=== PATIENT | female | born 2000 | race Caucasian/White ===

== ENCOUNTER 2023-10-27 14:08 | Outpatient (OUT) | payer OTHER, SELFPAY ==
--- NOTE | 2023-10-27 14:10 | US_ITS ---
The [address] [address] Patient Name: ZEV YAP MRN: [id number] date: 2000 Sex: F Assigned Patient Location: [facility] Current Patient Location: [facility] Accession/Order Number: [id number] Exam Date: 10/27/2023 14:11 Report Date: 10/27/2023 15:44 At the request of: JOE WOOD Procedure: US OB transvaginal EXAMINATION: US OB transvaginal HISTORY: MISSED MENSES COMPARISON: No relevant comparison available. FINDINGS: GESTATIONAL SAC: Present YOLK SAC: Present POLE: Present CARDIAC: Present UTERUS: Normal size and appearance. OVARIES: Right: Normal. Left: Normal. CERVIX: 4.4 cm in length and closed. CUL-DE-SAC: Normal. OTHER: None. AGE BY LMP: 8 weeks 2 days SUE BY LMP: 06/05/2024 AGE BY US CRL: 7 weeks 5 days SUE BY US CRL: 06/09/2024 US/US OB transvaginal IMPRESSION: 1. Single live intrauterine . 2. Limited evaluation on today's study due to patient body habitus and a retroflexed position of uterus. Electronically authenticated by: TEENA RASCON Date: 10/27/2023 15:44
== END 2023-10-27 14:09 | disposition home or self-care (01) ==
LOC: NOMS 14:09
PROVIDERS: Visit Provider Obstetrics & Gynecology
DX: Z34.91 Encounter for supervision of normal pregnancy, unspecified, first trimester (principal); Z3A.01 Less than 8 weeks gestation of pregnancy; N92.6 Irregular menstruation, unspecified
CPT/HCPCS: 76817

== ENCOUNTER 2023-11-11 10:37 | Outpatient (OUT) | payer OTHER, SELFPAY ==
--- NOTE | 2023-11-11 10:45 | US_ITS ---
[address] [address] Patient Name: ZEV YAP MRN: [id number] date: 2000 Sex: F Assigned Patient Location: [facility] Current Patient Location: [facility] Accession/Order Number: [id number] Exam Date: 11/11/2023 10:46 Report Date: 11/11/2023 11:37 At the request of: JOE WOOD Procedure: US OB transvaginal EXAMINATION: US OB transvaginal HISTORY: MISSED MENSES COMPARISON: Ultrasound OB transvaginal 10/27/2023 FINDINGS: GESTATIONAL SAC: Present and normal appearing. YOLK SAC: Present and normal appearing. POLE: Present and normal appearing. CARDIAC: Present. UTERUS: Normal size and appearance. OVARIES: Right: Normal. Left: Normal. CERVIX: 4.7 cm in length and closed. CUL-DE-SAC: Normal. OTHER: None. AGE BY LMP: 10 weeks 3 days SUE BY LMP: 06/05/2024 AGE BY US CRL: 10 weeks 1 day SUE BY US CRL: 06/07/2024 US/US OB transvaginal IMPRESSION: 1. Single live intrauterine . Electronically authenticated by: TEENA RASCON Date: 11/11/2023 11:37
--- OUTSIDE RECORDS SUMMARY | 2023-11-11 10:46 | XMS_ITS | CCD ---
Author Name Unknown Address [address] [facility] [address] [place] [address] Organization [facility] Care Team Providers Care Field Account Manager Name Role Phone Unavailable Primary Care Provider UnavailCHAPIN Porter Attending Unavailable Jossie Krueger Unavailable Viral Galindo MD Primary Care Provider [phone] Medications Current Medications Medication Drug Class(es) Dates Sig (Normalized) Sig (Original) amoxicillin 875 mg oral tablet (1 source) Penicillin-class Antibacterial Start: 06-23-2023 take 1 tablet by mouth every twelve hours Amoxicillin 875 MG 1 capsule Orally Twice a day for 7 days May, Active ofloxacin 3 mg/ml otic solution (1 source) Quinolone Antimicrobial Start: 06-23-2023 Ofloxacin 0.3 % 10 drops into affected ear Otic Once a day for 7 May, Active Completed/Discontinued Medications Medication Drug Class(es) Dates Sig (Normalized) Sig (Original) naproxen 375 mg oral tablet (2 sources) Nonsteroidal Anti-inflammatory Drug Start: 10-05-2022 End: 10-14-2022 take 1 tablet by mouth twice daily at mealtime naproxen (NAPROSYN) 375 MG tablet Take 1 tablet by mouth 2 times daily (with meals) 20 tablet 0 10/05/2022 10/14/2022 Discontinued (LIST CLEANUP) Problems Problem Classification Problem Date Documented Da te Episodic/Chronic Menstrual disorders (1 source) Missed period; Translations: [Irregular menstruation, unspecified] 10-26-2023 Chronic Other connective tissue disease (1 source) Plantar fasciitis; Translations: [Plantar fascial fibromatosis] Episodic Other connective tissue disease (1 source) Plantar fascial fibromatosis; Translations: [Plantar fascial fibromatosis] Onset: 10-06-2022 Episodic Other upper respiratory infections (1 source) Viral upper respiratory tract infection; Translations: [Acute upper respiratory infection, unspecified] Episodic Otitis media and related conditions (1 source) Otitis media, unspecified, right ear Episodic Results Test Name Value Interpretation Reference Range Kaylah itellen COVID-19, Rapidon 10-14-2022 SARS-CoV-2 (COVID-19) RNA AMANDO+probe Ql (Unsp spec) Not detected Not Detected [facility] Comment on above: Rapid NAAT: The specimen is NEGATIVE for SARS-CoV-2, the novel coronavirus associated with COVID-19. The ID NOW COVID-19 assay is designed to detect the virus that causes COVID-19 in patients with signs and symptoms of infection who are suspected of COVID-19. An individual without symptoms of COVID-19 and who is not shedding SARS-CoV-2 virus would expect to have a negative (not detected) result in this assay. Negative results should be treated as presumptive and, if inconsistent with clinical signs and symptoms or necessary for patient management, should be tested with an alternative molecular assay. Negative results do not preclude SARS-CoV-2 infection and should not be used as the sole basis for patient management decisions. Fact sheet for Healthcare Providers: https://www.fda.gov/media/855387/download Fact sheet for Patients: https://www.fda.gov/media/412228/download Methodology: Isothermal Nucleic Acid Amplification Specimen Description .[facility] Rapid influenza A/B antigens on 10-14-2022 Flu A Antigen Negative NEGATIVE [facility] Comment on above: for Influenza A Anti gen Flu B Antigen Negative NEGATIVE [facility] Comment on above: for Influenza B Anti gen. [facility] Outside Recordson 03-18-2022 Outside Records [id number] [id number] Summaryon 03-16-2022 Coding Summary HTMLBase 64 ZvzsluydSOc4sNt+PGhlY WQ+TB6LJOJxU33vvKZrlH 8ZP7bVYJ0LFHQTWIPUUK6 UER4hqMC8ZEfiA0JtjbBd LajssJLnIU30ZSo0MDA8i GdgZFhugV2kuBRjT5b4Lp WuPN61nN93VFukXYXiYaG 3LjZpbjsgbWFy Y6qvQgOqbRVjFmg+PHRhY mxlIHdpZHRoPScxMDAlJy XziAsbLO6kZp6aJGOjEVP vbGxhcHNlOiBj p0dyVYCuQMucWP0umVeqM 4BsjIZ2EUXqh1f8Nd62aX I+IZVeWVO7nMclKLqqo03 5ZiDmm5aaCTK0 yEMhNGrjYUJ2F90wo3K3N QZmAESzIUJ7wGM6iG6feA afdlchB1CjvKFeMqC5NRM 3pGWfxA3lmXxw hiespY3kMko+B93PIC9DR QLUVF9NFkd8W0OrWmjahR I+SD84RVCpAG28cGJbnPS da6toeTj1LkUj QKAiILW6wAdlRNcaq8MkG DSkE28euLFkt7F4BEFduJ orgOErKiWuiTR2lY4lXZv qtanwo0qlagdj Tiuuw1bmog32gS38D71tX OfwWFCrSRB0KKSbNXWrfP pcgr4dzW3aKe5+IRmbm3t dm1qrcLj9DiVl PPVkvrXsnKtzWRH3i0HjT m24U7GivHbmm1DaLlg9rr 79vBZry7N8eEK1BEjrGBP uwB2cHCehPcV8 SENsLrKszC41lGZbDNysS a0juDndyVhpKL4hEWRlxj ooDZXtxP5bDUEhkUJdhWu aDE5oAVJawroc b766DcUgNIT1UXRvhRTsF 7RclF3cJdXnSJDcGRNwL6 UqrUWzEUcjQ127TJzsLxW 0KEEnpkPnI5Ls HMNtnHykNhH7a1U5Fr7Xt 2KhufxfEYM1ZOdyJTM3Jr PvYpFhGmI0A0XxVeh4NJZ djYflZV3aO1Pz DNBzwpqfjdeeyBL8IALeZ EVycG82wKJnMNfnJx1cc1 Y4q451XCMeBPEpuZ27Jp8 udDogMTBwdCBU jP7uludmc3yrydkkQfSlH YYiYRo1EUk7BQZhlZoxUh YgTHL8UnZ3IFY5rBBzoC7 cuJrwjudsaV4k Oyc+M54jcC4uWSP8PGC1g xlbUIPrcaVhKP43OO84F2 RyPjwvdGFibGU+PGRpdiB nzJfjTR8qTrOc c2kby9KiPQpeJ4ZpRDIsS CruDpn7NWGnZWG6bXQ6cZ 5jNGYfQXzeo0A9wIX5T9Y tuqGmfe9sm3qo HNSbGIwzA54trDEpl3A7Q JGemKO3WYOuzBedPiEoxA 93Oyc+MAXgdLsyf8IkYha zm2mco6alrVq5 SqJrXAQgpvXioCzhFGM0e 2UsDj58W10fUGzaQAHvAB VsYJNbZOUawWkwso7zlX6 wIi8+PGNvbCB3 dII7nM5tVQLpFnK3VAquA 596XwZhcNEkHcyzx0bta9 ckhCw6XoJwWGRbjiNknZw tEOL5s9DfLt55 N03tRIuhBOQxWLNiOMGwP RSubIehzp8laT4sJg7+PC 5zf0nxaq45gL27yQQ+PHR tQBZ8pBqwQNzu PJBikZ5fGAbzZlJ3NNKkV hZzdD45cQQuUQujMc8tqL mgeYrdPK9uRGUtiflts06 6DzOir9ggOPQv qOFnIIoeLNN8B94pi8D9S ZDyNEDzZUC8eMK7dW0aoA lnbjogbGVmdDsgdmVydGl hICntWWnoD822 IHRvcDsnPlBhdGllbnQgT uJvKTa6M2XzWic2PDUrhB ksNZ0alNRzDMzjHz0quSp caPhtGN8tOXZp hwyxx493AgMfi7oeFLAyu CSxNVlnXOD3H76fh2D8OH KvUSIvWSR2vYD0zZ0yaEa nbjogbGVmdDsg wjWvlAhwYSvpKAwaN209I HRvcDsnPkJpcnRoIERhdG J3GN40OG68iSKbc8P7kIC 8A3HlXWOaxgrq bohyhZR9FUPlDCObrY98F r0jrWzcJh9rOKReJXF6VI YzbCVcS5KlhX4tQeUbPJC fSPYcR2NhbJOr VZzaE323AIeuBiB7BWPsz zCnS2KhNJWtiVquWhQ6l5 P2Sc2QQ0Q4SM54JL44cJY ke8D9eRN7I9Bg PKIuhtkojwxwsRU6QFJfB DXkbS49Em6mkFutLu4cCT GoGKF0OJBhlZYuD5SqsQ1 yOiAjMDAwMDAw V8NwdNXiHRrmN435CBgvJ tA4MEPirmBlE7ZmAWBjyL xsFvB5n4C7Te9LPZx0UF6 1PA18dYCug3G4 zVP2W9GwCWYieoqbkncqx TB3CRFfODDqvR26Yl5alZ srKg7jLAUqROO5EDOgbQY sR6NbkS4lCrDh UIZkJFCuB6TanACbPTonW 882SGqqFfC3VWSetxSgH7 EgQPMgrUjdIvI4y0F8Rj5 LEDRcZF24EZI6 uIB6BG65GH19I4QvCviht GFibGU+PHRhYmxlIHdpZH RoPScxMDAlJyBzdHlsZT0 cGv8tRTXvTBFr yDtgzBSwZhSrp4pqLMHqV MtvJX6lbSfuH1VcoJG9TJ Xal6n3Mc74Y97bT6DuuLS +PFHvaFV7mJS7 lQ7jDlVcQhO3GCmnF935B fTyfJQsRgect5klt2zwkM m2MeZ2MLJfhmPvuPvkBHX 2q5LjQg62F73c IHdpZHRoPSIxNSUiIHZhb Xmrbm8asD0iZq7+PGNvbC S7gIR5qH5lVbHsTyG0JRk qG567UxDviQJk Bngxs8vxq8aooMj0EmVcD NVwccCxjUtlANF0x8ZsRu 95Z9VexOjpl8RkMsp7gi8 2oRYpa9V2eLQ0 P5YbARKdgfkviDMxyNvvJ V1zFOVflxjuNLHwqI8tCX DyP6f2HnKuDzV4ITwrI1G jygA1PVUtjPUn SGkcDAO7L96nq7Y3OSHhD NLtBYF9nMS2qR5nmEzbsw ogbGVmdDsgdmVydGljYWw yKIafQ706DKMj yKfrJZCrsZ1vYSQqcFBvr EhpDQ7aVJQwbpbcXhEFIR xBUkQsIEFMRVhJUyBTSUV YAyI9T0PrCfx0 NRPiwKfnXU3lzGFlFYndO p7liBkycEoxDA3nAKZxfw jyDDYfqB7iPYAmiCSgeBa nSE2fYUNhceve x150UsNiJGT9JBVfkEFwO 4OpeQ6kGuGmVKSsXQQyS5 LstTCkGOtqD857BRobEtH 9GFGhdsZkA2Rl OMNtgXlyAlC7n3N9Kp0nB S3pFK2bANc3LE24NQ48hV Sjn0L3uBC5Q4GvGLZgcvj ugrmikII6XKZo IYOlmS39jFUgFGpmCi2ld 4E7k908CDGrBTCltK11Hr 2rxDlnSDBumCZUsZ9prjf hw5cnszyhGaDk ACAoZBv1RAa2QTFbhTdwU dQnSMC3WfD4XMV7yAUunR 0uyLqphwulvL8dFhp+MjI kKLWpcmI3B3Yn Onn1DDWmaHseJP9osDRvY OlhHv4niAznaJhdQG2cWG SdgimlGIOlhJ1cNEVyjSR edPuuVE9sGGKh speeg613BxMoPPD0DBGrp AWgY7GypS2iBpTsONGnQZ HeY8YceBXwZHxdZ720WCm wRhR4EOEqxuNb L3ZwQUTmlAjtNsA2o4J8S c4SBE6XUGI1S9WrNri6OL LitManIY0vkLVaZAqdXf2 qrRfliHylOD6d WXXnhinrJRQzkP2lTVUvj ZYstMlaYB8jSUFgfkehy6 77JnHvFCQ9UYZfhFJzS0Y nmT2jVtZpQDDq QWCrK2PbmCDdRHvnE642F BkkDeG6XBWyayLzS9FiWG KcyEhaGdT9m8W7Lp4GZGg vdGQ+OM55ri46 I1NwEpouOee1RAAjYRL3b ID7pE6kDNYdMHobp7I7bM C3A9FvyiWpek5hy5zrSLZ eGMhoO92fjXGd m1Y1RKYfvKZ8HMVrwGqpO lYfiF23Mes+PGNvbGdyb3 GySkbgu8res8vpjVg6HtX wJSIgdmFsaWdu NYD9q4VbWq77Y98lUKexE HRoPSIzMCUiIHZhbGlnbj 7igH5cQj7+GGCcxCP7nJK 2tL5vVeZmAuP2 ENnqS338RlKdnJEoYmbiq 8tcf5qwgGy0QkPzNFGzxa CyxDuxXUQ0y4HgJu20N6Y toPtfn4EdIxr5 rf22uSIxa8L3zZM1N7GnA VXkutzroQZvlQpnYO6dMI YsuzedQRMqkL3oUZLxT8w 4BaTmWzI0HYhw F6EolcR4IFFnfYFjKLCgz YJBlG0durmis5vdtzsfKw ZiISJhNPv7AKt7JSPciPv aSjDfZWA4DlT9 ERS1hSNoqK3seVdmpktgx G9wOyc+QHd9o0cbgBXmTK 9yvNN4UB93QP06jGXgp8P 5tSQ2N4UgIMNw ufgbhdyjvDE2BLJkRXJxp X14Pl9ztEctSb1mQPByOQ G2TPEafXEtK1DleA8hVhQ wRRGkAFXsP2Wb iBKfGThiS866ZLscGdF0M OEefvZvJ6QmDGLkiQnmEl V5o8F0Uh8QAJ63BF38HQ8 9vUXmh2C6aEH8 P5LdJRBldqkarrnhyCF5B TUvBNQycO56Nj3plGhnUy 3zHYXiBSP0WZCvkDNdU4O piG1xFwPzQTXi CPGsX8CxnADrXPshQ109H McjSqJ0NWKwilFhR1FcDW GnxCnoZlB6d8V9Oq7HQc4 2PP74AV39tJMi z2U0mAQ8A4LqUMCuvjhnq nbxbTT3SYErVPSxyM91Yg 9vfUnbDg4kDXWvUCQ1CNP fpPWsL7XcfW4b XvKvLDKnDOHdZ0AcuBLfO AsyY667NAceDkC4FJFxqp GhA8QpYEMqtXrvSpD5z8Q 3Is7SXOaofvj7 K6KmPagwtEI+YP72JCMzO X46pYAmzOJkt8hhrAy5Dl ScZLQsEUE4yQjnWOvti3U jPCVlX85iiSSb c2U (more content not included)... [facility] Coding Summary HTMLBase 64 GowjugilEFh4zOp+PGhlY WQ+MY0FOREnR05jlZEtdV 0WP4vGCD5TOCDGUJSNSM8 ZOU4qtYA7XErcZ0BbfpHs JwxzkEKcCH45MWk4NYB9v AjlPKwcfX8lsIZgV2v4Dr QeEI35wK80YPdxVTDcSeT 3LjZpbjsgbWFy B0iiKrGrhPUoKlx+PHRhY mxlIHdpZHRoPScxMDAlJy YndHynPJ0tNy7wILDmYYR vbGxhcHNlOiBj u2ggELQxUCbaKI8qrNalB 6YbmVM9RGUgj7y8Ia72aY I+IPTuDLW6mMihVTccw46 0FaRxo8rkACC7 sXJpYQftOZG3D28ws9A7I TMgMDJqWEQ2pFM8hG6uxR rjphgqA1DnqCPrUyN1FOL 3tGGqjF3zmGzo wgikrL9xWoq+E09GEY9NA UOKFP4KLtr7Y6VqBjzrzN I+EP95ILZwMJ80hCVbkTL gw2brwCs1TrHp SQUnDPD4hRuwKPfir7NeD LEqS04qjGSny9C9DVSggF cesYHfNmYblAY1kA4oHQh eevqty8bbdcbq Uytgk5kzwu21yU24Q05fT PwwHUZlBTL4AIVxDQEqaV luof0beT7aBi9+KWmxu2k dq0xxlXh0NoNu GUJxpzAgqDwcCIR5z6QyL g01D5IzzFuhx4PfOco9cd 92gFYaa3X0nFL1SXpaXWZ jxB4cPUkwWbZ9 FMZuNuGzyT87qDTbLDftB h6fdZiqaDvfUM6dUPKnlg byWIQnzD3cJQImlHJiqWb jMF6dEMAubyqv o661ZaHsKXQ7PWDvnOPvW 4AcwL6qIgVmYVEqYFScA9 HljMUjBWkjN152TClmWcM 9REBgokNxB8Eh EIBawTcsVlG1v0Y5Tc5Fx 9RsxyzvIQM9VPthYYJ2Lv ApZpOjRxH2B1TgGok1ITD eiWnrRX5pM0Ac LXVdjmbzvvwiePZ2RTCbR UUmhD19nGJzSOxsMf2oa9 G0v975QOUyOMLrdD69Qf7 udDogMTBwdCBU jJ7alwtox6gcbwgtSfZaS CHaBBz5UDx4QLYnaKfkXn CuHQH8MqI2HUL1nURlaN9 liBkugbglrH6q Oyc+S55efS9uBUB2SMO9t jvgYOIxcyZnQT61ZG15K4 RyPjwvdGFibGU+PGRpdiB jcZmrPX0mSuYa k1dxw4BhQWcyI4PbEQQsJ YbaTid7GWPjKWJ3fDM6iZ 1eBDYhJUdng6Y4tYX1V6B towJyfk4gk1ul DPBqNKpfV65ucTWvd2M2F JOldOU8BVPfqBujAmGtgN 93Oyc+RNCzySeeg5SdPid cj7was7dluVm9 VaBsVPYpqhRvsZgdTAF4p 9VtBo30C36qYGqwGXOhFH QsBDJaFKBylRubla6qqL9 wIi8+PGNvbCB3 jXZ2lW5aTTLaNeA7ODdwD 324JxAwtPBfQwbie7lwe2 mceEh1HpUtHQRsfjKrzKd kZOH9x6EmLm50 N42bBAigOOWoPFPdAVGfT YTtlXpeun1asP9vAl4+PC 8az8fwkt46sR98oTJ+PHR tVPO0oPazWCke VBLrnH4fTOidAxB0MRDsM yYliP08mOErDEiiLu5rlY giuOyiQI5tQWQrfraue32 0DrUox5nxOMSd mKLjEFidKXI5H25ym5H9B TIyJDXlQRZ2jYH1uC6whO lnbjogbGVmdDsgdmVydGl uVIbcTEkgX169 IHRvcDsnPlBhdGllbnQgT uEmMDp4G8ZpIxg6QNMpqK cdAB7nfXEmXQxgRv8kwBf dgGwtYR6yZQVx krkur564CjKvh7ijHNMqt BScXEobSUR3Z45im2L4JF GdSGRyHRN1wNE4aD0zzYx nbjogbGVmdDsg mtRakFceGCsiBKecB188N HRvcDsnPkJpcnRoIERhdG C7WT25IS17tOMih4V7wJG 4S7QtOICzezke mlpwfLZ8CFSmHIKyrA38S c3jrFehKp2gIDMtYLZ9ZP KcrJKsO3GitV4eWaImGEY cYKTsD0KkdXPk OVakC312ELdfNbG3DFKpr pHqC7CpQSMnnTogIdG6g9 X7Rh5EA1J1FP58GC62zBJ vk3G6jQB5N4Nh ZKUvooktsrywfWR2BPXuH LUgzB54Qp7uxRgcFp9wNW QuRXM2FIVjiZWcZ0VzhU3 yOiAjMDAwMDAw M9RfbPSrRFidV722HDquQ kF5EECpkyHfC9XtCKSicZ jfMnF5i1B8Fe1ROHv3CP2 4KP14hDDyp7K5 jEA0L9IoXEAecutdwtpvx JD3ZOChYAYgtD92Ia7joH anLq5tSAXgMDI8RWTkrHQ aQ9CeiJ2jPhUj XEYfKRBfM5QqjJVhEZzqW 938BQycUxH1ZWOaitCeQ0 YiGWWebQxwRfQ6w8Y0Di9 VUUQxNW52HLJ2 iZT7ES28ZF09D0NpMubty GFibGU+PHRhYmxlIHdpZH RoPScxMDAlJyBzdHlsZT0 vBn2eVHJuWHBb mEfyeQDqJeBjk9aeHERqG JwhBY8kuPdbX8KugOK3II Cny9o7Bc97K19kK8NsjKY +WQZmkFH7aVO9 uE4lJzNxHnS2UUgyN341G cLoxJIkFodia7zlz8mfzH p2OzE6YAXdjaOnmXuzXTQ 7p5VfLs58X16v IHdpZHRoPSIxNSUiIHZhb Ylulj9bkW4gAu6+PGNvbC R8gWZ7eQ3gJdTuQoA0GFd aW723XtFaoDQb Fgtyy7iju8uloCu6VqYsB RCmsjPcsInpCPF7w3FfYc 25J0PakWgql1LcDeu5sn8 7oRJel8H4wOK6 V3DdQGQffwcuwAQymByzO S2pBONjrtupROLszM3nPN FdB8x2DpKqMxE5QCqjI4Y bvtK5BUDpqPCy UJwnHFA6C55cu0B6QEJgW RBlABZ6jJI7aZ2jaNpnbd ogbGVmdDsgdmVydGljYWw zOCnpU415AVPo sZnvXMQhrI6uZKLuqUXci PbxAM3gCSLahcyeHtVCHG xBUkQsIEFMRVhJUyBTSUV NHrK1H2VuBzj2 GUBfxWnbED9xlKPuSOdcZ m5jsPvfaDokIP3eNTZcev txIGSrbU1uXFUtcDUgqCk jLY8kILWpxphs u796YbTpGQR0SRGfiSLcG 5JgwV8jHiYsIWMdIEHsB2 YbpJRtWJhlF753HJrgAxV 5CRDafeJaP1Rh YXRgmYaqAvJ1q7L2Sc7lJ Y8qGF9gMCt8II16ZZ28gH Xms0A9cGV1H8RdOTVosyz skonzvTK6CIGr AMSnfA24sKScPOmiTh8mv 8M4c001EFIsSRHieA27Up 3olHesLQAcbBSMtZ7hvmz ww8kawtjpIwOi ETPcAXu0CLv0IFBrvMdmY uRuFHV5EgI4XAA3fQGdjU 4rrGhijndxyF4aBqx+MjI gWTMoxyF5T6Wp Gri7MHIrkBqsEY4qbWSbR EdlFs2oqAeklTbyGN4nHQ JbymfpYOFelQ3gZOPdvCD eoAivLJ2mDBBs rwfxj836CuRmBFW1VSBcf UPzT4EseU5gNwYsIRTpBW LlO2TbxFQuABlnC657SSr rXaZ3TAJlibVq K7YsZRPmyGqdZjE5r4X2G t7QWS0HMCZ4C3VgSae4YD UbbGhkJI8beGVjEQbsSt7 ybVljrMkkBD9b QVNyvhotDXBpkH7uLFRwr QZpyUfsHQ3bEEWamuxrm2 96CiZbORA6PRQdyARsE5G xfD0yVjSpKZJr VYKcM2WupBJzDDltP795Q JbmVcP2IYLlrhUnU5PaCA RzzLkxSwQ7y5Z7Vp7PuHL nH3GhM8u8S0Xv PjwvdHI+SM21NPGkLD54p AMavRCfn5rgwPm5AhQdZS CnOQP3tVsqWWigq3KsOGE vD85yaHLuw4C3 TLSybRtwpPEgEfRrkGO5s F5cDByaifmhq0thozekBk aul0yyqh09mR48M50vCDa pZHRoPSIzMCUi WYRhgRuvdn8ybH8fYe2+P PYfoWV6oCO2tA9nUpCyVu K4OPxaJ164PfXacURdHln fk6dha7lypTl7 UxDaDISpckDwwRcoQMA8b 6UmHc39X88yDYmcXDZkCB MfGNYnCIIrsEhgrw8rzD1 wIi8+WX0xf8hq cb78gJ00oCP+UVXyVBG1t KqwUJmcDSKazK7jFAziLk H9GHMwMaCclK96qKCpHIb sIv0khOexuKbj XG3yGLQjhleew213ZnFhv 5ouNCBufJZdTOemRST6L4 6xa5R6DTNwOAUjMNO4pDU 9bM9jcDuzcdqc bGVmdDsgdmVydGljYWwtY AvsY907NUHteBmrQdMtvV FbD8tyyiOLHZ1xFjkdcSO +KEXbVQU7bVze PXrmPFIrgZ0eUDAlV5p2K uFvQyR4XAelU6SyioF1EZ ZmuWHeMSNccHYYpP2jkfj fp2qixdyhBdQf SYJoMTz8YCb1PAPhbDwyQ vCyNDJ4IwQ0ULF2dJAgkM 1ykVwalrfqcP8dFgs+Rkl OOjwvdGQ+PHRk DTK9rDlpPJynKQSkaC6zE MLjS5a9GoImWsX4QOycM5 VylfV5WLRxnGEtVLTecEW XnG6xafarf6js txekRnNfZIYsABs8CHo1D WHasCacTiLyVWA6OkB7VJ V5aEPaiM7gyBlotnixxE2 wOyc+TVJOOjwv dGQ+QPJmSMF1fXjbLRhiF KPykS5pNBYpG7n4AbEgNh P3FPonD7TywoK5ERLrbXX hLJKrzXRZoB4c zcofa9btkhukQhLtISOtW To1DVv9UEIsfOxwRjTrJD W9YiG2EYR9fPJvxG1zjRn coqwziR7uYsl+ KWE5NPV4OO63CH79J8PsA jwvdGFibGU+PHRhYmxlIH dpZHRoPScxMDAlJyBzdHl rIH1dDw8vETJp LWN (more content not included)... Normal [facility] ED Clinical Summaryon 2021 ED Clinical Summary [facility] - Emergency Department [address] [place] [address] [id number] ED Clinical Summary PERSON INFORMATION Name: DIETER ALVAREZ Age: 21 Years Sex: FEMALE : 2000 MRN: Acct#: Visit Reason: Hand pain-swelling; FALL- LEFT HAND PAIN Arrival: 03/08/2022 18:36:24 Discharge: 03/08/2022 19:37:00 LOS: 000 01:01 Check In: 03/08/2022 18:36:24 Checkout:03/08/2022 19:37:00 Address: [address] [place] [id number] PCP: Viral Galindo MD PROVIDER INFORMATION Provider Role Assigned Unassigned Sudhir Samayoa MD ED Provider 03/08/2022 18:38:47 Marry RN, Isabela Daily ED Nurse 03/08/2022 18:44:08 Cinda Mercado RN ED Nurse 03/08/2022 19:16:18 VITALS INFORMATION Vital Sign Triage Latest Temperature Tympanic Temperature Temporal Artery Pulse Rate 124 bpm 124 bpm O2 Sat 99 % 99 % Respiratory Rate 18 br/min 18 br/min Blood Pressure /95 mmHg /95 mmHg MEDICAL INFORMATION Medications Given: Allergy Information: No Known Medication Allergies PHYSICIAN DOCUMENTATION DISCHARGE INFORMATION: Discharge Disposition: Home Discharge Location: Home PATIENT EDUCATION INFORMATION Instructions: Metacarpal Fracture, [id number] Follow-Up: With: Address: When: LindsayTristian Alex DO [address] [place] [address] [id number] Within 3 to 5 days DIAGNOSIS: 1:Fracture of fourth metacarpal bone of left hand Patient Understands: Yes - Patient/family/caregi joseph verbalizes understanding of instructions given Comment: Normal [facility] ED Note-Nursingon 03-08-2022 ED Note-Nursing Patint arrives to [facility] ED via private vehicle. Ambulated with a steady gait to ED room 3. Alert and oriented X4. C/O left hand pain. Patient reports falling down steps 10 days ago. Patient reports pain is located left ring finger. Reports increased pain with movement and touching. [facility] ED Patient Summaryon 022 ED Patient Summary [facility] - Emergency Department [address] [place] [address] [id number] PATIENT DISCHARGE INSTRUCTIONS Patient Information Name: DIETER ALVAREZ Age: 21 Years Date of : 2000 Reason For Visit: Hand pain-swelling; FALL- LEFT HAND PAIN Arrival Time: 03/08/2022 18:36:24 Primary Care Physician: Viral Galindo MD Attending Physician: Sudhir Samayoa MD Comment: Visit Diagnosis: Diagnoses This Visit Fracture of fourth metacarpal bone of left hand (S62.305A) Hand pain-swelling ([id number]) Prescription Information: If you have been given a prescription for narcotics, seek immediate medical attention if you have any difficulty breathing or any sudden status changes such as confusion and sleepiness. If you or anyone you know is experiencing suicidal thoughts, mental health, alcohol and/or drug addiction problems; contact the [facility] 18/04 Crisis Hotline -Text 4HRUK db 297826. If you received any narcotics, sedation, or any other medication that causes drowsiness for the next 24 hours, unless otherwise directed: ? Do not drive a car. ? Do not operate machinery such as power tools, lawn mowers, drills, sewing machines, or stoves ? Avoid alcoholic beverages and drugs for allergies, nerves, or sleep ? Do not make important personal or business decisions or sign any legal documents With: Address: When: Tristian Montoya DO [address] [place], [place] [id number] Within 3 to 5 days Medication Information: The exam and treatment you received today in the [facility] Emergency Department were for an urgent problem and are not intended as complete care. It is important for you to follow up with a doctor, nurse practitioner, or physician?s trust administrative assistant for ongoing care. If your symptoms become worse or you do not improve as expected and you are unable to reach your usual health care provider, you should return to the Emergency Department, we are available 24 hours a day. For those patients who have received Radiology results, the interpretation of your X-ray as given to you by our Emergency Department physician is only a preliminary report. The Radiologist will review your films and if there is a change in the diagnosis you will be notified by phone. Please make sure you have provided a working phone number so we can reach you if necessary. In the event that you had a lab culture while you were a patient in the Emergency Department, you will be notified by phone if there is a need to change your antibiotic. Please make sure you have provided a working phone number so we can reach you if necessary. [facility] Emergency Department has provided you with a complete list of medications post discharge. Please inform your pen ruler operator/provider of your visit and for further instruction on these medications. Any specific questions regarding your chronic medications and dosages should be discussed with your primary care physician(s) and/or pharmacist. Medications to Continue That Have Not Changed Other Medications amitriptyline (amitriptyline 25 mg oral tablet) 1 tab(s) Oral once a day (at bedtime) for 30 Days. Refills: 6. Visit Information Allergies: Substance Reaction Symptoms Type Comments No Known Medication Allergies Drug Vital Signs: Vitals and Measurements this Visit (last charted value for your 03/08/2022 visit) Vital Signs This Visit Temperature Oral: 36.8 DegC Peripheral Pulse Rate: 124 bpm Respiratory Rate: 18 br/min Systolic Blood Pressure: 145 mmHg Diastolic Blood Pressure: 95 mmHg SpO2: 99 % Oxygen Therapy: Room air Measurements This Visit Height/Length Dosin.640 cm Height/Length Estimated: 167.640 cm Weight Dosin.080 kg Weight Estimated: 163.080 kg Problems List: Problem Onset Comments Depression Female pelvic pain None Smoker 28-MAR-2014 12:37:00<$> Added secondary to documentation in Social History. Patient Education Metacarpal Fracture Use Tylenol or ibuprofen as needed for the pain. Follow-up with orthopedics if symptoms persist. Return to the emergency department any worsening symptoms. A metacarpal fracture is a break (fracture) of a bone in the hand. Metacarpals are the bones that go from your knuckles to your wrist. You have five metacarpal bones in each hand. This fracture is usually caused by a fall or an injury that crushes the hand. This injury is diagnosed with medical history, a physical exam, or imaging tests, such as an X-ray. What are the signs or symptoms? Symptoms of this condition may include: ? Pain. ? Swelling. ? Stiffness. ? Bruising. ? Inability to move a finger. ? A finger that looks misshapen. ? An abnormal bend or bump in the hand or finger (deformity). How is this treated? Treatment depen (more content not included)... [facility] XR Hand Complete Lefton 02-24 XR Hand Complete Left EXAM: XR Hand Complete Left HISTORY: Fourth metacarpal pain after fall 10 days ago COMPARISON: None. TECHNIQUE: 3 views FINDINGS: Volar angulated fracture of the fourth metacarpal mid diaphysis. Associated soft tissue edema. The remainder of the osseous structures are unremarkable. Joint spaces are normal. No visualized effusion. IMPRESSION: Volar angulated fourth metacarpal fracture Final Dictated by: Viral Pearson DO Dictated DT/TM: 03/08/22 7:39 Signed (Electronic Signature): Viral Pearson DO 03/08/22 7:40 pm Technologist: TAMANNA Normal [facility] Office/Clinic Noteon 07-09- 021 Office/Clinic Note Patient: DIETER ALVAREZ Age: 20 years Sex: FEMALE : 2000 Associated Diagnoses: Migraine with visual aura Author: Viral Galindo MD A History of Present Illness 20-year-old female presents today with complaints of migraine headaches. She has them almost daily. Typically right-sided, pulsatile, will present with visual aura. She has tried taking zzby-bjs-[id number] migraine medication with no improvement. Not associated with her menstrual cycle. She will go try to take a nap or sit in a quiet dark room when she has her symptoms. No other neurological findings. No ringing in the ears. Denies any nausea or vomiting. Denies any significant stressors triggering her migraines. She will even wake up with a migraine. Review of Systems Constitutional: Negative. Ear/Nose/Mouth/Throat : Negative. Respiratory: Negative. Cardiovascular: Negative. Neurologic: Headache. Psychiatric: Negative. Health Status Allergies: Allergic Reactions (Selected) No Known Medication Allergies, Allergies (1) Active Severity Reaction No Known Medication Allergies None Documented Current medications: No qualifying data available Physical Examination VS/Measurements Vital Signs 07/09/2021 8:29 EDT Peripheral Pulse Rate 102 bpm HI Systolic Blood Pressure 110 mmHg Diastolic Blood Pressure 80 mmHg SpO2 99 % , Measurements from flowsheet : Measurements 07/09/2021 8:29 EDT Height 168 cm Height/Length Measured (inches) 66.14 in Weight 139.80 kg Weight Measured (lbs) 308.206 lb Body Mass Index 49.53 kg/m2 Cardale Body Weight Calculated 60 BSA Measured 3 m2 General: Alert and oriented, No acute distress. Eye: Pupils are equal, round and reactive to light, Extraocular movements are intact. HENT: Normocephalic, Tympanic membranes are clear, Normal hearing, Oral mucosa is moist. Neck: Supple, Non-tender, No carotid bruit, No jugular venous distention, No lymphadenopathy, No thyromegaly. Respiratory: Lungs are clear to auscultation, Respirations are non-labored, Breath sounds are equal. Cardiovascular: Normal rate, Regular rhythm, No murmur, Good pulses equal in all extremities. Neurologic: Alert, Oriented, Normal sensory, Normal motor function, No focal deficits, Cranial Nerves II-XII are grossly intact. Cognition and Speech: Oriented, Speech clear and coherent. Impression and Plan Diagnosis Migraine with visual aura ([id number] G43.109). Plan: Discussed with patient we will try medication for prevention. Would like her to follow-up in 3 to 4 weeks. Reviewed side effects of amitriptyline. If no improvement would consider trying Topamax.. Orders Orders Pharmacy: amitriptyline 25 mg oral tablet (Prescribe): 25 mg = 1 tab(s), PO, Once a day (at bedtime), for 30 day(s), 30 tab(s), 6 Refill(s). Orders Evaluation and Management: [id number] Office visit - established pt, Level 3 (Order): 07/09/2021 8:27 EDT, Qty: 1, Migraine with visual aura. [Electronically Signed on: 07/09/2021 08:53 EDT] Viral Galindo MD [Verified on: 07/09/2021 08:53 EDT] Viral Galindo MD [facility] Coding Summaryon 04-30-2021 Coding Summary HTMLBase 64 AmdipikcTHt9sUl+PGhlY WQ+YW8IQFTqD97fpQIljJ 6HU3nQZS9XKZTKEDPYGA2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 [employer] 10-05-2022 23:14-0500 SaO2% (BldA) [Mass fraction] 99 % Chapin Lee MD Work Phone: [facility] [employer] 10-05-2022 23:14-0500 Systolic blood pressure 146 mm[Hg] Chapin Lee MD Work Phone: [facility] Encounters Encounter Date Encounter Type Care Provider Facility Start: 10-27-2023 End: 10-27-2023 Office outpatient visit 5 minutes [facility] Tricia Nurse [facility] Comment on above: Canceled (Provider) Start: 06-23-2023 End: 06-23-2023 ambulatory Jossie Krueger Other [employer] Other Start: 06-23-2023 Office outpatient ne w 30 minutes Jossie Krueger [facility] Start: 10-14-2022 End: 10-14-2022 Emergency department patient visit Venkata Work Phone: [facility] ED Comment on above: Viral URI with cough (Primary Dx) Start: 10-06-2022 End: 10-06-2022 Emergency department patient visit [facility] Start: 10-05-2022 End: 10-06-2022 Emergency department patient visit Chapin Lee MD Work Phone: [facility] ED Comment on above: Plantar fasciitis (P rimary Dx) Procedures Date Procedure Procedure Detail Performing Clinician Start: 10-14-2022 COVID-19, RAPID John Jade DO Work Phone: Start: 10-14-2022 Iaadiadoo influenza Vadim Hastings DO Work Phone: Plan of Treatment Date Care Activity Detail Author Start: 11-11-2023 End: 11-11-2023 ambulatory 11/11/2023 11:00 AM EST Initial [facility] [address] [place] [address] [facility] Start: 11-11-2023 End: 11-11-2023 Professional / ancillary services management 11/11/2023 10:30 AM EST Ancillary Procedure [facility] [address] [place] [address] [facility] Start: 10-27-2023 End: 10-27-2024 US Pelvis transvaginal US OB transvaginal Imaging Routine Missed menses Expected: 10/27/2023 (Approximate), Expires: 10/27/2024 [facility] Work Phone: Comment on above: Expected: 10/27/2023 (Approximate), Expires: 10/27/2024 Start: 04-26-2022 Influenza vaccination Flu [facility] (# 1) [id number] [employer] [facility] Start: 11-17-2021 DTaP/Tdap/Td vaccine (7 - Td or Tdap) DTaP/Tdap/Td vaccine (7 - Td or Tdap) [id number] [employer] [facility] Start: 01-15-2000 COVID-19 Vaccine (#1) COVID-19 Vacci ne (#1) [facility] Payers Date Payer Category Payer Unknown [employer] [id number] 2023-Present [address] [place] [address] [id number] 2019 Medicare [id number] 1999 Unknown [id number] Social History Date Type Detail Facility Start: 10-05-2022 Tobacco smoking status MAIS Smokes tobacco daily [facility] Phone: History of tobacco use Cigarette Smoker B ON [employer] Phone: Start: 10-05-2022 End: 10-14-2022 Cigarettes smoked current (pack per day) - Reported 1 [facility] Phone: Start: 10-05-2022 Tobacco use and exposure Smokeless tobacco non-user [facility] Phone: Start: 10-05-2022 End: 10-14-2022 Alcohol intake Current drinker of alcohol (finding) [facility] Phone: Start: 10-05-2022 Alcohol Comment in a month [facility] Phone: Start: 2000 Sex Assigned At Not on file [facility] Phone: Start: 09-25-2022 End: 10-14-2022 Exposure to SARS-CoV-2 (event) Not sure [facility] Phone: Start: 10-14-2022 History SDOH Alcohol Frequency 1 [facility] Phone: Start: 10-14-2022 History SDOH Alcohol Std Drinks 0 [facility] Phone: Sex Assigned At Sex Assigned At [facility] [employer] [facility] Start: 2000 Sex Assigned At Female [facility] Start: 10-20-2023 Gender identity Identifies as female gender (finding) [facility] Start: 10-20-2023 Sexual orientation Heterosexual (finding) [facility] History of Present illness Narrative 10-27-2023 Zari Wagner LPN - 10/27/2023 2:30 PM EST Note Date & Type Note Facility 10-27-2023 History of Presen t illness Narrative Patient to return in 2 weeks to get a SUE as not able to obtain today. documented in this encounter [facility] Evaluation note 06-23-2023 Note Date & Type Note Facility 06-23-2023 Evaluation note Encounter Date Diagnosis Assessment Notes May, Right acute otitis media (ICD-10 - H66.91) Discussed diagnosis with patient today in office. Advised patient to take antibiotics and drops as directed, complete entire course even if feeling better. Use OTC Flonase and Zyrtec as directed. Supportive care, Tylenol/Motrin as needed for aches/fever, heat packs for comfot, warm compress to affected ear, push fluids and rest. Follow up with PCP if symptoms do not improve in the next 2-3 days. Immediate eval for severe ear pain, severe headache, neck pain/stiffness, pain, erythema, or redness behind the ear, fever, N/V, hearing loss, fever, or any other new or concerning symptoms. Patient verbalizes understanding and is agreeable to treatment plan [employer] Other Clinical Note 03-08-2022 Note Date & Type Note Facility 03-08-2022 Note [employer] Orthopedics Metacarpal Fracture Use Tylenol or ibuprofen as needed for the pain. Follow-up with orthopedics if symptoms persist. Return to the emergency department any worsening symptoms. A metacarpal fracture is a break (fracture) of a bone in the hand. Metacarpals are the bones that go from your knuckles to your wrist. You have five metacarpal bones in each hand. This fracture is usually caused by a fall or an injury that crushes the hand. This injury is diagnosed with medical history, a physical exam, or imaging tests, such as an X-ray. What are the signs or symptoms? Symptoms of this condition may include: ? Pain. ? Swelling. ? Stiffness. ? Bruising. ? Inability to move a finger. ? A finger that looks misshapen. ? An abnormal bend or bump in the hand or finger (deformity). How is this treated? Treatment depends on how bad the injury is. ? If your broken bone is still in place and did not move, you may need: ? To wear a splint or cast for several weeks. ? To have the broken finger taped to another finger next to it (james taping). ? If the broken bone has pieces that moved and no longer line up, your doctor may: ? Do surgery to fix the bones into place with metal screws, plates, or wires. ? Move the bones back into position without surgery (closed reduction). ? After your bones are put together, you will need to wear a splint or cast for several weeks. Treatment may also include: ? Physical therapy after your cast or splint is removed. ? Follow-up visits and X-rays to make sure you are healing. Follow these instructions at home: If you have a splint: ? Wear the splint as told by your doctor. Remove it only as told by your doctor. ? Loosen the splint if your fingers or toes tingle, become numb, or turn cold and blue. ? Keep the splint clean. ? If the splint is not waterproof: ? Do not let it get wet. ? Cover it with a watertight covering when you take a bath or a shower. If you have a cast: ? Do not stick anything inside the cast to scratch your skin. ? Check the skin around the cast every day. Tell your doctor about any concerns. ? You may put lotion on dry skin around the edges of the cast. Do not put lotion on the skin underneath the cast. ? Keep the cast clean. ? If the cast is not waterproof: ? Do not let it get wet. ? Cover it with a watertight covering when you take a bath or a shower. Activity ? Do not lift or hold anything with your injured hand. ? Return to your normal activities as told by your doctor. Ask your doctor what activities are safe for you. ? Do exercises as told by your doctor. Driving ? Do not drive or use heavy machinery while taking pain medicine. ? Do not drive while wearing a cast or splint on a hand that you use for driving. Managing pain, stiffness, and swelling ? If told, put ice on the injured area. Put ice only if you have a splint, not a cast. ? If you can remove your splint, remove it as told by your doctor. ? Put ice in a plastic bag. ? Place a towel between your skin and the bag. ? Leave the ice on for 20 minutes, 2?3 times a day. ? Move your fingers often. This helps to prevent stiffness and swelling. ? Raise the injured area above the level of your heart while you are sitting or lying down. General instructions ? Do not put pressure on any part of the cast or splint until it is fully hardened. This may take several hours. ? Do not use any products that contain nicotine or tobacco, such as cigarettes and e-cigarettes. These can delay bone healing. If you need help quitting, ask your doctor. ? Do not take baths, swim, or use a hot tub until your doctor says it is okay. Ask your doctor if you may take showers. You may only be allowed to take sponge baths. ? Take sgep-qzv-xfwevst and prescription medicines only as told by your doctor. ? Keep all follow-up visits as told by your doctor. This is important. Contact a doctor if: ? Your pain is worse. ? You have redness, swelling, or pain that gets worse. ? You have a fever. ? There is a bad smell coming from your cast or splint. Get help right away if: ? You have very bad pain under the cast or in your hand. ? You have trouble breathing. ? The following happen, even after you loosen your splint: ? Your hand or fingernails turn blue or perry. ? Your hand feels cold or numb. Summary ? A metacarpal fracture is a break (fracture) of a bone in the hand. ? Treatment depends on how bad the injury is. You may need a cast or splint for a broken bone that did not move. You may need surgery for a very bad injury that moved the pieces of bone in your hand. ? Follow your doctor's instructions for taking care of your injury after treatment. This information is not intended to replace advice given to you by your health care provider. Make sure you discuss any questions you have with your health care provider. Document Revised: (more content not included)... [facility] Clinical Note 04-21-2021 Note Date & Type Note Facility 04-21-2021 Note Education Materials Orthopedics Rotator Cuff Tear A rotator cuff tear is a partial or complete tear of the cord-like bands (tendons) that connect muscle to bone in the rotator cuff. The rotator cuff is a group of muscles and tendons that surround the shoulder joint and keep the upper arm bone (humerus) in the shoulder socket. The tear can occur suddenly (acute tear) or can develop over a long period of time (chronic tear). What are the causes? Acute tears may be caused by: ? A fall, especially on an outstretched arm. ? Lifting very heavy objects with a jerking motion. Chronic tears may be caused by overuse of the muscles. This may happen in sports, physical work, or activities in which your arm repeatedly moves over your head. What increases the risk? This condition is more likely to occur in: ? Athletes and workers who frequently use their shoulder or reach over their heads. This may include activities such as: ? Tennis. ? Baseball and softball. ? Swimming and rowing. ? Weightlifting. ? Construction work. ? Painting. ? People who smoke. ? Older people who have arthritis or poor blood supply. These can make the muscles and tendons weaker. What are the signs or symptoms? Symptoms of this condition depend on the type and severity of the injury: ? An acute tear may include a sudden tearing feeling, followed by severe pain that goes from your upper shoulder, down your arm, and toward your elbow. ? A chronic tear includes a gradual weakness and decreased shoulder motion as the pain gets worse. The pain is usually worse at night. Both types may have symptoms such as: ? Pain that spreads (radiates) from the shoulder to the upper arm. ? Swelling and tenderness in front of the shoulder. ? Decreased range of motion. ? Pain when: ? Reaching, pulling, or lifting the arm above the head. ? Lowering the arm from above the head. ? Not being able to raise your arm out to the side. ? Difficulty placing the arm behind your back. How is this diagnosed? This condition is diagnosed with a medical history and physical exam. Imaging tests may also be done, including: ? X-rays. ? MRI. ? Ultrasound. ? CT or MR arthrogram. During this test, a contrast material is injected into your shoulder and then images are taken. How is this treated? Treatment for this condition depends on the type and severity of the condition. In less severe cases, treatment may include: ? Rest. This may be done with a sling that holds the shoulder still (immobilization). Your health care provider may also recommend avoiding activities that involve lifting your arm over your head. ? Icing the shoulder. ? Anti-inflammatory medicines, such as aspirin or ibuprofen. ? Strengthening and stretching exercises. Your health care provider may recommend specific exercises to improve your range of motion and strengthen your shoulder. In more severe cases, treatment may include: ? Physical therapy. ? Steroid injections. ? Surgery. Follow these instructions at home: Managing pain, stiffness, and swelling ? If directed, put ice on the injured area. ? If you have a removable sling, remove it as told by your health care provider. ? Put ice in a plastic bag. ? Place a towel between your skin and the bag. ? Leave the ice on for 20 minutes, 2?3 times a day. ? Raise (elevate) the injured area above the level of your heart while you are lying down. ? Find a comfortable sleeping position or sleep on a recliner, if available. ? Move your fingers often to avoid stiffness and to lessen swelling. ? Once the swelling has gone down, your health care provider may direct you to apply heat to relax the muscles. Use the heat source that your health care provider recommends, such as a moist heat pack or a heating pad. ? Place a towel between your skin and the heat source. ? Leave the heat on for 20?30 minutes. ? Remove the heat if your skin turns bright red. This is especially important if you are unable to feel pain, heat, or cold. You may have a greater risk of getting burned. If you have a sling: ? Wear the sling as told by your health care provider. Remove it only as told by your health care provider. ? Loosen the sling if your fingers tingle, become numb, or turn cold and blue. ? Keep the sling clean. ? If the sling is not waterproof: ? Do not let it get wet. ? Cover it with a watertight covering when you take a bath or a shower. Driving ? Do not drive or use heavy machinery while taking prescription pain medicine. ? Ask your health care provider when it is safe to drive if you have a sling on your arm. Activity ? Rest your shoulder as told by your health care provider. ? Return to your normal activities as told by your health care provider. Ask your health care provider what activities are safe for you. ? Do any exercises or stretches as told by your health care provider. General instructions ? D (more content not included)... [facility] Evaluation note Note Date & Type Note Facility Evaluation note Diagnosis Plantar fasciitis- Primary Plantar fascial fibromatosis documented in this encounter [facility] Phone: Evaluation note Note Date & Type Note Facility Evaluation note Diagnosis Viral URI with cough- Primary Acute upper respiratory infections of unspecified site documented in this encounter [facility] [employer] Phone: Evaluation note Note Date & Type Note Facility Evaluation note Diagnosis Missed menses documented in this encounter [facility] History general Narrative - Reported Note Date & Type Note Facility History general Narrative - Reported Type Surgical History wisdom teeth [employer] Other Hospital Discharge instructions Attachments Note Date & Type Note Facility Hospital Discharge instructions The following attachments cannot be sent through Care Everywhere.Plantar Fasciitis (Swedish)documented in this encounter [facility] [employer] Phone: Hospital Discharge instructions Attachments Note Date & Type Note Facility Hospital Discharge instructions The following attachments cannot be sent through Care Everywhere.URI (Upper Respiratory Infection) (Swedish)documented in this encounter [facility] Phone: Summary Purpose Family History No Family History Records FoundNo Family History Records Found Advance Directives No Advanced Directives Records FoundNo Advanced Directives Records Found Additional Source Comments INFORMATION SOURCE (unrecogn ized section and content) DATE CREATED AUTHOR 03/18/2022 [facility] DATE CREATED AUTHOR AUTHOR'S ORGANIZ ATION 10/06/2022 Cristalellen Sheng garcia Reason for Visit (unrecogniz ed section and content) Reason Comments Foot Pain Onset was Tuesday mor ; attempted to get out of bed and had a sharp pain in the heel Reason Comments Shortness of Breath Shortness of breathe , chest pain, fever I've been sick since Tuesday Reason Comments Amenorrhea Ordered Prescriptions (unrec ognized section and content) Prescription Sig Dispensed Refills Start Date End Da te naproxen (NAPROSYN) 375 MG tablet Take 1 tablet by mouth 2 times daily (with meals) 20 tablet 0 10/05/2022 Care Teams (unrecognized sec tion and content) Field Account Manager Relationship Specialty Start Date End Date Viral Galindo MD [address] [place] [address] PCP - General Pediatrics 10/27/23 FOR RECORDS PERTAINING TO PATIENTS WHO ARE OR HAVE BEEN ENROLLED IN A CHEMICAL DEPENDENCY/SUBSTANCEABUSE PROGRAM, SOME INFORMATION MAY BE OMITTED. This clinical summary was aggregated from multiple sources. Caution should be exercised in using it in the provision of clinical care. This summary normalizes information from multiple sources, and as a consequence, information in this document may materially change the coding, format and clinical context of patient data. In addition, data may be omitted in some cases. CLINICAL DECISIONS SHOULD BE BASED ON THE PRIMARY CLINICAL RECORDS. [facility]. provides no warranty or guarantee of the accuracy or completeness of information in this document.
== END 2023-11-11 10:38 | disposition home or self-care (01) ==
LOC: NOMS 10:38
PROVIDERS: Visit Provider Obstetrics & Gynecology
DX: Z34.91 Encounter for supervision of normal pregnancy, unspecified, first trimester (principal); Z3A.10 10 weeks gestation of pregnancy
CPT/HCPCS: 76817

== ENCOUNTER 2023-11-11 11:43 | Outpatient (OUT) | payer OTHER, MEDICAID, SELFPAY ==
--- OUTSIDE RECORDS SUMMARY | 2023-11-11 11:47 | XMS_ITS | CCD ---
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 Fact sheet for Healthcare Providers: https://www.fda.gov/media/601229/download Fact sheet for Patients: https://www.fda.gov/media/048533/download Methodology: Isothermal Nucleic Acid Amplification Specimen Description .NASOPHARYNGEAL SWAB [facility] Rapid influenza A/B antigens on 10-14-2022 Flu A Antigen Negative NEGATIVE [facility] Comment on above: for Influenza A Anti gen Flu B Antigen Negative NEGATIVE [facility] Comment on above: for Influenza B Anti gen. [facility] Outside Recordson 03-18-2022 Outside Records [id number] [email or web address] Summaryon 03-16-2022 Coding Summary HTMLBase 64 NfcuwcalUTi3qLp+PGhlY WQ+WI4SNRSyB44tsSUzwW 3EJ6kTMX6IXGLWXAJZOV1 FDP5ryYG7EZkfS8TpqiCb BcawrAEoBB21RZr5YJL6f QulTFlwqG2evFFkN4x6Kh FeVH15sT06TFalDDOqHxY 3LjZpbjsgbWFy E3ziOaGxgIRjWaw+PHRhY mxlIHdpZHRoPScxMDAlJy YgnSofWL6wZc5aLXNdMOM vbGxhcHNlOiBj z2jwNXBtESzmJZ4irActX 0MddQW1RFGqz9t4Nb96fC I+FCZqXWW7hOghTLqdp11 7TnLhd4ftNKX1 yFPpPJmkQSD7F75kx4A9M PChVMTcFES2rGE6tU2yvY aeuxfzP5HluRBpBnH4TSA 6gGWrwD8tdFom zmeveR5jLvl+K82AHX2JH ICQHF0QHtl2U3AzAiaquZ I+YR63VVGlGG33iYNvxJW ma2swpWb8MpNl AJHnETU6mIuqGOfnl1QbQ GSoO95amJZci4W8DCRjwJ yovRFoJaWtgAO9lG0fTCf izuojg1ylibty Yvlkv4fauq18wO44H16wY CjdYJCuPVS3VWKvGNCrhV saco2ftH2lXf5+DBxud1e na3oonNf0HeTx ZEWyqhZduCryMGZ5n9XuZ v62N6RuhUrjr6ScSuu6in 52nWAiw3C2vAS1OGryDLO azR8hGIwwSzL9 BNCpKrAktX05kRCwFYgtY l7zzWdfkSzkGB1zQOBzom ozMMPabY4uSSManBXjvKf aSK9lLEDyfowb c647XpBaKAI1FZValPVgL 8XlbG2ySaVdOGXqUOTwB2 CxtRLcTMnaM080NYjvGgK 4FGCbrxZsJ0Zp CVQbkQozPgW6k0M4Yi2Iu 4GxcolvLVQ7ONyiDAL5Vq HvQfCeZzM9Y0KdZav8FAY fhUzyBW3pO0Co ZOTqguaimqrmwYK4VYJpY KVdvE67cOBwMGxfGk0bv7 W3a627GWYlBOWowO29Ye2 udDogMTBwdCBU uP9dgdiap6hvgqujQdYbP MZfPNx2ZTc2SLLaqGshVi ZiZCA4ZfE8LIK2zIAjaK2 xvVgcunsseJ5z Oyc+Z96isQ1oBHM5ULS5s abbRGUlhdTjUB30SK60D7 RyPjwvdGFibGU+PGRpdiB dtGskIF6uYlHa y6rso2ChWZplT4FoVMBvU KrrTqt4RFGgECN8tAO2qC 8cYSCaKDzyv2E2pLT6J7X xahEicn2fb5yv QYIsFFdlW61noMYpl6X3P MXhnBT2VKIonEnvFfSseK 93Oyc+FMRgqWlxs6FqWao tc7rmh5jokDj7 UtZlCAElnpEpxHnmCKW7k 4ExRz24C39gRPpcLTJtRL JiXVNkWFZlvKxhhf7ovC1 wIi8+PGNvbCB3 iNH0cF8gSCYfYfD8QMbsC 041ItMdiKMxLpjdu5oec9 wkuAr8HmUkPSOqiqTchIr pICE7u1YiUy91 D70rIStpCUTiIEFvPTKxU EOqrPbcvx6yuJ6sWm5+PC 1ao0zjgg17hC80uEJ+PHR sWPE2eNglCIdj GJInfO1vAIgeSnC1HCQpC tIhlP10sDOlTRnvXq9wgP gyqTzwGT6cAONkzyudb74 7ToMvq6leXDTk rQKaHZqoIUK1V39pf3C1Q ZZtCKUiPHW0kJG4eK5mmT lnbjogbGVmdDsgdmVydGl iKPggLWguB975 IHRvcDsnPlBhdGllbnQgT wDkPRy4N8YdFhh4UFJpoT wmFW0yhYXpDNenWm4kwYx ucUguUH4eOYZm izrfa495JbTjk4feYBXfj BPzUIeaHTH4R55ib9T5SY YvSAZuQZK3rNI5yG8niIv nbjogbGVmdDsg doYlkMkuLFssYOyxD809Q HRvcDsnPkJpcnRoIERhdG D1OF04FJ36sQVny3L9vHH 8Z0BmADDzuttx cgfckYU3SGUhTNFnsG85X p3hbQtnGr5xMYRpCZF5KJ QzcYMhB8TfiE8rGqEtMGX hNHHkY2SjoELw RSdvY295BLdrYxR4FAWgw zSnU1ElDJAhyDwwDuK8e3 O4Ym5CS9V8XS89HU85iMN yw0J6aDV7W1Cg ORUvmgumyqmrdKZ3MEEpC CBzoU91Oy2xeZjiId1rZU XpRTN6KOHggWYgM4OwqF0 yOiAjMDAwMDAw L9WnkBGbKSvlP804KOjsW zO3OOIsclEdJ7RaRYVpsY ioNdQ9h2C7Te8MJHq2UF9 9NH86hSCyk5O6 mMH0P3SlLTUvpcybnavym RA0JDLbQXVvkP36Kd2xnJ vaSa6iOSJvBWI8YZKapXC pZ5TcwM6gFjNw DTFrYKSlF1VcdFVxNEwsO 178RFimPxH9GGNgitVxF0 SgYIZyiGriKwB6b6Y2Zl9 HVEKxCP88GAB7 mCO5IZ22OF10M0SnQpmwc GFibGU+PHRhYmxlIHdpZH RoPScxMDAlJyBzdHlsZT0 kVu3jLJVdTDGw rJzdvBFdPpGim0vbGKYgJ QdhPI2mpBdqZ4MxwDO1TO Why5j6Za11W46qX9YfpEJ +FGElxHK5jAN2 rR5qSqVjPtB5GJehE435I fPuhNGzRundk0grb7tfzD v1VdW7XVIapuTooEbnHPS 7c1VqNm85S55f IHdpZHRoPSIxNSUiIHZhb Twako8xeA3aDt6+PGNvbC X8yNJ1xY6hDcGjBfM9FOt uX920JbOlzABw Frfyx0twm9unhBo3GyXaP VKlkmWzyAnnBWN6p6YlSj 46I2JmrTnbd0UmXfl0ao4 4pWRre0F0dEC6 R3AxJWDinuhbwEUpzWwwP Z5nNINjzvcvJFIpxP0lWP AtU2z2GjTiSbI0DMwsF6I ieiY6AZYerPAi HNsqRCJ6E48nn0J7FGLfZ BWwRGO1qXG9dC3elSiimx ogbGVmdDsgdmVydGljYWw cCOggO490EPLt tUuxRURpvC3bSFStrZKol ZowMS3dBCLdphihDzBLBL xBUkQsIEFMRVhJUyBTSUV BOdX6G8GnJmp8 NMZlvKhoXK1fdFOpKUuqH d4xiXssdHhoGD8wHEHpnx fzZEPlrW9gSRGwuAMwfYx wFT1uWHTfqkcr r059NmGpCGT0HLSezNYwU 6BtrC5tBwOmKFDsQHQqZ2 AciSNwBQeuC767XCpwRnR 3WCUfcaBaO0Oi NWSsrZsqXyF0z7F6Kl3jR O0yTE6tLMu0VW93XC78cT Fhr7K6oLS9J0TqOETwfrz ktrqywZA3MSZj HULzoS36fWWfLGdfId1ay 3V8c775XXXbIOEazY43Nl 3onViqTPPybWRHmJ6odij po3jjwnbnAiBq IGSsZSo9DMm5PTAqoNnjY uEjNHU3AuW8SSM6qNDqvJ 0aiTjflhoenG2tQqd+MjI aYGCmibN7N5Ly Ixv2GIDdgBypCH3kfDWxO AxoOj9ubEoiwTocSR3pOP YcwtmkZPUtlM9nJIWmgOZ ieKocMW8kYEFq sqdjw395MlRqXFJ6WJSec PNsL4McgN5bIfEmISClXB NrY9FevKPdIUxuG802FLe nIqD8TJAqnjFr I1EgBTNgsKucYgQ6m2T6M l0PZP5ELFU9K5YlSee2XN VkaAqkKA1jvNMyAJldZn0 ssClanJycHN6h LYLsgpgpPNXvpH4oPFFnc BNqwScsZW1cNYXqwonzu2 14LsRiNNY4ZMFbsFJzX6K lgT2nXyXxYYLb HWCfW5TbjAYkVUpxF044R FfnZwR2ZTBbolCjJ9TrGS OnnFdfZgU7a9Y7Vf6ORLo vdGQ+IQ46hq02 I1FaNbzvPxj5NOBxZPR3d CN1vS5nIAIyNSokm3N1zU P7J7TkqcQeqz3zg6ulNLL wTNxzH97rjNFw x4E1RZYdjFU1PLZpsPcwP iVmrY75Jtz+PGNvbGdyb3 EjZrvus9ope2yzoSe0OeZ wJSIgdmFsaWdu JYX8m6QnWi72F29jEOemE HRoPSIzMCUiIHZhbGlnbj 5gsA8oHh6+NDPuoCY2sCW 7pY2tKfHfKkI9 PMnjA011KqCmoBQzCkiuv 3zjo8xxqEn1LmEzCZYtmj IwhIqpLHM3t5VrCc98V2K kfEslz6RjPnp3 mt19qYLul1O1zAW1S2VhY JCqvdzzrWZlvVhmNW0qTW TgwbmiYXGkgT4fYNCcC6o 8KhDoWdY1GVba W8LttyK5YUVstGIkPYUfi EPSkU5znpjkg4wkzoouBu CqSKZbRZi7PHi1QVKefNx nPbVcAPG2ArI9 CAE8yBVqiS8tnSvqutsde G9wOyc+OHi7z7dbyYAbBH 7vhGK8PH13ZJ67zVSwl3Z 8kII1T9JfERQq wcrrcgewsUJ7QYSkMWYxd E73Gg8cgHhjJv7xFADoXL Y0JSVfbCGeH8NtqJ7cDeN eSMEgMCXeN7Qw aWAmAWucK254CBdzLsT5R ZUbrgSbZ2FiVNJjiTmqCw I1t9U7Us1INM31GK06UT7 3vJSgr6M1tRF1 C6CxMLKmvfhvelwhdVZ6C EYdSEWszG88Xk9wcSchYr 8xXIImMYS9BOIuoTXtE0F zzA6vLuHuOCGx WHWzN5WngSRdYBhpP520Y XyvDeS1TNBkjgEsD9SwMB HcmDsgHoN6f3K2Lc1UWi8 7VK00TM87sNJj h2S1qRB0B2BlUKYyzzlps duybOK1OYLtQLIneN26Xx 4kjHkjOs6sGWCaOSJ7AQN yrODxA2NvbL6f CiPhVIIkOTZlF1SdxXFzM RpwF097WCscVvW5UHGyhm OiR6NdHLZolZzlGpO8l4V 5Pa4HDYwpvpb0 S3IlUrvuuDZ+MH46NJPqN C99eCUkqRJbm7njiHn2Eu YrYPMlUDT1vHqeICjei7M kFBOmT15orZJl c2U (more content not included)... [facility] Coding Summary HTMLBase 64 AixdhnxpQDs7oEr+PGhlY WQ+KR6XRIPrJ20czNYaeV 6QY3dBFO9BFSJNVGFFKN0 EPY8cxKR7RNyjM3HbcsPl WdkucBBvJN95QIa2LDZ0w UzlMNjyqT6klBAkN0b6Yi IvRI69kA03MPooLYRuLuJ 3LjZpbjsgbWFy H7zsKaPbfDYdWtm+PHRhY mxlIHdpZHRoPScxMDAlJy XynRktXU2rNe5tQFYuWDR vbGxhcHNlOiBj y6kcRGVrKQmyMY4yoCrzQ 6DbaYY9IWItr2z2Lw07hM I+VVSrYUH9hYwsJGlkc06 0XtGak5mkARX5 aZHwMVurMZR3R21bt2H6X TIfVQHcMIU0mQG4vZ8qrI toqvwtY1YhiMJpNoD7FVO 3cCWjrI8brJmg mvwobD1oDtc+Q53NLD1WK FISFM8DBxs5X7MzXsibcM I+ZB55PFMrVI35lIOxmDT hw7vriPr7RiId MWYzSMA3pVnbOMikn2AtZ SVsG92coAUjn1M3PEDwbC pipZAeQnKpxYX1bY9aHDd eqbsal9zkmnms Jdjcg0nylf98tD34I55zH VqyFVZkAUD0EWBnWQMnkB lxve9pqB6dSt7+FQmgw6g mb0acyUp9SqDa MPPxpcTauEzcRIG3p0DjZ w97W2AjrWtkj5DoIfj9li 44lHVmg6P2pZE4TUuaEUN qpR4tECytLcS9 RJQkTrCcbO60sQPrOHjyF w9kyIisjNgvIV6dQHRhkz koGPFifF0fHZOykIUxyTl zQO8xJGDhhsdl r522IoScFUE9MGWolKWeG 9OleZ6yJiQzFWQcAMMpK4 BxwXAhXAdpT451UBlmGhV 5RBVxsiSwK2Qw TLJaoTyyNbS6h4O9Yp7Mn 6GheyzzBKT1WVlkLHA3Uc TdGgRdYcU9I0YgAlz5WKL hoQxhAJ6cI0Eb IOXlxhdkomnzvDF4QRCiV OIblC80fTPyCAtqNx0fb3 G2i699PLGqXAQmqX47Rw5 udDogMTBwdCBU dS8duetpc5urpedcRqGtY OStZRk0LZz3POQyiHnsCg JaJYZ0XuV8BVI8vWZesC8 twIfxwarvdD8f Oyc+G64mqE2aXPX5ECT8d zvkFTTaesQlYQ71YL14S3 RyPjwvdGFibGU+PGRpdiB oaCgiTN1kFkGj l0wyp0JaEGllW8QcDYCmI GmzFmo7TXNaJTL4qWH8oV 7kKRAvDMvyt4X5lJZ7M7D vupEqnl3gl9cv KXKsQArxB72wfMFab0W1O NXdbOZ4NZZeuCcyPpDaiQ 93Oyc+DMMwfKpgu4PpSjc yn3jae6qkoTg2 XpSaLRWgdpMgnQvaMZH4f 2YxXr10C40eNVbjVSPrUU ScGGYmRJYoiMfcva4vnA8 wIi8+PGNvbCB3 vPM3kF0fWXMuNbO8RGjvY 230HkJktGQuMkodg1lwx0 vyiGf2UqMlTKBbnfJanBi qZXO1i8PzJx40 D07mILizDKWqCOYpNJEiD QDgbNujcx5mlN9gQu4+PC 0vd3ubnz36sF00eTS+PHR zQUH5qSqiZDif BBWehU8nVZtlGeO5KZPeY wHbyB11mMJaOVfkAz9gfR ecxEzwJF0vXBNwhhqvb45 0XyFpt2ekJYMs lBLtVIxhVBO9H37ml9G3X LBxIFYvUXQ1pSO2lU8uzU lnbjogbGVmdDsgdmVydGl yVUeqGMuyP446 IHRvcDsnPlBhdGllbnQgT nKqOBi5A7ZdWfm9ERTvkP jhLB1lwRWnXMnjHw1peOr rmUmgOB9cEPKp zhjdc507BkWkp3uhWKQtj AUiSQrjDOA6A50nk9J1RE QmGAIuGUX1qVM3sQ2ftPe nbjogbGVmdDsg pxOstIxzHUxpHGflC933F HRvcDsnPkJpcnRoIERhdG Y9IV72ND65fNJoq3T8pBH 5F2DgQYAxhnud lyxqbSR4CLTzSFCivE18A h1lrYesAj4cZMJsEIO7FL CgcUZwF1HhtM2nKvVnRNQ fUYQgH5OhmXWa FAbeU044LCxlPhY2XMWvo cUsC9VgQKRzfQjeFgD8b7 O6Th2GU6R7GQ73AS96iND ap0L1aSQ6P7Ld BKJvllcbbsbldLO0ZCQuJ HHjjI72Ps7rkHbcQu3mAM JjIXW0LVPljPPgI2NirP2 yOiAjMDAwMDAw X8NpyDCoDRvaR935VWebJ tE0DLBqupDyT5UlIKVugY kcOvF6o4U0Oz2EWEu5CK5 3OV89rNYyi0O8 bUT7F5MgJONwqprujgcts GS5GBYtMIBulY88Ap3nvQ xqYp8lYBWxGRX5QDFvqLW eN2CyvV7wExMk NXAtYEUmF8IkqJFoNWhtR 254UZhpKbZ7HUMqbkOgV8 DvJIKizBhcNnE8x5K9Nr8 CLYDpAX18JCR9 pFW7FF21JB20Z8DqRewev GFibGU+PHRhYmxlIHdpZH RoPScxMDAlJyBzdHlsZT0 hFs9dYKRaXJFz yCpxmHWkVoObn9grYWRgA RxiTW7nkSmvV7KfeZA3XU Bst3u3Th40Y18yJ6NldPF +LEBaoFP4eKF6 mE6uHaYeBiJ1LPycQ429Y pWdfNSuQzewh4wqf6hwpU q7XbX9TYXfljAfaXcyRRY 0p6IkPa90R05p IHdpZHRoPSIxNSUiIHZhb Bodrl7qdF3eIu2+PGNvbC H2pFW0yP2nJjBvFvG1QJf iR544FkKotKMc Cgfjd2wxe2dekKk8XzZbQ VUhluAtoPoeMMM1n6HnLx 79B0BikUxdn5LzSkz8rl7 6fLJqn5Y0uOJ0 O6JuXCLtciyutOYtvCghQ D8yZDDfbvxhYSIdzM4bQP DvE3h7PxJtUyS8TOndP0Q hqhZ2TSHbhCAs CPvcMIW6C03ri3E2SGKnT HKtJTR4hFS1rI7ezUtooi ogbGVmdDsgdmVydGljYWw hPWqsD564IOEz cZmnQIKerN4yEDCvpRDtu ZozBP4jHIYzwmvsUqEYCJ xBUkQsIEFMRVhJUyBTSUV WQuB6M3DpMhq2 OUEvcGbkVY1yhOKaVRprF b9zgWtvaPyxDR9oFJTjjs zkUMEnvJ0eILQcaZEwoXf bWK3uZQFvqmrh r000TePnUBA8VLTukOQuU 8MhrS1bAwDmLIZwRBHjM1 ZxwJNkAChsJ967ODnbToA 4EEAqydKcO9Ie KWYljSotQeA5p7K3Zb2kF J3gYA8cVTy3TP73SD61nJ Rln4G3uWO2A1UbIPYivip pnsccsJP9JQSs KBVxrP83nRIbFZcmDf1jm 0D0z510BTCwTIMyuU47Dr 2ovImtIVLtrUSWhW6aiwk mo4zlwyvtGpEz HKPfTJy5TSi5OETnjYktF rAcJKC8MnQ3RGU0hXYhhO 2vkSdorvmdgR5wIku+MjI hXTFteaI0Y8Jf Smm8NQIznCddUU8hdMKfQ EvyKe6oxYbkbHzgBR6tSL IriuzjGWXjjD3wAMWtlZR nvVmxXM5pMAMm pxbwg432VoCyBYB9KZGze UCeH4DliT3cIeDkOYXiJU UzY9YbeRJbNNyeP629UEv zTkA1DPXurxOt S6PuDYKuaFjoLcO0d0X2I j2IXJ3FTEA5M9PtDac2XF MgfSdzNL1xoAOhGAhmJq5 ivYwycGftFA9a MARmwouvAVLyvO0mGPFrg NOqzHshMZ5aEIIigfezs3 62IuIjQKC4MKRieLXgL2B wlU8oWtFySMDq BFNaP1CtdSHsNTmoC146D XhrPjP7OHYpbzDlH8PbQO VhbYroLqF4m3I6Pd1ZqVN nS2MaP7l7M0Wa PjwvdHI+UM60LVFlZL97c IIcdFPjf7uocEm9CdDiIX AnWWR4eZefMQsys7LzZIU yK41arHMvr1E3 CWScjBrurYEnIxMvpSY1a M1nSPgqckilx5zpgyikMd qaj9ymxh22eO64I53pSNd pZHRoPSIzMCUi YQRpxBprsm1hrH9pUa8+P RIrvGK4rIF8mE6gAePaOi M7TSuzS790FuMmfUMiMgy nx9qmb4xoaVb1 DwLiPWJhmeTdoYyfUZD8k 7EpIw71E73hLEwgPIMmFD MfMWMmBEUzaGzaej9rlX1 wIi8+BY8sz4be zc85eV82mCJ+HXOjMDS2r WfwWKyiSPWvlF4gSDpgVt Y3LHNeNpZjuR54wJHyLIa tBd1vsYbomDfd JF5jBIRqamwlu881DiNzu 7sfMCSujHFeNNqkMSV3V8 3zc3W1SEZbRQQfURU3hYD 3cQ5yrCedsfbh bGVmdDsgdmVydGljYWwtY TuzW037XTPtjVirIhZcxG GmT8webkVCHH0wLqdztRX +SSNxLOT3vTuo ZWrzSBLuoR6sUEXaX8y1U hGdGcA8ZDckM1OuadJ6AD TudEGiBARctSFMnI4jcqc rz5lqusqtVeId ASQkRBn2PEl4RAJviQedE jZwINC4SdP6XFG7rMSaxF 8akOybhtjovC9bEms+Rkl OOjwvdGQ+PHRk WMQ8lZzcVWyeZBCohB7yG EImY4r6YpPnClP7GFsaK9 PynwN1CKFqzNBtSGZfuLS AbV6ndcuoz1lz qnoqBjAuPUOsGHo2XOe3S CHxrGpbHtClGUD5VwI5RU O7vMZkaQ3qzFirweznoO5 wOyc+TVJOOjwv dGQ+JLQwGWF5xLwvENwaT FTwvU2sBOObU9d8ZdJqIa Y8CNczY0AvarH7VCKhkOA sZDUicJJGkM7r dildc0zzmvezRjVrKTFsB Tn7UVs9KEEbtEqiHaQnWZ W9GpM6JVA8iYAdnB0tdEi kpkwdzG9lQzw+ FRP7ARQ9CM54IX14M8SpU jwvdGFibGU+PHRhYmxlIH dpZHRoPScxMDAlJyBzdHl pQR4mFo8cCMEt LWN (more content not included)... Normal [facility] ED Clinical Summaryon 2021 ED Clinical Summary [facility] - Emergency Department [address] [place] [address] [id number] ED Clinical Summary PERSON INFORMATION Name: DIETER ALVAREZ Age: 21 Years Sex: FEMALE : 2000 MRN: Acct#: Visit Reason: Hand pain-swelling; FALL- LEFT HAND PAIN Arrival: 03/08/2022 18:36:24 Discharge: 03/08/2022 19:37:00 LOS: 000 01:01 Check In: 03/08/2022 18:36:24 Checkout:03/08/2022 19:37:00 Address: [address] [place] [id number] PCP: Viral Galindo MD PROVIDER INFORMATION Provider [...] Home PATIENT EDUCATION INFORMATION Instructions: Metacarpal Fracture, Przy-ga-Oqnc Follow-Up: With: Address: When: LindsayTristian Alex DO [address] [place] [address] [id number] Within 3 to 5 days DIAGNOSIS: 1:Fracture of fourth metacarpal bone of left hand Patient Understands: Yes - Patient/family/caregi joseph verbalizes understanding of instructions given Comment: Normal [facility] ED Note-Nursingon 03-08-2022 ED Note-Nursing Patint arrives to health system ED via private vehicle. Ambulated with a steady gait to ED room 3. Alert and oriented X4. C/O left hand pain. Patient reports falling down steps 10 days ago. Patient reports pain is located left ring finger. Reports increased pain with movement and touching. [facility] ED Patient Summaryon 022 ED Patient Summary [facility] - Emergency Department [address] [place] [address] [id number] PATIENT DISCHARGE INSTRUCTIONS Patient Information Name: DIETER ALVAREZ Age: 21 Years Date of : 2000 Reason For Visit: Hand pain-swelling; FALL- LEFT HAND PAIN Arrival Time: 03/08/2022 18:36:24 Primary Care Physician: Viral Galindo MD Attending Physician: Sudhir Samayoa MD Comment: Visit Diagnosis: Diagnoses This Visit Fracture of fourth metacarpal bone of left hand (S62.305A) Hand pain-swelling ([id number]) Prescription Information: If you have been given a prescription for narcotics, seek immediate medical attention if you have any difficulty breathing or any sudden status changes such as confusion and sleepiness. If you or anyone you know is experiencing suicidal thoughts, mental health, alcohol and/or drug addiction problems; contact the [facility] 18/04 Crisis Hotline -Text 4HUSJ dc [phone]. If you received any narcotics, sedation, or [...] With: Address: When: Tristian Montoya DO [address] [place], [place] [id number] Within 3 to 5 days Medication Information: The exam and treatment you received today in the [facility] Emergency Department were for an urgent problem and are not intended as complete care. It is important for you to follow up with a doctor, nurse practitioner, or physician?s public health assistant for ongoing care. If your symptoms [...] so we can reach you if necessary. [facility] Emergency Department has provided you with a complete list of medications post discharge. Please inform your audio video repairer/provider of your visit and for further instruction [...] treated? Treatment depen (more content not included)... [facility] XR Hand Complete Lefton 02-24 XR Hand [...] DO 03/08/22 7:40 pm Technologist: TAMANNA Normal [facility] Office/Clinic Noteon 07-09- 021 Office/Clinic Note Patient: DIETER ALVAREZ Age: 20 years Sex: FEMALE : 2000 Associated Diagnoses: Migraine with visual aura Author: Viral Galindo MD A History of Present Illness 20-year-old female presents today with complaints of migraine headaches. She has them almost daily. Typically right-sided, pulsatile, will present with visual aura. She has tried taking lnem-bce-jddaxkr migraine medication with no improvement. Not associated [...] 308.206 lb Body Mass Index 49.53 kg/m2 [place]ons Body Weight Calculated 60 BSA Measured 3 [...] and Plan Diagnosis Migraine with visual aura ([id number] G43.109). Plan: Discussed with patient we will [...] tab(s), 6 Refill(s). Orders Evaluation and Management: [id number] Office visit - established pt, Level 3 (Order): 07/09/2021 8:27 EDT, Qty: 1, Migraine with visual aura. [Electronically Signed on: 07/09/2021 08:53 EDT] Viral Galindo MD [Verified on: 07/09/2021 08:53 EDT] Viral Galindo MD [facility] Coding Summaryon 04-30-2021 Coding Summary HTMLBase 64 YhzpwtciDOj3zPv+PGhlY WQ+ZC4UWKGhY63xsTRwkW 2IJ5eLON4QEFWVJJENTO6 UBN1efNQ0PRvbB7LhtwQp JnjioOPoGV13URq6OFL7n EnkTRjfkG7odLYjR3w4Ha ZcXE10mB89KIrpEFEdEkA 3LjZpbjsgbWFy E6jqGzXqjFClBxz+PHRhY mxlIHdpZHRoPScxMDAlJy XhzTnxWS1cUp2dLAKaRQQ vbGxhcHNlOiBj u6eoIVJzHGsrFB3hiSlzT 3JkbEN3KLCvz0a8Qy26lT I+BRKqUPU9hKgoSAdud32 1MtGhw8mdICZ4 qLLjBSplTOW4T29lf2C9X RRcCYZuBOM7wBB1rS3okI yrrgfiY9KccWKvVcV8UXJ 0xPQbwT0igBjl uhkuyG4eVsp+A32FXC7RQ PEEVG5AWxw8C9BsSvkqrI I+RS70TEDcFW07fLFfkNT be8beiBw7SaFx YIQmIBU7cPgmUCidf4XzK OBkD76ubMGkd5M0WAElgZ wybGLuXdXzoMM0hG0lTYp ydjpwt5ftucwk Ovwdn7ybcb23pQ91S00oA SrnTLYiMYE4DZSuADExdK bqsi5htC9dPj0+DHitp1g re6leoFk0TkIo UCWxhsGifOipQEK9y1ReP p60C7PcnOiio0AjSes9lj 91aTLxh4C0bDK3BSsmWOU taG8bILzfWpP5 SPLmMwPpwO40oBXuTKxtC y5loWvgtNglGZ9kCIHkdo jgXBKeaO3kMXHmyVAeaSd rBO6rIBBjdszf x546KsUuALV0FTSskOXnW 2XfcB8pUjKvIZXdNVZdU9 CyeFImLCfqG179PMinIlL 7KUZsstTqC0Ng UFKnoSszPiZ0c8M3Ms6Go 4AibqpaFVS3KGvjBCB4Gm A4GzMzBiQ2N0XsLaz8IFO rqOmkCG3hI3Oi HCNijblnjvcbqCJ5UYPwY DKibI67xWEsLNppSl5bo4 T1o873YGDvAILrjM62Te1 udDogMTBwdCBU uT6lawcfh0fpfotlWqGwB USwSEy6RSi7ZWRffKwgMv XaNGS6ErC8AWL1uKIftO7 uqVhqwspaaA0l Oyc+P52ksS9tIXN7UJP8q ilkRMFhkpJgLU91YA32G2 RyPjwvdGFibGU+PGRpdiB qxDuqBV1fMgBf v2pzt3JfVYgeH3RhRKDtI NkdBlf5QSVwJXY1aBH6gF 5sTYToHNyjx2J4aCO6Y6D gsxTeza8iz4ur IJTeQHnrS24nzZZfh8Y7C TGugCR5OOGliCviMkUopO 93Oyc+ZPVvyTqll3AoXlu qj4vyw7qsiAe5 OlSbZFFaouLppOsyDRC8k 4JjEg42Z41iFTzvUBTeGB YjYMBjASCznXbuci7irY8 wIi8+PGNvbCB3 yDQ5aI7oNAHtSgU9UGobW 277YuVdpRHkFwqpd8sty4 ezsNz7MmLeFVWijsDggJn pKFV5g4JvCq50 G76yBTvyURErYFToFLIrL JJtmMvike1weP7dSu9+PC 5be4darp88tP56zCD+PHR mWYA0gRdcSOpo FRJejS8jWWzzIwE5UTZdF uNluR36pLJpBCcdDc8uiA fyqQqaPY7oDFRzcymkq61 0NeSfq0afPKUr kXMbPKyhFOI0Z88cm4W0H EJqDJFoXAJ5eQD5pE0inL lnbjogbGVmdDsgdmVydGl tILqaAWomG558 IHRvcDsnPlBhdGllbnQgT uGfPJq5S4WrFgb2PWLmvY yjCV9pxSQtWUutLf3vrWn ruWllTW6kRNCl girlw706ZyLnt9kfPGQab YEtJNgsEBM6P12eb6B9EZ FqYPNiYKK6iHA1vB3vaLy nbjogbGVmdDsg kfVcmHwsSMtfYCilF743S HRvcDsnPkJpcnRoIERhdG G7NG38PL60zLRhh6E0rHU 1S0LqMJQiicub gynseXI4RMDzDHUbeH92P x2wjLppUa7yNYEeIOW5TD MfzRFvI8EadU8xGiXnDXR eMRToT8RplDWw ALhaD642KAgaTxJ8BHWig gAmY8EnDFImxZluXxD9t7 O7Pc5TX0X5UN42CC75pBK uv2W5sWP8Y2Px MIQvrdhewdxhwGK1UUJgO HUiuK62Ao1fyDleXr9qMJ OmBAW3NWCulZBpN5WlaK3 yOiAjMDAwMDAw O7SziHEyNCjaO925SNmkE gM0FELgsbVeT5VvOIVnaL riJfB5o8A0Uf0YTQg3PP2 9OH67eRCcx6I9 bOG2P5WxSEDxmvbdepdko GZ3CLUiBELujY81Cq5jaF ajZk9rQKDvYXN4XXSvoSK mZ5StzQ0qFeHr YRKjLASfN2XakTOsSAqiR 690ZJshFlO4ZPCzahGvI6 BqRXTahXinJgV5w0O5Sq4 GKWIvCT76BYG0 lVG9EI56EM66X8IjYzpzl GFibGU+PHRhYmxlIHdpZH RoPScxMDAlJyBzdHlsZT0 lKz5rJZGvDPNt tYjygVZyLjCdd3geRDQiG SilTS3izFeaF6BhtGU9MX Wll0y7Fe27B05dZ3UntKT +QTFyqDH4dFG9 lM6xPsSnCfK3YYeyY178W pNewDXlLdris8gkk7efnL k4FsJ1ASTaruPlzFdaFXQ 4h1CfTz03A30q IHdpZHRoPSIxNSUiIHZhb Uzgkx1ijM2oOo3+PGNvbC H9bMC8oG5iZcOpSnP1BBk dB958LfHwuETv Mljuf8tym1svcFw8KfUiM DRnzdWhqNkcIQU1c3WoTd 79D1MtkQyjk2JbFfg5cw1 0qFSjl2N8fHD1 Q4LbEQCnguawxTDidQnsN C8hEMPogcvsMWHhzA4uCB UyP1q7XkDvLsG1NEloL2P wavS8JEPofDHm NMkyBDW0L57tb6D2JFYyR QOhZWI6lRX6jD3mbBqarl ogbGVmdDsgdmVydGljYWw vACdbL692CHBb jDmqLTJscR9zZYTlwKPos RctBQ8fFSBxrbjcYdAJBP xBUkQsIEFMRVhJUyBTSUV GBcN4Y9YmLkz2 YLQnwOvkOY8psZGrHPeyX b6vmYescWmxHO5pIOXxqw usPEKioR8lFPVpbBEskXo oAP9mKUVsjmpr c844CiPvEXY6DBHroCYlW 3TntE6cEiUlPUTpASUrF6 ZtlPIyJNukV403KWxgCiW 8CSXmmnHlI9Si OFNxsAfgWrF6w3N3Ur7iK X6vOE7yDMl6UZ63QH67yK Jbv1B3oJM4A0OxPPOifmy hpkswlHZ8WRSt YHHrsD86lRCaFXyxCw1ay 0V9a399DPNkRSRavS81Gs 1wpYasIBYbfXIEzV5qbxq st0ajspvaScYm FCMuWHd5CFf6XXUyqKhaI lJbGXD0JvV0QGF9lPNsmA 7jaBxwjggrpS8qYxs+MjE dHLIffyM4V3Do Tpm9PWQtjZnoYA0dlJBtT RgaFf4tfTxwfGenEM3nFC SpcxhlUGTfjR8xQOQbwAD iaLsoMM1tDILy rwejv522JwJkCPD6XUJsq TVsT2PseD8xAhTcWDUhTP AcG4JvoMQsDRleI522CUq kIrN3JSHaogXa G5GjQJAkoLvyClE5m8Y6J e9NND8DKEZ8T1KqWkl3QS FgbDoaNI2mjFOfRGnmLc1 sxThvsHodAV7l EOVocdxmIVEdxI9uLTOpe LCuiXmzOQ4rWENbpkulv6 24JjPsNQB3WDPavUMeE7P nkM5aBmThIHXg ASExU2ZsoMZrCEffM650S QbsHcF7PAFgibPkO1YzEO NqkCkfQqK7k5C4Dc6LQTp vdGQ+LJ68ax34 C6PbHqocScd5LDVwQCX3l XI0hJ5uUEOgJOpip3B4sA V1D5YaacDgma0dh2tqZFB dJEabV57wsDKz k3C9KVHrfJV7LDMwoInuC uYalM24Glq+PGNvbGdyb3 OtUiode5kjt2llyLj1MrF wJSIgdmFsaWdu HVR7r5QjLq75I77fNWyoA HRoPSIzMCUiIHZhbGlnbj 7nbE9oEw1+TIQpnNK8cWI 7qT8jYxReDxD1 RElnW823EeVupEHgHdymj 6dvy8tvuCo2XyYwSHLnde ErnFerYMC9a1CoJv54V3E whVimh1InYgu6 rj01cAFmy1H7bBA0B9MpU HFsachtyMMfhZaiLG5fSS OfpyunXNRuiR0jONXlI4o 7CwTfUaX3FZfr P0PmjaZ1NKBfmIBaXOMuu QUJoC0yvcqij4ikvoxqBm WzMCUeTQp3MTx9CBKeuNw jNzVhFEL8FvZ7 MXU2sHFrzR3wlPylfuumb G9wOyc+WRv0q0wsnYKzTT 3gmQY8LO75LS06eRXjw4A 8oEY4R5OvKGFj nqblbkyswWW6OWOlRJZeu W68Fi6zgIpbBx5kPYPoAL M3TVXrhICoD5CsuI0uAqW oAVQpGJDfJ6Wm lHKuBUvrH889XYpnBaE8S GVgwkBkT9JdSBDjbQeeIb V3i4X7Su8AEW11IP60GF4 3oUHnr2G6xEL0 T6TwBBVfqzazpibceQW9B QDeFTEynI94Zw3pcIteMa 8mMDAlVYA4RCFvfRBgW8J lhC4bAbQiVCMc BVYzR0MxuWVcVHqoA981V RqxZmG3UJBfhqReF9EfHJ EeoNwyEbV0b5H2Nw1XWg4 6WJ35QA32aZIv t4Y2dOU6F4VzTQOqmwmrl zjlhTL7CCHbSYGndR80Ak 7avIegDl2eTDKmDXU6ZGJ qlGBtV6NlaB7w SqEiALNbYWGaH1TgdLVcB DedA425IZdyDpO1TQPajc KfU0XqGRSqpOttNcU4y0W 7Dl0JWHdgmec1 P8LjJnvcxUP+DY80PLDlG V10mZItqJXpo9oniSx4Sg YzKODlHJA1dBjrULilj0X oIWKaP00syFWr c2U (more content not included)... [facility] Coding Summary HTMLBase 64 OrneieauRZu6rXw+PGhlY WQ+FO9NFNRaL17bpPCnlZ 2DA6gCFZ0GRDMMLNBMHW6 ZDJ2uaOE3JVicT4WclgMg UqqcwHHaXG68EQe0ZPW6y SaxCNwwcL7wmWBkS4t8Ed IdOK39xX20UWfcOERgBqQ 3LjZpbjsgbWFy O6dmQjHdsFGcJsa+PHRhY mxlIHdpZHRoPScxMDAlJy JmuCmrRJ4lFw2lPHSyFTH vbGxhcHNlOiBj n6aqLPWiPErsBC9jdCrdD 7LfkXO8BWFsu7t2Vj73tO I+GKErATT0yPyjOHbxs38 5KrLpi8huLBH9 hVVuVEadGLR2G39ye3K8E VBxNPXfKZC0yPH8gM7xnT vhamnrN4RdvRDeFqB6ZPY 6iKDyxM2umPzx jjlaaM6rEbe+D16LBR0JA AGUPW7GWlu7Q5SeFbwojB I+AR69YYRpQD87nVZvqOZ da6wghDx6KoUr WZDhAKH6fUxzFRjsh9UvF OMbX31elWWxd6Z2EMDfmZ syxCVmHsTfqVL9wS9nXQk vkaamw1veiziz Kasqc7rkvp78eG62K77hZ QqnAWDdKYE1NOGzOCDxyP dnsy2znO0rXs6+UAzvy2r pn5srzOq3IwKc QVRuipTonVgxCIA4m6GpA q46R4YfwEtwh1LtOog5nf 23oAThy6X9pDN7UPhfEZK gzB7yXLbbRxR7 ZZAwTuOhpS03wZDkCJzlY q7jvEtsqSjmIS4cTEEwbu giANKxbY2jLGOrmMHtgDu vPD4vRIPnfyyy p274DeQkIQI8THSrrWMyZ 3JkzB0wQmXjHPNzVWKlE3 JphBOuAWijH151DEmxXzL 0LBUiqxKuC9Yu NYTlaWguCmV7l5P2Sp1Gp 2AceymmKDU4EKfgRMV8Qy E6AaWqXqW8P3TtXcn0CWV biCozQL4iB3Bw OZKcxsvunkhdeWL5RWEvQ UXdlM49oUEsEMnuXv2pe2 D9i920NOXjBRQpzZ16Gf2 udDogMTBwdCBU hZ9ojghdn9ckxfkmGoGiN LIiUQs5BYr5DFKpsLbmYl YpEFS0AgD1IBD8cVNakI9 rbWqazgoscC4q Oyc+J20ioG9gWBV5CPW4g jtlCLDgdxSwXF33ZS21N5 RyPjwvdGFibGU+PGRpdiB yhPohWI2oQnVa r4ozw9HqRVsvP5ZkDBLfF EfcArr9MIZgWNW5bAV6sI 5ePNZjEVzkq7F8mAO0V3Y sriOiaw7rr2no HUZxPGcdN08hwOPhb5D8B NJhsND5GCFdsZiuCtIauQ 93Oyc+NDGxdEjqp9IyYwe zr1jco7lisBm3 SuRqBKQvrvVqzXnbSMN6o 0LmCs40O90mXMffEJKgNN RcUCAhBTKfwFghvg7xuX4 wIi8+PGNvbCB3 uHT4zZ5yERQnEiR1RVkdH 766PmPyrUSlEcqjg6hjm4 kigMl7LgZqDKRimjAnxCi kVST3i1XiMs87 Q10iVXksZMZgUXPzNBPyG NAemQjoiy4dqL9yYu4+PC 9lb4gztw29bX37wJY+PHR hAHF9pWjfJOab HWFcoS5lYCgdGrP2SYNqG kJmzD32tESxUSrvUe9jxY apvPsuET6aPSYbadcnd47 4GvLmc3qbECXp aFZzXWnaAFJ2J75or0Q0P IOwCMNdYYA3lQL5aI5ckB lnbjogbGVmdDsgdmVydGl hVIbuVMzsG497 IHRvcDsnPlBhdGllbnQgT mFmYUt1E0OtLby8MNPqyJ buYQ0mvAOgWMioKf1toKi hdTctXZ8aDIDy wplbm498NgGca7vxOTAax VTzYAgiBSA8X98ym9B5XU SoKVEoIXD0mBI8dY7faGh nbjogbGVmdDsg zoDldFjaFFanYVxkE740T HRvcDsnPkJpcnRoIERhdG N9VO43JD26oDJsb8L9fBM 0M4EqPLYrwojj ahnohKP3MZMkUYMigX11Q l5xnSnyYe5sGLRdOVF6RF YuaIEhJ8EbgT2wAkClNUM qDJLjZ8NgnYJg CSbzE787FUeaIwR1BBQvm gMbY4LaQSRolMjsPzT9a8 F1Bv9QC0C5DN13YP75gAV gm0I6oUK6C4Eh ACHdoqmdbqnjtKF8WAHtR SLkoW15Mc3gfVhiAr5mJG BtTNK5ZTTusPQoR2NhwN2 yOiAjMDAwMDAw M6LjdZTkPAyoB127JSmjO tK2KDCzddWiX0LbAYMtxW piKuT9o0Y1Ht6KIAg5RG9 5LX79iWXkj4E4 tFI5N9BmRSIqptizuhwhn WX0RNEzHFWbpF31Xt4qlQ utEo9yUATcRYY1MZYpcJH rS4IauY1xNrOj CDAbZMDkE3SqvVEcDTttU 348FFchNdK7YAXvwiDlS0 KyEAJocFyaWnQ7t7E2Pc6 YPXJyYL41JAF8 sFV6FQ19OL40J4RoUglwr GFibGU+PHRhYmxlIHdpZH RoPScxMDAlJyBzdHlsZT0 eWf0jCCEwBATq rBkcfCYjNkQxp9sbKFVaF BrfRS1kfAyoN5NqaNE0ZX Iym8a7Gf92W99hK0BqmWR +CBDvzLZ7wLE0 tX7uHjFzTaV5QKdlZ492Q iVriBFfAddpj2avk8zvpZ l3LeZ0TXMpdmFguZirEWE 4s9NoMi81G67b IHdpZHRoPSIxNSUiIHZhb Xhvrk2itZ1nOb2+PGNvbC V6gIB2fE3yZdTwCfN0TTl sX841NuCumYJo Ihsiz4swl1qbcZo9BhMfA ACqdfSmdYeuMUB3b3XlEg 61H7GyeDzby9SxBrc4ra4 5aCGex1P0iLS4 A8CyWQQcvybqmRMteBjzU E2wZYQbwigeXXEolO7mNV KuS5u2FkMrFeV5KMhiS6H eupE4VXLwrYSk ZLrsGQM7S64ry0Q2UGSbW PDnKKH7zIQ9aW1liTjfwa ogbGVmdDsgdmVydGljYWw fDWctU517NGWz bKpoXPZtbQ2iJGYydCNjl GtmEH7aPLBibhndGmLYQM xBUkQsIEFMRVhJUyBTSUV CKjG8P2ChWks4 CSVqdAcsDA3weIWaVJisO k9bsYufuThvPL3pSXDlqp ycQJVrfU7uWZDnrEWzbYw lEE1aTUSzlqky g080BmIzIEE5ETChtZFrV 8NsbQ1tNgQlDOOiMSImA1 QtnWQmRFymN698QYxqVoO 9XQPynqHpK5Xp DPAfhJtfVaM1s9C4Pa5yK I2sJP7mXUn3BM47IN13sB Mel8L3jEU8U3QzTUYlzbz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
[2023-11-11 12:49] LABS: Basophils Percent Auto 0.2 % (0.2-2.0); Eosinophils Absolute Auto 0.3 10^3/uL (0.0-0.7); Hematocrit 36.5 % (36.0-48.0); Hemoglobin 12.6 g/dL (12.0-16.0); Immature Granulocytes Abs Auto 0.07 10^3/uL (0.00-0.03); Immature Granulocytes Pct Auto 0.5 % (0.0-0.5); Lymphocytes Absolute Auto 3.1 10^3/uL (1.2-3.8); Lymphocytes Percent Auto 23.5 % (20.5-60.0); Mean Corpuscular HGB Conc 34.5 g/dL (29.9-35.2); Mean Corpuscular Hemoglobin 28.9 pg (26.7-34.0); Mean Corpuscular Volume 83.7 fL (81.0-99.0); Mean Platelet Volume 10.8 fL (9.5-13.5); Monocytes Absolute Auto 0.8 10^3/uL (0.3-0.8); Neutrophils Absolute Auto 8.9 10^3/uL (1.4-6.5); Neutrophils Percent Auto 67.8 % (43.0-75.0); Platelet Count 282 10^3/uL (150-450); Red Blood Count 4.36 10^6/uL (4.20-5.40); Red Cell Distribution Width 13.5 % (11.0-15.0); White Blood Count 13.2 10^3/uL (4.0-11.0)
[2023-11-11 12:56] LABS: Estimated Average Glucose 108 mg/dL; Glycohemoglobin A1C 5.4 % (4.5-6.2)
[2023-11-12 06:08] LABS: HBsAg Screen Negative (Negative); HCV Ab Non Reactive (Non Reactive); HIV Ab/p24 Ag Screen Non Reactive (Non Reactive); Rubella Antibodies, IgG 6.36 index (Immune >0.99)
[2023-11-12 10:09] LABS: Rapid Plasma Reagin, Quant Non Reactive titer (NonRea<1:1)
== END 2023-11-11 11:44 | disposition home or self-care (01) ==
PROVIDERS: Visit Provider Obstetrics & Gynecology
DX: Z34.91 Encounter for supervision of normal pregnancy, unspecified, first trimester (principal); Z3A.10 10 weeks gestation of pregnancy; Z36.0 Encounter for antenatal screening for chromosomal anomalies
CPT/HCPCS: 36415; 76817; 83036; 85025; 86592; 86762; 86803; 86850; 86900; 86901; 87086; 87340; 87389

== ENCOUNTER 2024-01-10 20:33 | Outpatient (REF) | payer OTHER, SELFPAY ==
--- OUTSIDE RECORDS SUMMARY | 2024-01-10 20:40 | XMS_ITS | CCD ---
Author Organization [facility] Care Team Providers Care Newborn Hearing Screener Name Role Phone Unavailable Primary Care Provider UnavailCHAPIN Porter Attending Unavailable Jossie Krueger Unavailable Viral Galindo MD Primary Care Provider JOE WOOD Attending Unavailable Medications Current Medications Medication Drug Class(es) Dates [...] Ql (Unsp spec) Not detected Not Detected [facility] Comment on above: Rapid NAAT: The [...] management decisions. Fact sheet for Healthcare Providers: https://www.fda.gov/media/133901/download Fact sheet for Patients: https://www.fda.gov/media/919842/download Methodology: Isothermal Nucleic Acid Amplification Specimen Description .[facility] Rapid influenza A/B antigens on 10-14-2022 Flu A Antigen Negative NEGATIVE [facility] Comment on above: for Influenza A Anti gen Flu B Antigen Negative NEGATIVE [facility] Comment on above: for Influenza B Anti gen. [facility] Outside Recordson 03-18-2022 Outside Records [id number] [id number] C[facility] Summaryon 03-16-2022 Coding Summary HTMLBase 64 EgngmdbfFLj2aCu+PGhlY WQ+LU6EJEHcA76eiEDjjA 9VW5hJVW7RHGTLCCDTPR2 SML5qxNV3ZHggA2KrzwHg WzvvuZMhDO01XGc1WGD6t ScoQMkitB2yoYKfL1x3Li BaSV08eL87HEwnVFMeAqL 3LjZpbjsgbWFy M9xqMrHgxJPcOpc+PHRhY mxlIHdpZHRoPScxMDAlJy AuxUjjZH4aWs2pBDEmNTP vbGxhcHNlOiBj a1esAWOjRWhkJW6ycZagV 0MxpAL2NAHlh0n6Xa32zR I+OONvQSE9iOtsFNkvh66 7YbDst2esARR8 bFNuEIsiLVJ5Y10hc9J7X FGzZOXvLLT6eNK0cD2sqD viaxnuS6JvuWFgViZ4PLE 1qCYalH5zyBvw ftqthO4vIrd+E96HSJ9CJ PTJMC6MScx4U3AbSxdhoW I+RT99VPHyVF36nFFvnVC gc6bdvIe9BhRh ZQWiDIO7yCkaMTxzn4WoR FSmV81erUPhm6P7QAUmzW ipvOYpOtTeuSM8iZ8vGMm uninsw3uwljkz Qothz3kizx65dW00C58xD EvnOGHaBTA6KEVjRLNdoZ jpez4xqO5gNz5+OXqwg5n vt3ivuIk2DnPk DWLbktOywAmqGZJ1y4DfQ o43J5VpwUxai5JtEuy3jr 46iISty1L1mLD5WHieLNO guZ1yPSmiVsO8 KTUtArWgjS36iAZvBBgoP b0gjYvgmOatDE7eVPFnex ibWYZjuP1hAULpmPVxnNj fSF0tJPMqzjyr i686RxCsYIM4IKXkpGSeA 3DjuG5kIpSjCSMfTJUgK7 GviJKjRRjdO716NTrfZvD 4JUQmmkViZ3Ar YIHldMniUrP8s7W1Km3Jf 7AfafbwNZG5NAdkJWH4Jm OeGoBnHeH0W5WtXiq3BIS qvHdhCE6oE5Cv OOLhuzoavkqacWQ1EJAaN EJehR11vUGbOJgiMo5tk7 N5i562PIVjTWRslJ04Tz2 udDogMTBwdCBU hA8jzjual4dndjpdQfIoK UEoIOr8AZl4IMUttTpqAw NuTHE3ZlT0FZN5yPTrxI0 vsQaomvelwQ3c Oyc+T43wjB8cTRH5TES3n pvgVOQmktSpXX04YF47N3 RyPjwvdGFibGU+PGRpdiB vdLvdUO6zWaTz f7wek2HxQYuqB4KrGTFqR XdqLqk1XMAjWWS6cSN8eR 6oRXUaRIhsn2X4cFW6F3G wmzZsbz0zj5hi PBGzOOjvM50gcUJet4D3B IHnsTX0VSHngSwmHhIcjI 93Oyc+JOIkcLipc9IuKec xo8opk7hcxTd7 VlPaJNZmmvPjeXypIHT5n 9YxOb45W05gJZhnGWOiHW SxKVIlZRThkXoqfe5kdA3 wIi8+PGNvbCB3 tZH9aV1kGJRuGaT4VXvcB 311QrCypUBcMnvzd3muw2 uirDq3ZoMmVZBylxGayIh nKSP1u9MyNu62 Z97xJEisPNLzNQIfMSAgV ZLvqUhxss3yyR0gMa0+PC 2ef1zzkm49tF65uLV+PHR nNJP9bFpeGBzj ZRWbaS1tHKsoQyA1GPPsD xBogO34oZTeUJjeBj5iaZ euzBnoHM1oEXEtfqhtf92 0IkDsx7leUOGl bIZgXRgbDET7T01rw6F8O TGwWQHoCRM8eMB9zQ3ttK lnbjogbGVmdDsgdmVydGl pVWulRLefS908 IHRvcDsnPlBhdGllbnQgT zHzLSo2W4LsQey6KIMmjR wjUR7ktCVkQHjjVg1kmAx dsErsCM2tMCKj mavuy327SfSai4gpECIdy FVsXQgfIPY7K74pe8Z9OM ZvUBMzZIG5aZS5rH9xdYr nbjogbGVmdDsg ttNsjZmdPHmtJZjuW358B HRvcDsnPkJpcnRoIERhdG M1QB74EX35aVZit1E5pHB 2L7SnBYFbkbmv maujxOX7VGGhIOAtzE83I e1qdFfbOg2mHEMvMRF7QK QxmBItZ2PcdR9yQxLuILQ qQJTiM4CgyUYl YZicQ717XCbbDmE8DJJpw iCyK5UoAXSkbKuaUqU0l2 O7Zb0RV4Z4BX43CM07rUA cg7X4wLL5G0Vd OAFqevulplcuaGA9SGPgD QMtaG61Gj0smOkeLx6uGU ImRKF4FOUciIZvA7XccH4 yOiAjMDAwMDAw K0RpvSTzVWmhN033YHvmV dG2WBQkasDuD4ZcMXEfsK ubOiF3m3M2Mx0EMFi6XQ7 0FY85aBDpj8A9 pUC5M6OgBEJmvjfykzfut VQ2KVTcLIPvbB79Hk4foQ thVg3wPRXqQXH2GMBaaDC mC6YyuX1pLxGq XXGiTHHdW6FvlJMmNSueC 884UUhsUkQ6WQGzbrTwB7 PeIUVpjLjoBvK9t7H7Ne9 OMQMgDP68BYK7 lFG4OE64QO54Y4NzUpyok GFibGU+PHRhYmxlIHdpZH RoPScxMDAlJyBzdHlsZT0 mJi9kQUPrISZo vYgdxDJkDyNps9maLYVtL WwdWE9uxImlX3QlvJZ7XU Jmh9x6Us91A34aE0BodGW +SLSloRA8mCC1 aE4iOmVdIjJ7AAwhU066C iGjaBRkAzbyq5rcb9ailF c5YaW9IHUxoyVoyLakREH 9k5WuYy62B71x IHdpZHRoPSIxNSUiIHZhb Sytlu0jmW8kGw8+PGNvbC H1wAN2fB2dAeEvGbJ1QVl wY737GwNtdKNk Nrihn5tio6ctyYr2MfOfN RLwkhSlrQdeYME8v5YpMp 10Q1UztXhvg8YfVlg0wa3 3uMTyq8Y3jRR2 C8ZsLIKeyrwejIMfgCojF H6zREQqdypgEBXhtM2wAS UiY7c2QfUzOcX2AHopO5P fexS0VZVbyYDb MYjlEVD2T35cc0Q4UESfR ZTnAOD8dYT4qR2etWofso ogbGVmdDsgdmVydGljYWw uWNliR529JKDf wAqdMABnsX0rNLFbdFHif WcfEH6wSWZbbktrUmRNYI xBUkQsIEFMRVhJUyBTSUV GRtZ1J2JiFlh6 MEVznWicNU8ujIGiFEedW e4naAqccKgnAX4bBSQxit ueBIOuvJ6rJCBbmTMonBr nHK3sTHDrqisf x167FgJkVKZ0VVAfuMVqF 8MjnV2wGoFhLEMgSYYvA4 EfwWQfCTeeM528AAbiZyJ 3KJJhoxYsD3Nm BKItpCelFoV4j3K2Ri3dU K2yQL0wGOh6KW82EO65xG Dnb3B7lBZ0G9RyGXOguxa gqrejfLX9HNBm BMRplR21fDIyBVcxYu6ul 8K8y909RVSrBFSgsY45Tw 1cmQefEFGvzGORnJ7exwt mq5vrcwexCyOw JJMtONa9PCx5EZTvtYtmY rWeGZP3UjC4EPZ3bRJlgW 4fuOyljjcfaH6vYcx+MjI jHXItsdF6O8Tq Iqn5OAUlfFxkOD0ngXSoZ NvsHc2nhYlgmAxiVF9pYH EphpmlKVNwtW5nBHKruRF qiIefIG6nGIMz mocff295LcMvIDT2CJYha DZoZ3JbsK1aYkQoYHDiHW ToQ7PtvDHtZKfrS939CRv eEoD5ANZeavXo X5AmSQUfmUytXzC3t0V3V p8DGG8IZYQ3U8DfStd1TD QykBfbMR7ofAVaXAhuMt1 xlUifmUggJB6v YDNniosdRYKpiE8kFAVqr BRljXmcOC7iSYBqoatrt1 95NmGpPWI2DGYpiOAkH5W acC1eEcCcXYTu TWLxD6YwuSUzSWhaA032Q PdiXnE1TUKcjdZpA8IrXH XkuKmsUeS6h2T9Dy8KHKy vdGQ+ZL57cv89 X4IoQyljQiw7SFXkEVS4u XK8uW3kVIFfQMhjh9T7jP F9P6WpjjKphp0yu8ifFNF tNNhxW80beFTl r6B5HZEswOW9CYEuyHfyE dUefT85Qvg+PGNvbGdyb3 ObBjowg0aml5ltqDj1VnU wJSIgdmFsaWdu FJR9b3RvZb51R96jDTesB HRoPSIzMCUiIHZhbGlnbj 7pyU3rWc0+YIFfuWB1eMF 4pL0wQyBfBjB4 XSkkJ701LdCimNNzVzdmd 3gbf9wwhPc9HmUaDAHemp XloCtwEAO5g0UfCj35V7S hlOljz2FcOyp8 ij54sSZjw8M3dPY9I7LpH TYixbdafBNmjLrcHD1xNG QzdyudLMEmkD9pQHJoE8c 8PlNqMgF8LAlo V3KgthQ9BPZneDVdLFOps BHPwI2xusklc8vabjahBl XyILZeZLf4WOy0CSYrmBm vUjEaTBY4FaO4 NYA9lFPfkJ9ooVzlgvowj G9wOyc+ROx0h8krjDHkVI 9gdTX5RH15HA15tXZhk9H 6uGF6D1JrTCTn jdhwkyxopXJ7JAYnAWFgy Z48Nf7qsZeuAr8pAZKkEZ X9WBIvlAHlE3EtrV3zBeK cSOAhFMOvR2Bo vMWsNHwmP337BRnnWhL5S RKfnyEkJ1DpFOKrpPojBd J6p5M0Io2SZK64XL85YU1 4rSGuu0X8wEU2 D5VjJUEhusiyygdxuVK8N ILaXBDzaP51Jp5aoKdwPq 5vMUVxHCT6PAJvpBVcV0E ckY3iZzSjTLNg UUGlW6TvkUCtYYoiB976Z FmoJsH8ZBKxdhWlN7LzIG VnrXixHkC8a0H3Il2ATm9 1FN96OY45xTTa h0R5vIY1V7MwNXNnqisol xmmbSL2VPLxKCVjsC22Yr 8thCdkYg1sHADiVTM2HMR kuJEmL2VjxJ8j QvTzLRXnRIWqH2LocUUtC AqbA891QHbrLvF4RKJrgy OwY8BsOKNwcWbuUmY9m3H 5Nu0LBCjfwcf3 Z9WcQpxshVX+GR94LEQoW L24jMQhwDNij3gagUe2Go EcQXImKZY4yWmrCDggj9Y sJNClZ27asITr c2U (more content not included)... [facility] Coding Summary HTMLBase 64 SytlfwdhYSh5zSo+PGhlY WQ+DO7BYVYeF34ekHFcfZ 5DU9zBDM7KMFAOFLQMCP4 WVY9cdYD7QCqpV7MyokSn QgxzpUQeJD22DMm5HXV6x FuuCVkgzX8oeHNwG6l6Je BrVB45nM03KIurETFtCoX 3LjZpbjsgbWFy G5taEuSfoJGoPus+PHRhY mxlIHdpZHRoPScxMDAlJy JohNhdWQ7dYj0xSMQqXIZ vbGxhcHNlOiBj g1ugIVWhPRpuXR9seUthP 8ZgfCA8XDVar1a2Lv76yH I+IDZwJKS6tZleHCvgb36 8HvNkz8fhWCR1 vSRtHOcuNVN9V45ak2T7U WXoLCSiAFE2tBT1cW6aiX hfpukbS4NzgPTnBzM2FBL 2bXQajS9plMth cjxgeD0oTvy+Q57QEP1PX KHDMY0UFgb0N3HmXvbmvA I+PA94DDUtBC77nKIkrDC qd3lywWc4QbQy IFQkFFZ0yAhmAIzxx4EwF CZsQ98thDLrh5S7AAQhaQ tfdNCyVdEbdJB6bK1iFQz mqxwhz9vojgfh Pbzad6jgrf72jU63G95uR SowIUHbAHD4ATEmFRBoiX wjcu1neU6cRa1+ZYkzq9l ed8ymiWb9FzIr WJHtfiFzkUbgIZG5v5XwF d66H8TrwHkma1SzZdj8ww 77pZVyi2S8yEC4TIrsEPA poA1oDWebXoP1 SZQtHjCguG51kHSvWFrcL x8teLmlgXfuLT8qRKLxjv lhCAAixL4fPDYneCNjbYk zSD5eJVMoehfp q265WfOxINK5CJEhjXYuX 0PceF6lLdHxUOKvARAdR6 GqkIXjSKcaJ173UVthGbB 1YWVdnjEwF5Or CZYbiSsgFgE0s7S4De8Fh 4EfxvxbZEN0SMyuELF4Da CkTaEvFaA8L9ZsDkp3IRX rlMfpIX7wJ5Hy IHPbogsecvcnpLS6XJRlB AWbaQ66hWRdXMtqJm8uw2 F7v254ECIkEHIjfS07Aa0 udDogMTBwdCBU xD6waapkw1erxcjzJxQoL BJmYQc7FDj9GLOjaXofNo GgAIX2IeT3ELM7bJSgtF3 crVbcjloeeN7o Oyc+V69bvB7eZBG8NDV6y urhYKVvroOaMR38WP86P7 RyPjwvdGFibGU+PGRpdiB tzXmhWD7lZwQj s0atq4RpQRikB9GuFSKpR CblFeg1ZGSrLLO4wNJ6kO 6kETSjILhmj4X3gRA0C3Q fhkJdql0xc6mm URLkBXxfI30gpOGjm5K2O ZYnfMC5CBYymTtnVzDzeX 93Oyc+EXIlbQaui4VnRcw oe7gso9efjKs0 UkCpBKEwdkBjkDwjFBE7s 7MgIn25V60jYOvzFETsCI HgDZQsWWIelMudaa9wtZ9 wIi8+PGNvbCB3 zTM8oX0rZBDqXfL6EKuoH 052TmNypNPeMlygn8ucw3 utmSy8TpPuHDQbrgXtjCt nEPG8w7IsCb69 C35rCPtuFXYjNPCpULCwA IIfoLqtwi8pxS0uCr3+PC 8lu9xwlx14gO31eIA+PHR lNOZ0sDkmUAyh WZBvbL5mNYyrFxZ6DFHtQ uCtnP08rPLtMYoyPr9zsW zsvYmjIR7vOEHtfname42 8FtZmn0guNWQu oTHzATvnVNB7V08dm1R9M NXxWITkMGD4lPD6wH8fkL lnbjogbGVmdDsgdmVydGl jVOupMSqxF075 IHRvcDsnPlBhdGllbnQgT gTnVXu9Q8VsTxp8NMYueN ggRR8loOCxKBujQw0jvBc gfQltCI5rHQLw bgukr975TqAbe7haJVPuq GKhLWwsRWY6Y29lf0J8ZR ZpKWYfDGT5mDW2bD8hmTh nbjogbGVmdDsg fwWbhQioYLhmJVcrN945V HRvcDsnPkJpcnRoIERhdG E9CH15TX02pOEug4T5hRD 5H8CvJJEuedie hhfgxSG1PXTrCMZvhZ78P x3gcCieNt6jMILrHUA8CZ KqqWJgP1AqaR5oJmUmHNB nNKCwH8IuwKOl NPovA195BPpaBiF5ATUvg uPlR5BcAYYolXiwHqW6o5 S4Pv6TG2Q8KZ22UZ32bLV vw2H7jSS2R3Ge LVWhastqatcjbSP7WTSxO LTzhY73Rr9agNaiHn3rPY PiVEN2YVXwbCZyJ1MiqN1 yOiAjMDAwMDAw R1QipGHdGRjxN663PZnaG sF3XNAkmkLqI5KmZMAigN grWkY4v3U7Nf0HQWx2WM2 7ZP93oOXuh7Z1 wMP1D2RpJBNwcnwwravok EN0KXBhZYQutR58Zz4tkK diEe3kKKMwGII3WVThhXI dF1FhyR0cCmXk LEAbIUFmQ3BqqDIpBCsnU 325WTvhBqO2AAVahnGlM7 UaWIXppBblHwV5p9I4El2 YRNWzAD78LOH4 qWT9UJ97LZ42E6GpNfgxu GFibGU+PHRhYmxlIHdpZH RoPScxMDAlJyBzdHlsZT0 xEv3wLQNiONDu eSduwIFhJnIri3kfGRPsD FyhRU0zpKzkL2LosHJ1PK Fld1q3Bp93S86dJ8VorWO +ADPbuAQ3tRB8 yZ4jSmUcUnW8HDefC892J yXueSKeFgpnz9qdh1sgmP z0FaY0HVFeagJmgMgaQAA 0e6SqTa41S89p IHdpZHRoPSIxNSUiIHZhb Zrvuz6mmN6eAm2+PGNvbC X5xPQ4zL4sZjEkEmU9PCw uO241HuHaiIZb Zryhu2okg1ukhPb1PjPnU VFkvhWiuFrgNPD8d9UuLj 82W4UqtPvue1CvAzm6ba2 6eBWtq8S3rHS2 L3DaISPynowabOYsqElqE O0vEBZydrhiFWEiqZ3oNC TjG2v1JsHjDyH1CBziP8M oytI0EUBizGRr ZVzkKUQ5C01bl7U1UOGxY EEgOEJ9zMJ5xW9nyMhqpj ogbGVmdDsgdmVydGljYWw kNTeoH151ZJYw rAlaWUDncR8qFNHmmULvt KijTC1aQJPdwnclAdLXIJ xBUkQsIEFMRVhJUyBTSUV XGfD0Y6CmNwe7 OVCtyAcoPY8hjZFeRHanW i9hwGfwnRneLL7qQEYhid lnUNYhhJ4cHRTzaFKawNp gAU9sCSLuohop z098DlKbMIJ8TFOcwVWnW 0IieE0eGiJwPESiNJXqI1 DswRKhPMgfD696RFipIcP 4PQTultZgC7Cq YKAskWiiPhR4h8R5Fy6fS Z9gPG0gZWq9AQ19QF77zP Oks4W4cLA4M4YsRBJjqvx diogevJE9QCBg COKtyX40aNXwUOtzVn9jf 9E7q011NBUdJUWgvQ89Ot 3dlIziYDTldSPTxI6wzcw rw8qltxnvPaMc FPOvSGu8VXu8TPIykVfdG tRkDPT9IbC3JTJ5jAWqvI 1xqOpjodotoI1uFll+MjI wHOIplfK3K9Wy Ful8LKMdaMlsPT8bsNHoY NgwAn1gqOclfCanDK7aMF AvhncpWOGcaE7eHLFvkXV sqZhmOI1tNUCy vsmlp116WlKgNBN1KJTbu FSbA6IvgP1xIaDeFNCbPD HcX1JyuBIpGNapN093FQy lEnZ0YMUqvtRi E2KaVTSsnMidCfK8m1U2Y h5XBW0IQRD6L8NeAce5BC BqtTawHK3mkRQtFQnaHr1 ekEdqoQfwDV9t AOYkyhuzAUZrfB7mMPPnd MVhyWozKY1sNKKqtssmd4 74YxXmUOB1TBVmfVQcG7N kmP9aMvGaDCJm LPXnE9AyuEAyJWatW089I ZufZbL3ORCpunXuD7YwBG KwuYnxAwH1t0Z8Ag6UiVF kP1IjF2o7A8Uz PjwvdHI+AW48LEJlQE74n NVhsSVen1dqoQe6YzIfHN YdZRR1kJfiGXgga4UtADS vL99keCKik2S8 USXnpJxwwROvZmLgiSU0y G0eSKylfrgrx6bnhffcJg gno6tzuf78sF33N12aNLv pZHRoPSIzMCUi UFZrlRmbzt4raA1oHx7+P WQqoEA0kQC9xL6fGlAmPh A4FPrkX549NmAgmAKtIyg la1osy9fwkCq9 YiZpPMVnjoBglXkvDTJ6j 3PmCd93Q25rKVzpYKKaFT EkXONbTWCnjSmozv4bgA2 wIi8+EG9xz5rn ma24lF32dQA+EFUlLNB3u NclEJrjKUYluL3xRShwBu G1IYIjJwYgzP00dPWgDJm hYl5ymIvekAbm PE4wUGBcebiuf226EtUky 4crRZLjsNDvRWjeIYV8K7 8ix0B3HAJqZMZsBOI7bQJ 3sF8shBwzsicr bGVmdDsgdmVydGljYWwtY LszI518UGMytRatBtZpuC CwT5oddeHFLC1xCubojCT +SKIwYAR1rXsx NAwsJBRuuH8lIVZjN3r8G mSjZmS8LXfoU1CzbyG7CT TynKEyZSBvrAFJtD2fqvw ey6myrjqiHnDz SGEmZAt6QRu0OQHciDgrL nBjITB5ZvA6XVY1tLPgnS 6hrPdvtlpplK4ySom+Rkl OOjwvdGQ+PHRk DJX0rUejDOunTYYuyS7dK VYeA1x3TpNdQqE4OMhwU6 HuteZ9BRRblFPuZMSzwJU JjT1oqyblz8ur paefEaEjRCLsHTd5GPz1X DJuxLjzDdHrIPZ5CkK4QB A7pKYmxV9pbZggwygnsL7 wOyc+TVJOOjwv dGQ+XIFnTCJ9aMzzVZegI EHgdI7pUYBeB5s0ZaRcJu K5IFowV3XdpuD3SHWqkML jRLQkjGAOjF2p xbjfj7ccjsjxGhBzQLFkH Dl5XEd1JRRulXdrKjDhGZ O1KtB0HVR0cTYbjD7kkRi pprjrbR4fZjq+ PHC3FWT9RH68DP25R7WnV jwvdGFibGU+PHRhYmxlIH dpZHRoPScxMDAlJyBzdHl qUX7wWl9iHNXc LWN (more content not included)... [facility] ED Clinical Summaryon 2021 ED Clinical Summary [facility] - Emergency Department [address] [place] [id number] ED Clinical Summary PERSON INFORMATION Name: ZEV YAP Age: 21 Years Sex: FEMALE : 2000 MRN: Acct#: Visit Reason: Hand pain-swelling; FALL- LEFT HAND PAIN Arrival: 03/08/2022 18:36:24 Discharge: 03/08/2022 19:37:00 LOS: 000 01:01 Check In: 03/08/2022 18:36:24 Checkout:03/08/2022 19:37:00 Address: [address] [place], [place] [id number] PCP: Viral Galindo MD PROVIDER INFORMATION Provider Role Assigned Unassigned Sudhir Samayoa MD ED Provider 03/08/2022 18:38:47 Marry FERNANDEZ, Isabela Daily ED Nurse 03/08/2022 18:44:08 Cinda [...] Home PATIENT EDUCATION INFORMATION Instructions: Metacarpal Fracture, [id number] Follow-Up: With: Address: When: Tristian Montoya DO [address] [place] [address] [id number] Within 3 to 5 days DIAGNOSIS: 1:Fracture of fourth metacarpal bone of left hand Patient Understands: Yes - Patient/family/caregi joseph verbalizes understanding of instructions given Comment: [facility] ED Note-Nursingon 03-08-2022 ED Note-[facility]ursing [facility]. Ambulated with a steady gait to ED room 3. Alert and oriented X4. C/O left hand pain. Patient reports falling down steps 10 days ago. Patient reports pain is located left ring finger. Reports increased pain with movement and touching. Normal [facility] ED Patient Summaryon 022 ED Patient Summary [facility] - Emergency Department [address] [place] [id number] PATIENT DISCHARGE INSTRUCTIONS Patient Information Name: ZEV AYP Age: 21 Years Date of : 2000 Reason For Visit: Hand pain-swelling; FALL- LEFT HAND PAIN Arrival Time: 03/08/2022 18:36:24 Primary Care Physician: Viral Galindo MD Attending Physician: Sudhir Samayoa MD Comment: Visit Diagnosis: Diagnoses This Visit Fracture of fourth metacarpal bone of left hand (S62.305A) Hand pain-swelling ([id number]) Prescription Information: If you have been given a prescription for narcotics, seek immediate medical attention if you have any difficulty breathing or any sudden status changes such as confusion and sleepiness. If you or anyone you know is experiencing suicidal thoughts, mental health, alcohol and/or drug addiction problems; contact the [facility] 18/04 Crisis Hotline -Text 4HAUK uv 327560. If you received any narcotics, sedation, or [...] With: Address: When: Tristian Montoya DO [address], [place] [id number] Within 3 to 5 days Medication Information: The exam and treatment you received today in the [facility] Emergency Department were for an urgent problem and are not intended as complete care. It is important for you to follow up with a doctor, nurse practitioner, or physician?s dental assistant medical assistant for ongoing care. If your symptoms [...] so we can reach you if necessary. [facility] Emergency Department has provided you with a complete list of medications post discharge. Please inform your deicer finisher/provider of your visit and for further instruction [...] treated? Treatment depen (more content not included)... [facility] XR Hand Complete Lefton 02-24 XR Hand [...] Pearson DO 03/08/22 7:40 pm Technologist: TAMANNA [facility] Office/Clinic Noteon 021 Office/Clinic Note Patient: ZEV YAP Age: 20 years Sex: FEMALE : 2000 Associated Diagnoses: Migraine with visual aura Author: Viral Galindo MD A History of Present Illness 20-year-old female presents today with complaints of migraine headaches. She has them almost daily. Typically right-sided, pulsatile, will present with visual aura. She has tried taking wzhp-ykf-pgqjizy migraine medication with no improvement. Not associated [...] 308.206 lb Body Mass Index 49.53 kg/m2 [place] Body Weight Calculated 60 BSA Measured 3 [...] and Plan Diagnosis Migraine with visual aura ([id number] G43.109). Plan: Discussed with patient we will [...] tab(s), 6 Refill(s). Orders Evaluation and Management: 30594 Office visit - established pt, Level 3 (Order): 07/09/2021 8:27 EDT, Qty: 1, Migraine with visual aura. [Electronically Signed on: 07/09/2021 08:53 EDT] Viral Galindo MD [Verified on: 07/09/2021 08:53 EDT] Viral Galindo MD [facility] Coding Summaryon 04-30-2021 Coding Summary HTMLBase 64 TodevaxjCYb0qRe+PGhlY WQ+JG5KVJJmD11fdWAppA 8JE4xZUC6VJRJVHNLCVV3 MCB1zySS0XWnuP9CbfuFd YvozkVZqZU11ZFr3BSR0d KwqTHaycS5fzIUvG4v7Fo NaOT54iM30JCuqEUVlWkR 3LjZpbjsgbWFy J7cfFmVroJMpWgq+PHRhY mxlIHdpZHRoPScxMDAlJy XucLrlWK1gDn0yVIOzEHN vbGxhcHNlOiBj j9pqJXNsASkgNS6glJwbX 8TnbMH9APQjx7h2Ly64qG I+KSFfIKW0uRvqENqbl84 8LpRay1wxLSV7 qBYyCKuhUJZ6X68am1G7R WJeMAXaZNK5hZC8tJ7gmK erxxiwO2PovKNuWnA8PCN 8gCAxzS0doAni elkxnV0wRyt+X37JDS4RY PENKP0KHpv9X3DoKegheP I+EX83HEMvAC06jXFokTN wf4dzlEk7NvSh KPIgMPO5mCbzEEhmu9SlK FJhH96uvFXxb8N1BZHwtV unvDOsLcXaoVR1cL1pXYp bkggks9lzknfi Wsevp3npmn14vS21G77iR LdfSCBsKIS8NXWeOBCcoM ozmy6jkL0gNy6+PSqzt5k xm5rvyQu1KhAr PRFdcoZeoVjyDKZ9g9XlI w26F6UtjNxlb4EcSuy9io 35zSMyy3U6wDZ2BEeiBZX kjD5bQSfvKoB4 KNCeVbHfhM99rVZkWDgzB r7ohOcejAeoPO2dOHYdnb vzLYMyrH4yJIEphIObhOz yRK2xMGYbyumy k237ElKlUPS7XTVgiWCyH 3QvrD3aGaLlGCVjBLFwH4 UxvCUzUPurQ948EFbgRwC 1WQOmvvAuS0Qm PAIvnKurSmF4w3E5Tx0Qb 6PxmnnsTAQ7NXukHJS8Mg Q6EkLpGrN1T7KtWiv1GHG rbIgjRN4pL1Ze PMIxxmzuehewxPN6NNUfG NTcwU00gZZdGIunVs1xc8 K8w817WHFjDKWtmS44Nz2 udDogMTBwdCBU pL0fjicyn0djyybeCcBfP MOvUEy8QVz0BWTipXjeFr YcAJW3PhK0FQH8gNEtaM7 uvKwyjnayoG1s Oyc+U66udG3yXMH9VVQ1k sfbFHSopdKkYK56MG26C8 RyPjwvdGFibGU+PGRpdiB lkLgzLK1fOrRo y6coo7LeCBybU1BpXFZkA PxvNlj9GXWxYEM1iOA4zY 4fJCXdHNhmf8F7zUK0M7V fycGiwi9jn6sl OCHwOEgmW20djVQlr5W8A EGhlKL2AZTckBcwFnRvjG 93Oyc+KDRxrXznh0YcCcw gu9aqd4udlIs0 ZwRbMAZzskTtnFqoJDS5e 6AvHv76U87oAUagDEUeNG SmVLQiFJYfwBpvaz2ujB9 wIi8+PGNvbCB3 vGT9nY9dSTSuHfN7JNlmE 199DhRqyIFeRxwrk2eqf8 criXy8KbPxNLQjbmIyhAk lMEB7n2NzAu49 L29sQLkxBKWmIYArLYSgV HBagOzuil3npL2gFb2+PC 5mn3paaf36pT09gPI+PHR rRYP2oZyjZNho YUQokT3kLSkjPuP0IRZcD tCieP03jJVpTQhzQi9qqA uduVxeGO0tBZBnepguz29 7FeTrx6toXJEb gZSnCWdaZGY4S11dv8X3C YClKRMbDJB2eXV0pO6lrM lnbjogbGVmdDsgdmVydGl vAOeyFZiqG326 IHRvcDsnPlBhdGllbnQgT vFzNCe3Y7VmVbk5UPKjaR rjAY6dvGJeAAuyJl6xmKh hoYltLN6tXOUc tmhhk740EkNre5soLLRhx USxIUyyFQN7F06te9Q5HK XbEXOhALY6xDX0vI5jbDt nbjogbGVmdDsg pdTscRdwGRbwWRzxG332I HRvcDsnPkJpcnRoIERhdG Q2FC25VX45pULwe3T4uQM 0W5IoKFKtzmjc cbhghRX9CFFnIYLiqY49F l1csNqwYk5bAKLiJWW3CH PpjCXfP0TneZ7cBjPpSNN hWHNyJ5CvtYHh OGdzQ562REnbHiY6NQTlu bTfG6XwCXCgsUquFeY5w1 H3Lb3OK9Q4EX93ZE97aPE bd7V3aLW0G7Od FIVbpimaiylpwFK4HQTgR RTnwF50Av9nlHspXd4kAB NaDGL7TYKmpFJpX4LlhY8 yOiAjMDAwMDAw O0HaeZOpPDnpO760QHagV yH7FVLyfmDkP6CqAUTwvD ytHkJ7u5V1Mj2QZFj7JP0 7KI93sNWqw9A9 jLM6O4RlDKJjltknrdkbv LE3SYLrLQMewN88Pm6axH ysCc4oTMZzXUH0YPZotSH gC9KgqQ5iCuVo TAEaXRCuS2VgqEGxSYjeJ 569UNgfWaM9GATajxXqH5 LfFOLizOvaNmG7q4I5Ep3 DXTJsGJ29SBR6 qLS6RK41RM26I6XfDpvdt GFibGU+PHRhYmxlIHdpZH RoPScxMDAlJyBzdHlsZT0 iLo6eNQXmATOd wVqveGZoAsKvl6gsHIRaA FoyNX5nxTyiV4GqkNA8YF Qvf4z7Aj30C48oS5PfjCO +YDByeJG9sXP4 kQ9rDtDiUqT3KQqgJ888N kTbxWYgJgdzl5mod7fdcM y6UqA9KRRenjTmmVafDJC 2m8AvZo73V02r IHdpZHRoPSIxNSUiIHZhb Nzqlz2tpN0bKv2+PGNvbC L4pZE9eD6fFgFrGyE8OUo rB925MwUvxXQk Hpoyi5nil5vdeXa6AqUhI KUqtnWkaRhzQNI9r2UjYr 78L9KeeLykh7ThHjs6dh1 7qDKsu0O3uHI9 K8AuADGtmzrldEWuiEhaP T8yEMUespauKIYwuB7iLY YrI3c2HnFlYgI8PAumH3R omzR1BEVlhJIh KOqmUWB1N77ce6S6LRKvP ACxZWG9uRL9gN2xnJnqgr ogbGVmdDsgdmVydGljYWw tXVhzM100ZEPs kXbeMWDrxX2rEJRicVRef XhaOG2sEFEfnmpzMwOAMB xBUkQsIEFMRVhJUyBTSUV SKjW0D4KnAvw1 HPDfrJuoSI7guXAkGOmyQ t2noJvvqUvnYK4pPNPmmp glIZAiqB2wCHIalZBwnNl wAJ5aBOZipxxs l122ZtGjHYQ8WVYzpEVoG 2YdfI7sUsLgPVEeEWFqW0 VjdHGhJFlnA485KEzeCvW 1SSKylqHvS5Bf TZQjlBspFcY4q2N0Yh2kX Y0iKP6tKDb7VU65VS11qV Hrh2Q4uFR8H0KjZLFiyez lyvvobHL4MNUn RFPnxC36gVIrRWtmPz2bu 5A1m270PZYzEGShcV23Vq 4nxRpySRShoLBJhC7fimu ra1ihxxwmLsIa GROnVIl0BTa7ZKRsoCbmT nTcTXO7ThC1TUI6dRVenR 8sgGgtgpaapG9pQsg+MjE uQOCiydG5Q2Rr Ndg4KCSptEtqNZ9tnTSaZ XqnSd5dgOchhUfwYZ0fRW QpjlkaVQTjtI9iDUDqhPP ixGgnBW2dDKWm sqrob464NbDsZUY1XAArb UJaG5LnmF7lNeXyQGGkOB KdB9PpaLTgZIrkN848EZl bZqW9ABEsqnFn Z6ScJAZgpAamQsV9v6R0O s7UJQ7FEUA5W4HnRar3CL NweKcyHI9oqXWzWLbgHk1 gmXnezOjgXK8e XIUicvwzFIYhkG3kYYLgi ZQudTspBJ0eZIKsuuqyv5 45YvPdNNS0VUZjyIBnP8Q nrM8wAzYaYBCv UVTsW5VsbYQrUQefV809I XgdYgJ8MWHtzlQnU6UsZO QlqEzyTgV4l8Q1Ew6RDJs vdGQ+RM00qr99 A9PcGqtqQyg6HRIkWAI8q LM1qQ9gBBYwBYbss8U0wK O4P9MauhKaye4sz9ypMNS dWBekR56iuVFf h9T4AGUcaFX2JHDycPurU qOgeR41Mqk+PGNvbGdyb3 TaWioko4xqf7ugaCk9SlE wJSIgdmFsaWdu DKF5w4MuLs62Z33uRVivC HRoPSIzMCUiIHZhbGlnbj 4gnY4wIq7+SRXkaDT5gEE 7rH3cGjGgXaN4 HKpmB166XxSfhQEhYqohu 0gui9kiyUf3ZkMwWPQivk SrjOuvWZM2b6AkOw00H0V mqNken1DfDax8 qw65cSVdz5W6kXW6X9IbQ HLkmganvVIlrEzoYM4nFS SvzeupRGPwzF8mVKEeI5g 1PxAzOgQ0CBwq O9XzdkI1DUNztTEtMUGbw RSDwW5xtoomg5hkkiolOg XdEWOkAOv8FMz0HJQwmTh sAaVbTHN6XlF9 TRA1yGSwlC0cjRbjnmiwa G9wOyc+SCh8j2jxoKKwPU 0oaXT9JY86CW04lKFoj6J 9jIT3N9ZkFNTu ypcpnrekqNC3BEStELUzv R64Nv1ekMftDy0zDKMcXG K9TLUngOSsS4OfkD7lDdL gFFFlOYYkD0Uo qABbZOefE501OSxaLzR7M WSupsXfV0RuPTTfkDhsOm E8q7H3Ky3DSY34OH87RH7 5mQEyo2Z5uYJ5 O4PiYMHkwsfydaoyrHI3R SObXBNocF64Ni6jtKpxMw 0yQZKmBHX2BXHeuSIaR2V vtY7cEpFrOJRn MHYcP0CagJRpASuhD381A BnpLgE4EUKxtoJpL8PkWH FfuVgyQkU8g9A7Cc5XWn4 8CD61QL72wAQf e3F8mST9W5PiBBYzjczza touuLU7YIYaZHDnjH74Sp 2idXhrJl1oKCGcDAR6RUO mlJEyX6XrqV7i JlDsPYCxLNTzB5FjeKBqW TpjT457QVlrSdY1AGPzwm LcB8IxABQmgThfXlR0j3R 7Nf0OFLktudg9 U2QnVzmkbVQ+FJ66QKFsM W36aFSvzLGyq9cdlUc1Gm HlRTWaGNY9gOfkWIegn3O zRVPrE88xkDGr c2U (more content not included)... [facility] Coding Summary HTMLBase 64 DrmfjzlyWLn3zJy+PGhlY WQ+OC8ADGHmW93icNHgqW 7LI0iBWY2THLIRKSTALX2 KXK8rbNX4AImiN7QacnQr ZoonzAOxAV89SCw2BNU1c VxaRDbsxP9btQZkT2a2Dq ZlQH35qU65LIssSDCgZxZ 3LjZpbjsgbWFy Y2adHeBmtCIuSuw+PHRhY mxlIHdpZHRoPScxMDAlJy IgoQwhDO6xMx0iRRZpVRJ vbGxhcHNlOiBj f0bgLQSeMWjoLB7yjHggP 8VveHF9HFSqg0n2Nh12rG I+JAIgEDR2jXscFGpgp82 3GxQkp5sdUZZ0 gHPxYHnbKTO3S32sy8Y1H EIoLBQoAUF8dKR8hT9cyD jmxzmqW8RtwIPoMdO2MYZ 3lQIrmW6hnPvx potnqR4bDrj+X93QIC5ZU ZFOZA0PHjk8S3OiEhlzuB I+PT69RSFpBI78aSLfmRN ii6nreOb0HbXl ZRPsLYP6aUqpZDqck3EvS MHbV36ezQLcl2E1APAowE vcbTIcSiSnoCZ5jN2aTUo tmghmw9tsdgxo Fiyfz9reoq92hI90U61yD MvvNLYfPRL0KSMxPHYwpS rjiu4caV1yQt1+BCudd5y ss1nrlLc7GmUe SZEbwxItxQkrBTM7n7XjS o81Q9SmgZotd2AvObc6qd 55tQOrd4G6fNG5HZpcYQC cpY5lQNhlVeO0 TDYaPmWstF05wIBjPIzdV a5cgJjuoQlbRV2tBCPdqx heFNJxoP1zXQTfoCMacGi gSD7hEZWatrbe i411VdUmYNE4TAQwzHEmA 7DeaI2lIcFmLITkNGBgC3 GabQHmXQheE417GUgsPkH 3QKWmvqVlO8Bw BWMteNxiQwX6k9Q0Qr0Pz 3KvnxicSXC2PZmcVIM8Zx E1ZjIrHuJ4N2ZcPch0WFY uzMwuKV8pZ1He LWQedsfuvzpuiHC0AKHzL RFwbP25nRFoQCtiJk8vx9 N2z005TSYtRBHckY09Cq0 udDogMTBwdCBU zI7qxqdbh5bhkxexVnRbY GMjZMj2KVz7SFGgfFgvKo GqMLG8UeT0JOQ8rJBusZ7 spLvbgdeizJ5r Oyc+P52whO6bXTN6WNY2z qqpTMDvjtLvXN32VP07T7 RyPjwvdGFibGU+PGRpdiB aqFwaAF0iQiNe i2xmp0WyUHjuG2JvEKIlS VobUsu1WDAhXOD1sWJ3gA 2qAWGmATksu4X8iOJ9S0Z cdaEvjw7iw5lc IKSuDIxiG22wiYDum8U0Z GIbxRS3JDScjOauVyRmlE 93Oyc+BGJfcNuqc7PhWgf ya1bqc4aybQw6 HeUvFIVgyoDreUkvSKO5l 1QjXx29H90lVSxpDFGzXU TaVHCpEFRriHpsha6gyI4 wIi8+PGNvbCB3 uMN0zY3jVDWzDuG9UGatV 342FaUnhAZaSyyik1qyi4 mffRi1EmKpQAActtFlfRp lLLB6u0WeWj63 Y07nEXhkBKQjTTItUXFvD UGouXmymx9oaK7tSa9+PC 9te4gdkx10aB81yMW+PHR oOVS3xRrsGAtp IOLgfP5uAWpcJeK9HOByB dOvfC94sOUaUNqrKs2esD ofxJagLF7aPLIumutas28 6IcVwl6akZDTr hUKsHIjeHPR1V56na0E4H FFaFSXhUFC5iVQ8sF4gbZ lnbjogbGVmdDsgdmVydGl hEGfrBTqrY607 IHRvcDsnPlBhdGllbnQgT mDuTZl5T1MgHrw2LTBdiR kfTB1ywAGhYHowGx6fmXd kzQjaUN7hQNFg llnpg436WiGrh3oeMKVoa EVxAZadFAG3C83mf3N8LI FoKFKmVWJ2zRL8bP5kgYl nbjogbGVmdDsg qwWfdSjsKTodHTjyB587N HRvcDsnPkJpcnRoIERhdG Z6PB04YD45wEEet1D1mSQ 7G7QnMELqcgee mzabcTH4GQFeTQUxjZ89L o5gpTqoVg7sNEChWCQ7JW GlxRUmC3JpvP1uXePpFGZ pHHWgL9SssGKr DJgpU385IQfeZmQ0XXAit aHsU6JfXUAhxLkkIeU6k9 W9Ir4XA8B0KN73KY48wGI ra3C8vRS5W8Oc RRFglbsexfsvhDD9MJWuI QPamE47Wn8wvWnwVj9hIR DlMAS8WXTtlYUnJ5YrmY3 yOiAjMDAwMDAw O9XamFZhBYfjB415KRhhT tZ2ZGGmyoPuX7LnOCTrpW asKwL3q2J8Vx3QIRt6IH2 1SX77nJYbq7X5 qYY0W4BkPTWamsylolqhj VX9HASkXRLkgP99Nt1ieE dkYe8dOKGtGHP7LRClkSO jG8TdeB9nXpNh IDPtAHDtZ1CucCXuAMbnK 412JBqsHhF5YCZrokJpC1 EbJPCmlPyiFjB6t3O2Sj2 SSGXhWO80NAG0 bVY3RR09UA46C5DzStrur GFibGU+PHRhYmxlIHdpZH RoPScxMDAlJyBzdHlsZT0 xQj1iCVScPAMa hAjvdTWyUrDtn3xjJFYqL ZunRI9gzVuuH8MhgWF5WR Tkr0c2Tv86W44mG1NjmDB +GZOqvSH4sYC3 iT0nWpIqBzY9WUrtV275J vOhhHRhLkjfz7otb7vedH w3XqP0OGWonyUjyPfrDOZ 2m1SaHs45A08f IHdpZHRoPSIxNSUiIHZhb Ptssp6ynY2uNu5+PGNvbC F5jGE7bN8tVcZsBtZ5KFz mV137YxXbdWPq Htzjq7ish0qksJt4UkIfI QNlpvIyeMvgZON5x3QoTe 84Z1OunMlls4StIlc7vm7 5yFIez5Y5lVH3 M4EeBXVvfioxkNXltGteT X2eZBOfiskkROUfzW3lHQ KwR2j8GpKaOrW3XIdaK0D pqoK9GIKxcSUa RXsbKIK0P80eu6W0RAVrP LEgCAJ9iYC8uR5yfEgdbs ogbGVmdDsgdmVydGljYWw vZFsqU652YJTu ySddSNHcsE0uFDIhkOXmh RyhAY9xYAVvsnhbMrXWVF xBUkQsIEFMRVhJUyBTSUV XTpV0E1KuOxs3 RVStvAdsEJ9zjCSvCTvvV m5qgFesuGbjJW1nLOQlmb dwHBPrqY5jGQXnhULyrPw jDR8eBOVntfrq m735EtTdYXI6OILuzEZqM 8WniZ6wHgKxIUPvHSEiP8 AosXYqJLgdF765OAnlKeQ 7DGBifdVyC8Fk DHTifZxgYxO3v2N8Xd2pT V2hWB4xCJv2CE86VA58lV Tte5L6vTC9X7CySLVqona gqyoocZT0PPCy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
[2024-01-15 13:07] LABS: Age Gdln ACOG Testing Note (.); IGP, rfx Aptima HPV ASCU Note (.)
== END 2024-01-10 20:34 | disposition home or self-care (01) ==
LOC: LAB 20:33
PROVIDERS: Visit Provider Physician Assistant
DX: Z01.419 Encounter for gynecological examination (general) (routine) without abnormal findings (principal)
CPT/HCPCS: G0145

== ENCOUNTER 2024-01-17 06:53 | Outpatient (OUT) | payer OTHER, SELFPAY ==
--- OUTSIDE RECORDS SUMMARY | 2024-01-17 06:56 | XMS_ITS | CCD ---
Author Organization [facility] Care Team Providers Care Director Safety Name Role Phone Unavailable Primary Care Provider UnavailCHAPIN Porter Attending Unavailable Jossie Krueger Unavailable Viral Galindo MD Primary Care Provider JOE WOOD Attending Unavailable JUSTINE CALLAHAN Attending Unavailable Viral Galindo Primary Care Unavailable Justine Olmstead Attending Unavailable Justine Olmstead Admitting Unavailable Allergies Allergy Classification Reported Allergen(s) Allergy Type Date of Onset Reaction(s) Facility (1 source) No Known Medication Allergies; Translations: [No Known Medication Allergies] Propensity to adverse reactions to drug (disorder) [facility] Repository Medications Current Medications Medication Drug Class(es) Dates [...] Results Test Name Value Interpretation Reference Range [facility] emmy Provider Orderson 01-12-2024 Provider Orders [id number]-19, Rapidon 10-14-2022 SARS-CoV-2 (COVID-19) RNA AMANDO+probe Ql (Unsp spec) Not detected Not Detected [facility] Comment on above: Rapid NAAT: [...] management decisions. Fact sheet for Healthcare Providers: https://www.fda.gov/media/269261/download Fact sheet for Patients: https://www.fda.gov/media/544941/download Methodology: Isothermal Nucleic Acid Amplification Specimen Description .NASOPHARYNGEAL SWAB [facility] Rapid influenza A/B antigens on 10-14-2022 Flu A Antigen Negative NEGATIVE [facility] Comment on above: for Influenza A Anti gen Flu B Antigen Negative NEGATIVE [facility] Comment on above: for Influenza B Anti gen. [facility] Vital Signs Date Time Vital Sign Value Performing Clinician Facility 06-23-2023 10:35-0400 Body height 167.64 cm Jossie Krueger Other [facility] Other 06-23-2023 10:35-0400 Body mass index (BMI) [Ratio] 50.03 kg/m2 Jossie Krueger Other [facility] Other 06-23-2023 10:35-0400 Body temperature 98.3 [degF] Jossie Krueger Other [facility] Other 06-23-2023 10:35-0400 Body weight 140.62 kg Jossie Krueger Other [facility] Other 06-23-2023 10:35-0400 Diastolic blood pressure 90 mm[Hg] Jossie Krueger Other [facility] Other 06-23-2023 10:35-0400 Respiratory rate 18 /min Jossie Krueger Other [facility] Other 06-23-2023 10:35-0400 SaO2% (BldA) [Mass fraction] 97 % Jossie Krueger Other [facility] Other 06-23-2023 10:35-0400 Systolic blood pressure 147 mm[Hg] Jossie Evans Other [facility] Other 10-14-2022 18:16-0500 Body height 165.1 cm John Hastings DO Work Phone: [employer] 10-14-2022 18:16-0500 Body mass index (BMI) [Ratio] 52.92 kg/m2 John Hastings DO Work Phone: [employer] 10-14-2022 18:16-0500 Body temperature 98.29 [degF] John Hastings DO Work Phone: [facility] [employer] 10-14-2022 18:16-0500 Body weight 144.24 kg John Hastings DO Work Phone: [facility] [employer] 10-14-2022 18:16-0500 Diastolic blood pressure 96 mm[Hg] John Hastings DO Work Phone: [facility] [employer] 10-14-2022 18:16-0500 Heart rate 94 /min John Hastings DO Work Phone: [facility] [employer] 10-14-2022 18:16-0500 Respiratory rate 18 /min John Hastings DO Work Phone: [facility] [employer] 10-14-2022 18:16-0500 SaO2% (BldA) [Mass fraction] 95 % John Hastings DO Work Phone: [facility] [employer] 10-14-2022 18:16-0500 Systolic blood pressure 138 mm[Hg] John Hastings DO Work Phone: [facility] [employer] 10-05-2022 23:14-0500 Body height 165.1 cm Chapin Lee MD Work Phone: [facility] [employer] 10-05-2022 23:14-0500 Body mass index (BMI) [Ratio] 53.47 kg/m2 Chapin Lee MD Work Phone: [facility] [employer] 10-05-2022 23:14-0500 Body temperature 98.4 [degF] Chapin Lee MD Work Phone: [facility] [employer] 10-05-2022 23:14-0500 Body weight 145.74 kg Chapin Lee MD Work Phone: [facility] [employer] 10-05-2022 23:14-0500 Diastolic blood pressure 87 mm[Hg] Chapin Lee MD Work Phone: [facility] [employer] 10-05-2022 23:14-0500 Heart rate 86 /min Chapin Lee MD Work Phone: [facility] 10-05-2022 23:14-0500 Respiratory rate 18 /min Chapin Lee MD Work Phone: [facility] 10-05-2022 23:14-0500 SaO2% (BldA) [Mass fraction] 99 % Chapin Lee MD Work Phone: [facility] 10-05-2022 23:14-0500 Systolic blood pressure 146 mm[Hg] Chapin Lee MD Work Phone: [facility] Encounters Encounter Date Encounter Type Care Provider Facility Start: 01-12-2024 End: 01-13-2024 ambulatory Viral Galindo Facility:[facility] Start: 01-10-2024 End: 01-10-2024 ambulatory JUSTINE CALLAHAN Not Available Start: 12-13-2023 End: 12-13-2023 ambulatory JOE TRICIA Not Available Start: 11-11-2023 End: 11-11-2023 ambulatory JOE TRICIA Not Available Start: 10-27-2023 End: 10-27-2023 Office outpatient visit 5 minutes [facility] Tricia Nurse [facility] Comment on above: Canceled (Provider) Start: 06-23-2023 End: 06-23-2023 ambulatory Jossie Krueger Other [facility] Other Start: 06-23-2023 Office outpatient ne w 30 minutes Jossie Krueger [facility] Start: 10-14-2022 End: 10-14-2022 Emergency department patient visit Hastings Work Phone: [facility] Comment on above: Viral URI with cough (Primary Dx) Start: 10-06-2022 End: 10-06-2022 Emergency department patient visit [facility] Start: 10-05-2022 End: 10-06-2022 Emergency department patient visit Chapin Lee MD Work Phone: [facility] Comment on above: Plantar fasciitis (P rimary Dx) Procedures Date Procedure Procedure Detail Performing Clinician Start: 10-14-2022 COVID-19, ASTER John Jade DO Work Phone: Start: 10-14-2022 Ia[facility] influenza Vadim Hastings DO Work Phone: Plan of Treatment Date Care Activity Detail Author Start: 11-11-2023 End: 11-11-2023 ambulatory 11/11/2023 11:00 AM EST Initial [facility] [address] [place] [id number] [facility] Start: 11-11-2023 End: 11-11-2023 Professional / ancillary services management 11/11/2023 10:30 AM EST Ancillary Procedure [facility] [address] [place] [address] [facility] Start: 10-27-2023 End: 10-27-2024 US Pelvis transvaginal US OB transvaginal Imaging Routine Missed menses Expected: 10/27/2023 (Approximate), Expires: 10/27/2024 [facility] Work Phone: Comment on above: Expected: 10/27/2023 (Approximate), Expires: 10/27/2024 Start: 04-26-2022 Influenza vaccination Flu [facility] (# 1[facility] Start: 11-17-2021 DTaP/Tdap/Td vaccine (7 - Td or Tdap) DTaP/Tdap/Td vaccine (7 - Td or Tdap) [facility] Start: 01-15-2000 COVID-19 Vaccine (#1) COVID-19 Vacci ne (#1) [facility] Payers Date Payer Category Payer Unknown [id number] 2019 Medicare [id number] 1999 Unknown [id number] 1999 Unknown [id number] 1999 Unknown [id number] 1999 Unknown [id number] 1999 Unknown [id number] Social History Date Type Detail Facility Start: 10-05-2022 Tobacco smoking status MEIS Smokes tobacco daily [facility]: History of tobacco use Cigarette Smoker B [facility] [employer] Phone: Start: 10-05-2022 End: 10-14-2022 Cigarettes smoked current (pack per day) - Reported 1 [facility]: Start: 10-05-2022 Tobacco use and exposure Smokeless tobacco non-user [facility]: Start: 10-05-2022 End: 10-14-2022 Alcohol intake Current drinker of alcohol (finding) [facility]: Start: 10-05-2022 Alcohol Comment in a month [facility]: Start: 2000 Sex Assigned At Not on file [facility]: Start: 09-25-2022 End: 10-14-2022 Exposure to SARS-CoV-2 (event) Not sure [facility]: Start: 10-14-2022 History SDOH Alcohol Frequency 1 [facility]: Start: 10-14-2022 History SDOH Alcohol Std Drinks 0 [facility]: Sex Assigned At Sex Assigned At Bir th [facility] consumption unknown [facility] Start: 2000 Sex Assigned At Female [facility] Start: 10-20-2023 Gender identity Identifies as female gender (finding) [facility] Start: 10-20-2023 Sexual orientation Heterosexual (finding) [facility] History of Present illness Narrative 10-27-2023 Zari Wagner LPN - 10/27/2023 2:30 PM EST Note Date & Type Note Facility 10-27-2023 History of Presen t illness Narrative Patient to return in 2 weeks to get a SUE as not able to obtain today. documented in this encounter [facility] Evaluation note 06-23-2023 Note Date [...] understanding and is agreeable to treatment plan [facility] Other Evaluation note Note Date & Type Note Facility Evaluation note Diagnosis Plantar fasciitis- Primary Plantar fascial fibromatosis documented in this encounter [facility]: Evaluation note Note Date & Type Note Facility Evaluation note Diagnosis Viral URI with cough- Primary Acute upper respiratory infections of unspecified site documented in this encounter [facility]: Evaluation note Note Date & Type Note Facility Evaluation note Diagnosis Missed menses documented in this encounter [facility] History general Narrative - Reported Note Date & Type Note Facility History general Narrative - Reported Type Surgical History wisdom teeth [facility] Other Hospital Discharge instructions Attachments Note Date & Type Note Facility Hospital Discharge instructions The following attachments cannot be sent through Care Everywhere.Plantar Fasciitis (Faroese)documented in this encounter [facility]: Hospital Discharge instructions Attachments Note Date & Type Note Facility Hospital Discharge instructions The following attachments cannot be sent through Care Everywhere.URI (Upper Respiratory Infection) (Faroese)documented in this encounter [facility]: Summary Purpose Family History No Family History Records FoundNo Family History Records FoundNo Family History Records Found Advance Directives No Advanced Directives Records FoundNo Advanced Directives Records FoundNo Advanced Directives Records Found Additional Source Comments Reason for Visit (unrecogniz ed section and [...] daily (with meals) 20 tablet 0 10/05/2022 INFORMATION SOURCE (unrecogn ized section and content) DATE CREATED AUTHOR 10/06/2022 Michelle garcia DATE CREATED AUTHOR AUTHOR'S ORGANIZ ATION 01/11/2024 [facility] EPIC DATE CREATED AUTHOR AUTHOR'S ORGANIZ ATION 01/13/2024 [facility] Care Teams (unrecognized sec tion and content) Director Safety Relationship Specialty Start Date End Date Viral Galindo MD [address] [place] [address] PCP - General Pediatrics 10/27/23 FOR RECORDS [...] BE BASED ON THE PRIMARY CLINICAL RECORDS. [employer] [facility]. provides no warranty or guarantee of the accuracy or completeness of information in this document.
--- NOTE | 2024-01-17 06:57 | US_ITS ---
[address] [address] Patient Name: ZEV YAP MRN: [id number] date: 2000 Sex: F Assigned Patient Location: US Current Patient Location: Accession/Order Number: [id number] Exam Date: 01/17/2024 07:00 Report Date: 01/17/2024 08:09 At the request of: BRITTNEY CALLAHAN Procedure: US OB cervical length EXAMINATION: US OB anatomy, US OB cervical length HISTORY: Screening For Anatomic Survey Z36.89 COMPARISON: No relevant comparison available. TECHNIQUE: Transabdominal sonographic examination was performed for obstetrical and evaluation. FINDINGS: Limited exam secondary to a maternal body habitus and position Number: 1 Heart Rate: 142.9 bpm H.B. /min Amniotic Fluid Volume: Subjectively normal position: Cephalic presentation, longitudinal lie Placental Location: Posterior, grade 0. Placental edge is 4.2 cm from the internal os Cervix Length: 6 cm , closed Normal anatomy: Lateral ventricles, cerebellum, posterior fossa, orbits, diaphragm, stomach, abdominal cord insertion, bladder, umbilical arteries, spine, extremities Suboptimal visualization: Four-chamber heart, RVOT, LVOT Nonvisualization: Nose, lips, kidneys, three-vessel cord BIOMETRY: BPD: 4.8 cm 20 weeks 4 days , 71% HC: 17.6 cm 20 weeks 1 days, 48% AC: 15.7 cm 20 weeks 6 days, 73% FL: 3.4 cm 20 weeks 6 days , 72% EFW:375.8 grams; 13 ounces, 86% FL/AC: 21.9 FL/BPD: 71.8 HC/AC: 1.1 GESTATIONAL AGE: Age by EDC: 20 weeks 0 days SUE by EDC: 06/05/2024 Age by current US: 20 weeks 4 days SUE by current US: 06/01/2024 US/US OB cervical length IMPRESSION: Suboptimal and nonvisualization as detailed above Otherwise normal anatomy scan Closed cervix measuring 6 cm in length *Reference: [employer] Practice Guideline for the performance of Obstetric Ultrasound Examinations, June 26, 2007. Electronically authenticated by: ELLA GAN Date: 01/17/2024 08:09
--- NOTE | 2024-01-17 06:57 | US_ITS ---
[address] [address] Patient Name: ZEV YAP MRN: [id number] date: 2000 Sex: F Assigned Patient Location: US Current Patient Location: US Accession/Order Number: [id number] Exam Date: 01/17/2024 07:00 Report Date: 01/17/2024 08:09 At the request of: BRITTNEY CALLAHAN Procedure: US OB anatomy EXAMINATION: US OB anatomy, US OB cervical length HISTORY: Screening For Anatomic Survey Z36.89 COMPARISON: No relevant comparison available. TECHNIQUE: Transabdominal sonographic examination was performed for obstetrical and evaluation. FINDINGS: Limited exam secondary to a maternal body habitus and position Number: 1 Heart Rate: 142.9 bpm H.B. /min Amniotic Fluid Volume: Subjectively normal position: Cephalic presentation, longitudinal lie Placental Location: Posterior, grade 0. Placental edge is 4.2 cm from the internal os Cervix Length: 6 cm , closed Normal anatomy: Lateral ventricles, cerebellum, posterior fossa, orbits, diaphragm, stomach, abdominal cord insertion, bladder, umbilical arteries, spine, extremities Suboptimal visualization: Four-chamber heart, RVOT, LVOT Nonvisualization: Nose, lips, kidneys, three-vessel cord BIOMETRY: BPD: 4.8 cm 20 weeks 4 days , 71% HC: 17.6 cm 20 weeks 1 days, 48% AC: 15.7 cm 20 weeks 6 days, 73% FL: 3.4 cm 20 weeks 6 days , 72% EFW:375.8 grams; 13 ounces, 86% FL/AC: 21.9 FL/BPD: 71.8 HC/AC: 1.1 GESTATIONAL AGE: Age by EDC: 20 weeks 0 days SUE by EDC: 06/05/2024 Age by current US: 20 weeks 4 days SUE by current US: 06/01/2024 US/US OB anatomy IMPRESSION: Suboptimal and nonvisualization as detailed above Otherwise normal anatomy scan Closed cervix measuring 6 cm in length *Reference: [employer] Practice Guideline for the performance of Obstetric Ultrasound Examinations, June 26, 2007. Electronically authenticated by: ELLA GAN Date: 01/17/2024 08:09
== END 2024-01-17 06:54 | disposition home or self-care (01) ==
LOC: US 06:53
PROVIDERS: Visit Provider Physician Assistant
DX: Z36.89 Encounter for other specified antenatal screening (principal); Z3A.20 20 weeks gestation of pregnancy
CPT/HCPCS: 76805; 76817

== ENCOUNTER 2024-02-09 10:25 | Outpatient (OUT) | payer OTHER, SELFPAY ==
--- OUTSIDE RECORDS SUMMARY | 2024-02-09 10:45 | XMS_ITS | CCD ---
Author Organization [facility] Care Team Providers Care [employer] Crewmember Name Role Phone Unavailable Primary Care Provider UnavailCHAPIN Porter Attending Unavailable Jossie Krueger Unavailable Viral Galindo MD Primary Care Provider JOE WOOD Attending Unavailable JUSTINE CALLAHAN Attending Unavailable JUSTINE CALLAHAN Attending Unavailable Viral Galindo Primary Care Unavailable Justine Olmstead Attending Unavailable Justine Olmstead Admitting Unavailable Allergies Allergy Classification Reported Allergen(s) Allergy Type Date of Onset Reaction(s) Facility (1 source) No Known Medication Allergies; Translations: [No Known Medication Allergies] Propensity to adverse reactions to drug (disorder) [facility] Repository Medications Current Medications Medication Drug Class(es) [...] Results Test Name Value Interpretation Reference Range Facility AFP Tetra LCon 02-01-2024 AFP CHIN MoM 1.12 Invalid Interpretation Code [facility] Comment on above: Performed By: #### 3 [id number] #### [facility] (DEFAULT) [address] [place] [address] AFP DSR (By Age) 1 IN 1039 Invalid Interpretation Code [facility] Comment on above: Performed By: #### 3 [id number] #### [facility] (DEFAULT) [address] [place] [address] AFP DSR (Second Trimester) 1 IN 957 Invalid Interpretation [facility] Comment on above: Performed By: #### 3 [id number] #### [facility] (DEFAULT) [address] [place] [address] AFP Gest. Age on Collection Date 19.3 week(s) Invalid Interpretation Code [facility] Comment on above: Result Comment: Not provided. Performed By: #### 3 [id number] #### [facility] (DEFAULT) [address] [place] [address] AFP Gestat. Age Based On SUE Invalid Interpretation Code [facility] Comment on above: Result Comment: 05/27 Performed By: #### 3 [id number] #### [facility] (DEFAULT) [address] [place] [address] AFP hCG MoM 1.18 Invalid Interpretation [facility] Comment on above: Performed By: #### 3 [id number] #### [facility] (DEFAULT) [address] [place] [address] AFP insulin Dep Diabetes No Invalid Interpretation Code [facility] Comment on above: Result Comment: Not provided. Performed By: #### 3 [id number] #### [facility] (DEFAULT) [address] [place] [address] AFP Interpretation Comment Invalid Interpretation Code [facility] Comment on above: Result Comment: Inte rpretation: Screen Negative This result is screen negative for OSB, Down Syndrome and Trisomy 18. The AFP MoM and patient specific risks calculated are based on the gestational age and the clinical information provided. This test can identify up to 80% of open neural tube defects. Closed neural tube defects and some open defects may not be detected by this test. The combination of maternal age, AFP, hCG, uE3, and CHIN identifies 75-80% of Down Syndrome. The combination of maternal age, AFP, hCG and uE3 identifies 60% of Trisomy 18 pregnancies. The [employer] recommends amniocentesis be offered to women age 35 and older. This is a corrected report. The previously reported result(s) were: Test Result Date First Reported Updates reported on: 02/01/2024 8:32 AM AFP MOM VALUE 01/17/2024 11:27 PM See interpretation. DSR (BY AGE) 1 IN 1035 01/17/2024 11:27 PM CHIN MOM VALUE 01/17/2024 11:27 PM See interpretation. DSR (SECOND TRIMESTER) 1 IN 01/17/2024 11:27 PM See interpretation. HCG MOM 01/17/2024 11:27 PM See interpretation. . 01/17/2024 11:27 PM Interpretation: An interpretation CANNOT be provided for this patient because necessary patient information was not provided (one or more of: gestational age, weight, or patient age). Please call us with new clinical information. OSBR RISK 1 IN 01/17/2024 11:27 PM See interpretation. TEST RESULTS: SCREEN 01/17/2024 11:27 PM See interpretation. T18 RISK 1 IN 01/17/2024 11:27 PM See interpretation. T18 (BY AGE) 1 IN 1:4033 01/17/2024 11:27 PM UE3 MOM 01/17/2024 11:27 PM See interpretation. Recalculations are not recommended when gestational dating by LMP and ultrasound are within 10 days. Performed By: #### 3 [id number] #### [facility] (DEFAULT) [address] [place] [address] AFP Maternal Age At SUE 24.8 Invalid Interpretation Code [facility] Comment on above: Performed By: #### 3 [id number] #### [facility] (DEFAULT) [address] [place] [address] AFP MoM 0.69 Invalid Interpretation Code [facility] Comment on above: Performed By: #### 3 [id number] #### [facility] (DEFAULT) [address] [place] [address] AFP Multiple Gestation No Invalid Interpretation Code [facility] Comment on above: Result Comment: Not provided. Performed By: #### 3 [id number] #### [facility] (DEFAULT) [address] [place] [address] AFP OSBR [place] 1 [place] [address] Invalid Interpretation Code [facility] Comment on above: Performed By: #### 3 [id number] #### [facility] (DEFAULT) [address] [place] [address] AFP Race Invalid Interpretation [facility] Comment on above: Result Comment: Not provided. Performed By: #### 3 [id number] #### [facility] (DEFAULT) [address] [place] [address] AFP Results Comment Invalid Interpretation [facility] Comment on above: Result Comment: The MOM and risk factors of this report have been modified based on new information supplied to us by the client or their designated distribution sales representative. The Gestational Age Based On was changed from As provided to SUE 06/05/2024. The Gestational Age was changed from Not provided. to 19.3. The Insulin Dependent Diabetes was changed from Not provided. to No. The Multiple Gestation was changed from Not provided. to No. The Race was changed from Not provided. to . The Weight was changed from Not provided. to 348. Performed By: #### 3 [id number] #### [facility] (DEFAULT) [address] [place] [address] AFP T18 (By Age) 1:4050 Invalid Interpretation Code [facility] Comment on above: Performed By: #### 3 [id number] #### [facility] (DEFAULT) [address] [place] [address] AFP T18 Risk Not increased Invalid Interpretation Code [facility] Comment on above: Performed By: #### 3 [id number] #### [facility] (DEFAULT) [address] [place] [address] AFP Test Results: Negative Invalid Interpretation [facility] Comment on above: Performed By: #### 3 [id number] #### [facility] (DEFAULT) [address] [place] [address] AFP uE3 MoM 0.66 Invalid Interpretation [facility] Comment on above: Performed By: #### 3 [id number] #### [facility] (DEFAULT) [address] [place] [address] AFP Tetra LCon 01-18-2024 AFP Comments: Comment Invalid Interpretation [facility] Comment on above: Result Comment: Bethany Perez, Ph.D., [facility] Director References: Available Upon Request. Multiples Of Median Cutoffs Abbreviation Definitions For AFP Elevations IDD- Insulin Dep Diabetes Cadet 2.5 Black 2.8 OSBR- Open Spina Bifida IDD 2.0 Twins 4.5 Risk DSR Cutoff 1:270 DSR- Down Syndrome Risk T18 Cutoff 1:100 T18- Trisomy 18 For further inquiries contact [facility] [facility] at [phone]. This test was developed and its performance characteristics determined by [employer]. It has not been cleared or approved by the Food and Drug Administration. Performed At: [facility] [address] [facility] [place], [place] [id number] Romero Aliceestrellita [facility] Ph:[phone] Performed By: #### 3 [id number] #### [facility] (DEFAULT) [address] [place] [address] AFP CHIN Value 120.65 pg/mL Invalid Interpretation Code [facility] Comment on above: Performed By: #### 3 [id number] #### [facility] (DEFAULT) [address] [place] [address] AFP uE3 Value 1.08 ng/mL Invalid Interpretation Code [facility] Comment on above: Performed By: #### 3 [id number] #### [facility] (DEFAULT) [address] [place] [address] AFP Value 23.0 ng/mL Invalid Interpretation Code [facility] Comment on above: Performed By: #### 3 [id number] #### [facility] (DEFAULT) [address] [place] [address] [place] [address] m[IU]/mL Invalid Interpretation Code [facility] Comment on above: Performed By: #### 3 [id number] #### [facility] (DEFAULT) [address] [place] [address] Coding Summaryon 01-18-2024 Coding Summary HTMLBase 64 JioxppapFUi9bWe+PGhl YWQ+ID0DPHDiX73rjMEr kG0tQ4CZFEoIWcdzINAQ MRfYJlBfbsUpGP8vcXSf ZXJu IC8+FA0fRELkEdylbHDu r3H2tFX1E24kcb5oBOau xPD5GEXbAiCnhzxjk5bm wYu6PSwsFrecHsVq TXWgjE19JIZ7pY71Uw14 lJTqdQGxl5xkxDs9ZtIs PSKeWVQ6aZqjEVjor4Zk DSQsD90phJLgt0U8 IGNvbGxhcHNlOyBlbXB0 kA8mHZjfkxzhs8saddxu Xcl5ik36hCMhg6U6qBD8 W1JlkmV8YDTtdQWc DphdoCJWzO3qiegbb2yo rlqpEcNsPQHxMOt1CFq1 MMQkpFufEgZgMC29ESQ2 IAUxucFeZ2GeAXPf oFgyNpI9g0J4Aj4AX8SY NcgnE6XRUTQVYAzcaYR+ FY50gc99A5EbTfwwWci5 FQVqQUE5pJA4dC2e TDZkHEtar3J4wQH8M1La whHfjt2ac6joNXPqVSzl S79tdEYeb9X5JJLszTL0 SVVitMzlYiVjgW86 Oyc+NHVroOpwy6PfDuri t1rrt2hpgHi2JbftMVWz fwKhmSmbTWK9g8IrPz1b NFFdtBO5eJI6cF8r JrGyMcW8CTwvS963IyIs aDOmAukkH44fA0YhsHO+ ZAArQsg0NILwhEyrAF1w N0RdKGHgkptofYEd iGreFU3qEWWjfhfzPYGw nB1fNLIvD2h8ZyDgKiV5 JWulR1QsOFGjpqwySq25 dV7hHnLkQfB0ISen M6PdktT8LVWnpBVpOTyo JLE3J89mp7H7TQNpNEWm RBF7aCN3iU9fsDevkfgy bGVmdDsgdmVydGlj XLkzDOtmH868ELPtuDbt PkNvZGluZyBEYXRlOiAg MDQvMjQvMjAyNDwvdGQ+ NWMjSSD1qQjwECPf jYQlOBucOb3uhUyxpAsj AW7pEJTlgedsQHRlzV7g PDPnlNUlqWclNS2cXSJb kkdze408ZhZcYIM2 FUKkyEEqX4MfaK9vWbVz UNOxNYPcH3LnnXBvLVhy D354GBepNpT5ISByiuRq N2QhAIYuuPdhOjE3 s3U7Zz4Sm2WrrcmeA3Ip nGKtRyUgJqspOFh0M1Nd PjwvdHI+JO25VXIgJD73 LUk8UZV4lAgiKMdx GJKcH0AhsA6dKoYhFRMd ZGRkOyc+PHRhYmxlIHdp ZHRoPScxMDAlJyBzdHls MB0mDs2zKJTpZPJh eRtzxFNsAbIvh6kdNDCp JTbgQY5tfTlrA0SlwIN1 ZSAkc4g8Au89Q36nS1Bz dXA+PMRhsNM2oGG5 eN3gLfMaRxB9BHsnJ701 RqVriOLlIhear1fri9zk lBj6HbJ1SBUmwuHzoApd LTY8r7ObYm65T91s IHdpZHRoPSIxNSUiIHZh aLbruz5ucS3sHc4+PGNv gAJ8xBB7zJ0sXdEjSsE0 ZHlvU007DeXtyPMk Iutdv6nzj3yzlQw8UmLx TEYboqXbyZnyJBM3a7Zu Xa79Z4TxbYlas7YtTva4 gp54eUEko0M6fDR7 Y1MoFIOggqdiaYObvTpf RS1kWAMdkayaBTDwlP1e WRNmQ9m7NrCsVoF9FFcr X4ImvtL2XVQxfBJo KGHcwXCWvU5hhowij6id zphiCjGqTAZmYNr8EQt4 AMBhyUhjYvRaPLE6HaW5 QCG8jTDipT2xaGzy dnkloX4lFsp+EFP1rXLb rTVUMA0eLjinyEU+PHRk OCR8mGuwPTekAZBuoS1p ONRtT7o3SuEqJxB0 BHwjE5IvtrW9JJHohHZy ASLzlKTBjY1gsbdfp1zm zxjoDfQgGQVoQGr5GEe1 LWFsaWduOiBsZWZ0 KaX8PVK8aCGjoS6idXvh bajrrL2qWgt+QmlydGgg BJU1AWy7Q1TnDxd6ROUw xTvoUP1qnEVhOMze Uv8tlZyfaWglTL2cILZl ocmkn886XkYfr1xaWIEu kKFpSXhpVYH8I71ln0I7 FCEdXAChYNP5gFZ4 cO6lbWntynstwWCymZpb uuPjjGbuZTwbCRdcJ259 BFSepQvlCzXlWSs2P2Gm Rdt0MVEuxRmaCU2z xOTqWRzoGb0vuNspuFzn SA2qYQQwrjrtf713UuFj h3wkCBSldKZhGOmpYSH5 C86dt9F3DWLwJNMc AHT2sIO1wC5woRczieev bGVmdDsgdmVydGljYWwt AVibW026KWCpoQohFaIc tWm4Q4YyBal3UGEv jMqnHW4soROfQEbeMj6j zGtahJbyNC0iSAMfgshb y946CgIrx9lmQHQfwHVm WOrfBJE8F77rw1C0 SUOlKLTfMIK5gTS3aP8z bGlnbjogbGVmdDsgdmVy oZurOAodWXgfO449HECn cDsnPlBhdGllbnQg VNlbSPo3U3PsEigeiGF+ SZ82XHRoYK88aCYdmUQz s5dkkTj8YlPoTXLsSXU8 kHfoERzzz8IpUUUk O61caADcr8O7LBGqgYth zYUaMoMaxBL5lO2mBVkq tppyb7luwqfhOjlby3uw xp66fQ39C01xLHuv ZHRoPSIzMCUiIHZhbGln ql2stB5jFe0+PGNvbCB3 wHY6gI1ePUIbQcN3WBod E461XqEeyOLlLhba a2ovs5fxvDs2BdT5PNWi qsLerXpqAXY7f6BpPh25 F21gFAneIEInAFLrQMCv LPZsnAmdji6hfC2k Ii8+YIIksAG7cHJ2mU3r QkTtHiO3QLdaC393NmJo eVVyMdavN61zL5LdlWM+ DMMqSyk1QFDsoPpg AC7bgPXxNOyvEz7xYNW7 QcLvDqAxAWsnE3SaRHQq rprvpxrhwWA3ANGsCPWd dT70Ot6tpYgfCEOa mORFkI2unsixr6cxkhpw UtLdIVQpAJt6MFp1VNVa dHzaNgEhVXV9OnW0YPV0 tSZhvN1ciNryehwe yK2vS4QtLQOqksbtCb34 qV6iOxPbEmP1MRmxXth+ XS2OURYLJOwlTDhIABkX IFNJRVJSQTwvdGQ+ NSOjFBN0cGlkRVzjXBDg wU8aOIIvM1m3NxYeVaJ9 NFjgH5UcHEBvwndhJw11 sQ2hJxLrItD4NZhm O6DkjcU1TPAauHPiWXnc TWE7E80su9F9CEXgBAOj WXU5rSA0iO9bmEnrxzxr bGVmdDsgdmVydGlj SCnpIThqY130NZJbaJrb PkToWuTeYzF9YSw0Y9Yt Rqg6WSMjaDvxZK4ksRYs HZohJn4yuCzhvLah BH8oRJKhrhluHUOwvD6s XYIytTKbcYnsCY9oTGIr uscmt922FuXwWGQ2NFDm pYYqX8WanL5qNsDb CRVfOIMjG3WcmAUdMXub F083ERfjIaW9DPQpyjQu U4JePKLxhFwcLbB4r3A4 Kg1dBFQZVZPpgbfo dGQ+VQYgXLW9eZyjLWhj KJIpsG3qMHMoS6c7EaCw JwT4OJviN8JeVLVfhxem Wm08lP9eQlAeXuF8 LAugP6ItfnB8VRKpiALd AGrjKSW9R12nw1I9FQTz GMAkYJN4aGK4nC3cbOsx bjogbGVmdDsgdmVy pAihOTljNFteP000PZRk cDsnPkZFTUFMRTwvdGQ+ WDDkTYU4yLheCIdgCRWn kP7pQJFgS1f1FtVr SsU5NMzbK0LfEXXbckbh Ra91uF9aTsSnUtP0EKbu P4ZqgiA1RMCrcKHfJNgt XLA5I27gn6P5ENTr EZEwJTP6jZB6pC4ijVjb bjogbGVmdDsgdmVydGlj GKdjWZonD430QTWclQgc Ho7IJB04GK52A6Ts PjwvdGFibGU+PHRhYmxl IHdpZHRoPScxMDAlJyBz mJzeXJ5aWd8zEVVaZCYo oZblzYUbHfLdb2xw FHJfHCvlQB7naKsbV0Pl kSZ2VEZpk1m7Yr36M81v G7RbpMB+FDMhnVZ7sIC5 yE9yGkCfKqS3DKzz R494YnCafPTyGyomq0ak b0uxeQd2PgXaICNhscTh qPykSSC7p0TdPr58P08v IHdpZHRoPSIyMCUi JNZzlTzerx3kmG7vQg9+ IXKjjAU9fGK2nA9gAsIf VwY7OSudW174JjSbqLVm TciyQ62uV2WfgJY+ QNXqAhd2DETgmRhsQY8s bYFnLWnjVc1sHBR7QlNz ErSmFZfyN5ZoWRVitiul mcxbeLF3UFIuECYd xR19Co2ltCnmEx9zLPAs TLF2XFLxkRPxC0UtmG2u EdHtQRBpRYWeL6RmwGQo QFegD435RLdaFyP0 SNShquUcC7UqKZAnwJqj EaL6e6G2Ry2TcOxncJRp FB3aJzIdZGh0N3MiQqp8 YGTfpQezLN6jzYUo MEjgGf3mcCotcKftAM6v NTLgfbvzy799LsYzj2bx FLXcbJCaWCpsAXW3I42s j8R7EKDuFZXwKLD7 rHP6jP7bwCsthjfhiUQa dDsgdmVydGljYWwtYWxp V998AJXivAhwInVEGzd5 Y0QlRom2JTNirYfd UL5efZCzAPgtCh0mvVrz sPovJL3oHLJphgtdi776 AlPgw0njLAMhfADaQVwr CFY9S14te1V9WDDj FZYwKVW0aEE0sM5nhJtx bjogbGVmdDsgdmVydGlj GModXTxgQ911NAIbzNrr Sp5ZKhg9L0TrVsd8 UZEveEiaFD4heQVzZLdo Yq5urYjlyYdhBG5pOFVl lnbsd281NmYjv0lyHIMd gHNeUUbdASB3N42h v9A7MOZlNELcUNT4eXF1 kV2giAwxxknorXOdkYuf vfFioFhfUFllNZnhZ012 IHRvcDsnPlBheWVy OjwvdGQ+KI57ru86F7Hg ZydqInh9UMEnJHG9yVT1 oJ5nTOFkIIwch3M6cPG9 U0UpybVttv8gk8to YXB (more content not included)... [facility] Provider Orderson 01-12-2024 Provider Orders [id number] [facility] COVID-19, Rapidon 10-14-2022 SARS-CoV-2 (COVID-19) RNA AMANDO+probe Ql (Unsp spec) Not detected Not Detected [facility] Comment on above: Rapid NAAT: The [...] management decisions. Fact sheet for Healthcare Providers: https://www.fda.gov/media/465496/download Fact sheet for Patients: https://www.fda.gov/media/114895/download Methodology: Isothermal Nucleic Acid Amplification Specimen Description .NASOPHARYNGEAL SWAB [facility] [employer] [facility] [employer] [facility] Rapid influenza A/B antigens on 10-14-2022 Flu A Antigen Negative NEGATIVE [facility] [employer] [facility] Comment on above: for Influenza A Anti gen Flu B Antigen Negative [facility] Comment on above: for Influenza B Anti gen. [facility] [employer] [facility] Vital Signs Date Time Vital Sign Value Performing Clinician Facility 02-01-2024 11:090400 Body weight 157.8528 kg Viral [facility] Comment on above: Result Comment: Not provided. Performed By: #### [id number] #### [facility] (DEFAULT) [address] [place] [address] 06-23-2023 10:35-0400 Body height 167.64 cm Jossie Krueger Other [employer] Other 06-23-2023 10:35-0400 Body mass index (BMI) [Ratio] 50.03 kg/m2 Jossie Krueger Other [employer] Other 06-23-2023 10:35-0400 Body temperature 98.3 [degF] Jossie Krueger Other [employer] Other 06-23-2023 10:35-0400 Body weight 140.62 kg Jossie Krueger Other [employer] Other 06-23-2023 10:35-0400 Diastolic blood pressure 90 mm[Hg] Jossie Krueger Other [employer] Other 06-23-2023 10:35-0400 Respiratory rate 18 /min Jossie Krueger Other [employer] Other 06-23-2023 10:35-0400 SaO2% (BldA) [Mass fraction] 97 % Jossie Krueger Other [employer] Other 06-23-2023 10:35-0400 Systolic blood pressure 147 mm[Hg] Jossie Krueger Other [employer] Other 10-14-2022 18:16-0500 Body height 165.1 cm John Hastings DO Work Phone: [employer] 10-14-2022 18:16-0500 Body mass index (BMI) [Ratio] 52.92 kg/m2 John Hastings DO Work Phone: [employer] 10-14-2022 18:16-0500 Body temperature 98.29 [degF] John Hastings DO Work Phone: [employer] 10-14-2022 18:16-0500 Body weight 144.24 kg John Hastings DO Work Phone: [employer] 10-14-2022 18:16-0500 Diastolic blood pressure 96 mm[Hg] John Hastings DO Work Phone: [employer] 10-14-2022 18:16-0500 Heart rate 94 /min John Hastings DO Work Phone: [employer] 10-14-2022 18:16-0500 Respiratory rate 18 /min John Hastings DO Work Phone: [employer] 10-14-2022 18:16-0500 SaO2% (BldA) [Mass fraction] 95 % John Hastings DO Work Phone: [employer] 10-14-2022 18:16-0500 Systolic blood pressure 138 mm[Hg] John Hastings DO Work Phone: [employer] 10-05-2022 23:14-0500 Body height 165.1 cm Chapin Lee MD Work Phone: [facility] [employer] 10-05-2022 23:14-0500 Body mass index (BMI) [Ratio] 53.47 kg/m2 Chapin Lee MD Work Phone: [employer] 10-05-2022 23:14-0500 Body temperature 98.4 [degF] Chapin Lee MD Work Phone: [facility] [employer] 10-05-2022 23:14-0500 Body weight 145.74 kg Chapin Lee MD Work Phone: [facility] [employer] 10-05-2022 23:14-0500 Diastolic blood pressure 87 mm[Hg] Chapin Lee MD Work Phone: [employer] 10-05-2022 23:14-0500 Heart rate 86 /min Chapin Lee MD Work Phone: [facility] [employer] 10-05-2022 23:14-0500 Respiratory rate 18 /min Chapin Lee MD Work Phone: [facility] [employer] 10-05-2022 23:14-0500 SaO2% (BldA) [Mass fraction] 99 % Chapin Lee MD Work Phone: [facility] [employer] 10-05-2022 23:14-0500 Systolic blood pressure 146 mm[Hg] Chapin Lee MD Work Phone: [facility] [employer] Encounters Encounter Date Encounter Type Care Provider Facility Start: 01-16-2024 End: 01-16-2024 ambulatory JUSTINE CALLAHAN Not Available Start: 01-12-2024 End: 01-13-2024 ambulatory Viral Galindo Facility:[facility] Start: 01-10-2024 End: 01-10-2024 ambulatory JUSTINE CALLAHAN Not Available Start: 12-13-2023 End: 12-13-2023 ambulatory JOE TRICIA Not Available Start: 11-11-2023 End: 11-11-2023 ambulatory JOE TRICIA Not Available Start: 10-27-2023 End: 10-27-2023 Office outpatient visit 5 minutes [facility] Tricia Nurse [facility] Comment on above: Canceled (Provider) Start: 06-23-2023 End: 06-23-2023 ambulatory Jossie Krueger Other [facility] Other Start: 06-23-2023 Office outpatient ne w 30 minutes Jossie Krueger [facility] Start: 10-14-2022 End: 10-14-2022 Emergency department patient visit John Hastings DO Work Phone: [facility] Comment on above: Viral URI with cough (Primary Dx) Start: 10-06-2022 End: 10-06-2022 Emergency department patient visit [facility] Start: 10-05-2022 End: 10-06-2022 [facility] Comment on above: Plantar fasciitis (P rimary Dx) Procedures Date Procedure Procedure Detail Performing Clinician Start: 10-14-2022 COVID-19, RAPID John Jade DO Work Phone: Start: 10-14-2022 [facility] influenza Vadim Hastings DO Work Phone: Plan of Treatment Date Care Activity Detail Author Start: 11-11-2023 End: 11-11-2023 ambulatory 11/11/2023 11:00 AM EST Initial [facility] [address] [place] [id number] [facility] Start: 11-11-2023 End: 11-11-2023 Professional / ancillary services management 11/11/2023 10:30 AM EST Ancillary Procedure [facility] [address] [place] [id number] [facility] Start: 10-27-2023 End: 10-27-2024 US Pelvis transvaginal US OB transvaginal Imaging Routine Missed menses Expected: 10/27/2023 (Approximate), Expires: 10/27/2024 [facility] [employer] Work Phone: Comment on above: Expected: 10/27/2023 (Approximate), Expires: 10/27/2024 Start: 04-26-2022 Influenza vaccination Flu vaccine (# 1) [employer] Start: 11-17-2021 DTaP/Tdap/Td vaccine (7 - Td or Tdap) DTaP/Tdap/Td vaccine (7 - Td or Tdap) [employer] Start: 01-15-2000 COVID-19 Vaccine (#1) COVID-19 Vacci ne (#1) [employer] Payers Date Payer Category Payer Unknown [id number] 2019 Medicare [id number] 1999 Unknown [id number] [id number] 1999 Unknown [id number] 2.16.84 [id number] 1999 Unknown [id number] 2.16.84 [id number] 1999 Unknown [id number] 2.16.84 [id number] 1999 Unknown [id number] 2.16.84 [id number] 1999 Unknown [id number] 2.16.8 [id number] Social History Date Type Detail Facility Start: 10-05-2022 Tobacco smoking status [facility] Smokes tobacco daily [facility] [email or web address] Phone: History of tobacco use Cigarette Smoker B ON [email or web address] Phone: Start: 10-05-2022 End: 10-14-2022 Cigarettes smoked current (pack per day) - Reported 1 [facility] Phone: Start: 10-05-2022 Tobacco use and exposure Smokeless tobacco non-user [facility] Phone: Start: 10-05-2022 End: 10-14-2022 Alcohol intake Current drinker of alcohol (finding) [facility] Phone: Start: 10-05-2022 Alcohol Comment in a month [facility] Phone: Start: 2000 Sex Assigned At Not on file [facility] Phone: Start: 09-25-2022 End: 10-14-2022 Exposure to SARS-CoV-2 (event) Not sure [facility] Phone: Start: 10-14-2022 History SDOH Alcohol Frequency 1 [facility] Phone: Start: 10-14-2022 History SDOH Alcohol Std Drinks 0 [facility] Phone: Sex Assigned At Sex Assigned At [facility] [place] Other Tobacco smoking stat [facility] Tobacco smoking consumption unknown [facility] Start: 2000 Sex Assigned At Female [facility] Start: 10-20-2023 Gender identity Identifies as female gender (finding) [facility] Start: 10-20-2023 Sexual orientation Heterosexual (finding) [facility] History of Present illness Narrative 10-27-2023 Zari Wagner LPN - 10/27/2023 2:30 PM EST Note Date & Type Note Facility 10-27-2023 History of Presen t illness Narrative Patient to return in 2 weeks to get a SUE as not able to obtain today. documented in this encounter [facility] Evaluation note 06-23-2023 Note Date [...] understanding and is agreeable to treatment plan [facility] Other Evaluation note Note Date & Type Note Facility Evaluation note Diagnosis Plantar fasciitis- Primary Plantar fascial fibromatosis documented in this encounter [facility]: Evaluation note Note Date & Type Note Facility Evaluation note Diagnosis Viral URI with cough- Primary Acute upper respiratory infections of unspecified site documented in this encounter [facility]: Evaluation note Note Date & Type Note Facility Evaluation note Diagnosis Missed menses documented in this encounter [facility] History general Narrative - Reported Note Date & Type Note Facility History general Narrative - Reported Type Surgical History wisdom teeth [facility] Other Hospital Discharge instructions Attachments Note Date & Type Note Facility Hospital Discharge instructions The following attachments cannot be sent through [facility].Plantar Fasciitis ([place])documented in this encounter [facility]: Hospital Discharge instructions Attachments Note Date & Type Note Facility Hospital Discharge instructions The following attachments cannot be sent through [facility].URI (Upper Respiratory Infection) ([place])documented in this encounter [facility]: Summary Purpose Family History No Family [...] and content) DATE CREATED AUTHOR 10/06/2022 [facility] DATE CREATED AUTHOR AUTHOR'S ORGANIZ ATION 01/17/2024 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 [employer] provides no warranty or guarantee of the accuracy or completeness of information in this document.
[2024-02-09 12:13] LABS: Basophils Percent Auto 0.2 % (0.2-2.0); Eosinophils Absolute Auto 0.3 10^3/uL (0.0-0.7); Eosinophils Percent Auto 2.3 % (0.9-7.0); Hematocrit 33.4 % (36.0-48.0); Hemoglobin 11.1 g/dL (12.0-16.0); Immature Granulocytes Abs Auto 0.05 10^3/uL (0.00-0.03); Immature Granulocytes Pct Auto 0.4 % (0.0-0.5); Lymphocytes Absolute Auto 2.1 10^3/uL (1.2-3.8); Mean Corpuscular HGB Conc 33.2 g/dL (29.9-35.2); Mean Corpuscular Hemoglobin 30.2 pg (26.7-34.0); Mean Corpuscular Volume 90.8 fL (81.0-99.0); Monocytes Absolute Auto 0.6 10^3/uL (0.3-0.8); Monocytes Percent Auto 4.9 % (1.7-12.0); Neutrophils Absolute Auto 8.3 10^3/uL (1.4-6.5); Neutrophils Percent Auto 73.2 % (43.0-75.0); Platelet Count 216 10^3/uL (150-450); Red Blood Count 3.68 10^6/uL (4.20-5.40); Red Cell Distribution Width 13.7 % (11.0-15.0); White Blood Count 11.3 10^3/uL (4.0-11.0)
[2024-02-09 12:34] LABS: Glucose 1 Hour 112 mg/dL (<130)
== END 2024-02-09 10:26 | disposition home or self-care (01) ==
LOC: LAB 10:27
PROVIDERS: PCP Family Medicine; Visit Provider Obstetrics & Gynecology
DX: Z13.1 Encounter for screening for diabetes mellitus (principal)
CPT/HCPCS: 36415; 82950; 85025

== ENCOUNTER 2024-04-09 07:14 | Outpatient (OUT) | payer OTHER, MEDICAID, SELFPAY ==
[2024-04-09 16:18] VITALS: BP 140/81; PULSE 107
== END 2024-04-09 09:30 | disposition home or self-care (01) ==
LOC: FBCO 07:14
PROVIDERS: PCP Family Medicine; Visit Provider Obstetrics & Gynecology
DX: O40.3XX0 Polyhydramnios, third trimester, not applicable or unspecified (principal)
CPT/HCPCS: 59025

== ENCOUNTER 2024-04-12 07:04 | Outpatient (OUT) | payer OTHER, MEDICAID, SELFPAY ==
--- OUTSIDE RECORDS SUMMARY | 2024-04-12 07:06 | XMS_ITS | CCD ---
Author Organization [facility] DATE PITTER [facility] Care Team Providers Care Senior Qa Tester Name Role Phone Unavailable Primary Care Provider UnavailCHAPIN Porter Attending Unavailable Jossie Krueger Unavailable Viral Galindo MD Primary Care Provider Viral Galindo Primary Care Unavailable Justine Olmstead Attending Unavailable Justine Olmstead Admitting Unavailable JOE WOOD Attending Unavailable JUSTINE CALLAHAN Attending Unavailable JUSTINE CALLAHAN Attending Unavailable JOE WOOD Attending Unavailable JOE WOOD Attending Unavailable JOE WOOD Attending Unavailable JOE WOOD Attending Unavailable Allergies Allergy Classification Reported Allergen(s) Allergy Type Date of Onset Reaction(s) Facility (1 source) No Known Medication Allergies; Translations: [No Known Medication Allergies] Propensity to adverse reactions to drug (disorder) [facility] Repository Medications Current Medications Medication Drug Class(es) [...] 02-01-2024 AFP CHIN MoM 1.[address] [facility] Comment on above: Performed By: #### 3 [id number] #### [facility] (DEFAULT) [address] [place] [address] AFP DSR (By Age) 1 IN [address] [facility] Comment on above: Performed By: #### 3 [id number] #### [facility] (DEFAULT) [address] [place] [address] AFP DSR (Second Trimester) 1 IN [address] [facility] Comment on above: Performed By: #### 3 [id number] #### [facility] (DEFAULT) [address] [place] [address] Gest. Age on Collection Date 19.3 week(s) Invalid Interpretation [facility] Comment on above: Result Comment: Not provided. Performed By: #### 3 [id number] #### [facility] (DEFAULT) [address] [place] [address] Gestat. Age Based On SUE Invalid Interpretation [facility] Comment on above: Result Comment: 05/27 Performed By: #### 3 [id number] #### [facility] (DEFAULT) [address] [place] [address] AFP hCG MoM 1.[address] [facility] Comment on above: Performed By: #### 3 [id number] #### [facility] (DEFAULT) [address] [place] [address] AFP insulin Dep Diabetes No Invalid Interpretation Code [facility] Comment on above: Result Comment: Not provided. Performed By: #### 3 [id number] #### [facility] (DEFAULT) [address] [place] [address] AFP Interpretation Comment Invalid Interpretation Code [facility] Comment on above: Result Comment: Inte rpretation: [...] identifies 60% of Trisomy 18 pregnancies. The [employer] recommends amniocentesis [...] within 10 days. Performed By: #### 3 [id number] #### [facility] (DEFAULT) [address] [place] [address] AFP Maternal Age At SUE 24.8 Invalid Interpretation Code [facility] Comment on above: Performed By: #### 3 [id number] #### [facility] (DEFAULT) [address] [place] [address] AFP MoM 0.[address] [facility] Comment on above: Performed By: #### 3 [id number] #### [facility] (DEFAULT) [address] [place] [address] AFP Multiple Gestation No Invalid Interpretation [facility] Comment on above: Result Comment: Not provided. Performed By: #### 3 [id number] #### [facility] (DEFAULT) [address] [place] [address] AFP OSBR Risk 1 [place] [address] [facility] Comment on above: Performed By: #### 3 [id number] #### [facility] (DEFAULT) [address] [place] [address] AFP Race Invalid Interpretation [facility] Comment on above: Result Comment: Not provided. Performed By: #### 3 [id number] #### [facility] (DEFAULT) [address] [place] [address] AFP Results Comment Invalid Interpretation [facility] Comment on above: Result Comment: The MOM and risk factors of this report have been modified based on new information supplied to us by the client or their designated telemarketing sales representative. The Gestational Age Based On [...] provided. to 348. Performed By: #### 3 [id number] #### [facility] (DEFAULT) [address] [place] [address] AFP T18 (By Age) 1:4050 Invalid Interpretation Code [facility] Comment on above: Performed By: #### 3 [id number] #### [facility] (DEFAULT) [address] [place] [address] AFP T18 Risk Not increased Invalid Interpretation Code [facility] Comment on above: Performed By: #### 3 [id number] #### [facility] (DEFAULT) [address] [place] [address] AFP Test Results: Negative Invalid Interpretation [facility] Comment on above: Performed By: #### 3 [id number] #### [facility] (DEFAULT) [address] [place] [address] AFP uE3 MoM 0.66 Invalid Interpretation Code [facility] Comment on above: Performed By: #### 3 [id number] #### [facility] (DEFAULT) [address] [place] [address] AFP Tetra LCon 01-18-2024 AFP Comments: Comment Invalid Interpretation [facility] Comment on above: Result Comment: Bethany Perez, Ph.D., [facility] Director References: Available Upon Request. Multiples Of Median Cutoffs Abbreviation Definitions For AFP Elevations IDD- Insulin Dep Diabetes Cadet 2.5 Black 2.8 OSBR- Open Spina Bifida IDD 2.0 Twins 4.5 Risk DSR Cutoff 1:270 DSR- Down Syndrome Risk T18 Cutoff 1:100 T18- Trisomy 18 For further inquiries contact [employer] [facility] at [phone]. This test was developed and its performance characteristics determined by [employer]. It has not been cleared or approved by the Food and Drug Administration. Performed At: [facility] [address] [facility], [place] [id number] [facility] Ph:[phone] Performed By: #### 3 [id number] #### [facility] (DEFAULT) [address] [place] [address] AFP CHIN Value 120.65 pg/mL Invalid Interpretation Code [facility] Comment on above: Performed By: #### 3 [id number] #### [facility] (DEFAULT) [address] [place] [address] AFP uE3 Value 1.08 ng/mL Invalid Interpretation Code [facility] Comment on above: Performed By: #### 3 [id number] #### [facility] (DEFAULT) [address] [place] [address] AFP Value 23.0 ng/mL Invalid Interpretation Code [facility] Comment on above: Performed By: #### 3 [id number] #### [facility] (DEFAULT) [address] [place] [address] [place] [address] m[IU]/mL Invalid Interpretation Code [facility] Comment on above: Performed By: #### 3 [id number] #### [facility] (DEFAULT) [address] [place], [place] [id number] Coding Summaryon 01-18-2024 Coding Summary HTMLBase 64 RtlleqtmYAa6aLp+PGhl YWQ+ZQ6YNBFwL15shVSh xX3zH1ZLJQuXKkgzLDZD ZChRQoPuapHqJB2zuOSo ZXJu IC8+DV7kVFKuBczbwBFu s7G9hST3X98cqb6aYEvl bEV2OBRsPlKvdliqh5sj fUf0SOpiHcxuWpHi OZBpjW30SOL1lP03Ci34 fDZfrXSyd6oycYz2AsUi ZUGfNZF9cCirYXdqx6Ob SQUmF73mpHWot4V4 IGNvbGxhcHNlOyBlbXB0 tM1uPJeoiumjq7mghcqa Gyd6ay41rWJqa4R8mYA4 R5CzgnI3ZZOwaQHd HecofZMVkQ3uiprea3vw raucMjAlGTAaMWk9ATl8 PRJwkRemMmQhIK79VHS9 RALsmoHnU1BmZOEp iOlzPlM3j6X4Rq4KD2AB LtdvT2OYYVDADVnquNT+ IR43db02U1NxRjkhDyc8 HAZfGXA8wZK5jZ6v XDStQEhff2S0nPZ7H7Md juSciv0fz2trXFLvMXfs G02zzXTsh2V8QLZnlWH4 FPFnuLaiXsOllO35 Oyc+SCVwvRfkb6XwMoih x8poh8fiaQk3HdmgAMDo mnKhiCmqPOV7t3KyPk0g IZIujWU2eBJ5mS1v BiJhWyB4LSveX410JvGj rSXdQdlrH30yD1ZzjMU+ RSPiWvf1VTPzoOmtPE8k A9TkREDdiwvehRJb yBbhAH4eKATzchenPAQh yY3vZVQjC6y7DhVcZmO9 UXffY5UbVUQevxioPz79 uT6wZaFiBnX8MTqp G4PfrdL9VPQwpUTkOByi OEC0Q91wo2P9LVMiFLGs HMF5kOU8gG3yhVcznnld bGVmdDsgdmVydGlj XYabCVxqL094XCZcwGcc PkNvZGluZyBEYXRlOiAg MDQvMjQvMjAyNDwvdGQ+ BRZsDYR6qUqnPIZz vVYrFIegGx2kmDvcpHdg HE8qOIYqnwiyDFIjiB5a XZZrrVRioQupGI5mMVKk avdnf078UjGuBAY2 NPXhwYGdO7SjeL7iKfMj VQMwKCYyM2MnaRBrAWey E981SHalNeF7IAWlrbPw K8QiIXIsfMunHnH8 c1H7Vf0Ni9SgfnwrE9Vy eYLaXxGsZjwbKSd6W2Ac PjwvdHI+KT04BOWuTI25 KBs2XWS7zQefVSst TMCdT9QzzG8dRlKnTFFl ZGRkOyc+PHRhYmxlIHdp ZHRoPScxMDAlJyBzdHls RA2fIk2tZFIwRMCw fDahfCYxGhVjp1ucRPZw TQndKZ5xdDzfZ2OtsTP1 QRXja3n2Yv33Z44uF1Wx dXA+YGNnwEA3iNX8 wO3hDvOtQrQ2AHfsJ553 OnHdiWYfAhfsc0gno9vw mPu9RiA2DQYwbdCjqVui KFF6s0WoCa78D83d IHdpZHRoPSIxNSUiIHZh dRzuln5kyT7zQy1+PGNv ePK9rIU5jO1nNvDqMiA0 TTdbQ781XxUqsTQk Gqryl0zsu3vuwGm7StKw ZWUlhjVeyXynDCF5v7Hl Pw17T8ZpbHmta2MuJxm9 ih03lUJdn3T2pJM2 J5DhHRFmfnghqJLkcMcr KP5lTQCnmdzmXVXxlH0p QKXcR2n0VeDzRmY1LRum D0IlpbX5GXLdiNJy FZRugZPLaZ9xwikkd4aw btbmNoMlQEUrEVy6UZf8 FMYhtZwkVjHdAJI5KlF7 KJB7hSUzgC7wnIvz wlntnV7dBqw+IUP2xGCi mANCPE0yRdqeeBA+PHRk VXD2hInyEKzpXDLpwM8s HZNeM0r6DbJsDrW9 NKcbA0VlvrB2AUIzrZBw XJIeuKGJbH9rnqrcg4us tkvgWrTbWBYaUEi8YCw5 LWFsaWduOiBsZWZ0 UwL8LAB1pQPjrZ9tvNwc sdcpaG7jMzu+QmlydGgg EWI4WEe2S5SyLwl8PMDe iFehXB8brLLvMSlq Mk6itBejtWzfVO4uNGTn ioqlk572PaRex5hcGOYk kSNaNVkeCMK0W88rb1Y1 ZTEsTEFvMMU5oLX8 mK7gjUnxgsrklBWkhTgb vlEpbGfjQXyuWYzkQ820 RMQizXhbAqWvREu0D5Wb Hji5VVBjsMmkAG0b gUDmDVzwEp4reScvrUds KR7rBLHxyabew986AtBq p2xjFNJokJLuZMqdOHF1 X78rt9W2CZCuLSMo GAO6uQV7lD3cuHbsdnze bGVmdDsgdmVydGljYWwt QRztI213WTMxiUpnXoAe sEu5F0AbKos1LOLz rLgrXQ3tgFJdJBbfQl0t tGphaXdhLQ0mUMRcdpzi f157CvIvb8bbYPFsjRKp CRykXAL3S57hm0W1 HXElVCFgSYR8sXQ9kW7j bGlnbjogbGVmdDsgdmVy zOgjNUbxFVapY940CIUa cDsnPlBhdGllbnQg MGxaQFk5A2HaKdqxcCS+ KP93UWWvGY60xMAfzSMe z3qwnZx5TxHbVHQrEZN7 xIstQPjzz6EwPCLr B95bxKEti2K3EXEubIcn aQYsAqVdiLP5rU0hRCqw rpdrm5nytzdvXfcqn8yl uf39oK84A68sNOtf ZHRoPSIzMCUiIHZhbGln er3toE3cHr5+PGNvbCB3 ySE9vY9gRVOiIsS2VRsc T627FwYslNTuNhjj b9bky3qmhOp8QfJ4IRBq adWbzVqxYOW0j7MbGn50 R89aBYyiQLPcNKLnUPGq QONauKtlvt3pvB5j Ii8+WWJxoJR8yRA4zG8a AgOjPsG3LXeiI449RbXj aKGxEhfyT57fF7CloRW+ JSCoYip7WNWqhAfu AP3hnZXnDQsuFk1aDGU1 WnBeIzHhQVohA3BiFMDd uhfonjnsyZL8PUIuUTSf nN04Rc1qwRxjXFAz kTRZuL1segheu5cjafqh FbXcGAGxRPn7PGv7RWBu eUplTbNhTTY6DaI5STK2 sOGxvG5xeAxjnyqr aD8nT4OsJAZzvxkdZb46 iR6oTqYnHmD3AZliQyk+ XC7NFUKLRYugPPcZMWzF IFNJRVJSQTwvdGQ+ YPEePAE3fQanDLekFXPh bP2hWVFoF0e2ZcBwJjC0 NBjdQ5YcFNPuzkifTt02 jR2kZuCzOvJ1KIcp O6ZjjeM5ELCsbVRqNZhp DYJ6Y07ra1F9QEKzGNEd GGZ5yUS1vQ4qqUchopmo bGVmdDsgdmVydGlj IYzfGCmoS676XZPwzHvw EyVpVjCxZdY9EUb9Q7Ji Kqm8PTHjbOqfUV1bfMNv ZPkpWq0htMojeZgd AF4kTQDldatgJHXdlJ2r TXLnvALhwFkeZZ0wNHUq gzrse044UgBrLDY8ESMj mBOdT8SorV5fNlRb KVXzKYErC2EjvQBmNQsw S336ESbnGsB5XMHmulWx F3DrXYRycImeKnI1r1W4 Gt5uIHZKKCKvglkj dGQ+KIIaBND4mBglDYqm ICVstJ0bUDKyW6i0ToMj YnW5SBfzG5SxZXQoeffz Ah24sX6aIsSjTpP1 AEqbC2WzwoD8VNAxmAZu QGskMPG7I05qd3X3YGMe TKDsOZE5mFU1dZ8rkRib bjogbGVmdDsgdmVy gZycMPhoGRqwI473ESYd cDsnPkZFTUFMRTwvdGQ+ IPFbUAJ5wNhsJMtuRXRb dY7tKURnW3v0IaIh QeR2TXobU0VyFGIrypqd Sp04qH2mYyNnAsC8YHia B6EbmoQ7UNQttISwRLfv VTK5U05ve8O7JLNp MWRgYPW2bVM7pY9ndHpl bjogbGVmdDsgdmVydGlj VIbpMEshA542KXJqnGjd Yh0XFG96FL05X7Xk PjwvdGFibGU+PHRhYmxl IHdpZHRoPScxMDAlJyBz aRiqOR7lPp6lAMOaMVGu nGqawCEvTdZky9ey IKJkBMnkAX2pnGzlO3Bo kAG3CZFzv8i9Yp99M59j B6SlqQD+XNBxkWT6xRG3 tP0jLiPyNaY9IIme B074XpTmeSBvLjhdr0tu x2jkgLm7HaTgRDHkzhEy aOudAUX0b6XcNe91M01l IHdpZHRoPSIyMCUi HLLftUgufm6zwI8jYh1+ IOFjxDB9sYB3iR3wRhXx FiG9ZYdvP500SlIrwNGj UvztP91vU5WijAU+ YYVnTba1WPGwzRrvUW0h aLEdZFehZl7wMPU9GiRx YsXwKRuuD5OxGINrclug lwsnaIL3XNXjTGLi kF60Uo6poLxtPs7sMRHa YUZ9LAPgjOAlR7YfuA7g HeHqSDAkDOBxT9OzvJWg LDueJ810JOtlHcU6 RFJajnDiN4RoNNDevIly TsR6j9G6Gg6BbKoczUKm XI4nSyJrXXs7D3YjWvz0 YTLofKpeJW0mgJYm MGduPk8ezCozxBngWN8p IREcrmywx393AeMky1iz ERDjqLQlJLezBKR0K03n u5M7IRItDYLaCSV6 cMP1xS8ghLtjeeoieJQt dDsgdmVydGljYWwtYWxp I391MPZdvYptWkRNHkf6 Q2YzKkx0SLQqvYze OA9wnEVjAEdgNf4krHzn sBwhQN4jTBXljtrpr351 VaHoq4pyVFKoyBYxSFua GNR8X64jq0A5IIEq SJYkDSR8dEN5kQ5hzRug bjogbGVmdDsgdmVydGlj BOstHMtbV190AQXtjVgs Zs7BTny9T0YdXyn0 EMCnkRlqAI0jmATmXLuu Vt4boBslvZgoMR5vPEWd fuhcz357RlUqm2nuPOJx gUWyOGanKNO9V48e t6C8ZFVuZMPxLXC3oNO8 qF4axKhhukmcwRPcuRne wzCueKnqTQzoOUgiH883 IHRvcDsnPlBheWVy OjwvdGQ+PG60rb62G9Zt LgrjYam5EAEtIGD5cWX7 tJ1qQHNmJVcgy5Q6jAQ5 Q9SlxsXthc2im2yp YXB (more content not included)... [facility] Provider Orderson 01-12-2024 Provider Orders [id number] [facility] COVID-19, Rapidon 10-14-2022 SARS-CoV-2 (COVID-19) RNA AMANDO+probe Ql (Unsp spec) Not detected Not Detected [facility] Comment on above: Rapid NAAT: The specimen [...] management decisions. Fact sheet for Healthcare Providers: https://www.[employer].gov/media/910198/download Fact sheet for Patients: https://www.fda.gov/media/259261/download Methodology: Isothermal Nucleic Acid Amplification Specimen Description .NASOPHARYNGEAL SWAB [facility] Y[facility] Rapid influenza A/B antigens on 10-14-2022 Flu A Antigen Negative NEGATIVE [facility] Comment on above: for Influenza A Anti gen Flu B Antigen Negative NEGATIVE [facility] Comment on above: for Influenza B Anti gen. [facility] Vital Signs Date Time Vital Sign Value Performing Clinician Facility 02-01-2024 11:090400 Body weight 157.8528 kg Viral [facility] Comment on above: Result Comment: Not provided. Performed By: #### 3 [id number] #### [facility] (DEFAULT) [address] [place] [address] 06-23-2023 10:35-0400 Body height 167.64 cm Jossie Krueger Other [facility] 06-23-2023 10:35-0400 Body mass index (BMI) [Ratio] 50.03 kg/m2 Jossie Krueger Other [facility] Other 06-23-2023 10:35-0400 Body temperature 98.3 [degF] Jossie Krueger Other [facility] Other 06-23-2023 10:35-0400 Body weight 140.62 kg Jossie Krueger Other [facility] Other 06-23-2023 10:35-0400 Diastolic blood pressure 90 mm[Hg] Jossie Krueger Other [facility] Other 06-23-2023 10:35-0400 Respiratory rate 18 /min Jossie Krueger Other [facility] Other 06-23-2023 10:35-0400 SaO2% (BldA) [Mass fraction] 97 % Jossie Krueger Other [facility] Other 06-23-2023 10:35-0400 Systolic blood pressure 147 mm[Hg] Jossie Krueger Other [facility] Other 10-14-2022 18:16-0500 Body height 165.1 cm John Hastings DO Work Phone: [facility] 10-14-2022 18:16-0500 Body mass index (BMI) [Ratio] 52.92 kg/m2 John Hastings DO Work Phone: [facility] 10-14-2022 18:16-0500 Body temperature 98.29 [degF] John Hastings DO Work Phone: [facility] 10-14-2022 18:16-0500 Body weight 144.24 kg John Hastings DO Work Phone: [facility] 10-14-2022 18:16-0500 Diastolic blood pressure 96 mm[Hg] John Hastings DO Work Phone: [facility] 10-14-2022 18:16-0500 Heart rate 94 /min John Hastings DO Work Phone: [facility] 10-14-2022 18:16-0500 Respiratory rate 18 /min John Hastings DO Work Phone: [facility] 10-14-2022 18:16-0500 SaO2% (BldA) [Mass fraction] 95 % John Hastings DO Work Phone: [facility] 10-14-2022 18:16-0500 Systolic blood pressure 138 mm[Hg] John Hastings DO Work Phone: [facility] 10-05-2022 23:14-0500 Body height 165.1 cm Chapin Lee MD Work Phone: [facility] 10-05-2022 23:14-0500 Body mass index (BMI) [Ratio] 53.47 kg/m2 Chapin Lee MD Work Phone: [facility] 10-05-2022 23:14-0500 Body temperature 98.4 [degF] Chapin Lee MD Work Phone: [facility]asm[facility] 10-05-2022 23:14-0500 Body weight 145.74 kg Chapin Lee MD Work Phone: [facility] 10-05-2022 23:14-0500 Diastolic blood pressure 87 mm[Hg] Chapin Lee MD Work Phone: [facility] 10-05-2022 23:14-0500 Heart rate 86 /min Chapin Lee MD Work Phone: [facility] 10-05-2022 23:14-0500 Respiratory rate 18 /min Chapin Lee MD Work Phone: [facility] 10-05-2022 23:14-0500 SaO2% (BldA) [Mass fraction] 99 % Chapin Lee MD Work Phone: [facility] 10-05-2022 23:14-0500 Systolic blood pressure 146 mm[Hg] Chapin Lee MD Work Phone: [facility] Encounters Encounter Date Encounter Type Care Provider Facility Start: 04-04-2024 End: 04-04-2024 ambulatory JOE TRICIA Not Available Start: 03-21-2024 End: 03-21-2024 ambulatory JOE TRICIA Not Available Start: 03-07-2024 End: 03-07-2024 ambulatory JOE TRICIA Not Available Start: 02-08-2024 End: 02-08-2024 ambulatory JOE TRICIA Not Available Start: 01-16-2024 End: 01-16-2024 ambulatory JUSTINE CALLAHAN Not Available Start: 01-12-2024 End: 01-13-2024 ambulatory Viral Galindo Facility:[facility] Start: 01-10-2024 End: 01-10-2024 ambulatory JUSTINE CALLAHAN Not Available Start: 12-13-2023 End: 12-13-2023 ambulatory JOE TRICIA Not Available Start: 11-11-2023 End: 11-11-2023 ambulatory JOE TRICIA Not Available Start: 10-27-2023 End: 10-27-2023 Office outpatient visit 5 minutes [facility] Tricia Nurse [facility] Comment on above: Canceled (Provider) Start: 06-23-2023 End: 06-23-2023 ambulatory Jossie Krueger Other [facility] Other Start: 06-23-2023 Office outpatient ne w 30 minutes Jossie Krueger [facility] Start: 10-14-2022 End: 10-14-2022 Emergency department patient visit John Hastings DO Work Phone: [facility] Comment on above: Viral URI with cough (Primary Dx) Start: 10-06-2022 End: 10-06-2022 Emergency department patient visit [facility] Start: 10-05-2022 End: 10-06-2022 [facility] Work Phone: [facility] Comment on above: Plantar fasciitis (P rimary Dx) Procedures Date Procedure Procedure Detail Performing Clinician Start: 10-14-2022 JAMEEID-ASTER Antony DO Work Phone: Start: 10-14-2022 Iaadiadoo influenza Vadim Hastings DO Work Phone: Plan of Treatment Date Care Activity Detail Author Start: 11-11-2023 End: 11-11-2023 ambulatory 11/11/2023 11:00 AM EST Initial [facility] [address] [place] [id number] [facility] Start: 11-11-2023 End: 11-11-2023 Professional / ancillary services management 11/11/2023 10:30 AM EST Ancillary Procedure [facility] [address] [place] [id number] [facility] Start: 10-27-2023 End: 10-27-2024 US Pelvis transvaginal US OB transvaginal Imaging Routine Missed menses Expected: 10/27/2023 (Approximate), Expires: 10/27/2024 [facility] Work Phone: Comment on above: Expected: 10/27/2023 (Approximate), Expires: 10/27/2024 Start: 04-26-2022 Influenza vaccination Flu vaccine (# 1) [facility] Start: 11-17-2021 DTaP/Tdap/Td vaccine (7 - Td or Tdap) DTaP/Tdap/Td vaccine (7 - Td or Tdap) [facility] Start: 01-15-2000 COVID-19 Vaccine (#1) COVID-19 Vacci ne (#1) [facility] Payers Date Payer Category Payer Medicaid [id number] 2022 Unknown [id number] 2019 Medicare [id number]. [id number] 1999 Unknown [id number] 2.16.8 [id number] 1999 Unknown [id number] 2.16.8 [id number] 1999 Unknown [id number] 2.16.84 [id number] 1999 Unknown [id number] 2.16.84 [id number] 1999 Unknown [id number] 2.16.84 [id number] 1999 Unknown [id number] 2.16.84 [id number] 1999 Unknown [id number] 2.16.84 [id number] 1999 Unknown [id number] 2.16.84 [id number] 1999 Unknown [id number] 2.16.84 [id number] 1999 Unknown [id number] 2.16.84 [id number] Social History Date Type Detail Facility Start: 10-05-2022 Tobacco smoking status ORIS Smokes tobacco daily [facility] Phone: History of tobacco use Cigarette Smoker B ON [employer] Phone: Start: 10-05-2022 End: 10-14-2022 Cigarettes smoked current (pack per day) - Reported 1 [employer] Phone: Start: 10-05-2022 Tobacco use and exposure Smokeless tobacco non-user [facility] Phone: Start: 10-05-2022 End: 10-14-2022 Alcohol intake Current drinker of alcohol (finding) [facility] Phone: Start: 10-05-2022 Alcohol Comment in a month [facility] Phone: Start: 2000 Sex Assigned At Not on file [facility] Phone: Start: 09-25-2022 End: 10-14-2022 Exposure to SARS-CoV-2 (event) Not sure [employer] Phone: Start: 10-14-2022 History SDOH Alcohol Frequency 1 EXPO Phone: Start: 10-14-2022 History SDOH Alcohol Std Drinks 0 EXPO Phone: Sex Assigned At Sex Assigned At Bir th [facility] Other Tobacco smoking stat [facility] Tobacco smoking consumption unknown [facility] Start: 2000 Sex Assigned At Female [facility] Start: 10-20-2023 Gender identity Identifies as female gender (finding) [facility] Start: 10-20-2023 Sexual orientation Heterosexual (finding) [facility] History of Present illness Narrative 10-27-2023 Zari Wagner LPN - 10/27/2023 2:30 PM EST Note Date & Type Note Facility 10-27-2023 History of Presen t illness Narrative Patient to return in 2 weeks to get a SUE as not able to obtain today. documented in this encounter [facility] Evaluation note 06-23-2023 Note Date & [...] understanding and is agreeable to treatment plan [facility] Other Evaluation note Note Date & Type Note Facility Evaluation note Diagnosis Plantar fasciitis- Primary Plantar fascial fibromatosis documented in this encounter EXPO Phone: Evaluation note Note Date & Type Note Facility Evaluation note Diagnosis Viral URI with cough- Primary Acute upper respiratory infections of unspecified site documented in this encounter EXPO Phone: Evaluation note Note Date & Type Note Facility Evaluation note Diagnosis Missed menses documented in this encounter [facility] History general Narrative - Reported Note Date & Type Note Facility History general Narrative - Reported Type Surgical History wisdom teeth [facility] Other Hospital Discharge instructions Attachments Note Date & Type Note Facility Hospital Discharge instructions The following attachments cannot be sent through Care Everywhere.Plantar Fasciitis ([place])documented in this encounter EXPO Phone: Hospital Discharge instructions Attachments Note Date & Type Note Facility Hospital Discharge instructions The following attachments cannot be sent through Care Everywhere.URI (Upper Respiratory Infection) ([place])documented in this encounter EXPO Phone: Summary Purpose Family History No Family [...] section and content) DATE CREATED AUTHOR 10/06/2022 [facility] DATE CREATED AUTHOR AUTHOR'S ORGANIZ ATION 02/02/2024 [facility] DATE CREATED AUTHOR AUTHOR'S ORGANIZ ATION 04/11/2024 [facility] Care Teams (unrecognized sec tion and content) Senior Qa Tester Relationship Specialty Start Date End Date Viral Galindo MD [address] [place] [address] PCP - General Pediatrics 10/27/23 FOR RECORDS [...] BE BASED ON THE PRIMARY CLINICAL RECORDS. [facility]. provides no warranty or guarantee of the accuracy or completeness of information in this document.
--- NOTE | 2024-04-12 16:06 | US_ITS ---
[address] [address] Patient Name: ZEV YAP MRN: [id number] date: 2000 Sex: F Assigned Patient Location: US Current Patient Location: Accession/Order Number: [id number] Exam Date: 04/12/2024 16:13 Report Date: 04/13/2024 07:28 At the request of: JOE WOOD Procedure: US OB BPP w non-stress EXAMINATION: US OB BPP w non-stress HISTORY:EXCESSIVE GROWTH AFFECTING [id number] COMPARISON: Ultrasound venotomy 01/17/2024 TECHNIQUE: Ultrasound biophysical profile was performed in the radiology department. BREATHING MOVEMENTS: 2 GROSS BODY MOVEMENTS: 2 TONE: 2 QUALITATIVE AMNIOTIC FLUID VOLUME: 2 PRESENTATION: CEPHALIC HEART RATE: 134.33 bpm AMNIOTIC FLUID VOLUME: 15.06 cm GESTATIONAL AGE: 32 weeks 2 days US/US OB BPP w non-stress IMPRESSION: Total biophysical profile score: 8 Electronically authenticated by: TEENA RASCON Date: 04/13/2024 07:28
--- NOTE | 2024-04-12 16:07 | US_ITS ---
[address] [address] Patient Name: ZEV YAP MRN: [id number] date: 2000 Sex: F Assigned Patient Location: US Current Patient Location: US Accession/Order Number: [id number] Exam Date: 04/12/2024 16:13 Report Date: 04/13/2024 07:31 At the request of: JOE WOOD Procedure: US OB growth EXAMINATION: US OB growth HISTORY: EXCESSIVE GROWTH AFFECTING O36.63X0 COMPARISON: Ultrasound OB anatomy 01/17/2024 FINDINGS: Heart Rate: 134.33 bpm Amniotic Fluid Volume: 15.1 cm; normal range Number: 1 Position: CEPHALIC BIOMETRY: BPD: 7.96 cm; 32 weeks 0 days; 31.20 % HC: 30.58 cm; 34 weeks 0 days; 60.80 % AC: 30.42 cm; 34 weeks 3 days; 94.50 % FL: 6.23 cm; 32 weeks 2 days; 36.90 % EFW: 2215.22 g; 78.70 % FL/AC: 20.49 FL/BPD: 78.32 HC/AC: 1.01 GESTATIONAL AGE: Age by EDC: 32 weeks 2 days SUE by EDC: 2024-06-05 Age by US: 33 weeks 1 days SUE by US: 2024-05-30 US/US OB growth IMPRESSION: 1. Single live intrauterine with growth detailed above. 2. Abdominal circumference is 95th percentile. Electronically authenticated by: TEENA RASCON Date: 04/13/2024 07:31
[2024-04-12 17:15] VITALS: BP 142/69; PULSE 93
== END 2024-04-12 17:36 | disposition home or self-care (01) ==
LOC: US 07:04 → FBC 16:04
PROVIDERS: PCP Family Medicine; Visit Provider Obstetrics & Gynecology
DX: O36.63X0 Maternal care for excessive fetal growth, third trimester, not applicable or unspecified (principal); O99.213 Obesity complicating pregnancy, third trimester; Z3A.33 33 weeks gestation of pregnancy
CPT/HCPCS: 76816; 76818

== ENCOUNTER 2024-04-16 07:51 | Outpatient (OUT) | payer OTHER, MEDICAID, SELFPAY ==
--- OUTSIDE RECORDS SUMMARY | 2024-04-16 08:15 | XMS_ITS | CCD ---
Author Organization [facility] Care Team Providers Care Respiratory Coordinator Name Role Phone Unavailable Primary Care Provider UnavailJossie Lui Unavailable Viral Galindo MD Primary Care Provider Viral Galindo Primary Care Unavailable Justine Olmstead Attending Unavailable Justine Olmstead Admitting Unavailable SARKIS JAY Referring Unavailable SARKIS JAY Attending Unavailable JOE WOOD Attending Unavailable JUSTINE CALLAHAN Attending Unavailable JUSTINE CALLAHAN Attending Unavailable JOE WOOD Attending Unavailable JOE WOOD Attending Unavailable JOE WOOD Attending Unavailable TRICIA, JOE Attending Unavailable JUSTINE CALLAHAN Attending Unavailable Allergies Allergy Classification Reported Allergen(s) Allergy Type Date of Onset Reaction(s) Facility (1 source) No Known Medication Allergies; Translations: [No Known Medication Allergies] Propensity to adverse reactions to drug (disorder) [facility] Repository Medications Current Medications Medication Drug Class(es) [...] Episodic Other connective tissue disease (1 source) Pain in left lower leg; Translations: [Pain in left lower leg] Onset: 04-10-2024 Episodic Other connective tissue disease (1 source) Other specified soft tissue disorders; Translations: [Other specified soft tissue disorders] Onset: 04-10-2024 Episodic Other upper respiratory infections (1 source) Viral upper respiratory tract infection; Translations: [Acute upper respiratory infection, unspecified] Episodic Otitis media and related conditions (1 source) Otitis media, unspecified, right ear Episodic Results Test Name Value Interpretation Reference Range Facility CBC with Diffon 04-09-2024 Abs. Basophil 0.00 k/uL Normal 0.00-0.20 [facility] Comment on above: Performed By: #### C DP, CP #### [facility] [address] [place] [address] Data Entry Manager: Viral Mcgraw MD Abs.Imm.Granulocyte 0.03 k/uL Normal 0.00-0.30 [facility] Comment on above: Performed By: #### C DP, CP #### [facility] [address] [place] [id number] Data Entry Manager: Viral Mcgraw MD Abs.Neutrophil (Seg) 6.53 k/uL Normal 2.5-7.0 [facility] Comment on above: Performed By: #### C DP, CP #### [facility] [address] [place] [address] Data Entry Manager: Viral Mcgraw MD Basophils/100 WBC (Bld) 0 % Normal 0-2 [facility] Comment on above: Performed By: #### C DP, CP #### [facility] [address] [place], [place] [id number] Data Entry Manager: Viral Mcgraw MD Eosinophils (Bld) [#/Vol] 0.21 10*3/uL Normal 0.00-0.40 [facility] Comment on above: Performed By: #### C DP, CP #### [facility] [address] [place], [place] [id number] Data Entry Manager: Viral Mcgraw MD Eosinophils/100 WBC (Bld) 2 % Normal 0-5 [facility] Comment on above: Performed By: #### C DP, CP #### [facility] [address] [place] [address] Data Entry Manager: Viral Mcgraw MD Erythrocyte distribution width (RBC) [Ratio] 13.9 % Normal 12.1-15.2 [facility] Comment on above: Performed By: #### C DP, CP #### [facility] [address] [place] [address] Data Entry Manager: Viral Mcgraw MD Hematocrit (Bld) [Volume fraction] 32.4 % Low 36.0-46.0 [facility] Comment on above: Performed By: #### C DP, CP #### [facility] [address] [place] [address] Data Entry Manager: Viral Mcgraw MD Hemoglobin (Bld) [Mass/Vol] 11.2 g/dL Low 12.0-16.0 [facility] Comment on above: Performed By: #### C DP, CP #### [facility] [address] [place] [address] Data Entry Manager: Viral Mcgraw MD Immature granulocytes/100 WBC (Bld) 0 % Normal 0-5 [facility] Comment on above: Performed By: #### C DP, CP #### [facility] [address] [place] [address] Data Entry Manager: Viral Mcgraw MD Lymphocytes (Bld) [#/Vol] 1.74 10*3/uL Normal 1.00-4.80 [facility] Comment on above: Performed By: #### C DP, CP #### [facility] [address] [place] [address] Data Entry Manager: Viral Mcgraw MD Lymphocytes/100 WBC (Bld) 19 % Normal 15-40 [facility] Comment on above: Performed By: #### C DP, CP #### [facility] [address] [place] [id number] Data Entry Manager: Viral Mcgraw MD MCH (RBC) [Entitic mass] 30.4 pg Normal 26.0-34.0 [facility] Comment on above: Performed By: #### C DP, CP #### [facility] [address] [place] [id number] Data Entry Manager: Viral Mcgraw MD MCHC (RBC) [Mass/Vol] 34.6 g/dL Normal 31.0-37.0 [facility] Comment on above: Performed By: #### C DP, CP #### [facility] [address] [place] [id number] Data Entry Manager: Viral Mcgraw MD MCV (RBC) [Entitic vol] 88.0 fL Normal 80.0-100.0 [facility] Comment on above: Performed By: #### C DP, CP #### [facility] [address] [place] [id number] Data Entry Manager: Viral Mcgraw MD Monocytes (Bld) [#/Vol] 0.48 10*3/uL Normal 0.00-1.00 [facility] Comment on above: Performed By: #### C DP, CP #### [facility] [address] [place] [id number] Data Entry Manager: Viral Mcgraw MD Monocytes/100 WBC (Bld) 5 % Normal 4-8 [facility] Comment on above: Performed By: #### C DP, CP #### [facility] [address] [place] [address] (289) Data Entry Manager: Viral Mcgraw MD Neutrophil (Seg) 74 % Normal 47-75 [facility] Comment on above: Performed By: #### C DP, CP #### [facility] [address] [place] [address] (105) Data Entry Manager: Viral Mcgraw MD Platelet mean volume (Bld) [Entitic vol] 10.7 fL Normal 6.0-12.0 [facility] Comment on above: Performed By: #### C DP, CP #### [facility] [address] [place], [place] [phone] (409) Data Entry Manager: Viral Mcgraw MD Platelets (Bld) [#/Vol] 220 10*3/uL Normal 140-450 [facility] Comment on above: Performed By: #### C DP, CP #### [facility] [address] [place] [address] (641) Data Entry Manager: Viral Mcgraw MD RBC (Bld) [#/Vol] 3.68 10*6/uL Low 4.00-5.20 [facility] Comment on above: Performed By: #### C DP, CP #### [facility] [address] [place] [address] (726) Data Entry Manager: Viral Mcgraw MD WBC (Bld) [#/Vol] 9.0 10*3/uL Normal 3.5-11.0 [facility] Comment on above: Performed By: #### C DP, CP #### [facility] [address] [place] [address] (007) Data Entry Manager: Viral Mcgraw MD Comp Metabolic Profon 2023 Albumin [Mass/Vol] 3.2 g/dL Low 3.5-5.2 [facility] Comment on above: Performed By: #### C DP, CP #### [facility] [address] [place], [place] [id number] Data Entry Manager: Viral Mcgraw MD Alkaline Phos 74 U/L Normal 35-104 [facility] Comment on above: Performed By: #### C DP, CP #### [facility] [address] [place], [place] [id number] Data Entry Manager: Viral Mcgraw MD ALT [Catalytic activity/Vol] 26 U/L Normal 5-33 [facility] Comment on above: Performed By: #### C DP, CP #### [facility] [address] [place], [place] [id number] Data Entry Manager: Viral Mcgraw MD Anion gap [Moles/Vol] 10 mmol/L Normal 9-17 [facility] Comment on above: Performed By: #### C DP, CP #### [facility] [address] [place], [place] [id number] Data Entry Manager: Viral Mcgraw MD AST [Catalytic activity/Vol] 16 U/L Normal <32 [facility] Comment on above: Performed By: #### C DP, CP #### [facility] [address] [place], [place] [id number] Data Entry Manager: Viral Mcgraw MD Bilirubin [Mass/Vol] 0.2 mg/dL Low 0.3-1.2 [facility] Comment on above: Performed By: #### C DP, CP #### [facility] [address] [place], [place] [id number] Data Entry Manager: Viral Mcgraw MD BUN/CRE Ratio 7 Low 9-20 [facility] Comment on above: Performed By: #### C DP, CP #### [facility] [address] [place], [place] [id number] Data Entry Manager: Viral Mcgraw MD Calcium [Mass/Vol] 9.1 mg/dL Normal 8.6-10.4 [facility] Comment on above: Performed By: #### C DP, CP #### [facility] [address] [place], [place] [id number] Data Entry Manager: Viral Mcgraw MD Chloride [Moles/Vol] 101 mmol/L Normal 98-107 [facility] Comment on above: Performed By: #### C DP, CP #### [facility] [address] [place] [address] Data Entry Manager: Viral Mcgraw MD CO2 [Moles/Vol] 24 mmol/L Normal 20-31 [facility] Comment on above: Performed By: #### C DP, CP #### [facility] [address] [place] [address] Data Entry Manager: Viral Mcgraw MD Creatinine [Mass/Vol] 0.7 mg/dL Normal 0.5-0.9 [facility] Comment on above: Performed By: #### C DP, CP #### [facility] [address] [place] [address] Data Entry Manager: Viral Mcgraw MD GFR/1.73 sq M.predicted among non-blacks MDRD (S/P/Bld) [Vol rate/Area] mL/min/{1.73_m2} Normal >60 [facility] Comment on above: Result Comment: These results are not intended for use in patients <18 years of age. eGFR results are calculated without a race factor using the 2020 CKD-EPI equation. Careful clinical correlation is recommended, particularly when comparing to results calculated using previous equations. The CKD-EPI equation is less accurate in patients with extremes of muscle mass, extra-renal metabolism of creatine, excessive creatine ingestion, or following therapy that affects renal tubular secretion. Performed By: #### C DP, CP #### [facility] [address] [place] [address] Data Entry Manager: Viral Mcgraw MD Glucose [Mass/Vol] 107 mg/dL High 70-99 [facility] Comment on above: Performed By: #### C DP, CP #### [facility] [address] [place], [place] [id number] Data Entry Manager: Viral Mcgraw MD Potassium [Moles/Vol] 3.3 mmol/L Low 3.7-5.3 [facility] Comment on above: Performed By: #### C DP, CP #### [facility] [address] [place], [place] [id number] Data Entry Manager: Viral Mcgraw MD Protein [Mass/Vol] 6.3 g/dL Low 6.4-8.3 [facility] Comment on above: Performed By: #### C DP, CP #### [facility] [address] [place], [place] [id number] Data Entry Manager: Viral Mcgraw MD Sodium [Moles/Vol] 135 mmol/L Normal 135-144 [facility] Comment on above: Performed By: #### C DP, CP #### [facility] [address] [place], [place] [id number] Data Entry Manager: Viral Mcgraw MD Urea nitrogen [Mass/Vol] 5 mg/dL Low 6-20 [facility] Comment on above: Performed By: #### C DP, CP #### [facility] [address] [place], [place] [id number] Data Entry Manager: Viral Mcgraw MD AFP Tetra LCon 02-01-2024 AFP CHIN MoM 1.12 Invalid Interpretation Code [facility] Comment on above: Performed By: #### 3 [id number] #### [facility] (DEFAULT) [address] [place] [address] AFP DSR (By Age) 1 [place] 1039 Invalid Interpretation Code [facility] Comment on above: Performed By: #### 3 [id number] #### [facility] (DEFAULT) [address] [place] [address] 45619 AFP DSR (Second Trimester) 1 [place] 957 Invalid Interpretation [facility] Comment on above: Performed By: #### 3 [id number] #### [facility] (DEFAULT) [address] [place] [address] AFP Gest. Age on Collection Date 19.3 week(s) Invalid Interpretation Code [facility] Comment on above: Result Comment: Not provided. Performed By: #### 3 [id number] #### [facility] (DEFAULT) [address] [place] [address] AFP Gestat. Age Based On SUE Invalid Interpretation Code [facility] Comment on above: Result Comment: 05/27 Performed By: #### 3 [id number] #### [facility] (DEFAULT) [address] [place] [address] AFP hCG MoM 1.18 Invalid Interpretation Code [facility] Comment on above: Performed By: #### 3 [id number] #### [facility] (DEFAULT) [address] [place] [address] AFP insulin Dep Diabetes No Invalid Interpretation Code [facility] Comment on above: Result Comment: Not provided. Performed By: #### 3 [id number] #### [facility] (DEFAULT) [address] [place] [address] AFP Interpretation Comment Invalid Interpretation Code [facility] Comment on above: Result Comment: Inte rpretation: [...] identifies 60% of Trisomy 18 pregnancies. The [employer] recommends amniocentesis [...] within 10 days. Performed By: #### 3 [id number] #### [facility] (DEFAULT) [address] [place] [address] AFP Maternal Age At SUE 24.8 Invalid Interpretation Code [facility] Comment on above: Performed By: #### 3 [id number] #### [facility] (DEFAULT) [address] [place] [address] AFP MoM 0.69 Invalid Interpretation Code [facility] Comment on above: Performed By: #### 3 [id number] #### [facility] (DEFAULT) [address] [place] [address] AFP Multiple Gestation No Invalid Interpretation Code [facility] Comment on above: Result Comment: Not provided. Performed By: #### 3 [id number] #### [facility] (DEFAULT) [address] [place] [address] AFP OS[place] [address] Invalid Interpretation Code [facility] Comment on above: Performed By: #### 3 [id number] #### [facility] (DEFAULT) [address] [place] [address] 10024 AFP Race Invalid Interpretation Code [facility] Comment on above: Result Comment: Not provided. Performed By: #### 3 [id number] #### [facility] (DEFAULT) [address] [place] [address] AFP Results Comment Invalid Interpretation [facility] Comment on above: Result Comment: The MOM and risk factors of this report have been modified based on new information supplied to us by the client or their designated sales representative metals. The Gestational Age Based On was changed [...] provided. to 348. Performed By: #### 3 [id number] #### [facility] (DEFAULT) [address] [place] [address] 37914 AFP T18 (By Age) 1:4050 Invalid Interpretation [facility] Comment on above: Performed By: #### 3 [id number] #### [facility] (DEFAULT) [address] [place] [address] 44179 AFP T18 Risk Not increased Invalid Interpretation [facility] Comment on above: Performed By: #### 3 [id number] #### [facility] (DEFAULT) [address] [place] [address] 66032 AFP Test Results: Negative Invalid Interpretation [facility] Comment on above: Performed By: #### 3 [id number] #### [facility] (DEFAULT) [address] [place] [address] 57552 AFP uE3 MoM 0.66 Invalid Interpretation [facility] Comment on above: Performed By: #### 3 [id number] #### [facility] (DEFAULT) [address] [place] [address] 80153 AFP Tetra LCon 01-18-2024 AFP Comments: Comment Invalid Interpretation [facility] Comment on above: Result Comment: Bethany Perez, Ph.D., [facility] Director References: Available Upon Request. Multiples Of Median Cutoffs Abbreviation Definitions For AFP Elevations IDD- Insulin Dep Diabetes Cadet 2.5 Black 2.8 OSBR- Open Spina Bifida IDD 2.0 Twins 4.5 Risk DSR Cutoff 1:270 DSR- Down Syndrome Risk T18 Cutoff 1:100 T18- Trisomy 18 For further inquiries contact [facility] at [phone]. This test was developed and its performance characteristics determined by [facility]. It has not been cleared or approved by the Food and Drug Administration. Performed At: [facility] [address] [facility], [place] [id number] Romero Mckenna [facility] Ph:[phone] Performed By: #### 3 [id number] #### [facility] (DEFAULT) [address] [place] [address] AFP CHIN Value 120.65 pg/mL Invalid Interpretation Code [facility] Comment on above: Performed By: #### 3 [id number] #### [facility] (DEFAULT) [address] [place] [address] AFP uE3 Value 1.08 ng/mL Invalid Interpretation Code [facility] Comment on above: Performed By: #### 3 [id number] #### [facility] (DEFAULT) [address] [place] [address] AFP Value 23.0 ng/mL Invalid Interpretation Code [facility] Comment on above: Performed By: #### 3 [id number] #### [facility] (DEFAULT) [address] [place] [address] [place] [address] m[IU]/mL Invalid Interpretation Code [facility] Comment on above: Performed By: #### 3 [id number] #### [facility] (DEFAULT) [address] [place] [address] Coding Summaryon 01-18-2024 Coding Summary HTMLBase 64 NukjwddvLSg8wYc+PGhl YWQ+WC2GAHQuY93xhODn yH9xT1GOFGtQImygHPNX JRnZOxKnweLoQU8hpMVr ZXJu IC8+QZ2iLAPuYxhtsZAa t7M8dAQ0I74zka3dLYri aHD2YBPmFbYbhlnxx2nr uKf1SLoxEejoAtXs EOEetD68JFA7gZ47Lw47 dQLtrOOps4qyzHs0AqVl UBLoARI2vZuxBNjpt5Kw LITbP58mbQZqc7G7 IGNvbGxhcHNlOyBlbXB0 fE7jIAsgljvij2ifraxr Lsj5tn44cFIvl0Y9uOD9 F3YzwiP3OTIqlAZt NqxlmREMmC4ksdnbr9gi khipAaSkGJEmOIc1KWz2 NVMgqGlgOkXkCW96FLE4 LRBsnfOxI4TfPENj oUauWkQ2y2N2Ci8KQ4GZ GdlqN9HQZWLAOTsakJC+ WY88we47X2DyGihfVsb1 JUJxJMH9iSH8wB9a IIHpAHtsh5P3kHC0U8Zi ygMenz7fk2vqGFLlMEzu X53ajMYuc9B6GLCicUC6 FPHfoGfgOoGywF56 Oyc+WORvvXyyd2HgTrnz k4xir1bblTm5HqrkBVEk meTfoDgwQEP2h4ZoOc4a OWZiuFD2wVK0kD9g LfGkBmL2APypO976PpLz xKRqRwwoC72jP1ZgtOZ+ MENuWsj5KGCpePlrSH3i Z6TfXLMkztfnmSEf lZzkTJ7kMZUlopatSZTh vC4vXKOsZ0r8XiHnHrL1 BPioP0NhCMIahmddQh29 sX0fVzHuYrS4NBtp I7VlbiG8VMOmxRHaTBxe QOS8A22iw0P1RYUeMEWz LHC8tDQ4hR5ckHimbeum bGVmdDsgdmVydGlj ZFdnJCvrU609QKTzaWbk PkNvZGluZyBEYXRlOiAg MDQvMjQvMjAyNDwvdGQ+ PJLrEZI8rRzyAXJi fNZhDExxHj1zuXwtyWnw BI0dRGTqunwyIGZlnN6u WNKhcNUztJhlDQ1zUMBg miefi965YgJeUPX6 MKRnyUPzG7HxsK9eJqUa LQBjUPRlR8JdnHVjEJjc X559WPosWdY5TXKzxbAa L2NmZMDqwXajClX8 o7B0Dh0Im1UsrluaZ9Wc oUPpDnNaPqrzICv9L3Lm PjwvdHI+CI00NLXjQL01 ZVg0DPH0nNzfNTco WVXaO9JfxO2zXoDfYFAi ZGRkOyc+PHRhYmxlIHdp ZHRoPScxMDAlJyBzdHls IS6gLe9iFTLeYRDj kCbbkVQtGjMeu1rwERWh AZjjHJ4nySwiN3YvgVI6 WDRkj5z3Nu84J21kK3Ni dXA+IQPulAX6uRH7 sC8eUqVhYyJ5QYrfA841 RqUszUFkXvakj0zwj7rr pEi6EfP7PHAfyyZgtCaw COK7f8WoPk96I03c IHdpZHRoPSIxNSUiIHZh wPfhxw3srS3hTu6+PGNv bZB9nKR2wQ4hSeDcBxV2 HTohA094MvIpcDZt Qozet1tvt0sieUr6RcDg VGBksiPtkXwjCKP0l3Wo Kj98B6TukFsbu4EpBkx3 dl18eXKpw8B0fYC5 L4ZtLNWdsmxaaXZytYjk NA1wCDUjvvorZAUpyQ9m AXQwV8o3AzDmOiZ7XLfy K0UpmqL1EHGfgDEq XAGxlFPAlB6rcuewp3ai wbvtAyBiSSVfFOy6VRl0 UBGljFpmDxGdQAD8JfH0 KND3zXGmnX2buBse iuijpG9qVfy+IPW1iNDz mDDXUZ9tPhnjjPS+PHRk ILS0eYcwOAbjTWGzjI9y KCIdX2g1RgEsXgE7 AOjrV5VghdD4OPAobEDk EHRatIDLgR1weuhwm8hv yedoCfVqTSJoNEj2VSd6 LWFsaWduOiBsZWZ0 InI6PGV6bXVpxN1rwZmk cggzfN3qUmo+QmlydGgg QVM9IWu3W9UzAaa5PWXo wBoaES6hwQReCRih Fz7brNofaGpoKA1yCPVq rftok164OaYds1isSERm fDRhJUnhBSY5O55aj9C6 LDYmUFZqRIZ0uDH1 sQ5teDmyprddqPBhcOdt xwTikOphNBfxJVqkM761 PCAqtUfxWuMqTTx3L6Jn Aqk4WKUuhOltID6i eYPxAVzjJx7ahRuxuQfi KI9lLOCixddnc316KnNq i5whMXKycWKnNJarUEK6 W69ka2H5RBOeQRQs UBD1cIB6zP0vhWnjyxyr bGVmdDsgdmVydGljYWwt UYneS647DZGvnSnbUwMo wKs2C9FzYpn1HJNl aIbaHV8luJXhLCntSr7e nVpmaJzcYF5zRFDsveib q414MeTux2imQLHrxSSq GEicGAH9M08fx9J3 IJMdWNFzRRI3oFA7yC0v bGlnbjogbGVmdDsgdmVy fOcfMIbkHZogY952HVMf cDsnPlBhdGllbnQg UDstZSl8A4NnUoeedZQ+ PJ57YISfOQ45xMEtvYUp b5mvtMu4ToHsTAEsRSC7 xMwvUUwfe0ViWLIx P66ukTTdd8T3WMRfsOen bIBlWuHynQE4kE7pCFgw ileyz1kydshbPtivn8hj ba77sD43T19xNThm ZHRoPSIzMCUiIHZhbGln ax6xlS7eWy0+PGNvbCB3 rXD1qU5sLUUuQoS3NLmy N059VjKzgTUbGnri l8lnb4rkeZo1IcG8EQYj qmDcaGilIDA9m2IzWq38 T63bIOzuUUZfMIIpRJPc BPDiyIdbny1sdI6q Ii8+JEGxtKI1wRK4eP7c HnEkVoP5ZFnsC512VqEt kIJoUxbcS71mV7VauDV+ JGNbQai3HZWvoRrd XT9qkPZrDWpsWc0hOAH6 RcDbNrJtJObwD4VhVEMy zifvitfjwIW4UZPjXWWk lU96Az9pfCioTFEo dNWWeM4dmtqxu0vycxxb EtCaHVUdTDd7PSc8HROr eXrbPuVkNED2FaW0AUM9 wDVylK8nuAwumltd nI6zC0CeMCFwopegDu51 sQ2gCsSaSkB6TFkdZnu+ GK8WAJXZRZyvKOuHPEwB IFNJRVJSQTwvdGQ+ WIMxTXI7kSygGAkwWAFn fR2iVTCnP9u7KkPnRdA3 VCyqQ6DnWUZpaaonWh62 lI5wGeXhXvB9IJjs I1KqziV9DRInyKZzSIdk RZL2S15sb1S2LHLmGQSt RUF8uOP4tZ9kpWauucdq bGVmdDsgdmVydGlj LUokTSdxQ997AWBovMig WcGwAdNyOdJ1IFx1W0Xr Wms9VZHddQtiSD2ynLFe LLgyLo3dqWbqaChq AV4vNKCrebprMTVghZ1w GXVhdZRemJfdMJ3xVNVp lzczm906MyYwDZE3RQZt aJZrA4SpjS7jYkEj AIYlVZOdH3BsnYVgJUxr S888ZXqwIcW9LPWmouNt U6ZuPMOvcKisHkK5b3O0 Yc3hWRKJJQBpvbqk dGQ+NXHfUXI1qHxoARlb IRZrbS1uLNBsJ2t4IiAg KqL9YWcsI3DyJJIkkpml Nc67kO8fZmWhVqX5 XKhxO3UnnjR8FKFypSQq GWdmXYB7S19vv4G4NXWv KWTtYQS4aJY9eY0wjFfh bjogbGVmdDsgdmVy wNhvZPdjKCutR543QNMz cDsnPkZFTUFMRTwvdGQ+ XGMcAQE4mXuyBXzmCHIv tS8bHZFxP3l1AnUb LpJ4XBclJ6GxJLWumciz St99zR7nSoBiPxD8VWdp R1PydkG0REHixTBaFZed FWZ0G45mi6I7NHZt VKEzHMB3uCL5dH5ccCaa bjogbGVmdDsgdmVydGlj AVjvSOneN068QYYwhFmw Dg8ALP14LU32W3Te PjwvdGFibGU+PHRhYmxl IHdpZHRoPScxMDAlJyBz lVwaHJ1cIy4hQSUpQXJh vQvgyJIhPgYvk0sv MIIzVSuoGJ7cwJubP9Ef kIJ7FAFvk6e5Cr04Y92a M6DutKM+RWLbwCY7zNX4 rK7hZnPkYnT4LMjh R101RmHxfYApCtrpw2sv b8nhrQx4TkFvNFLjkfNh tDugTQG4t0TcDq84V50t IHdpZHRoPSIyMCUi PLJbuFwahd0ghE9eEa8+ VHQjdCO1zSY2yW5iGjAq EcW0RTvdZ949FyYcdKId BvvpQ55yW4GyvFP+ XCYkFog4BSEaiVzvHE5y pHKeOBqjHj6eKMY8SxDu UiNcVLwmI7JsXTAhittr yamnbUY5URRxUGTm wG53Qf9hrBsrVx7nBNId RXL8UMBdmJBpB7PesM8l VoAbLXJuKAZcF6DwxXHy XOhiG119IHslGpO4 SBGcgpUmU8YjNOZfaObh VeU5a1U9Gt8RaJhfdHAm IK2cFbDfHSp5I0FkVrq4 OQOfcQgfYC1lyUNh QGyqFn5rnMbwkLbjHP4t CJDgaiiby039IaJpo9td WCSwbLDoBXboBVA9E06i n7Y5WYCcNYUcZBG0 bSH0qM3kaMzaxphbyROd dDsgdmVydGljYWwtYWxp Q443YMUxbVsrBbBYSck1 I6IjGll7MBBgvRif FO5adSChFWteJr4nmRjd sKgiDA2hHPPptmqza710 RuLak7ggUQEndRYkLBbs ARK9E68io4Q7IVVw TZVxWBV6dLY6kQ4llFxr bjogbGVmdDsgdmVydGlj RGsiPSytC558ZHQroRwo Gj1ZTaf0F9MzBtr8 FLAbrSvbIM6jbFKgVGal Bf6toNurfWefZF4mNHQi hhpfe618QjKpa8ecKBIv zHNhMFtfOTN3L13c h9E7ZXKzNSHsBMA0kUA4 qZ6qhMjebgfkqXCqpFif ucKzbLphWMxyMKhsR245 IHRvcDsnPlBheWVy OjwvdGQ+II17nw89S8Wt FaflJne5ZAGqIUH2mGP9 hE8yPOAtUBvow3U9eUN3 X7PuvuMswl9sb1kv YXB (more content not included)... [facility] Provider Orderson 01-12-2024 Provider Orders [id number] [id number] [facility] COVID-19, Rapidon 10-14-2022 SARS-CoV-2 (COVID-19) RNA AMANDO+probe Ql (Unsp spec) Not detected Not Detected [facility] Comment on above: Rapid NAAT: The [...] management decisions. Fact sheet for Healthcare Providers: https://www.fda.gov/media/380052/download Fact sheet for Patients: https://www.fda.gov/media/010140/download Methodology: Isothermal Nucleic Acid Amplification Specimen Description .NASOPHARYNGEAL SWAB [facility] Rapid influenza A/B antigens on 10-14-2022 Flu A Antigen Negative NEGATIVE [facility] Comment on above: for Influenza A Anti gen Flu B Antigen Negative NEGATIVE [facility] Comment on above: for Influenza B Anti gen. [facility] Vital Signs Date Time Vital Sign Value Performing Clinician Facility 02-01-2024 11:09-0400 Body weight 157.8528 kg Viral [facility] Comment on above: Result Comment: Not provided. Performed By: #### [id number] #### [facility] (DEFAULT) [address] [place] [address] 06-23-2023 10:35-0400 Body height 167.64 cm Jossie Krueger Other [facility] Other 06-23-2023 10:35-0400 Body mass index (BMI) [Ratio] 50.03 kg/m2 Jossie Krueger Other [facility] Other 06-23-2023 10:35-0400 Body temperature 98.3 [degF] Jossie Krueger Other [facility] Other 06-23-2023 10:35-0400 Body weight 140.62 kg Jossie Krueger Other [employer] Other 06-23-2023 10:35-0400 Diastolic blood pressure 90 mm[Hg] Jossie Krueger Other [employer] Other 06-23-2023 10:35-0400 Respiratory rate 18 /min Jossie Krueger Other [employer] Other 06-23-2023 10:35-0400 SaO2% (BldA) [Mass fraction] 97 % Jossie Krueger Other [employer] Other 06-23-2023 10:35-0400 Systolic blood pressure 147 mm[Hg] Jossie Krueger Other [employer] Other 10-14-2022 18:16-0500 Body height 165.1 cm John Hastings DO Work Phone: [email or web address] 10-14-2022 18:16-0500 Body mass index (BMI) [Ratio] 52.92 kg/m2 Hastings DO Work Phone: [email or web address] 10-14-2022 18:16-0500 Body temperature 98.29 [degF] John Hastings DO Work Phone: [email or web address] 10-14-2022 18:16-0500 Body weight 144.24 kg John Hastings DO Work Phone: [facility] [employer] 10-14-2022 18:16-0500 Diastolic blood pressure 96 mm[Hg] John Hastings DO Work Phone: [facility] [employer] 10-14-2022 18:16-0500 Heart rate 94 /min John Hastings DO Work Phone: [facility] [employer] 10-14-2022 18:16-0500 Respiratory rate 18 /min John Hastings DO Work Phone: [facility] [employer] 10-14-2022 18:16-0500 SaO2% (BldA) [Mass fraction] 95 % John Hastings DO Work Phone: [facility] [employer] 10-14-2022 18:16-0500 Systolic blood pressure 138 mm[Hg] John Hastings DO Work Phone: [facility] [employer] 10-05-2022 23:14-0500 Body height 165.1 cm Chapin Lee MD Work Phone: [facility] [employer] 10-05-2022 23:14-0500 Body mass index (BMI) [Ratio] 53.47 kg/m2 Chapin Lee MD Work Phone: [facility] [employer] 10-05-2022 23:14-0500 Body temperature 98.4 [degF] Chapin Lee MD Work Phone: [facility] [employer] 10-05-2022 23:14-0500 Body weight 145.74 kg Chapin Lee MD Work Phone: [facility] [employer] 10-05-2022 23:14-0500 Diastolic blood pressure 87 mm[Hg] Chapin Lee MD Work Phone: [facility] [employer] 10-05-2022 23:14-0500 Heart rate 86 /min Chapin Lee MD Work Phone: [email or web address] 10-05-2022 23:14-0500 Respiratory rate 18 /min Chapin Lee MD Work Phone: [email or web address] 10-05-2022 23:14-0500 SaO2% (BldA) [Mass fraction] 99 % Chapin Lee MD Work Phone: [email or web address] 10-05-2022 23:14-0500 Systolic blood pressure 146 mm[Hg] Chapin Lee MD Work Phone: [email or web address] Encounters Encounter Date Encounter Type Care Provider Facility Start: 04-11-2024 End: 04-11-2024 ambulatory JUSTINE CALLAHAN Not Available Start: 04-10-2024 End: 04-12-2024 ambulatory [facility] Start: 04-09-2024 End: 04-09-2024 Emergency department patient visit [facility] Start: 04-04-2024 End: 04-04-2024 ambulatory JOE TRICIA Not Available Start: 03-21-2024 End: 03-21-2024 ambulatory JOE TRICIA Not Available Start: 03-07-2024 End: 03-07-2024 ambulatory JOE TRICIA Not Available Start: 02-08-2024 End: 02-08-2024 ambulatory JOE TRICIA Not Available Start: 01-16-2024 End: 01-16-2024 ambulatory JUSTINE PARRAEY Not Available Start: 01-12-2024 End: 01-13-2024 ambulatory Viral Galindo Facility:[facility] Start: 01-10-2024 End: 01-10-2024 ambulatory JUSTINE SINDY Not Available Start: 12-13-2023 End: 12-13-2023 ambulatory JOE TRICIA Not Available Start: 11-11-2023 End: 11-11-2023 ambulatory JOE TRICIA Not Available Start: 10-27-2023 End: 10-27-2023 Office outpatient visit 5 minutes [facility] Tricia Nurse [facility] Comment on above: Canceled (Provider) Start: 06-23-2023 End: 06-23-2023 ambulatory Jossie Krueger Other [facility] Other Start: 06-23-2023 Office outpatient ne w 30 minutes Jossie Krueger [facility] Start: 10-14-2022 End: 10-14-2022 Emergency department patient visit John Hastings DO Work Phone: [facility] Comment on above: Viral URI with cough (Primary Dx) Start: 10-05-2022 End: 10-06-2022 Emergency department patient visit Chapin Lee MD Work Phone: [facility] Comment on above: Plantar fasciitis (P rimary Dx) Procedures Date Procedure Procedure Detail Performing Clinician Start: 10-14-2022 COVID-19, RAPID John Jade DO Work Phone: Start: 10-14-2022 Iaadiadoo influenza Vadim oakley Hastings DO Work Phone: Plan of Treatment Date Care Activity Detail Author Start: 11-11-2023 End: 11-11-2023 ambulatory 11/11/2023 11:00 AM EST Initial [facility] [address] [place] [id number] [facility] Start: 11-11-2023 End: 11-11-2023 Professional / ancillary services management 11/11/2023 10:30 AM EST Ancillary Procedure [facility] [address] [place] [address] [place] [id number] [facility] Start: 10-27-2023 End: 10-27-2024 US Pelvis transvaginal US OB transvaginal Imaging Routine Missed menses Expected: 10/27/2023 (Approximate), Expires: 10/27/2024 [facility] Work Phone: Comment on above: Expected: 10/27/2023 (Approximate), Expires: 10/27/2024 Start: 04-26-2022 Influenza vaccination Flu vaccine (# 1) [facility] Start: 11-17-2021 DTaP/Tdap/Td vaccine (7 - Td or Tdap) DTaP/Tdap/Td vaccine (7 - Td or Tdap) [facility] Start: 01-15-2000 COVID-19 Vaccine (#1) COVID-19 Vacci ne (#1) [facility] Payers Date Payer Category Payer Medicaid [id number] 2022 Unknown [id number] 2019 Medicare [id number] 1999 Unknown [id number] 2.16.8 [id number] 1999 Unknown [id number] 2.16.8 [id number] 1999 Unknown [id number] 2.16.8 [id number] 1999 Unknown [id number] 2.16.84 [id number] 1999 Unknown [id number] 2.16.84 [id number] 1999 Unknown [id number] 2.16.84 [id number] 1999 Unknown [id number] 2.16.84 [id number] 1999 Unknown [id number] 2.16.84 [id number] 1999 Unknown [id number] 2.16.84 [id number] 1999 Unknown [id number] 2.16.84 [id number] 1999 Unknown [id number] 2.16.84 [id number] 1999 Unknown [id number] 2.16.84 [id number] Social History Date Type Detail Facility Start: 10-05-2022 Tobacco smoking status NHIS Smokes tobacco daily [employer] Phone: History of tobacco use Cigarette Smoker B ON [employer] Phone: Start: 10-05-2022 End: 10-14-2022 Cigarettes smoked current (pack per day) - Reported 1 [facility] Phone: Start: 10-05-2022 Tobacco use and exposure Smokeless tobacco non-user [facility] Phone: Start: 10-05-2022 End: 10-14-2022 Alcohol intake Current drinker of alcohol (finding) [facility] Phone: Start: 10-05-2022 Alcohol Comment in a month [employer] Phone: Start: 2000 Sex Assigned At Not on file [facility] Phone: Start: 09-25-2022 End: 10-14-2022 Exposure to SARS-CoV-2 (event) Not sure [facility] Phone: Start: 10-14-2022 History SDOH Alcohol Frequency 1 [employer] Phone: Start: 10-14-2022 History SDOH Alcohol Std Drinks 0 [facility] Phone: Sex Assigned At Sex Assigned At [facility] [employer] Other Tobacco smoking stat [facility] Tobacco smoking consumption unknown [facility] Start: 2000 Sex Assigned At Female [facility] Start: 10-20-2023 Gender identity Identifies as female gender (finding) [facility] Start: 10-20-2023 Sexual orientation Heterosexual (finding) [facility] History of Present illness Narrative 10-27-2023 Zari Wagner LPN - 10/27/2023 2:30 PM EST Note Date & Type Note Facility 10-27-2023 History of Presen t illness Narrative Patient to return in 2 weeks to get a SUE as not able to obtain today. documented in this encounter [facility] Evaluation note 06-23-2023 Note Date & [...] understanding and is agreeable to treatment plan [facility] Other Evaluation note Note Date & Type Note Facility Evaluation note Diagnosis Plantar fasciitis- Primary Plantar fascial fibromatosis documented in this encounter [facility] Phone: Evaluation note Note Date & Type Note Facility Evaluation note Diagnosis Viral URI with cough- Primary Acute upper respiratory infections of unspecified site documented in this encounter [facility] Phone: Evaluation note Note Date & Type Note Facility Evaluation note Diagnosis Missed menses documented in this encounter [facility] History general Narrative - Reported Note Date & Type Note Facility History general Narrative - Reported Type Surgical History wisdom teeth [facility] Other Hospital Discharge instructions Attachments Note Date & Type Note Facility Hospital Discharge instructions The following attachments cannot be sent through Care Everywhere.Plantar Fasciitis ([place])documented in this encounter [email or web address] Work Phone: Hospital Discharge instructions Attachments Note Date & Type Note Facility Hospital Discharge instructions The following attachments cannot be sent through Care Everywhere.URI (Upper Respiratory Infection) ([place])documented in this encounter [email or web address] Work Phone: Summary Purpose Family History No Family [...] Care Teams (unrecognized sec tion and content) Respiratory Coordinator Relationship Specialty Start Date End Date Viral Galindo MD [address] [place] [address] PCP - General Pediatrics 10/27/23 INFORMATION SOURCE (unrecogn ized section and content) DATE CREATED AUTHOR 02/02/2024 [facility] DATE CREATED AUTHOR AUTHOR'S ORGANIZ ATION 04/13/2024 Michelle garcia DATE CREATED AUTHOR AUTHOR'S ORGANIZ ATION 04/15/2024 [facility] FOR RECORDS PERTAINING TO PATIENTS WHO ARE [...] BE BASED ON THE PRIMARY CLINICAL RECORDS. [employer] provides no warranty or guarantee of the accuracy or completeness of information in this document.
[2024-04-16 16:16] VITALS: BP 148/69; PULSE 96
== END 2024-04-16 16:55 | disposition home or self-care (01) ==
LOC: FBCO 07:51 → FBC 16:00
PROVIDERS: PCP Family Medicine; Visit Provider Obstetrics & Gynecology
DX: O36.63X0 Maternal care for excessive fetal growth, third trimester, not applicable or unspecified (principal); O99.213 Obesity complicating pregnancy, third trimester; Z3A.00 Weeks of gestation of pregnancy not specified
CPT/HCPCS: 59025

== ENCOUNTER 2024-04-20 07:37 | Outpatient (OUT) | payer OTHER, MEDICAID, SELFPAY ==
--- OUTSIDE RECORDS SUMMARY | 2024-04-20 07:40 | XMS_ITS | CCD ---
Author Organization [facility] Care Team Providers Care Wedding Coordinator Name Role Phone Unavailable Primary Care Provider UnavailJossie Lui Unavailable Viral Galindo MD Primary Care Provider [phone] SARKIS JAY Referring Unavailable SARKIS JAY Attending Unavailable JOE WOOD Attending Unavailable JUSTINE CALLAHAN Attending Unavailable JUSTINE CALLAHAN Attending Unavailable JOE WOOD Attending Unavailable JOE WOOD Attending Unavailable JOE WOOD Attending Unavailable JOE WOOD Attending Unavailable JUSTINE CALLAHAN Attending Unavailable Viral Galindo Primary Care Unavailable Justine Olmstead Attending Unavailable Justine Olmstead Admitting Unavailable Allergies Allergy Classification Reported Allergen(s) Allergy Type Date of Onset Reaction(s) Facility (1 source) No Known Medication Allergies; Translations: [No Known Medication Allergies] Propensity to adverse reactions to drug (disorder) [facility] Repository Medications Current Medications Medication Drug Class(es) [...] Test Name Value Interpretation Reference Range Facility Outside Recordson 04-13-2024 Outside Records [id number] #[id number] Normal [facility] CBC with Diffon 04-09-2024 Abs. Basophil 0.00 k/uL Normal 0.00-0.20 [facility] Comment on above: Performed By: #### C DP, CP #### [facility] [address] [place] [address] Tool Pusher: Viral Mcgraw MD Abs.Imm.Granulocyte 0.03 k/uL Normal 0.00-0.30 [facility] Comment on above: Performed By: #### C DP, CP #### [facility] [address] [place] [address] Tool Pusher: Viral Mcgraw MD Abs.Neutrophil (Seg) 6.53 k/uL Normal 2.5-7.0 [facility] Comment on above: Performed By: #### C DP, CP #### [facility] [address] [place] [id number] Tool Pusher: Viral Mcgraw MD Basophils/100 WBC (Bld) 0 % Normal 0-2 [facility] Comment on above: Performed By: #### C DP, CP #### [facility] [address] [place], [place] [id number] Tool Pusher: Viral Mcgraw MD Eosinophils (Bld) [#/Vol] 0.21 10*3/uL Normal 0.00-0.40 [facility] Comment on above: Performed By: #### C DP, CP #### [facility] [address] [place], [place] [id number] Tool Pusher: Viral Mcgraw MD Eosinophils/100 WBC (Bld) 2 % Normal 0-5 [facility] Comment on above: Performed By: #### C DP, CP #### [facility] [address] [place] [phone] Tool Pusher: Viral Mcgraw MD Erythrocyte distribution width (RBC) [Ratio] 13.9 % Normal 12.1-15.2 [facility] Comment on above: Performed By: #### C DP, CP #### [facility] [address] [place] [address] Tool Pusher: Viral Mcgraw MD Hematocrit (Bld) [Volume fraction] 32.4 % Low 36.0-46.0 [facility] Comment on above: Performed By: #### C DP, CP #### [facility] [address] [place], [place] [id number] Tool Pusher: Viral Mcgraw MD Hemoglobin (Bld) [Mass/Vol] 11.2 g/dL Low 12.0-16.0 [facility] Comment on above: Performed By: #### C DP, CP #### [facility] [address] [place], [place] [phone] Tool Pusher: Viral Mcgraw MD Immature granulocytes/100 WBC (Bld) 0 % Normal 0-5 [facility] Comment on above: Performed By: #### C DP, CP #### [facility] [address] [place] [address] Tool Pusher: Viral Mcgraw MD Lymphocytes (Bld) [#/Vol] 1.74 10*3/uL Normal 1.00-4.80 [facility] Comment on above: Performed By: #### C DP, CP #### [facility] [address] [place] [phone] Tool Pusher: Viral Mcgraw MD Lymphocytes/100 WBC (Bld) 19 % Normal 15-40 [facility] Comment on above: Performed By: #### C DP, CP #### [facility] [address] [place] [phone] Tool Pusher: Viral Mcgraw MD MCH (RBC) [Entitic mass] 30.4 pg Normal 26.0-34.0 [facility] Comment on above: Performed By: #### C DP, CP #### [facility] [address] [place] [address] Tool Pusher: Viral Mcgraw MD MCHC (RBC) [Mass/Vol] 34.6 g/dL Normal 31.0-37.0 [facility] Comment on above: Performed By: #### C DP, CP #### [facility] [address] [place] [address] Tool Pusher: Viral Mcgraw MD MCV (RBC) [Entitic vol] 88.0 fL Normal 80.0-100.0 [facility] Comment on above: Performed By: #### C DP, CP #### [facility] [address] [place] [address] Tool Pusher: Viral Mcgraw MD Monocytes (Bld) [#/Vol] 0.48 10*3/uL Normal 0.00-1.00 [facility] Comment on above: Performed By: #### C DP, CP #### [facility] [address] [place], [place] [phone] (259) Tool Pusher: Viral Mcgraw MD Monocytes/100 WBC (Bld) 5 % Normal 4-8 [facility] Comment on above: Performed By: #### C DP, CP #### [facility] [address] [place], [place] [phone] (015) Tool Pusher: Viral Mcgraw MD Neutrophil (Seg) 74 % Normal 47-75 [facility] Comment on above: Performed By: #### C DP, CP #### [facility] [address] [place], [place] [phone] (121) Tool Pusher: Viral Mcgraw MD Platelet mean volume (Bld) [Entitic vol] 10.7 fL Normal 6.0-12.0 [facility] Comment on above: Performed By: #### C DP, CP #### [facility] [address] [place] [address] Tool Pusher: Viral Mcgraw MD Platelets (Bld) [#/Vol] 220 10*3/uL Normal 140-450 [facility] Comment on above: Performed By: #### C DP, CP #### [facility] [address] [place] [address] Tool Pusher: Viral Mcgraw MD RBC (Bld) [#/Vol] 3.68 10*6/uL Low 4.00-5.20 [facility] Comment on above: Performed By: #### C DP, CP #### [facility] [address] [place] [address] Tool Pusher: Viral Mcgraw MD WBC (Bld) [#/Vol] 9.0 10*3/uL Normal 3.5-11.0 [facility] Comment on above: Performed By: #### C DP, CP #### [facility] [address] [place] [address] Tool Pusher: Viral Mcgraw MD Comp Metabolic Profon 2023 Albumin [Mass/Vol] 3.2 g/dL Low 3.5-5.2 [facility] Comment on above: Performed By: #### C DP, CP #### [facility] [address] [place] [address] Tool Pusher: Viral Mcgraw MD Alkaline Phos 74 U/L Normal 35-104 [facility] Comment on above: Performed By: #### C DP, CP #### [facility] [address] [place] [address] Tool Pusher: Viral Mcgraw MD ALT [Catalytic activity/Vol] 26 U/L Normal 5-33 [facility] Comment on above: Performed By: #### C DP, CP #### [facility] [address] [place] [address] Tool Pusher: Viral Mcgraw MD Anion gap [Moles/Vol] 10 mmol/L Normal 9-17 [facility] Comment on above: Performed By: #### C DP, CP #### [facility] [address] [place] [address] Tool Pusher: Viral Mcgraw MD AST [Catalytic activity/Vol] 16 U/L Normal <32 [facility] Comment on above: Performed By: #### C DP, CP #### [facility] [address] [place] [address] Tool Pusher: Viral Mcgraw MD Bilirubin [Mass/Vol] 0.2 mg/dL Low 0.3-1.2 [facility] Comment on above: Performed By: #### C DP, CP #### [facility] [address] [place] [address] Tool Pusher: Viral Mcgraw MD BUN/CRE Ratio 7 Low 9-20 [facility] Comment on above: Performed By: #### C DP, CP #### [facility] [address] [place], [place] [id number] Tool Pusher: Viral Mcgraw MD Calcium [Mass/Vol] 9.1 mg/dL Normal 8.6-10.4 [facility] Comment on above: Performed By: #### C DP, CP #### [facility] [address] [place] [address] Tool Pusher: Viral Mcgraw MD Chloride [Moles/Vol] 101 mmol/L Normal 98-107 [facility] Comment on above: Performed By: #### C DP, CP #### [facility] [address] [place], [place] [id number] Tool Pusher: Viral Mcgraw MD CO2 [Moles/Vol] 24 mmol/L Normal 20-31 [facility] Comment on above: Performed By: #### C DP, CP #### [facility] [address] [place], [place] [id number] Tool Pusher: Viral Mcgraw MD Creatinine [Mass/Vol] 0.7 mg/dL Normal 0.5-0.9 [facility] Comment on above: Performed By: #### C DP, CP #### [facility] [address] [place], [place] [phone] Tool Pusher: Viral Mcgraw MD GFR/1.73 sq M.predicted among non-blacks MDRD (S/P/Bld) [Vol rate/Area] mL/min/{1.73_m2} Normal >60 [facility] Comment on above: Result Comment: These results [...] Performed By: #### C DP, CP #### [facility] [address] [place], [place] [id number] Tool Pusher: Viral Mcgraw MD Glucose [Mass/Vol] 107 mg/dL High 70-99 [facility] Comment on above: Performed By: #### C DP, CP #### [facility] [address] [place] [address] Tool Pusher: Viral Mcgraw MD Potassium [Moles/Vol] 3.3 mmol/L Low 3.7-5.3 [facility] Comment on above: Performed By: #### C DP, CP #### [facility] [address] [place] [address] Tool Pusher: Viral Mcgraw MD Protein [Mass/Vol] 6.3 g/dL Low 6.4-8.3 [facility] Comment on above: Performed By: #### C DP, CP #### [facility] [address] [place], [place] [id number] Tool Pusher: Viral Mcgraw MD Sodium [Moles/Vol] 135 mmol/L Normal 135-144 [facility] Comment on above: Performed By: #### C DP, CP #### [facility] [address] [place], [place] [id number] Tool Pusher: Viral Mcgraw MD Urea nitrogen [Mass/Vol] 5 mg/dL Low 6-20 [facility] Comment on above: Performed By: #### C DP, CP #### [facility] [address] [place] [address] Tool Pusher: Viral Mcgraw MD AFP Tetra LCon 02-01-2024 AFP CHIN MoM 1.12 Invalid Interpretation Code [facility] Comment on above: Performed By: #### 3 [id number] #### [facility] (DEFAULT) [address] [place] [address] AFP DSR (By Age) 1 [place] 1039 Invalid Interpretation Code [facility] Comment on above: Performed By: #### 3 [id number] #### [facility] (DEFAULT) [address] [place] [address] 10280 AFP DSR (Second Trimester) 1 [place] 957 [facility] Comment on above: Performed By: #### 3 [id number] #### [facility] (DEFAULT) [address] [place] [address] 27882 AFP Gest. Age on Collection Date 19.3 week(s) [facility] Interpretation [facility] Comment on above: Result Comment: Not provided. Performed By: #### 3 [id number] #### [facility] (DEFAULT) [address] [place] [address] 44407 AFP Gestat. Age Based On SUE [facility] Comment on above: Result Comment: 05/27 Performed By: #### 3 [id number] #### [facility] (DEFAULT) [address] [place] [address] 72883 AFP hCG MoM 1.18 [facility] Comment on above: Performed By: #### 3 [id number] #### [facility] (DEFAULT) [address] [place] [address] 05838 AFP insulin Dep Diabetes No [facility] Interpretation [facility] Comment on above: Result Comment: Not provided. Performed By: #### 3 [id number] #### [facility] (DEFAULT) [address] [place] [address] 65840 AFP Interpretation Comment [facility] Interpretation [facility] Comment on above: Result Comment: Inte [...] identifies 60% of Trisomy 18 pregnancies. The [employer] recommends amniocentesis [...] within 10 days. Performed By: #### 3 [id number] #### [facility] (DEFAULT) [address] [place] [address] AFP Maternal Age At SUE 24.8 Invalid Interpretation Code [facility] Comment on above: Performed By: #### 3 [id number] #### [facility] (DEFAULT) [address] [place] [address] 72888 AFP MoM 0.69 Invalid Interpretation Code [facility] Comment on above: Performed By: #### 3 [id number] #### [facility] (DEFAULT) [address] [place] [address] 24356 AFP Multiple Gestation No Invalid Interpretation Code [facility] Comment on above: Result Comment: Not provided. Performed By: #### 3 [id number] #### [facility] (DEFAULT) [address] [place] [address] 16068 [place] [address] Invalid Interpretation [facility] Comment on above: Performed By: #### 3 [id number] #### [facility] (DEFAULT) [address] [place] [address] 78322 AFP Race Invalid Interpretation [facility] Comment on above: Result Comment: Not provided. Performed By: #### 3 [id number] #### [facility] (DEFAULT) [address] [place] [address] 96185 AFP Results Comment Invalid Interpretation [facility] Comment on above: Result Comment: The MOM and risk factors of this report have been modified based on new information supplied to us by the client or their designated mill representative. The Gestational Age Based On was [...] provided. to 348. Performed By: #### 3 [id number] #### [facility] (DEFAULT) [address] [place] [address] 47367 AFP T18 (By Age) 1:4050 Invalid Interpretation [facility] Comment on above: Performed By: #### 3 [id number] #### [facility] (DEFAULT) [address] [place] [address] 82760 AFP T18 Risk Not increased Invalid Interpretation [facility] Comment on above: Performed By: #### 3 [id number] #### [facility] (DEFAULT) [address] [place] [address] 16569 AFP Test Results: Negative Invalid Interpretation [facility] Comment on above: Performed By: #### 3 [id number] #### [facility] (DEFAULT) [address] [place] [address] 15746 AFP uE3 MoM 0.66 Invalid Interpretation [facility] Comment on above: Performed By: #### 3 [id number] #### [facility] (DEFAULT) [address] [place] [address] 66579 AFP Tetra LCon 01-18-2024 AFP Comments: Comment Invalid Interpretation Code [facility] Comment on above: Result Comment: Bethany Perez, Ph.D., [facility] Director References: Available Upon Request. Multiples Of Median Cutoffs Abbreviation Definitions For AFP Elevations IDD- Insulin Dep Diabetes Cadet 2.5 Black 2.8 OSBR- Open Spina Bifida IDD 2.0 Twins 4.5 Risk DSR Cutoff 1:270 DSR- Down Syndrome Risk T18 Cutoff 1:100 T18- Trisomy 18 For further inquiries contact [facility] at [phone]. This test was developed and its performance characteristics determined by [employer]. It has not been cleared or approved by the Food and Drug Administration. Performed At: [facility] [address] [facility] [place], [place] [id number] [facility] Ph:[phone] Performed By: #### 3 [id number] #### [facility] (DEFAULT) [address] [place] [address] 34954 AFP CHIN Value 120.65 pg/mL Invalid Interpretation Code [facility] Comment on above: Performed By: #### 3 [id number] #### [facility] (DEFAULT) [address] [place] [address] 66222 AFP uE3 Value 1.08 ng/mL Invalid Interpretation Code [facility] Comment on above: Performed By: #### 3 [id number] #### [facility] (DEFAULT) [address] [place] [address] 68174 AFP Value 23.0 ng/mL Invalid Interpretation Code [facility] Comment on above: Performed By: #### 3 [id number] #### [facility] (DEFAULT) [address] [place] [address] [place] [address] m[IU]/mL Invalid Interpretation Code [facility] Comment on above: Performed By: #### 3 [id number] #### [facility] (DEFAULT) [address] [place] [address] 08507 Coding Summaryon 01-18-2024 Coding Summary HTMLBase 64 XlmywnvuQNz8iEh+PGhl YWQ+HS2KKFNgR31mjJEq tN0pM5MQOUjTRlctGKFE GKaVKqPtqnWiYF1ppYRf ZXJu IC8+BN0cPNVqGjczrUYi x4P9wGP3M15rcu0nXIzh bBP4BIInKnPlauddo5ap iDg1YSncNhpaSrOz FROngZ22HJB6lP26Pk39 cDMhjPNhy9rvlFw7RzCl RZDpWAA6gLqqMNkkh8Yr FBNfT21qmDLzi3W5 IGNvbGxhcHNlOyBlbXB0 aW9qJViwqpujd4acuqyy Asr0ex42nAYoh1N8cPK6 N8TiijR0DOBbaMGh RnhcbCHLoF6rywysc7vc laygPbGyCKRaJNr1BEi2 SCGvjHrrCwLdXH26HWL3 TXNtcmMoZ4AmDAJr iGbyYqY2i5C0Ta2GB2VK DoxtW7UVKNCWJDohvJK+ DT31yr36W8TaLqphJgf2 UMBwNSN9ePN7uM7z LKHkCUnmp0Q5bCB8Z5Er xbFsfs6ne0gqKVDdQFkg V84liIGma6T4FSQfdDD6 DPLngOyqMkApkZ22 Oyc+DEUzmFmqa5EtUkhl r0ydc1iecFa6QdgnKLKr grMmzPxtHYE4p1UyHw6n NXUciJT7yJY1kA8s RwEjViY2RWquM816PwCc uHCwNvtlN90bH8KquZE+ DIIxLrw9ORDzeCklMD8m W8TvJZPhhtrmwFIy tTgrNQ2bUFDsrnxnROLv pS6gSJMaY8b1DuDaPnA0 ACrqE9PpHWEqrpcoPe83 pS0bBvKjUkM5ZFgt Z0YveiO5ZALwcXBnQJbj HWR9A85lt5E8ZBRyPTSi HXH2lXN0vT9xtLfkzwzo bGVmdDsgdmVydGlj NBekDUxgS580OVEafKvq PkNvZGluZyBEYXRlOiAg MDQvMjQvMjAyNDwvdGQ+ DTVgPGA3vDgnMHPo dNTmPIldKk1zcJwtkHln FC6cYUIkagthSGFgcS1q EVKvgNIpdMlgSZ4vLJYk qyvfp410FtCuNDD6 DMZccCWiI7VvgU7hXqMg HCYlFTZhP4BxnIGlKFom Z163YGjnWcD5OZDpquMg O2TjPVEttIwxYgR2 p3Q3Sd6Dv7RujdfoF1Sz mRBmOuMnCfdlVTa2Q3No PjwvdHI+MC26ONFcUA59 FJg2UQN9vTtzYWti ZWKmX2QgcZ6pKaCoOCPv ZGRkOyc+PHRhYmxlIHdp ZHRoPScxMDAlJyBzdHls AG7pVo3oKSAfMROi wCzkpTEvFnJwo4rlPODn DSlmMC4hrMndW3CscVW2 XAVuv6b1Yp96P31eI9Ej dXA+KIKigNQ8dLH4 gL8kKhKuWrE7RIlmV589 QxShoHMwTvqxr9ofu7mi kWl1CmE9GTQasyCwwIui TAM8a0EeTg18H26c IHdpZHRoPSIxNSUiIHZh qJzhbv0uwU5nEr6+PGNv zHM0jGC2uX2iYjOsUgQ8 TQifX518LwTzoIKl Nxihd2nkr7dmfCr3RjPc NJLmmoXarJlbZPW7i8Xk Lt85W6YqcKejm1ZoQnx4 xk90xPHti5D8tKE6 Z9JcYPMvlexsiMVldRkr RQ1aCOQjukgbORNoiV5b UXTfN3b1MzAlHgF0ETwn S8TvhqK5RHUzgZPs MVPfeQSDcS1kylwof4mc wibrHkErRVUyDFc2QOs4 USHpaStnEvPaFCN1OnX8 UQW1sYOsvL4jkKvu uzbntJ0eHnx+KBJ3wQGj zPQIPW0gYvclsGO+PHRk GVX5yDwpMKqtJIKfsC7d XYTgL3d0RjEwCzM9 EPiaY2YmvpO5LYGwzHGv TGJbmVIJbC2rgsheu3xi bgmsQgFiYAZrGHh9ROk0 LWFsaWduOiBsZWZ0 EvJ2XZD1nGEraV4djIws emxyhU6gRuu+QmlydGgg NTM7LRa0K8FbDwg0XSHu dKzeMD6uuGWcNWrf Ee1vkFsrgXuyBP0tAYNh peevg837QxXuf1ebAEOc yZFbIXxgQAF8M69tz9L1 SEVoOYFsTZR1pWO7 qC4lvDcwlbdxqLVviCzb ddFxmEceAKzpWWebD858 DUZurHrvCqWiCBc3W6Fx Jzt1CRCzxKebSQ0y lYKdILjlPl8lqYhgkHaa WL2qCAVbymvea572BdCi i5dqRDXsnMRtBDzoDTT9 W59au5L4FBJmQTXx OPR7mVA0oF2xoMejfmcq bGVmdDsgdmVydGljYWwt CMmvI094AJJvuRtaDsOg fHc2P7KoPwr5WNYy fMdoMC3zeAFrYBkbZo8c oRzgrHrrXG3mLBLnukjz a080XsFbn1jnPGCvhBAn WGqbXVK7O41kz2R3 QIAgHGCzQPW6lUH9oI6e bGlnbjogbGVmdDsgdmVy yZrcNDvmLUtnG594TUHt cDsnPlBhdGllbnQg XEzhOIm1W7SqLpgvrAD+ ED18ZQXkJN65eOBpnPTo o9uaxVc8RhTrXIDfYET1 nGvcZPynd0KuIVYs Z12wfVMtg5X5UGLdyNde mGIwPmXxsCE1iX2kCAqr zdivs0vqkjdbOmpef9dw qn68iO09N56nDOcr ZHRoPSIzMCUiIHZhbGln we4myH0oLb7+PGNvbCB3 zVP5tQ0zSHFbYvQ2NKqd H492AaFnyTZkFrab k9dlf7waoJl8XnH7TURe atEdhDiqEMO9z6VsXj10 R43mWRjjJUNoMAEjMOSe EHGmfThxly6gdO3s Ii8+FPYonAE7cJC8pA4k GnQvSsD2UErpU607NuZa pKJhMhyhM07uI2NwpSW+ SFQlHas8CKHelDra NU7deNVuUGmrEx6wOIU8 FwJkErGxMCiwW0ZrEWEf rstcvuqqmAA8TOCdFVKl eG13In0roDlwVDTi hVAAsE0jjjynd7xbshtz PaEmTWSbPQm5JVu9MZVs aClsWtVhJFN4KcK4LXF0 yANriN1lrDvfaanu hV9pT5ViVQCowcqiPu71 rO0bJdXpWnR9EUqfJrf+ WC3WGSUVJNwbQWkDXMoO IFNJRVJSQTwvdGQ+ EUSvCDT0cYrtLJiyXFFm aJ0hPJPyK5t8ItBpZiZ6 LFbaX6YjBWHmyyxcFv92 eR7nYdKnCoZ9IUpm Y7UtjrB7FCZlkNFjOXyt EEB1E32xg3B0FNPeBKDt RQM1oVL5jP9emHnfsdxa bGVmdDsgdmVydGlj THjxXWqiF749XVYkvUbe SnVeEtOsFpP4LKb0C1Gg Qhj5VPAbqXaoSK2drWWb PKlwJz6qnPkwgVth JV0iUUNwkwyvZLHbdR4w DSOfuIOlkAgpDD8tLZAj nsmgy676EnVqIRY1ZQKx hVWoV9VdyB4rRmXw AAKbZOLoV4WteYOlKOhn I907LPlfDwU2LGUfvqCv L1QkLHHuhCmdSuC9l8M8 Yo2rDYYPBSVftqkp dGQ+EFQxOPJ4zCndWJxx PUSzfE6mHPObY5u5QeFv NmB0DRvtZ4GnAMBqqgip Bg94tT4wOqYwShU4 BLgzL2JkucK5UOTyzCMu GYpiYXT9L32gv2Z9FESc XPAgEJC5yBB2vU6geHyu bjogbGVmdDsgdmVy iMrkHJufDUtmY118DDYo cDsnPkZFTUFMRTwvdGQ+ SRXiDJD7hCptCAcqSMLf yZ5jFEGrN6f6LtQr JlO9XKzdS1LdFGWvhsfh Lq19oR0qDnHtSkC4TLdx F4HaycD3JHFadKMuYUoe FPQ9N24xb7A5LVCt CKMaBYI8sJK6aU1diJis bjogbGVmdDsgdmVydGlj LCqoANakJ370ARWjvEwh Xt6STV36YT84E0Be PjwvdGFibGU+PHRhYmxl IHdpZHRoPScxMDAlJyBz dOrhFD4wYi2iMCGqTZBy nPxecWNvPxQmf0lp LVAfUIjgYM2toShwL8Wx dDK3CWGag7s3Ho13N37p F0OzlZH+MSOcqYX1bGM4 aX0lDdVfGrG1OUmc K918JtAleAKsOqzoh9af h3fpiGs7YvFrWCZmkxAf mHqzRNP9d0CsVk01A31n IHdpZHRoPSIyMCUi OIFfzLqict7ttY3vMu1+ KDYevPZ2bVM6gK4kTgPj YjQ4EMjkK649FdXvuIPt UadvN54xM7XhuIN+ FSUzHta4VVDjzTimAO1z nFLxFEoiIc7pWGH6GeSp XaMaNMsvS4EwXGLuyzlf fmmfzCV9SGMzYHMn pP74Jv3bxDtuVp3lCFXv LVK8UUJedKIbA0EeeK9z QzQeEIDcVOXbX4RbyMJd TJbfY877KWkqVeV0 EMBiwsJbT3JdLKIptFvv GvI4j8A9Vx4JmQjjsWRd RU1tVyWeSJt8K2TuUmz7 VMFflJfjQR3wsZQm HTvlQh4jnVkteHyhFR5k KLTcjhcwu008ZhDue6jh OWCifMRyADnxKXA7U45c g5C2RJLiDYMrJMC5 zYN6fN2qdHdijtsnyRUo dDsgdmVydGljYWwtYWxp L461ONWnfJwqQnXCZej9 K6UvHvq9IMDrcMox OQ9hzZUoWBxaNt7nlPas iOzdQG9gBLBuqxlro746 IvZjm9azQQUalUQbZHdf WEB0Y80xc9H0UCJs RHJmPCG8sAU5pQ4axMat bjogbGVmdDsgdmVydGlj BCdkSVqkL000KNVzzGoe Ep7ZPok9A5SmVke4 ASVevFaoXU3rbAKhCNww Nh2gmCdmdDvsGD2cFZJc xquet251VkXuo7mlZZLo kVRsRMhjZCQ4F04v u6S1PMBrZSXwDLO5wIK5 fG5hjMcliqcvnKLhjHlh bzXavDqdMPifHMyzR903 IHRvcDsnPlBheWVy OjwvdGQ+BC14xd46I5Gn YnzjBzv3BJYeZDN6tWF3 eI0cZELtIXsft2P3sWU8 E9LoxrTkfr1rj3tv YXB (more content not included)... [facility] Provider Orderson 01-12-2024 Provider Orders [id number] [facility] COVID-19, Rapidon 10-14-2022 SARS-CoV-2 (COVID-19) RNA AMANDO+probe Ql (Unsp spec) Not detected Not Detected [facility] Comment on above: Rapid NAAT: [...] management decisions. Fact sheet for Healthcare Providers: https://www.fda.gov/media/256524/download Fact sheet for Patients: https://www.fda.gov/media/068280/download Methodology: Isothermal Nucleic Acid Amplification Specimen Description .NASOPHARYNGEAL SWAB [facility] Rapid influenza A/B antigens on 10-14-2022 Flu A Antigen Negative NEGATIVE [facility] Comment on above: for Influenza A Anti gen Flu B Antigen Negative NEGATIVE [facility] Comment on above: for Influenza B Anti gen. [facility] Vital Signs Date Time Vital Sign Value Performing Clinician Facility 02-01-2024 09:09-0400 Body weight 157.8528 kg Viral Galindo [facility] Comment on above: Result Comment: Not provided. Performed By: #### [id number] #### [facility] (DEFAULT) [address] [place] [id number] 06-23-2023 10:35-0400 Body height 167.64 cm Jossie Krueger Other [employer] Other 06-23-2023 10:35-0400 Body mass index (BMI) [Ratio] 50.03 kg/m2 Jossie Rkueger Other [employer] Other 06-23-2023 10:35-0400 Body temperature 98.3 [degF] Jossie Krueger Other [employer] Other 06-23-2023 10:35-0400 Body weight 140.62 kg Jossie Krueger Other [employer] Other 06-23-2023 10:35-0400 Diastolic blood pressure 90 mm[Hg] Jossie Krueger Other [employer] Other 06-23-2023 10:35-0400 Respiratory rate 18 /min Jossie Krueger Other [employer] Other 06-23-2023 10:35-0400 SaO2% (BldA) [Mass fraction] 97 % Jossie Krueger Other [employer] Other 06-23-2023 10:35-0400 Systolic blood pressure 147 mm[Hg] Jossie Krueger Other [employer] Other 10-14-2022 18:16-0500 Body height 165.1 cm John Hastings DO Work Phone: [employer] 10-14-2022 18:16-0500 Body mass index (BMI) [Ratio] 52.92 kg/m2 John Hastings DO Work Phone: [employer] 10-14-2022 18:16-0500 Body temperature 98.29 [degF] John Hastings DO Work Phone: [facility] [employer] 10-14-2022 18:16-0500 Body weight 144.24 kg John Hastings DO Work Phone: [facility] [employer] 10-14-2022 18:16-0500 Diastolic blood pressure 96 mm[Hg] John Hastings DO Work Phone: [facility] [employer] 10-14-2022 18:16-0500 Heart rate 94 /min John Hastings DO Work Phone: [facility] [employer] 10-14-2022 18:16-0500 Respiratory rate 18 /min John Hastings DO Work Phone: [facility] [employer] 10-14-2022 18:16-0500 SaO2% (BldA) [Mass fraction] 95 % John Hastings DO Work Phone: [facility] [employer] 10-14-2022 18:16-0500 Systolic blood pressure 138 mm[Hg] John Hastings DO Work Phone: [facility] 10-05-2022 23:14-0500 Body height 165.1 cm Chapin Lee MD Work Phone: [facility] 10-05-2022 23:14-0500 Body mass index (BMI) [Ratio] 53.47 kg/m2 Chapin Lee MD Work Phone: [facility] [employer] 10-05-2022 23:14-0500 Body temperature 98.4 [degF] Chapin Lee MD Work Phone: [facility] 10-05-2022 23:14-0500 Body weight 145.74 kg Chapin Lee MD Work Phone: [facility] 10-05-2022 23:14-0500 Diastolic blood pressure 87 mm[Hg] Chapin Lee MD Work Phone: [employer] 10-05-2022 23:14-0500 Heart rate 86 /min Chapin Lee MD Work Phone: [facility] 10-05-2022 23:14-0500 Respiratory rate 18 /min Chapin Lee MD Work Phone: [facility] 10-05-2022 23:14-0500 SaO2% (BldA) [Mass fraction] 99 % Chapin Lee MD Work Phone: [facility] 10-05-2022 23:14-0500 Systolic blood pressure 146 mm[Hg] Chapin Lee MD Work Phone: [employer] Encounters Encounter Date Encounter Type Care Provider Facility Start: 04-11-2024 End: 04-11-2024 ambulatory JUSTINE CALLAHAN Not Available Start: 04-10-2024 End: 04-12-[address] [facility] Start: 04-09-2024 End: 04-09-2024 Emergency department patient visit [facility] Start: 04-04-2024 End: 04-04-2024 ambulatory JOE TRICIA Not Available Start: 03-21-2024 End: 03-21-2024 ambulatory JOE TRICIA Not Available Start: 03-07-2024 End: 03-07-2024 ambulatory JOE TRICIA Not Available Start: 02-08-2024 End: 02-08-2024 ambulatory JOE TRICIA Not Available Start: 01-16-2024 End: 01-16-2024 ambulatory JUSTINE SINDY Not Available Start: 01-12-2024 End: 01-12-2024 ambulatory Viral Galindo Facility:[facility] Start: 01-10-2024 End: 01-10-2024 ambulatory JUSTINE SINDY Not Available Start: 12-13-2023 End: 12-13-2023 ambulatory JOE TRICIA Not Available Start: 11-11-2023 End: 11-11-2023 ambulatory JOE TRICIA Not Available Start: 10-27-2023 End: 10-27-2023 Office outpatient visit 5 minutes [facility] Tricia Nurse [facility] Comment on above: Canceled (Provider) Start: 06-23-2023 End: 06-23-2023 ambulatory Jossie Krueger Other [facility] [employer] Other Start: 06-23-2023 Office outpatient ne w 30 minutes Jossie Krueger [facility] Start: 10-14-2022 End: 10-14-2022 Emergency department patient visit John Hastings DO Work Phone: [facility] ED Comment on above: Viral URI with cough (Primary Dx) Start: 10-05-2022 End: 10-06-2022 Emergency department patient visit Chapin Lee MD Work Phone: [facility] ED Comment on above: Plantar fasciitis (P rimary Dx) Procedures Date Procedure Procedure Detail Performing Clinician Start: 10-14-2022 COVID-19, RAPID John Jade DO Work Phone: Start: 10-14-2022 Iaadiadoo influenza Vadim cele Hastings DO Work Phone: Plan of Treatment Date Care Activity Detail Author Start: 11-11-2023 End: 11-11-2023 ambulatory 11/11/2023 11:00 AM EST Initial [facility] [address] [facility] [place] [address] [facility] Start: 11-11-2023 End: 11-11-2023 Professional / ancillary services management 11/11/2023 10:30 AM EST Ancillary Procedure [facility] [address] [facility] [place] [address] [facility] Start: 10-27-2023 End: 10-27-2024 US Pelvis transvaginal US OB transvaginal Imaging Routine Missed menses Expected: 10/27/2023 (Approximate), Expires: 10/27/2024 [facility] Work Phone: Comment on above: Expected: 10/27/2023 (Approximate), Expires: 10/27/2024 Start: 04-26-2022 Influenza vaccination Flu vaccine (# 1) [facility] Start: 11-17-2021 DTaP/Tdap/Td vaccine (7 - Td or Tdap) DTaP/Tdap/Td vaccine (7 - Td or Tdap) [facility] Start: 01-15-2000 COVID-19 Vaccine (#1) COVID-19 Vacci ne (#1) [facility] Payers Date Payer Category Payer Medicaid [id number] 2022 Unknown [id number] 2019 Medicare [id number]. [id number] 1999 Unknown [id number] 2.16.8 [id number] 1999 Unknown [id number] 2.16.8 [id number] 1999 Unknown [id number] 2.16.84 [id number] 1999 Unknown [id number] 2.16.84 [id number] 1999 Unknown [id number] 2.16.84 [id number] 1999 Unknown [id number] 2.16.84 [id number] 1999 Unknown [id number] 2.16.84 [id number] 1999 Unknown [id number] 2.16.84 [id number] 1999 Unknown [id number] 2.16.84 [id number] 1999 Unknown [id number] 2.16.84 [id number] 1999 Unknown [id number] 2.16.84 [id number] 1999 Unknown [id number] 2.16.8 [id number] Social History Date Type Detail Facility Start: 10-05-2022 Tobacco smoking status DEIS Smokes tobacco daily [employer] Phone: History of tobacco use Cigarette Smoker B ON [employer] Phone: Start: 10-05-2022 End: 10-14-2022 Cigarettes smoked current (pack per day) - Reported 1 [employer] Phone: Start: 10-05-2022 Tobacco use and exposure Smokeless tobacco non-user [employer] Phone: Start: 10-05-2022 End: 10-14-2022 Alcohol intake Current drinker of alcohol (finding) [employer] Phone: Start: 10-05-2022 Alcohol Comment in a month [employer] Phone: Start: 2000 Sex Assigned At Not on file [employer] Phone: Start: 09-25-2022 End: 10-14-2022 Exposure to SARS-CoV-2 (event) Not sure [employer] Phone: Start: 10-14-2022 History SDOH Alcohol Frequency 1 [employer] Phone: Start: 10-14-2022 History SDOH Alcohol Std Drinks 0 [employer] Phone: Sex Assigned At Sex Assigned At [facility] [employer] [facility] Start: 2000 Sex Assigned At Female [facility] Start: 10-20-2023 Gender identity Identifies as female gender (finding) [facility] Start: 10-20-2023 Sexual orientation Heterosexual (finding) [facility] History of Present illness Narrative 10-27-2023 Zari Wagner LPN - 10/27/2023 2:30 PM EST Note Date & Type Note Facility 10-27-2023 History of Presen t illness Narrative Patient to return in 2 weeks to get a SUE as not able to obtain today. documented in this encounter [facility] Evaluation note 06-23-2023 Note [...] understanding and is agreeable to treatment plan [employer] Other Evaluation note Note Date & Type Note Facility Evaluation note Diagnosis Plantar fasciitis- Primary Plantar fascial fibromatosis documented in this encounter [employer] Phone: Evaluation note Note Date & Type Note Facility Evaluation note Diagnosis Viral URI with cough- Primary Acute upper respiratory infections of unspecified site documented in this encounter [employer] Phone: Evaluation note Note Date & Type Note Facility Evaluation note Diagnosis Missed menses documented in this encounter [facility] History general Narrative - Reported Note Date & Type Note Facility History general Narrative - Reported Type Surgical History wisdom teeth [employer] Other Hospital Discharge instructions Attachments Note Date & Type Note Facility Hospital Discharge instructions The following attachments cannot be sent through Care Everywhere.Plantar Fasciitis ([place])documented in this encounter [facility] Phone: Hospital Discharge instructions Attachments Note Date & Type Note Facility Hospital Discharge instructions The following attachments cannot be sent through Care Everywhere.URI (Upper Respiratory Infection) ([place])documented in this encounter [employer] Phone: Summary Purpose Family History No Family [...] Care Teams (unrecognized sec tion and content) Wedding Coordinator Relationship Specialty Start Date End Date Viral Galindo MD [address] [place] [address] PCP - General Pediatrics 10/27/23 INFORMATION SOURCE (unrecogn ized section and content) DATE CREATED AUTHOR 04/13/2024 Michelle garcia DATE CREATED AUTHOR AUTHOR'S ORGANIZ ATION 04/15/2024 [facility] EPIC DATE CREATED AUTHOR AUTHOR'S ORGANIZ ATION 04/17/2024 [facility] FOR RECORDS PERTAINING TO PATIENTS WHO ARE [...] BE BASED ON THE PRIMARY CLINICAL RECORDS. [facility]. provides no warranty or guarantee of the accuracy or completeness of information in this document.
--- NOTE | 2024-04-20 16:07 | US_ITS ---
[place] [id number] Patient Name: ZEV YAP MRN: [id number] date: 2000 Sex: F [place] [facility] [place] Location[place] Accession/Order Number: [id number] Exam Date: 04/20/2024 17:04 Report Date: 04/24/2024 05:00 At the request of: MAGDI LA Procedure: US OB BPP w non-stress EXAMINATION: US OB BPP w non-stress HISTORY:excessive growth COMPARISON: Ultrasound OB biophysical profile 04/12/2024 TECHNIQUE: Ultrasound biophysical profile was performed in the radiology department. BREATHING MOVEMENTS: 2 GROSS BODY MOVEMENTS: 2 TONE: 2 QUALITATIVE AMNIOTIC FLUID VOLUME: 2 PRESENTATION: CEPHALIC HEART RATE: 140.63 bpm AMNIOTIC FLUID VOLUME: 14.07 cm GESTATIONAL AGE: 33 weeks 3 days US/US OB BPP w non-stress IMPRESSION: Total biophysical profile score: 8 Electronically authenticated by: TEENA RASCON Date: 04/24/2024 05:00
[2024-04-20 16:11] VITALS: BP 144/72; PULSE 90
== END 2024-04-20 17:20 | disposition home or self-care (01) ==
LOC: FBCO 07:37 → FBC 16:06
PROVIDERS: PCP Family Medicine; Visit Provider Obstetrics & Gynecology
DX: O36.63X0 Maternal care for excessive fetal growth, third trimester, not applicable or unspecified (principal); Z3A.33 33 weeks gestation of pregnancy
CPT/HCPCS: 76818

== ENCOUNTER 2024-04-23 07:06 | Outpatient (OUT) | payer OTHER, MEDICAID, SELFPAY ==
--- OUTSIDE RECORDS SUMMARY | 2024-04-23 07:09 | XMS_ITS | CCD ---
Author Organization [facility] Providers Care [place] Name Role Phone Unavailable Primary Care Provider UnavailJossie Lui Unavailable Viral Galindo MD Primary Care Provider SARKIS JAY Referring Unavailable SARKIS JAY Attending [...] Propensity to adverse reactions to drug (disorder) [facility] Repository Medications Current Medications Medication Drug [...] Range Facility Outside Recordson 04-13-2024 Outside Records [id number] #[id number] Normal [facility] CBC with Diffon 04-09-2024 Abs. Basophil 0.00 k/uL Normal 0.00-0.20 [facility] Comment on above: Performed By: #### C DP, CP #### [facility] [address] [place] [address] Fixed Route Bus Operator: Viral Mcgraw MD Abs.Imm.Granulocyte 0.03 k/uL Normal 0.00-0.30 [facility] Comment on above: Performed By: #### C DP, CP #### [facility] [address] [place] [address] Fixed Route Bus Operator: Viral Mcgraw MD Abs.Neutrophil (Seg) 6.53 k/uL Normal 2.5-7.0 [facility] Comment on above: Performed By: #### C DP, CP #### [facility] [address] [place] [phone] Fixed Route Bus Operator: Viral Mcgraw MD Basophils/100 WBC (Bld) 0 % Normal 0-2 [facility] Comment on above: Performed By: #### C DP, CP #### [facility] [address] [place], [place] [phone] Fixed Route Bus Operator: Viral Mcgraw MD Eosinophils (Bld) [#/Vol] 0.21 10*3/uL Normal 0.00-0.40 [facility] Comment on above: Performed By: #### C DP, CP #### [facility] [address] [place], [place] [phone] Fixed Route Bus Operator: Viral Mcgraw MD Eosinophils/100 WBC (Bld) 2 % Normal 0-5 [facility] Comment on above: Performed By: #### C DP, CP #### [facility] [address] [place] [phone] Fixed Route Bus Operator: Viral Mcgraw MD Erythrocyte distribution width (RBC) [Ratio] 13.9 % Normal 12.1-15.2 [facility] Comment on above: Performed By: #### C DP, CP #### [facility] [address] [place] [address] Fixed Route Bus Operator: Viral Mcgraw MD Hematocrit (Bld) [Volume fraction] 32.4 % Low 36.0-46.0 [facility] Comment on above: Performed By: #### C DP, CP #### [facility] [address] [place], [place] [phone] Fixed Route Bus Operator: Viral Mcgraw MD Hemoglobin (Bld) [Mass/Vol] 11.2 g/dL Low 12.0-16.0 [facility] Comment on above: Performed By: #### C DP, CP #### [facility] [address] [place], [place] [phone] Fixed Route Bus Operator: Viral Mcgraw MD Immature granulocytes/100 WBC (Bld) 0 % Normal 0-5 [facility] Comment on above: Performed By: #### C DP, CP #### [facility] [address] [place] [address] Fixed Route Bus Operator: Viral Mcgraw MD Lymphocytes (Bld) [#/Vol] 1.74 10*3/uL Normal 1.00-4.80 [facility] Comment on above: Performed By: #### C DP, CP #### [facility] [address] [place] [phone] Fixed Route Bus Operator: Viral Mcgraw MD Lymphocytes/100 WBC (Bld) 19 % Normal 15-40 [facility] Comment on above: Performed By: #### C DP, CP #### [facility] [address] [place] [phone] Fixed Route Bus Operator: Viral Mcgraw MD MCH (RBC) [Entitic mass] 30.4 pg Normal 26.0-34.0 [facility] Comment on above: Performed By: #### C DP, CP #### [facility] [address] [place] [address] Fixed Route Bus Operator: Viral Mcgraw MD MCHC (RBC) [Mass/Vol] 34.6 g/dL Normal 31.0-37.0 [facility] Comment on above: Performed By: #### C DP, CP #### [facility] [address] [place] [address] Fixed Route Bus Operator: Viral Mcgraw MD MCV (RBC) [Entitic vol] 88.0 fL Normal 80.0-100.0 [facility] Comment on above: Performed By: #### C DP, CP #### [facility] [address] [place] [address] Fixed Route Bus Operator: Viral Mcgraw MD Monocytes (Bld) [#/Vol] 0.48 10*3/uL Normal 0.00-1.00 [facility] Comment on above: Performed By: #### C DP, CP #### [facility] [address] [place], [place] [phone] (320) Fixed Route Bus Operator: Viral Mcgraw MD Monocytes/100 WBC (Bld) 5 % Normal 4-8 [facility] Comment on above: Performed By: #### C DP, CP #### [facility] [address] [place], [place] [phone] (188) Fixed Route Bus Operator: Viral Mcgraw MD Neutrophil (Seg) 74 % Normal 47-75 [facility] Comment on above: Performed By: #### C DP, CP #### [facility] [address] [place], [place] [phone] (998) Fixed Route Bus Operator: Viral Mcgraw MD Platelet mean volume (Bld) [Entitic vol] 10.7 fL Normal 6.0-12.0 [facility] Comment on above: Performed By: #### C DP, CP #### [facility] [address] [place] [address] Fixed Route Bus Operator: Viral Mcgraw MD Platelets (Bld) [#/Vol] 220 10*3/uL Normal 140-450 [facility] Comment on above: Performed By: #### C DP, CP #### [facility] [address] [place] [address] Fixed Route Bus Operator: Viral Mcgraw MD RBC (Bld) [#/Vol] 3.68 10*6/uL Low 4.00-5.20 [facility] Comment on above: Performed By: #### C DP, CP #### [facility] [address] [place] [address] Fixed Route Bus Operator: Viral Mcgraw MD WBC (Bld) [#/Vol] 9.0 10*3/uL Normal 3.5-11.0 [facility] Comment on above: Performed By: #### C DP, CP #### [facility] [address] [place] [address] Fixed Route Bus Operator: Viral Mcgraw MD Comp Metabolic Profon 2023 Albumin [Mass/Vol] 3.2 g/dL Low 3.5-5.2 [facility] Comment on above: Performed By: #### C DP, CP #### [facility] [address] [place] [address] Fixed Route Bus Operator: Viral Mcgraw MD Alkaline Phos 74 U/L Normal 35-104 [facility] Comment on above: Performed By: #### C DP, CP #### [facility] [address] [place] [address] Fixed Route Bus Operator: Viral Mcgraw MD ALT [Catalytic activity/Vol] 26 U/L Normal 5-33 [facility] Comment on above: Performed By: #### C DP, CP #### [facility] [address] [place] [address] Fixed Route Bus Operator: Viral Mcgraw MD Anion gap [Moles/Vol] 10 mmol/L Normal 9-17 [facility] Comment on above: Performed By: #### C DP, CP #### [facility] [address] [place] [address] Fixed Route Bus Operator: Viral Mcgraw MD AST [Catalytic activity/Vol] 16 U/L Normal <32 [facility] Comment on above: Performed By: #### C DP, CP #### [facility] [address] [place] [address] Fixed Route Bus Operator: Viral Mcgraw MD Bilirubin [Mass/Vol] 0.2 mg/dL Low 0.3-1.2 [facility] Comment on above: Performed By: #### C DP, CP #### [facility] [address] [place] [address] Fixed Route Bus Operator: Viral Mcgraw MD BUN/CRE Ratio 7 Low 9-20 [facility] Comment on above: Performed By: #### C DP, CP #### [facility] [address] [place], [place] [phone] Fixed Route Bus Operator: Viral Mcgraw MD Calcium [Mass/Vol] 9.1 mg/dL Normal 8.6-10.4 [facility] Comment on above: Performed By: #### C DP, CP #### [facility] [address] [place] [address] Fixed Route Bus Operator: Viral Mcgraw MD Chloride [Moles/Vol] 101 mmol/L Normal 98-107 [facility] Comment on above: Performed By: #### C DP, CP #### [facility] [address] [place], [place] [phone] Fixed Route Bus Operator: Viral Mcgraw MD CO2 [Moles/Vol] 24 mmol/L Normal 20-31 [facility] Comment on above: Performed By: #### C DP, CP #### [facility] [address] [place], [place] [phone] Fixed Route Bus Operator: Viral Mcgraw MD Creatinine [Mass/Vol] 0.7 mg/dL Normal 0.5-0.9 [facility] Comment on above: Performed By: #### C DP, CP #### [facility] [address] [place], [place] [phone] Fixed Route Bus Operator: Viral Mcgraw MD GFR/1.73 sq M.predicted among non-blacks MDRD (S/P/Bld) [Vol rate/Area] mL/min/{1.73_m2} Normal >60 [facility] Comment on above: Result Comment: [...] Performed By: #### C DP, CP #### [facility] [address] [place], [place] [phone] Fixed Route Bus Operator: Viral Mcgraw MD Glucose [Mass/Vol] 107 mg/dL High 70-99 [facility] Comment on above: Performed By: #### C DP, CP #### [facility] [address] [place] [address] Fixed Route Bus Operator: Viral Mcgraw MD Potassium [Moles/Vol] 3.3 mmol/L Low 3.7-5.3 [facility] Comment on above: Performed By: #### C DP, CP #### [facility] [address] [place] [address] Fixed Route Bus Operator: Viral Mcgraw MD Protein [Mass/Vol] 6.3 g/dL Low 6.4-8.3 [facility] Comment on above: Performed By: #### C DP, CP #### [facility] [address] [place], [place] [id number] Fixed Route Bus Operator: Viral Mcgraw MD Sodium [Moles/Vol] 135 mmol/L Normal 135-144 [facility] Comment on above: Performed By: #### C DP, CP #### [facility] [address] [place], [place] [phone] Fixed Route Bus Operator: Viral Mcgraw MD Urea nitrogen [Mass/Vol] 5 mg/dL Low 6-20 [facility] Comment on above: Performed By: #### C DP, CP #### [facility] [address] [place] [address] Fixed Route Bus Operator: Viral Mcgraw MD AFP Tetra LCon 02-01-2024 AFP CHIN MoM 1.12 Invalid Interpretation Code [facility] Comment on above: Performed By: #### 3 [id number] #### [facility] (DEFAULT) [address] [place] [address] AFP DSR (By Age) 1 [place] 1039 Invalid Interpretation Code [facility] Comment on above: Performed By: #### 3 [id number] #### [facility] (DEFAULT) [address] [place] [address] AFP DSR (Second Trimester) 1 IN 957 [facility] Comment on above: Performed By: #### 3 [id number] #### [facility] (DEFAULT) [address] [place] [address] 14947 AFP Gest. Age on Collection Date 19.3 week(s) [facility] Interpretation [facility] Comment on above: Result Comment: Not provided. Performed By: #### 3 [id number] #### [facility] (DEFAULT) [address] [place] [address] AFP Gestat. Age Based On SUE [facility] Comment on above: Result Comment: 05/27 Performed By: #### 3 [id number] #### [facility] (DEFAULT) [address] [place] [address] 05266 AFP hCG MoM 1.18 [facility] Comment on above: Performed By: #### 3 [id number] #### [facility] (DEFAULT) [address] [place] [address] 06227 AFP insulin Dep Diabetes No [facility] Interpretation [facility] Comment on above: Result Comment: Not provided. Performed By: #### 3 [id number] #### [facility] (DEFAULT) [address] [place] [address] 24062 AFP Interpretation Comment [facility] Interpretation [facility] Comment on above: Result Comment: Inte rpretation: [...] identifies 60% of Trisomy 18 pregnancies. The [employer] [employer] recommends amniocentesis [...] within 10 days. Performed By: #### 3 [id number] #### [facility] (DEFAULT) [address] [place] [address] AFP Maternal Age At SUE 24.8 Invalid Interpretation Code [facility] Comment on above: Performed By: #### 3 [id number] #### [facility] (DEFAULT) [address] [place] [address] 65130 AFP MoM 0.69 Invalid Interpretation Code [facility] Comment on above: Performed By: #### 3 [id number] #### [facility] (DEFAULT) [address] [place] [address] 11564 AFP Multiple Gestation No Invalid Interpretation Code [facility] Comment on above: Result Comment: Not provided. Performed By: #### 3 [id number] #### [facility] (DEFAULT) [address] [place] [address] 8[address]93 AFP OSBR [place] 1 [place] [address] Invalid Interpretation [facility] Comment on above: Performed By: #### 3 [id number] #### [facility] (DEFAULT) [address] [place] [address] 85525 AFP Race Invalid Interpretation [facility] Comment on above: Result Comment: Not provided. Performed By: #### 3 [id number] #### [facility] (DEFAULT) [address] [place] [address] 12547 AFP Results Comment Invalid Interpretation [facility] Comment on above: Result Comment: The MOM and risk factors of this report have been modified based on new information supplied to us by the client or their designated corporate sales representative. The Gestational Age Based On [...] provided. to 348. Performed By: #### 3 [id number] #### [facility] (DEFAULT) [address] [place] [address]12 AFP T18 (By Age) 1:4050 Invalid Interpretation [facility] Comment on above: Performed By: #### 3 [id number] #### [facility] (DEFAULT) [address] [place] [address] 98608 AFP T18 Risk Not increased Invalid Interpretation [facility] Comment on above: Performed By: #### 3 [id number] #### [facility] (DEFAULT) [address] [place] [address] 79765 AFP Test Results: Negative Invalid Interpretation [facility] Comment on above: Performed By: #### 3 [id number] #### [facility] (DEFAULT) [address] [place] [address]646 AFP uE3 MoM 0.66 Invalid Interpretation [facility] Comment on above: Performed By: #### 3 [id number] #### [facility] (DEFAULT) [address] [place] [address] 90336 AFP Tetra LCon 01-18-2024 AFP Comments: Comment Invalid Interpretation Code [facility] Comment on above: Result Comment: Bethany Perez, Ph.D., [facility] Director References: Available Upon Request. Multiples Of Median Cutoffs Abbreviation Definitions For AFP Elevations IDD- Insulin Dep Diabetes Cadet 2.5 Black 2.8 OSBR- Open Spina Bifida IDD 2.0 Twins 4.5 Risk DSR Cutoff 1:270 DSR- Down Syndrome Risk T18 Cutoff 1:100 T18- Trisomy 18 For further inquiries contact [facility] at [phone]. This test was developed and its performance characteristics determined by [facility]. It has not been cleared or approved by the Food and Drug Administration. Performed At: [facility] [address] [facility], [place] [id number] [facility] Ph:[phone] Performed By: #### 3 [id number] #### [facility] (DEFAULT) [address] [place] [address] 39777 AFP CHIN Value 120.65 pg/mL Invalid Interpretation Code [facility] Comment on above: Performed By: #### 3 [id number] #### [facility] (DEFAULT) [address] [place] [address] 70826 AFP uE3 Value 1.08 ng/mL Invalid Interpretation Code [facility] Comment on above: Performed By: #### 3 [id number] #### [facility] (DEFAULT) [address] [place] [address] 48310 AFP Value 23.0 ng/mL Invalid Interpretation Code [facility] Comment on above: Performed By: #### 3 [id number] #### [facility] (DEFAULT) [address] [place] [address] [place] [address] m[IU]/mL Invalid Interpretation Code [facility] Comment on above: Performed By: #### 3 [id number] #### [facility] (DEFAULT) [address] [place] [address]75 Coding Summaryon 01-18-2024 Coding Summary HTMLBase 64 LsawkwnmPMn0iKl+PGhl YWQ+MK5BTXGwS51jmATb xN4rH8FDEVwQBmubQVQA OTsUTsYeqhRcDK5aqHFq ZXJu IC8+EG7cEMDlEvcwpJCn r9S0pOP3R62yhj0rIEie zEB6YHZiEmXrhecby5ru dAk5POwjHgjlRyHn RQGnvY36FWB1jI62Nf88 iOVnyUWsb6kusRn3LfKf JMQeGDT8rZftUVdzm4Ja GDTpL08vtNHdm4M4 IGNvbGxhcHNlOyBlbXB0 xT5aPYcjgjzib1etltcw Rpl7gy39mTUcs9I1qGD8 H6AaavP8YSVhiYPn JgkecMBNbG6yohqyv9jo axwfPsGbBVLzTFo4MLv5 QVOenXdkJiCeIZ69KKO2 AUVpbxFlT1PcLKOm dSnqGiV9f7K8Ac1UT3ME FmhrV7NRNCKUPBzrmDZ+ JG57ex43Y2CkBgrbZwi1 KTZpQMF0dJK4aZ5n GVGcVMcnm5V2xDI9K9Qh dxTxvy0ad0agYLKeVPiw E73ncTHdh0U0HLBvtNT3 VUNmjJvfSfLqgI26 Oyc+IGKkxVwzb0FwQwhk p7krp2nxoYv3XyceJIZz zkDusGfdMQI3c4FuMr1p LLTexHH6dVJ8jQ3s BbUxZmK4MMugT975OeTc kQUsFvwlK75bT3AvgDO+ JSKfTul2JSYdzRnzUM1p G1JaSYXxoiqzzPGw oHfsAR0sFDDbfmcfPNXk oF9dJMJyS8y6BiLsNrI9 MMdtQ2UtEQQdnculLc90 nO2lPfWbFyH1WUrj J8DhqeK8FIXasIGvTBrp JDA5I62bh5U0ZLWdBXIv ZGI0rZC5cY1muZthslkk bGVmdDsgdmVydGlj OAzlPBtpF917SLPlrYbs PkNvZGluZyBEYXRlOiAg MDQvMjQvMjAyNDwvdGQ+ ETIfYZA9xXlbNIId qKBlNJooUa2hhJaleSgs HC3hBBXjhintPCUfzB2x ODOllHStrBcuSH7wAMKs woyoh348WuPmWZJ5 PQVntABtY2GwnM9vXzJv WAGyUWTpX4HcrXDsOIqd A978HXnnMsA9IONvhrKw Q7EwSFMufGflMvT5 x0F4Fz0Zb5ZqhibrO5Vx zKIzKgKeYsyfYPl1Z9Cl PjwvdHI+WQ29IZBiGB69 GAk4KSB3zXqvBXao FCLpH7VnpD6cAfChOVAc ZGRkOyc+PHRhYmxlIHdp ZHRoPScxMDAlJyBzdHls MT2wXs5bFJIiEVGd rWpnzAAvOoBzb6wfHRRz OZbhIS0ggHywM4WqhYJ2 OGPzy1r1Tr89M47xY3Xs dXA+YWCcqIT0tMA3 rR0hAfNpHsS7WLhoN317 LsFcmOGfPodno0fkj7co hEm9WtU8UMUyalLwzOqk HIK6u5OvVy36W63d IHdpZHRoPSIxNSUiIHZh aMhwud4vyL3hPv3+PGNv lGZ5xKE5xL0wHcJzNoL5 MXilB113WfTgbXFw Uyimq5mcj3uhsKb2EcJd AXLvivAzjFjzIII0j0Fc Ur65M0GbhWniw4VzPzr9 rf05sSIgh3I8hDV2 S3LpCCRrnqybkYZpcXfv AH3hAMZnkctzGFEdnV4j FRVlA2z5WxNyQnD0MBtm U2RjpuK5EGQljREr AZOrvCSVmJ1ixeojd8bb mnzbPaPeQUEjPWc5IRb3 IDYrvIduYgJoFSH3BgT2 TPR6mKDbnG6uzXps djqdaI9vKpd+STV8dDYq pFCHSN1mDzwpfDT+PHRk KJR8cObwNLuaTYXdaT0j FHBeC2i4WeQvUsM7 CJmdF7UampY7XFXziTSx NLSzzAJDxG0nqbill7xv aerfMaXaUTZhPUo4KYj1 LWFsaWduOiBsZWZ0 BlP3WOM8vZEisR7xrDfe qbaubS0fVdx+QmlydGgg OOA2TGr6Z0SoFnw6TCSm qMonGN2dwNDkJPbs Ad9lvJqbpXboSH1wZOGk grtch240UjKtj5eiABQe zTXfPEsbENJ3Q50qs7R2 GFJtOVYaCGD5mLR0 oL5zqBvulbqteFOtoRrr ivTexZqgDRlhSNrtF652 HJHeeOcaTgTqPTn9Q3Wx Hfl8SQJwkRnrAK2i fYJxGRmcAm4nkLkvnHlq VD4bBJPvqalts749RfKd f1wwQFBscFGdEMnlNEW4 I43tn8C9GLQhLHXk CRS8uWD4xE7vfIgualpt bGVmdDsgdmVydGljYWwt BJiyD985WCTwwQpmRpMq bHq9U6BiJqk5OBZl uYkwSQ6hbINiURvdFm5y aGcxgFrgJX1oABBqeevn a435MwKil2hmBJPprZVd UGgyHSV0E18ki8R8 ETOeMFCiSHG9cRZ6jM6b bGlnbjogbGVmdDsgdmVy lUnqQOgpKFpwZ467BJIh cDsnPlBhdGllbnQg UBjxKIc5I0QmNnrvtER+ KV48EZLiNV37dLLbbGKf m8oyuJi5LaXcZTWfFYP2 kJmsCXqhc9QhJFQz R07thUElw6K3SDQjfIot lHSoWeTzbBS3gA9cQBsv fwugb4pxalxaSapab0tb zv76vC40J62hJEyn ZHRoPSIzMCUiIHZhbGln ec0lpK6hMr0+PGNvbCB3 jPD5eI2tNCKlTnQ9DHhg Q233UtCkkAElSmcx s7rxg4owrSz5XmP8HBZj fwNfaRuwVAR2i8YoCl78 A87vJLhmCVMbHHCpPWAb FDHhrNwugr7ivP7l Ii8+KWCrzUC8yOV8eF9o RzSuLpQ9MCypM409BcAb lKYaIyazC86rX2OnkQB+ SYEoKdm9CURxqFta QU2znXTwXRqkVy6pLTW2 BpTfAhNjQMzxY7AmGCSa dwcicyspuMJ2GAOuVUIu oM44Qm0ytWheOQEi nSWRmA3jllmdw5dwecof LjHwYLSdYEz5PSs6KXKu qUyjXzElEEX1RaU1HYG0 jIMeyV1weXqzwfbh gU8bD0HgOVPnpujbLr09 sZ3qLxDjMkC8JOygTbj+ HV5MUAIURNyrTLaHHKxS IFNJRVJSQTwvdGQ+ PASaJLE6oUetEKjeLIRo yP3vODZwX3m5WkNdWhS9 QCtoB9XeCKWkccnmCt72 rK4dIfMxCyV1VQlj F2ElihD7SBOdiYLtJWgt UQS5I48bg5O1WQJpQUMp WEI7dVA8lB2kiAewuouv bGVmdDsgdmVydGlj RIjbQQvcV793DOBhzNgg ZuHuUlMtUdR6IVv3W0Uu Dii9LMFjlVvxFN0vyAZt EIznQf9cpZiphAtz ZI3lBOPqdzmuURTjoE1c SGWnmGConHpiUA1tQJXu htqhg852IrZxMBE5HQQf uVFoJ5YlvF3vMsZq PFYmBRYhF2GlaKMfUCfo I250TFvtQkX4GQTxmsHo L5MfVLQcfScbGpH7o1A1 Dt9sUTUCSTKxpkyg dGQ+VPNeVBF8cHqkYBfh OAGwdI5wPETnC8l4QxNu CwJ5VXtlL3PpQQNxjwmg Wb12hT9vUeZqAkF3 NSawQ5ToolJ2IHFlnGQn EJyrGWV9X47gq6U7YQYi MIEyOMW7wCF4uP3orFdt bjogbGVmdDsgdmVy gWqbISccKRnbV241DAUn cDsnPkZFTUFMRTwvdGQ+ QICvCPP1lOygNJooAABj mO1pNJYuA9v6DyUz UwC8YEjdZ2EhLVZxyosm Zq65iJ3yEwQqOtD4DPjf Q5XcchS4AMDzhVMhNHob KAG1C93rb4Y1IDUf HXWkBFD7iWF2gW1prMfk bjogbGVmdDsgdmVydGlj KYypTVocI164PJMgrHda Ft7SEW92FF51F2Vj PjwvdGFibGU+PHRhYmxl IHdpZHRoPScxMDAlJyBz tGhwJS9fZo3jEUFyMHBw pXtlcBInUnLnc4od DLVeXJxwWD1owRpuW1Gy gSC6UOYoj5w2Ss94M40m N0LamNU+ENMqzND5pFU4 bO6vPsHoPiP8OKoc A067LwXudTHaOshzd8gf i4qisBr1CiUgTQUnifAu oCohKAR5f7PnSp68K00g IHdpZHRoPSIyMCUi WUHlkNbccy1cqT7nPv5+ ELVouND2rNV1vO4tIjBy BvH3QFzzX869XoGucINp RgdkD76hE3ChlUM+ YYNdYcg5NZYlnPzxVB9v yPIuYXxoNd2xOBO9KfUv AlGfQZyrZ3QrWMWxezqz nqbxcJH2YVCiBBHu lJ01Wu0gzTnbYx3xINIm KMW2TKNxwJCiT2MxnD4c CjLpKAVzEKLtK9TkoBEq EMtcL643OZrcJnF9 TJRovaAlU4YpXNEauCol WuU6e8E3Ce5GvZngkIFn CS0eQwAtUPm1K0TnMhh9 BTCaaFyxKG1pxKGd QJjeHe8rdGyncDxtMR4m LVDsvrrdx341MaSvt2yu QMFkyTHfHKrqLGG2J06g l3B3KYTwLBOkUZQ1 rIW6wO6mvTcsflqkiZLp dDsgdmVydGljYWwtYWxp E434WCCioZwlTmBVXin0 B3PyMto2NASskYcd QL2xvRLeXXqsIs2bnXsb cDwsZA9jEPXrfulff272 PqTtj9lkNQGabJFnXEke RIW7N78st6Z5DYXo WKZfFSZ7jWU7mR6zrKnw bjogbGVmdDsgdmVydGlj IVbzVZqyK653ZEStzRxh Gu1KCqn7G8NyXdd6 BCKsgAcxXA0dkDFaCSkk Fd3oeFcmtDsqGQ9aFSGc gpgsn876AuGrh8inEGTi vKEfGBegGLW4S93o b2F9BSIgZAJmVES3qYP0 nR1wmPxzynybiJCbqCyr owGdlFxfZTrlLNspM020 IHRvcDsnPlBheWVy OjwvdGQ+XD45zh21T4Bc VrjgSem4WPFhQQJ5kID2 pY1fWZBvDRlyh8Y4dBD8 B7MvckDutl0ps1no YXB (more content not included)... [facility] Provider Orderson 01-12-2024 Provider Orders [id number] [facility] COVID-19, Rapidon 10-14-2022 SARS-CoV-2 (COVID-19) RNA AMANDO+probe Ql (Unsp spec) Not detected Not Detected [facility] Comment on above: Rapid NAAT: [...] management decisions. Fact sheet for Healthcare Providers: https://www.fda.gov/media/718523/download Fact sheet for Patients: https://www.fda.gov/media/437846/download Methodology: Isothermal Nucleic Acid Amplification Specimen Description .NASOPHARYNGEAL SWAB [facility] Rapid influenza A/B antigens on 10-14-2022 Flu A Antigen Negative NEGATIVE [facility] Comment on above: for Influenza A Anti gen Flu B Antigen Negative NEGATIVE [facility] Comment on above: for Influenza B Anti gen. [facility] Vital Signs Date Time Vital Sign Value Performing Clinician Facility 02-01-2024 09:09-0400 Body weight 157.8528 kg Viral Galindo [facility] Comment on above: Result Comment: Not provided. Performed By: #### [id number] #### [facility] (DEFAULT) [address] [place] [address] [id number] 06-23-2023 10:35-0400 Body height 167.64 cm Jossie Krueger Other [facility] Other 06-23-2023 10:35-0400 Body mass index (BMI) [Ratio] 50.03 kg/m2 Jossie Krueger Other [facility] Other 06-23-2023 10:35-0400 Body temperature 98.3 [degF] Jossie Krueger Other [facility] Other 06-23-2023 10:35-0400 Body weight 140.62 kg Jossie Krueger Other [facility] Other 06-23-2023 10:35-0400 Diastolic blood pressure 90 mm[Hg] Jossie Krueger Other [facility] Other 06-23-2023 10:35-0400 Respiratory rate 18 /min Jossie Krueger Other [facility] Other 06-23-2023 10:35-0400 SaO2% (BldA) [Mass fraction] 97 % Jossie Krueger Other [facility] Other 06-23-2023 10:35-0400 Systolic blood pressure 147 mm[Hg] Jossie Krueger Other [facility] Other 10-14-2022 18:16-0500 Body height 165.1 cm John Hastings DO Work Phone: [employer] 10-14-2022 18:16-0500 Body mass index (BMI) [Ratio] 52.92 kg/m2 John Hastings DO Work Phone: [employer] 10-14-2022 18:16-0500 Body temperature 98.29 [degF] John Hastings DO Work Phone: [facility] [employer] 10-14-2022 18:16-0500 Body weight 144.24 kg John Hastings DO Work Phone: [facility] [employer] 10-14-2022 18:16-0500 Diastolic blood pressure 96 mm[Hg] John Hastings DO Work Phone: [facility] [employer] 10-14-2022 18:16-0500 Heart rate 94 /min John Hastings DO Work Phone: [facility] [employer] 10-14-2022 18:16-0500 Respiratory rate 18 /min John Hastings DO Work Phone: [facility] [employer] 10-14-2022 18:16-0500 SaO2% (BldA) [Mass fraction] 95 % John Hastings DO Work Phone: [facility] [employer] 10-14-2022 18:16-0500 Systolic blood pressure 138 mm[Hg] John Hastings DO Work Phone: [facility] [employer] 10-05-2022 23:14-0500 Body height 165.1 cm Chapin Lee MD Work Phone: [facility] [employer] 10-05-2022 23:14-0500 Body mass index (BMI) [Ratio] 53.47 kg/m2 Chapin Lee MD Work Phone: [facility] [employer] 10-05-2022 23:14-0500 Body temperature 98.4 [degF] Chapin Lee MD Work Phone: [facility] [employer] 10-05-2022 23:14-0500 Body weight 145.74 kg Chapin Lee MD Work Phone: [facility] [employer] 10-05-2022 23:14-0500 Diastolic blood pressure 87 mm[Hg] Chapin Lee MD Work Phone: [employer] 10-05-2022 23:14-0500 Heart rate 86 /min Chapin Lee MD Work Phone: [employer] 10-05-2022 23:14-0500 Respiratory rate 18 /min Chapin Lee MD Work Phone: [employer] 10-05-2022 23:14-0500 SaO2% (BldA) [Mass fraction] 99 % Chapin Lee MD Work Phone: [employer] 10-05-2022 23:14-0500 Systolic blood pressure 146 mm[Hg] Chapin Lee MD Work Phone: [employer] Encounters Encounter Date Encounter Type Care Provider Facility Start: 04-11-2024 End: 04-11-2024 ambulatory JUSTINE CALLAHAN Not Available Start: 04-10-2024 End: 04-12-2024 ambulatory [facility] Start: 04-09-2024 End: 04-09-2024 Emergency department patient visit [facility] Start: 04-04-2024 End: 04-04-2024 ambulatory JOE TRICIA Not Available Start: 03-21-2024 End: 03-21-2024 ambulatory JOE TRICIA Not Available Start: 03-07-2024 End: 03-07-2024 ambulatory JOE TRICIA Not Available Start: 02-08-2024 End: 02-08-2024 ambulatory JOE TRICIA Not Available Start: 01-16-2024 End: 01-16-2024 ambulatory JUSTINE SINDY Not Available Start: 01-12-2024 End: 01-12-2024 ambulatory Viral Galindo Facility:[facility] Start: 01-10-2024 End: 01-10-2024 ambulatory JUSTINE SINDY Not Available Start: 12-13-2023 End: 12-13-2023 ambulatory JOE TRICIA Not Available Start: 11-11-2023 End: 11-11-2023 ambulatory JOE TRICIA Not Available Start: 10-27-2023 End: 10-27-2023 Office outpatient visit 5 minutes [facility] Tricia Nurse [facility] Comment on above: Canceled (Provider) Start: 06-23-2023 End: 06-23-2023 ambulatory Jossie Krueger Other [facility] [employer] Other Start: 06-23-2023 Office outpatient ne w 30 minutes Jossie Krueger [facility] Start: 10-14-2022 End: 10-14-2022 Emergency department patient visit John Hastings DO Work Phone: [facility] ED Comment on above: Viral URI with cough (Primary Dx) Start: 10-05-2022 End: 10-06-2022 Emergency department patient visit Chapin Lee MD Work Phone: [facility] ED Comment on above: Plantar fasciitis (P rimary Dx) Procedures Date Procedure Procedure Detail Performing Clinician Start: 10-14-2022 COVID-19, RAPID John Jade DO Work Phone: Start: 10-14-2022 Iaadiadoo influenza Vadim cele Hastings DO Work Phone: Plan of Treatment Date Care Activity Detail Author Start: 11-11-2023 End: 11-11-2023 ambulatory 11/11/2023 11:00 AM EST Initial [facility] [address] [facility] [facility] [facility] [place] [address] [facility] Start: 11-11-2023 End: 11-11-2023 Professional / ancillary services management 11/11/2023 10:30 AM EST Ancillary Procedure [facility] [address] [facility] [place] [address] [facility] Start: 10-27-2023 End: 10-27-2024 US Pelvis transvaginal US OB transvaginal Imaging Routine Missed menses Expected: 10/27/2023 (Approximate), Expires: 10/27/2024 [facility] Work Phone: Comment on above: Expected: 10/27/2023 (Approximate), Expires: 10/27/2024 Start: 04-26-2022 Influenza vaccination Flu vaccine (# 1) [facility] Start: 11-17-2021 DTaP/Tdap/Td vaccine (7 - Td or Tdap) DTaP/Tdap/Td vaccine (7 - Td or Tdap) [facility] Start: 01-15-2000 COVID-19 Vaccine (#1) COVID-19 Vacci ne (#1) [facility] Payers Date Payer Category Payer Medicaid [id number] 2022 Unknown [id number] 2019 Medicare [id number]. [id number] 1999 Unknown [id number] 2.16.8 [id number] 1999 Unknown [id number] 2.16.8 [id number] 1999 Unknown [id number] 2.16.84 [id number] 1999 Unknown [id number] 2.16.84 [id number] 1999 Unknown [id number] 2.16.84 [id number] 1999 Unknown [id number] 2.16.84 [id number] 1999 Unknown [id number] 2.16.84 [id number] 1999 Unknown [id number] 2.16.84 [id number] 1999 Unknown [id number] 2.16.84 [id number] 1999 Unknown [id number] 2.16.84 [id number] 1999 Unknown [id number] 2.16.84 [id number] 1999 Unknown [id number] 2.16.8 [id number] Social History Date Type Detail Facility Start: 10-05-2022 Tobacco smoking status ALIS Smokes tobacco daily [employer] Phone: History of tobacco use Cigarette Smoker [facility] Phone: Start: 10-05-2022 End: 10-14-2022 Cigarettes smoked current (pack per day) - Reported 1 [employer] Phone: Start: 10-05-2022 Tobacco use and exposure Smokeless tobacco non-user [employer] Phone: Start: 10-05-2022 End: 10-14-2022 Alcohol intake Current drinker of alcohol (finding) [employer] Phone: Start: 10-05-2022 Alcohol Comment in a month [employer] Phone: Start: 2000 Sex Assigned At Not on file [employer] Phone: Start: 09-25-2022 End: 10-14-2022 Exposure to SARS-CoV-2 (event) Not sure [employer] Phone: Start: 10-14-2022 History SDOH Alcohol Frequency 1 [employer] Phone: Start: 10-14-2022 History SDOH Alcohol Std Drinks 0 [employer] Phone: Sex Assigned At Sex Assigned At [facility] [employer] [facility] Start: 2000 Sex Assigned At Female [facility] Start: 10-20-2023 Gender identity Identifies as female gender (finding) [facility] Start: 10-20-2023 Sexual orientation Heterosexual (finding) [facility] History of Present illness Narrative 10-27-2023 Zari Wagner LPN - 10/27/2023 2:30 PM EST Note Date & Type Note Facility 10-27-2023 History of Presen t illness Narrative Patient to return in 2 weeks to get a SUE as not able to obtain today. documented in this encounter [facility] Evaluation note 06-23-2023 [...] understanding and is agreeable to treatment plan [employer] Other Evaluation note Note Date & Type Note Facility Evaluation note Diagnosis Plantar fasciitis- Primary Plantar fascial fibromatosis documented in this encounter [employer] Phone: Evaluation note Note Date & Type Note Facility Evaluation note Diagnosis Viral URI with cough- Primary Acute upper respiratory infections of unspecified site documented in this encounter [employer] Phone: Evaluation note Note Date & Type Note Facility Evaluation note Diagnosis Missed menses documented in this encounter [facility] History general Narrative - Reported Note Date & Type Note Facility History general Narrative - Reported Type Surgical History wisdom teeth [facility] [facility] Other Hospital Discharge instructions Attachments Note Date & Type Note Facility Hospital Discharge instructions The following attachments cannot be sent through Care Everywhere.Plantar Fasciitis ([place])documented in this encounter [employer] Phone: Hospital Discharge instructions Attachments Note Date & Type Note Facility Hospital Discharge instructions The following attachments cannot be sent through Care Everywhere.URI (Upper Respiratory Infection) (Citizen [place])documented in this encounter [employer] Phone: Summary Purpose Family History No Family [...] Care Teams (unrecognized sec tion and content) [place]man Relationship Specialty Start Date End Date Viral Galindo MD [address] [place] [address] PCP - General Pediatrics 10/27/23 INFORMATION SOURCE (unrecogn ized section and content) DATE CREATED AUTHOR 04/13/2024 Michelle garcia DATE CREATED AUTHOR AUTHOR'S ORGANIZ ATION 04/15/2024 [facility] EPIC DATE CREATED AUTHOR AUTHOR'S ORGANIZ ATION 04/17/2024 [facility] FOR RECORDS PERTAINING TO PATIENTS WHO ARE [...] BE BASED ON THE PRIMARY CLINICAL RECORDS. [facility]. provides no warranty or guarantee of the accuracy or completeness of information in this document.
[2024-04-23 16:10] VITALS: BP 142/78; PULSE 80
== END 2024-04-23 16:40 | disposition home or self-care (01) ==
LOC: FBCO 07:06 → FBC 16:06
PROVIDERS: PCP Family Medicine; Visit Provider Obstetrics & Gynecology
DX: O36.63X0 Maternal care for excessive fetal growth, third trimester, not applicable or unspecified (principal)
CPT/HCPCS: 59025

== ENCOUNTER 2024-04-26 07:15 | Outpatient (OUT) | payer OTHER, MEDICAID, SELFPAY ==
--- OUTSIDE RECORDS SUMMARY | 2024-04-26 07:18 | XMS_ITS | CCD ---
Author Organization [facility] [employer] [facility] Care Team Providers Care Salt Operator Name Role Phone Unavailable Primary Care Provider UnavailJossie Lui Unavailable Viral Galindo MD Primary Care Provider [phone] SARKIS JAY Referring Unavailable SARKIS JAY Attending Unavailable JOE WOOD Attending Unavailable JUSTINE CALLAHAN Attending Unavailable JUSTINE CALLAHAN Attending Unavailable JOE WOOD Attending Unavailable JOE WOOD Attending Unavailable JEO WOOD Attending Unavailable JOE WOOD Attending Unavailable JUSTINE CALLAHAN Attending Unavailable Viral Galindo Primary Care Unavailable Justine Olmstead Attending Unavailable Justine Olmstead Admitting Unavailable Allergies Allergy Classification Reported Allergen(s) Allergy Type Date of Onset Reaction(s) Facility (1 source) No Known Medication Allergies; Translations: [No Known Medication Allergies] Propensity to adverse reactions to drug (disorder) [facility] Repository Medications Current Medications Medication Drug [...] Range Facility Outside Recordson 04-13-2024 Outside Records [id number] Normal [facility] CBC with Diffon 04-09-2024 Abs. Basophil 0.00 k/uL Normal 0.00-0.20 [facility] Comment on above: Performed By: #### C DP, CP #### [facility] [address] [place] [address] Playground Monitor: Viral Mcgraw MD Abs.Imm.Granulocyte 0.03 k/uL Normal 0.00-0.30 [facility] Comment on above: Performed By: #### C DP, CP #### [facility] [address] [place] [address] Playground Monitor: Viral Mcgraw MD Abs.Neutrophil (Seg) 6.53 k/uL Normal 2.5-7.0 [facility] Comment on above: Performed By: #### C DP, CP #### [facility] [address] [place] [id number] Playground Monitor: Viral Mcgraw MD Basophils/100 WBC (Bld) 0 % Normal 0-2 [facility] Comment on above: Performed By: #### C DP, CP #### [facility] [address] [place], [place] [id number] Playground Monitor: Viral Mcgraw MD Eosinophils (Bld) [#/Vol] 0.21 10*3/uL Normal 0.00-0.40 [facility] Comment on above: Performed By: #### C DP, CP #### [facility] [address] [place], [place] [id number] Playground Monitor: Viral Mcgraw MD Eosinophils/100 WBC (Bld) 2 % Normal 0-5 [facility] Comment on above: Performed By: #### C DP, CP #### [facility] [address] [place] [id number] Playground Monitor: Viral Mcgraw MD Erythrocyte distribution width (RBC) [Ratio] 13.9 % Normal 12.1-15.2 [facility] Comment on above: Performed By: #### C DP, CP #### [facility] [address] [place] [address] Playground Monitor: Viral Mcgraw MD Hematocrit (Bld) [Volume fraction] 32.4 % Low 36.0-46.0 [facility] Comment on above: Performed By: #### C DP, CP #### [facility] [address] [place], [place] [id number] Playground Monitor: Viral Mcgraw MD Hemoglobin (Bld) [Mass/Vol] 11.2 g/dL Low 12.0-16.0 [facility] Comment on above: Performed By: #### C DP, CP #### [facility] [address] [place], [place] [id number] Playground Monitor: Viral Mcgraw MD Immature granulocytes/100 WBC (Bld) 0 % Normal 0-5 [facility] Comment on above: Performed By: #### C DP, CP #### [facility] [address] [place] [address] Playground Monitor: Viral Mcgraw MD Lymphocytes (Bld) [#/Vol] 1.74 10*3/uL Normal 1.00-4.80 [facility] Comment on above: Performed By: #### C DP, CP #### [facility] [address] [place] [id number] Playground Monitor: Viral Mcgraw MD Lymphocytes/100 WBC (Bld) 19 % Normal 15-40 [facility] Comment on above: Performed By: #### C DP, CP #### [facility] [address] [place] [id number] Playground Monitor: Viral Mcgraw MD MCH (RBC) [Entitic mass] 30.4 pg Normal 26.0-34.0 [facility] Comment on above: Performed By: #### C DP, CP #### [facility] [address] [place] [address] Playground Monitor: Viral Mcgraw MD MCHC (RBC) [Mass/Vol] 34.6 g/dL Normal 31.0-37.0 [facility] Comment on above: Performed By: #### C DP, CP #### [facility] [address] [place] [address] Playground Monitor: Viral Mcgraw MD MCV (RBC) [Entitic vol] 88.0 fL Normal 80.0-100.0 [facility] Comment on above: Performed By: #### C DP, CP #### [facility] [address] [place] [address] Playground Monitor: Viral Mcgraw MD Monocytes (Bld) [#/Vol] 0.48 10*3/uL Normal 0.00-1.00 [facility] Comment on above: Performed By: #### C DP, CP #### [facility] [address] [place], [place] [id number] (192) Playground Monitor: Viral Mcgraw MD Monocytes/100 WBC (Bld) 5 % Normal 4-8 [facility] Comment on above: Performed By: #### C DP, CP #### [facility] [address] [place], [place] [id number] (096) Playground Monitor: Viral Mcgraw MD Neutrophil (Seg) 74 % Normal 47-75 [facility] Comment on above: Performed By: #### C DP, CP #### [facility] [address] [place], [place] [id number] (080) Playground Monitor: Viral Mcgraw MD Platelet mean volume (Bld) [Entitic vol] 10.7 fL Normal 6.0-12.0 [facility] Comment on above: Performed By: #### C DP, CP #### [facility] [address] [place] [address] Playground Monitor: Viral Mcgraw MD Platelets (Bld) [#/Vol] 220 10*3/uL Normal 140-450 [facility] Comment on above: Performed By: #### C DP, CP #### [facility] [address] [place] [address] Playground Monitor: Viral Mcgraw MD RBC (Bld) [#/Vol] 3.68 10*6/uL Low 4.00-5.20 [facility] Comment on above: Performed By: #### C DP, CP #### [facility] [address] [place] [address] Playground Monitor: Viral Mcgraw MD WBC (Bld) [#/Vol] 9.0 10*3/uL Normal 3.5-11.0 [facility] Comment on above: Performed By: #### C DP, CP #### [facility] [address] [place] [address] Playground Monitor: Viral Mcgraw MD Comp Metabolic Profon 2023 Albumin [Mass/Vol] 3.2 g/dL Low 3.5-5.2 [facility] Comment on above: Performed By: #### C DP, CP #### [facility] [address] [place] [address] Playground Monitor: Viral Mcgraw MD Alkaline Phos 74 U/L Normal 35-104 [facility] Comment on above: Performed By: #### C DP, CP #### [facility] [address] [place] [address] Playground Monitor: Vrial Mcgraw MD ALT [Catalytic activity/Vol] 26 U/L Normal 5-33 [facility] Comment on above: Performed By: #### C DP, CP #### [facility] [address] [place] [address] Playground Monitor: Viral Mcgraw MD Anion gap [Moles/Vol] 10 mmol/L Normal 9-17 [facility] Comment on above: Performed By: #### C DP, CP #### [facility] [address] [place] [address] Playground Monitor: Viral Mcgraw MD AST [Catalytic activity/Vol] 16 U/L Normal <32 [facility] Comment on above: Performed By: #### C DP, CP #### [facility] [address] [place] [address] Playground Monitor: Viral Mcgraw MD Bilirubin [Mass/Vol] 0.2 mg/dL Low 0.3-1.2 [facility] Comment on above: Performed By: #### C DP, CP #### [facility] [address] [place] [address] Playground Monitor: Viral Mcgraw MD BUN/CRE Ratio 7 Low 9-20 [facility] Comment on above: Performed By: #### C DP, CP #### [facility] [address] [place], [place] [id number] Playground Monitor: Viral Mcgraw MD Calcium [Mass/Vol] 9.1 mg/dL Normal 8.6-10.4 [facility] Comment on above: Performed By: #### C DP, CP #### [facility] [address] [place] [address] Playground Monitor: Viral Mcgraw MD Chloride [Moles/Vol] 101 mmol/L Normal 98-107 [facility] Comment on above: Performed By: #### C DP, CP #### [facility] [address] [place], [place] [id number] Playground Monitor: Viral Mcgraw MD CO2 [Moles/Vol] 24 mmol/L Normal 20-31 [facility] Comment on above: Performed By: #### C DP, CP #### [facility] [address] [place], [place] 1034290 Playground Monitor: Viral Mcgraw MD Creatinine [Mass/Vol] 0.7 mg/dL Normal 0.5-0.9 [facility] Comment on above: Performed By: #### C DP, CP #### [facility] [address] [place], [place] [id number] Playground Monitor: Viral Mcgraw MD GFR/1.73 sq M.predicted among non-blacks MDRD (S/P/Bld) [Vol rate/Area] mL/min/{1.73_m2} Normal >60 [facility] Comment on above: Result Comment: [...] Performed By: #### C DP, CP #### [facility] [address] [place], [place] [id number] Playground Monitor: Viral Mcgraw MD Glucose [Mass/Vol] 107 mg/dL High 70-99 [facility] Comment on above: Performed By: #### C DP, CP #### [facility] [address] [place] [address] Playground Monitor: Viral Mcgraw MD Potassium [Moles/Vol] 3.3 mmol/L Low 3.7-5.3 [facility] Comment on above: Performed By: #### C DP, CP #### [facility] [address] [place] [address] Playground Monitor: Viral Mcgraw MD Protein [Mass/Vol] 6.3 g/dL Low 6.4-8.3 [facility] Comment on above: Performed By: #### C DP, CP #### [facility] [address] [place], [place] [id number] Playground Monitor: Viral Mcgraw MD Sodium [Moles/Vol] 135 mmol/L Normal 135-144 [facility] Comment on above: Performed By: #### C DP, CP #### [facility] [address] [place], [place] [id number] Playground Monitor: Viral Mcgraw MD Urea nitrogen [Mass/Vol] 5 mg/dL Low 6-20 [facility] Comment on above: Performed By: #### C DP, CP #### [facility] [address] [place] [address] Playground Monitor: Viral Mcgraw MD AFP Tetra LCon 02-01-2024 AFP CHIN MoM 1.12 Invalid Interpretation Code [facility] Comment on above: Performed By: #### 3 [id number] #### [facility] (DEFAULT) [address] [place] [address] AFP DSR (By Age) 1 [place] 1039 Invalid Interpretation Code [facility] Comment on above: Performed By: #### 3 [id number] #### [facility] (DEFAULT) [address] [place] [address] AFP DSR (Second Trimester) 1 [place] 957 [facility] Comment on above: Performed By: #### 3 [id number] #### [facility] (DEFAULT) [address] [place] [address] 74168 AFP Gest. Age on Collection Date 19.3 week(s) [facility] Interpretation [facility] Comment on above: Result Comment: Not provided. Performed By: #### 3 [id number] #### [facility] (DEFAULT) [address] [place] [address]507 AFP Gestat. Age Based On SUE [facility] Comment on above: Result Comment: 05/27 Performed By: #### 3 [id number] #### [facility] (DEFAULT) [address] [place] [address] 17847 AFP hCG MoM 1.18 [facility] Comment on above: Performed By: #### 3 [id number] #### [facility] (DEFAULT) [address] [place] [address] 26368 AFP insulin Dep Diabetes No [facility] Interpretation [facility] Comment on above: Result Comment: Not provided. Performed By: #### 3 [id number] #### [facility] (DEFAULT) [address] [place] [address] 34805 AFP Interpretation Comment [facility] Interpretation [facility] Comment on above: Result Comment: [...] identifies 60% of Trisomy 18 pregnancies. The [employer] recommends amniocentesis [...] within 10 days. Performed By: #### 3 [id number] #### [facility] (DEFAULT) [address] [place] [address] AFP Maternal Age At SUE 24.8 Invalid Interpretation Code [facility] Comment on above: Performed By: #### 3 [id number] #### [facility] (DEFAULT) [address] [place] [address] 46290 AFP MoM 0.69 Invalid Interpretation Code [facility] Comment on above: Performed By: #### 3 [id number] #### [facility] (DEFAULT) [address] [place] [address] 32033 AFP Multiple Gestation No Invalid Interpretation Code [facility] Comment on above: Result Comment: Not provided. Performed By: #### 3 [id number] #### [facility] (DEFAULT) [address] [place] [address] 76247 AFP OSBR Risk 1 [place] [address] Invalid Interpretation [facility] Comment on above: Performed By: #### 3 [id number] #### [facility] (DEFAULT) [address] [place] [address] 38848 AFP Race Invalid Interpretation [facility] Comment on above: Result Comment: Not provided. Performed By: #### 3 [id number] #### [facility] (DEFAULT) [address] [place] [address] 07004 AFP Results Comment Invalid Interpretation [facility] Comment on above: Result Comment: The MOM and risk factors of this report have been modified based on new information supplied to us by the client or their designated exhibit display representative. The Gestational Age Based On was [...] provided. to 348. Performed By: #### 3 [id number] #### [facility] (DEFAULT) [address] [place] [address] 80347 AFP T18 (By Age) 1:4050 Invalid Interpretation [facility] Comment on above: Performed By: #### 3 [id number] #### [facility] (DEFAULT) [address] [place] [address] 02503 AFP T18 Risk Not increased Invalid Interpretation [facility] Comment on above: Performed By: #### 3 [id number] #### [facility] (DEFAULT) [address] [place] [address] 53569 AFP Test Results: Negative Invalid Interpretation [facility] Comment on above: Performed By: #### 3 [id number] #### [facility] (DEFAULT) [address] [place] [address] 85702 AFP uE3 MoM 0.66 Invalid Interpretation [facility] Comment on above: Performed By: #### 3 [id number] #### [facility] (DEFAULT) [address] [place] [address] 02098 AFP Tetra LCon 01-18-2024 AFP Comments: Comment Invalid Interpretation Code [facility] Comment on above: Result Comment: Bethany Perez, Ph.D., [facility] Director References: Available Upon Request. Multiples Of Median Cutoffs Abbreviation Definitions For AFP Elevations IDD- Insulin Dep Diabetes Cadet 2.5 Black 2.8 OSBR- Open Spina Bifida IDD 2.0 Twins 4.5 Risk DSR Cutoff 1:270 DSR- Down Syndrome Risk T18 Cutoff 1:100 T18- Trisomy 18 For further inquiries contact [email or web address] at [phone]. This test was developed and its performance characteristics determined by [email or web address]. It has not been cleared or approved by the Food and Drug Administration. Performed At: [facility] [address] [facility], [place] [id number] [facility] Ph:[phone] Performed By: #### 3 [id number] #### [facility] (DEFAULT) [address] [place] [address] 14662 AFP CHIN Value 120.65 pg/mL Invalid Interpretation Code [facility] Comment on above: Performed By: #### 3 [id number] #### [facility] (DEFAULT) [address] [place] [address] 59706 AFP uE3 Value 1.08 ng/mL Invalid Interpretation Code [facility] Comment on above: Performed By: #### 3 [id number] #### [facility] (DEFAULT) [address] [place] [address] 24023 AFP Value 23.0 ng/mL Invalid Interpretation Code [facility] Comment on above: Performed By: #### 3 [id number] #### [facility] (DEFAULT) [address] [place] [address] [place] [address] m[IU]/mL Invalid Interpretation Code [facility] Comment on above: Performed By: #### 3 [id number] #### [facility] (DEFAULT) [address] [place] [address] 72568 Coding Summaryon 01-18-2024 Coding Summary HTMLBase 64 UuznyeeaEKr2gNm+PGhl YWQ+LK6ZULZvE51hkTHg gQ8zN1PTPIzATrdsGVCT KSwDAsGuewUnNX3btMXo ZXJu IC8+UG7wSIUlYualcXSb m9V0rEO2R25zvz0yKIwu fDU5DYBaCuOyghlsn1dj vSr2KUaxRuawCgZh LBUctG56IIO7hQ57Hv51 pXVsmIScx6htkXi0EyNn TCJwXWX8fPlqZHktm4Ua FLAvL29swVIth4C6 IGNvbGxhcHNlOyBlbXB0 tC4tNSrinptzk9whrkvm Cph2yq31ePJud7F0jZY1 F3FmyfJ8ZYTowPOb IhhenHKFpA9cscvxx6wn beknEuRyDZWcICr5TEt9 QBHhhOsmUlEfWH57CCV3 ZQCyfaDiH0GaECZn zWbgLsK9f1L1Ti6KA1JF QezmZ2HFYIUYSAwuvEU+ HG06zu54X4LwUaxqZcw5 ZOEsOOR7hCF4uN4r FUJzKGqno4L4aSF9S6Ra aqHgao3dy8icWOWqRNky A36eeUJez0H8VDWadHW7 RVJmeIkyObGiqK78 Oyc+PUIddEqxv5YbOmed g2rzl8pduAz1YasuQCYq mdLodIhoCJJ2d5WbAu8v FEXhaZS4hDE2pR2z FwCwGeI8BFxnE759OdXm kLTjGwsdE62aD0EezZO+ SDObJtd2UHIlvIbtRQ1x A0YpZPCoafitaPYa oAzfUY7eQNVofnvuNOQf xZ2zSZWcA9f3GvPkRaP4 USzvG2LbPJOdgajcVq11 aW7gUpDkRlO4WDwu G6RmefQ8CATtoBNjOQhq EDB0E53ta7W4AQFkKCTq RXA9gTH8eA2tpOfurljb bGVmdDsgdmVydGlj TBjcEPpvI548UMPhuEsz PkNvZGluZyBEYXRlOiAg MDQvMjQvMjAyNDwvdGQ+ KLUhPTZ9xSakOZSl pYYeNTerAf1jsHsbqBjj DD4xANQxvcrtVROokJ2z CEYduZXexSosWQ7dKUEf leqfy224BaEmHOZ6 KVJjvLAoC1SkhC4hAyZo RXXjORHvB1GxiATuRTxz E134LQmtPzD5HOUyxqGh Y3PuIGDflLiwMwE1 l5V5Qc4Xg6AkcneaL9Ys aDZiBjGwYjhyDEm2O1Vw PjwvdHI+BD03EWVpGV28 KVx1UFK5hMweBVyn TXVrQ8BvmK2tDjInDANp ZGRkOyc+PHRhYmxlIHdp ZHRoPScxMDAlJyBzdHls RN8lKj4dQDXnKHJf eAqskABxVrRas2ugZROj JLgzSL2irTugJ5ShyCD9 OBPni4r4Ju03B17eZ8Hk dXA+CDMicKV8wVG5 uS7cToTqAtH4SPycI048 AfMvdUXoFdcwp7taq3nn aLl7QtY7EXAvfcGjtLdz SGK9a6QtQb28O38w IHdpZHRoPSIxNSUiIHZh iWalsc7tyS5fYd0+PGNv pUW8fZG9wL9rObWiEtF5 GAmoZ006YtSpnGEc Ineoc8iof1nwwNd7KvAo NJVbzsGwpPzxJSQ7t8Om Bk42Z3QqzRlke2DkJuh3 qe07eUJde5K2tLY6 Z1PxHOXtkmkifKRgxOxo FQ9oBUIcacyyKHKnqD5r ILIgZ8r3FqGaMvW8FGvu K4CqsvK7DHZovQXx GRQcoNOPoW8bagdfh0sj vdjtIdOhBVQiCKn4FGq0 WIClwUjoTiMbZPG0CnD3 CRK8dIJgfV0jfOno vadyjS0yLww+NTM0qWNk mQNUIV3pObbkpZY+PHRk UKP2mKmgQZbcMISlrC2p OBFbG9k0SaNlZyW1 VAkvK1BqsyC5CWHyvDOn XYEwnHZFvM9hovbwa8iy ztsaAiXpZBMkUSj9RTx4 LWFsaWduOiBsZWZ0 LfD4WQP5jNTqhB4ohSpl pdbojV1oYqv+QmlydGgg MUP2SWy9I4HyJes3HCMw rNcyGV1koAQwCRoc Dk6kuLwebGufJS7xAANw rojmx151KrBfk0bpZBKv wNGzFBgvLQV0A05gu4M1 UBIpKRMcKRX6xAS1 uY5srKdwzegkkYGgnAum ykRggQfwJLvzOMiiW107 WOMorNneTnGxZCy2X3Pu Yge5FZSksMfhFH9e uXSpGRfvJz9kgMdlrZus IZ9bQYHprufdf592LaJm f2ukCAEczOQhAInxIZR9 S24dy7N6PMUwXFWs FKE3yJK7bR2dhVtuqheu bGVmdDsgdmVydGljYWwt UQxnF919GPRroEtbUbWx yEx3Q7OuTzo0NLZn fCkfEC1xeHQzQEvwPe7l mDicxKfxWR8gELNjidta q943ZoNdt0wrQDNahELk WAlyQSQ5L55cw8G7 YRJhWDOgBOS3iIF8nT0q bGlnbjogbGVmdDsgdmVy sLkeFDivSJwbZ009WIMy cDsnPlBhdGllbnQg WMwxARz1M8AsXuvizGF+ LL59FMPyFH90lWEaxDXr s4tkzZb7TrCwPXNnOKD3 bZizBHwcc6FgCSDg U01jaLOid5Y1BDAysLcz kPPnElXceKU2yT7sFAss ojcbp3sukemtJlibu9bg my08xD94B83wJYlt ZHRoPSIzMCUiIHZhbGln rf7paV8cGh2+PGNvbCB3 mVV3jS2lPCGmIiY8IYze O962BaZdlEWgHkhn x0ksp5nebLv0DfA3THYh tbCiaCefSTF4h0GxSx07 N20bVOrlRFJsNREpESZh VCBypZlowk2zmV3u Ii8+REHcyOV0lGL4hJ8w DvQvJwJ1ROrgL443GbFo oLRfYkubW70pQ2QihIU+ JMMfIlb2HWJioVoa PX6pnJHgFHdyAd8cAVD7 ClRjQyEmKHuvG4HcEYHt mkemeegucBC2YDOkNTHt yU13Bl7adPjlSUXz bDNIyJ6emzsxl2lrpkdz ZmNrDFPbZLs6CMf4AETg wVwaMeRxVEB7DqA2TXJ9 uVFgdA8kkMjsfegj zJ3iV9ZlHCIqvircJo52 mY3rQrNvZkV8XBimLqs+ ZQ3GMVJAUFgxENaLHRmB IFNJRVJSQTwvdGQ+ EAZmVFU8tWtdLTkdIWAe hD4jKLQzN8m9ViZuIzY4 NMmkZ2AcVXPvgfwbSm97 zX4bHyKiShP4BOgj L7ApcyD8IHZjaOCrRVkg OAF9W74km5E4CIVhTPQq JPP1eIO2tW8elBsprtak bGVmdDsgdmVydGlj EAxtJElbO687HUSgcBti ZkOeLeQqYqR2MAv0O8Op Uxy2ASZkqAtqXO5tdXQp HUhkQo3cjMonmIva IN9aZCPoeojsKJDyyC6g RXKlbOIolZmqLK8sPUPu doczq360GdAeQSJ0OYTf sPVwZ6OesE3vQsYm CKQnEDOlJ5IxjLKnDOyg J922QAqxAoA1WAMltgPf M9FgDZLadRliBnL5z5D9 Qr9pWRPLWPLxkfcs dGQ+JXBwDUA0oWiqGXsw INMelC1tKGXmU6g0BhRh BxQ7GXqoR2ZbTJAlnwsc Am67rB3eGnMfXzJ2 KOrqR8OnysM7VUJusPDh NZmsVZF1X05uz9U4IWPe XHFcOIQ2eDE4mT5zgTxi bjogbGVmdDsgdmVy fHlhCKoxDPylK870CNLf cDsnPkZFTUFMRTwvdGQ+ MLOkCRD3jGpnUByeCLNr iS2pFWNmQ0s5VaGj RwE9AFliJ3VwZPDlzsac Kz00bO1sWhNaDxW1AFmr W8ZkfuC3LNGvhNPtOBeh GKM3U17zm0W8PTPx HZZwDNP1yWO4iZ4ouUcl bjogbGVmdDsgdmVydGlj FUelEMteP030EJEqkEwr Df5FLK62VT25Q2Ib PjwvdGFibGU+PHRhYmxl IHdpZHRoPScxMDAlJyBz sUvaCI0qKk2hIIJfKKVj lLiscXXoWbEkl3ox WJZaKJnqQW4skYitD5Xj nGM8IKCql5u0Gg44X76i R0PmqIK+VXYfcQO4hOF7 sL1vOwCrWtB8QDtq T983JtYskEGpVqsoh2mm w3kwsAi0HxTlICDsygBo kRzpOIL5v8RaBr40Y78k IHdpZHRoPSIyMCUi RWTpySdhec3hhA7nWp4+ DMYejYN7bEP4bL2kGqHq XpN9EDtyV645RtEfaKKw BvxzY01aF7HrzER+ UVPbUql3EGUsaXmmUK2k qESjUWkkWb2pGUE6QdBm AoUwAEovU3TmSSSsxwhk zcpzaAV8YPCyMQVx cW87Ne5brMrgIs4rJTXb YEA0UHLmgQXzX3DioE0h TfVmBHMaKEZkD7BmbICq EWshB658ZXckPcQ6 PUZhldInC3NlDCWylCdm IvS7s1W5Kb7MeNjgqZPr OS2iYqVwMKg3D2TbStt9 AREepNksZP6hoBUv NFgxHt4hxIgasNprKQ4x MTCzehkhh104VpAvu8hb PJWfsDDjIKqaVZS4W70m k7D8FTBqYXImIHV5 eGT5hA8vzXjaztkosVXn dDsgdmVydGljYWwtYWxp X690NYRglReoOqKTSgu7 F4OuWet8YOLnbFir IB8rgGAtIHpxSv3qoEll kNadZV1dLNRtycdya690 IhGon7zeDUPgpPHcASns JFB5P90bh0K8LCIt XYSlCVQ4tUV3jN2gfWsn bjogbGVmdDsgdmVydGlj HFpsGGkbW049BORhxQfl Sa3TLpk6B0WfDvf3 VYErpDryWK5pgVGeGLtl Ul8olBifrUhxFR2sFBFn ghmcb195GcHtl2tqANIe ePJwIYwqDUA4M55t c7T0EIDsDRRpGHZ4hSI1 tD5seHqyaxrcjKIufVkj mxYkyCbaOBugBCeyO019 IHRvcDsnPlBheWVy OjwvdGQ+UT42pb65C8Id AcfmHyu3ORCiCOZ0yJE3 cZ6vFVTiEYgwi2S4cTN3 W6YgkhDdab3ah3ls YXB (more content not included)... [facility] Provider Orderson 01-12-2024 Provider Orders [id number] [facility] COVID-19, Rapidon 10-14-2022 SARS-CoV-2 (COVID-19) RNA AMANDO+probe Ql (Unsp spec) Not detected Not Detected [facility] Comment on above: Rapid NAAT: The [...] management decisions. Fact sheet for Healthcare Providers: https://www.fda.gov/media/057295/download Fact sheet for Patients: https://www.fda.gov/media/819298/download Methodology: Isothermal Nucleic Acid Amplification Specimen Description .NASOPHARYNGEAL SWAB [facility] Rapid influenza A/B antigens on 10-14-2022 Flu A Antigen Negative NEGATIVE [facility] Comment on above: for Influenza A Anti gen Flu B Antigen Negative NEGATIVE [facility] Comment on above: for Influenza B Anti gen. [facility] Vital Signs Date Time Vital Sign Value Performing Clinician Facility 02-01-2024 09:09-0400 Body weight 157.8528 kg Viral Galindo [facility] Comment on above: Result Comment: Not provided. Performed By: #### [id number] #### [facility] (DEFAULT) [address] [place] [id number] 06-23-2023 10:35-0400 Body height 167.64 cm Jossie Krueger Other [employer] Other 06-23-2023 10:35-0400 Body mass index (BMI) [Ratio] 50.03 kg/m2 Jossie Krueger Other [employer] Other 06-23-2023 10:35-0400 Body temperature 98.3 [degF] Jossie Krueger Other [employer] Other 06-23-2023 10:35-0400 Body weight 140.62 kg Jossie Krueger Other [employer] Other 06-23-2023 10:35-0400 Diastolic blood pressure 90 mm[Hg] Jossie Krueger Other [employer] Other 06-23-2023 10:35-0400 Respiratory rate 18 /min Jossie Krueger Other [employer] Other 06-23-2023 10:35-0400 SaO2% (BldA) [Mass fraction] 97 % Jossie Krueger Other [employer] Other 06-23-2023 10:35-0400 Systolic blood pressure 147 mm[Hg] Jossie Krueger Other [employer] Other 10-14-2022 18:16-0500 Body height 165.1 cm John Hastings DO Work Phone: [employer] [employer] 10-14-2022 18:16-0500 Body mass index (BMI) [Ratio] 52.92 kg/m2 John Hsatings DO Work Phone: [employer] [employer] 10-14-2022 18:16-0500 Body temperature 98.29 [degF] John Hastings DO Work Phone: [facility] 10-14-2022 18:16-0500 Body weight 144.24 kg John Hastings DO Work Phone: [facility] 10-14-2022 18:16-0500 Diastolic blood pressure 96 mm[Hg] John Hastings DO Work Phone: [facility] 10-14-2022 18:16-0500 Heart rate 94 /min John Hastings DO Work Phone: [facility] 10-14-2022 18:16-0500 Respiratory rate 18 /min John Hastings DO Work Phone: [facility] 10-14-2022 18:16-0500 SaO2% (BldA) [Mass fraction] 95 % John Hastings DO Work Phone: [facility] 10-14-2022 18:16-0500 Systolic blood pressure 138 mm[Hg] John Hastings DO Work Phone: [facility] 10-05-2022 23:14-0500 Body height 165.1 cm Chapin Lee MD Work Phone: [facility] 10-05-2022 23:14-0500 Body mass index (BMI) [Ratio] 53.47 kg/m2 Chapin Lee MD Work Phone: [facility] 10-05-2022 23:14-0500 Body temperature 98.4 [degF] Chapin Lee MD Work Phone: [facility] 10-05-2022 23:14-0500 Body weight 145.74 kg Chapin Lee MD Work Phone: [facility] 10-05-2022 23:14-0500 Diastolic blood pressure 87 mm[Hg] Chapin Lee MD Work Phone: [facility] 10-05-2022 23:14-0500 Heart rate 86 /min Chapin Lee MD Work Phone: [facility] 10-05-2022 23:14-0500 Respiratory rate 18 /min Chapin Lee MD Work Phone: [facility] 10-05-2022 23:14-0500 SaO2% (BldA) [Mass fraction] 99 % Chapin Lee MD Work Phone: [facility] 10-05-2022 23:14-0500 Systolic blood pressure 146 mm[Hg] Chapin Lee MD Work Phone: [facility] Encounters Encounter Date Encounter Type Care Provider Facility Start: 04-11-2024 End: 04-11-2024 ambulatory JUSTINE CALLAHAN Not Available Start: 04-10-2024 End: 04-12-2024 ambulatory [facility] Start: 04-09-2024 End: 04-09-2024 Emergency department patient visit [facility] Start: 04-04-2024 End: 04-04-2024 ambulatory JOE TRICIA Not Available Start: 03-21-2024 End: 03-21-2024 ambulatory JOE TRICIA Not Available Start: 03-07-2024 End: 03-07-2024 ambulatory JOE TRICIA Not Available Start: 02-08-2024 End: 02-08-2024 ambulatory JOE TRICIA Not Available Start: 01-16-2024 End: 01-16-2024 ambulatory JUSTINE SINDY Not Available Start: 01-12-2024 End: 01-12-2024 ambulatory Viral Galindo Facility:[facility] Start: 01-10-2024 End: 01-10-2024 ambulatory JUSTINE SINDY Not Available Start: 12-13-2023 End: 12-13-2023 ambulatory JOE TRICIA Not Available Start: 11-11-2023 End: 11-11-2023 ambulatory JOE TRICIA Not Available Start: 10-27-2023 End: 10-27-2023 Office outpatient visit 5 minutes [facility] Tricia Nurse [facility] Comment on above: Canceled (Provider) Start: 06-23-2023 End: 06-23-2023 ambulatory Jossie Krueger Other [facility] Other Start: 06-23-2023 Office outpatient ne w 30 minutes Jossie Krueger [facility] Start: 10-14-2022 End: 10-14-2022 Emergency department patient visit John Hastings DO Work Phone: [facility] ED Comment on above: Viral URI with cough (Primary Dx) Start: 10-05-2022 End: 10-06-2022 Emergency department patient visit Chapin Lee MD Work Phone: [facility] ED Comment on above: Plantar fasciitis (P rimary Dx) Procedures Date Procedure Procedure Detail Performing Clinician Start: 10-14-2022 COVID-19, RAPID John Jade DO Work Phone: Start: 10-14-2022 Iaadiadoo influenza Vadim cele Hastings DO Work Phone: Plan of Treatment Date Care Activity Detail Author Start: 11-11-2023 End: 11-11-2023 ambulatory 11/11/2023 11:00 AM EST Initial [facility] [address] [facility] [place] [address] [facility] Start: 11-11-2023 End: 11-11-2023 Professional / ancillary services management 11/11/2023 10:30 AM EST Ancillary Procedure [facility] [address] [facility] [place] [address] [facility] Start: 10-27-2023 End: 10-27-2024 US Pelvis transvaginal US OB transvaginal Imaging Routine Missed menses Expected: 10/27/2023 (Approximate), Expires: 10/27/2024 [facility] Work Phone: Comment on above: Expected: 10/27/2023 (Approximate), Expires: 10/27/2024 Start: 04-26-2022 Influenza vaccination Flu vaccine (# 1) [facility] Start: 11-17-2021 DTaP/Tdap/Td vaccine (7 - Td or Tdap) DTaP/Tdap/Td vaccine (7 - Td or Tdap) [facility] Start: 01-15-2000 COVID-19 Vaccine (#1) COVID-19 Vacci ne (#1) [facility] Payers Date Payer Category Payer Medicaid [id number] 2022 Unknown [id number] 2019 Medicare [id number]. [id number] 1999 Unknown [id number] 2.16.8 [id number] 1999 Unknown [id number] 2.16.8 [id number] 1999 Unknown [id number] 2.16.84 [id number] 1999 Unknown [id number] 2.16.84 [id number] 1999 Unknown [id number] 2.16.84 [id number] 1999 Unknown [id number] 2.16.84 [id number] 1999 Unknown [id number] 2.16.84 [id number] 1999 Unknown [id number] 2.16.84 [id number] 1999 Unknown [id number] 2.16.84 [id number] 1999 Unknown [id number] 2.16.84 [id number] 1999 Unknown [id number] 2.16.84 [id number] 1999 Unknown [id number] 2.16.8 [id number] Social History Date Type Detail Facility Start: 10-05-2022 Tobacco smoking status RIIS Smokes tobacco daily [employer] Phone: History of tobacco use Cigarette Smoker B ON [employer] Phone: Start: 10-05-2022 End: 10-14-2022 Cigarettes smoked current (pack per day) - Reported 1 [employer] Phone: Start: 10-05-2022 Tobacco use and exposure Smokeless tobacco non-user [employer] Phone: Start: 10-05-2022 End: 10-14-2022 Alcohol intake Current drinker of alcohol (finding) [facility] Phone: Start: 10-05-2022 Alcohol Comment in a month [employer] Phone: Start: 2000 Sex Assigned At Not on file [facility] Phone: Start: 09-25-2022 End: 10-14-2022 Exposure to SARS-CoV-2 (event) Not sure [facility] Phone: Start: 10-14-2022 History SDOH Alcohol Frequency 1 [employer] Phone: Start: 10-14-2022 History SDOH Alcohol Std Drinks 0 [employer] Phone: Sex Assigned At Sex Assigned At [facility] Start: 2000 Sex Assigned At Female [facility] Start: 10-20-2023 Gender identity Identifies as female gender (finding) [facility] Start: 10-20-2023 Sexual orientation Heterosexual (finding) [facility] History of Present illness Narrative 10-27-2023 Zari Wagner LPN - 10/27/2023 2:30 PM EST Note Date & Type Note Facility 10-27-2023 History of Presen t illness Narrative Patient to return in 2 weeks to get a SUE as not able to obtain today. documented in this encounter [facility] Evaluation note 06-23-2023 Note Date [...] understanding and is agreeable to treatment plan [facility] Other Evaluation note Note Date & Type Note Facility Evaluation note Diagnosis Plantar fasciitis- Primary Plantar fascial fibromatosis documented in this encounter [facility] Phone: Evaluation note Note Date & Type Note Facility Evaluation note Diagnosis Viral URI with cough- Primary Acute upper respiratory infections of unspecified site documented in this encounter [facility] Phone: Evaluation note Note Date & Type Note Facility Evaluation note Diagnosis Missed menses documented in this encounter [facility] History general Narrative - Reported Note Date & Type Note Facility History general Narrative - Reported Type Surgical History wisdom teeth [facility] Other Hospital Discharge instructions Attachments Note Date & Type Note Facility Hospital Discharge instructions The following attachments cannot be sent through Care Everywhere.Plantar Fasciitis ([place])documented in this encounter [facility] Phone: Hospital Discharge instructions Attachments Note Date & Type Note Facility Hospital Discharge instructions The following attachments cannot be sent through Care Everywhere.URI (Upper Respiratory Infection) ([place])documented in this encounter [facility] Phone: Summary Purpose Family History No Family [...] Care Teams (unrecognized sec tion and content) 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 [employer] [facility]. provides no warranty or guarantee of the accuracy or completeness of information in this document.
--- NOTE | 2024-04-26 16:03 | US_ITS ---
[address] [address] Patient Name: ZEV YAP MRN: [id number] date: 2000 Sex: F Assigned Patient Location: [facility] Current Patient Location: Accession/Order Number: [id number] Exam Date: 04/26/2024 16:06 Report Date: 04/27/2024 05:41 At the request of: JOE WOOD Procedure: US OB BPP w non-stress EXAMINATION: US OB BPP w non-stress HISTORY:EXCESSIVE GROWTH AFFECTING [id number] COMPARISON: Ultrasound OB biophysical 04/20/2024 TECHNIQUE: Ultrasound biophysical profile was performed in the radiology department. BREATHING MOVEMENTS: 2 GROSS BODY MOVEMENTS: 2 TONE: 2 QUALITATIVE AMNIOTIC FLUID VOLUME: 2 PRESENTATION: CEPHALIC HEART RATE: 129.81 bpm AMNIOTIC FLUID VOLUME: 18.57 cm GESTATIONAL AGE: 34 weeks 2 days US/US OB BPP w non-stress IMPRESSION: Total biophysical profile score: 8 Electronically authenticated by: TEENA RASCON Date: 04/27/2024 05:41
[2024-04-26 16:40] VITALS: BP 141/74; PULSE 94
== END 2024-04-26 17:03 | disposition home or self-care (01) ==
LOC: US 07:15 → FBC 16:07
PROVIDERS: PCP Family Medicine; Visit Provider Obstetrics & Gynecology
DX: O36.63X0 Maternal care for excessive fetal growth, third trimester, not applicable or unspecified (principal); Z3A.34 34 weeks gestation of pregnancy
CPT/HCPCS: 76818

== ENCOUNTER 2024-04-30 07:03 | Outpatient (OUT) | payer OTHER, MEDICAID, SELFPAY ==
--- OUTSIDE RECORDS SUMMARY | 2024-04-30 07:06 | XMS_ITS | CCD ---
Author Organization [facility] Care Team Providers Care Minister Of Religion Name Role Phone Unavailable Primary Care Provider UnavailJossie Lui Unavailable Viral Galindo MD Primary Care Provider [phone] SARKIS JAY Referring Unavailable SARKIS JAY Attending Unavailable JOE WOOD Attending Unavailable JUSTINE CALLAHAN Attending Unavailable JUSTINE CALLAHAN Attending Unavailable JOE WODO Attending Unavailable JOE WOOD Attending Unavailable JOE WOOD Attending Unavailable JOE WOOD Attending Unavailable JUSTINE CALLAHAN Attending Unavailable Viral Galindo Primary Care Unavailable Justine Olmstead Attending Unavailable Justine Olmstead Admitting Unavailable Allergies Allergy Classification Reported Allergen(s) Allergy Type Date of Onset Reaction(s) Facility (1 source) No Known Medication Allergies; Translations: [No Known Medication Allergies] Propensity to adverse reactions to drug (disorder) [facility] Repository Medications Current Medications Medication Drug [...] Value Interpretation Reference Range Facility [facility] 04-25-2024 Outside Records [id number] [facility] Outside [facility] [id number] [facility] 04-09-2024 Abs. Basophil 0.00 k/uL Normal 0.00-0.20 [facility] Comment on above: Performed By: #### C BOYD, CP #### [facility] [address] [place] [address] [employer] Checker: Viral Mcgraw MD Abs.Imm.Granulocyte 0.03 k/uL Normal 0.00-0.30 [facility] Comment on above: Performed By: #### C BOYD, CP #### [facility] [address] [place] [address] [employer]er: Viral Mcgraw MD Abs.Neutrophil (Seg) 6.53 k/uL Normal 2.5-7.0 [facility] Comment on above: Performed By: #### C DP, CP #### [facility] [address] [place] [phone] [employer]er: Viral Mcgraw MD Basophils/100 WBC (Bld) 0 % Normal 0-2 [facility] Comment on above: Performed By: #### C DP, CP #### [facility] [address] [place] [phone] [employer]er: Viral Mcgraw MD Eosinophils (Bld) [#/Vol] 0.21 10*3/uL Normal 0.00-0.40 [facility] Comment on above: Performed By: #### C DP, CP #### [facility] [address] [place] [phone] [employer]er: Viral Mcgraw MD Eosinophils/100 WBC (Bld) 2 % Normal 0-5 [facility] Comment on above: Performed By: #### C DP, CP #### [facility] [address] [place] [phone] [employer]er: Viral Mcgraw MD Erythrocyte distribution width (RBC) [Ratio] 13.9 % Normal 12.1-15.2 [facility] Comment on above: Performed By: #### C DP, CP #### [facility] [address] [place] [phone] [employer]er: Viral Mcgraw MD Hematocrit (Bld) [Volume fraction] 32.4 % Low 36.0-46.0 [facility] Comment on above: Performed By: #### C DP, CP #### [facility] [address] [place] [phone] [employer]er: Viral Mcgraw MD Hemoglobin (Bld) [Mass/Vol] 11.2 g/dL Low 12.0-16.0 [facility] Comment on above: Performed By: #### C DP, CP #### [facility] [address] [place] [address] [employer]er: Viral Mcgraw MD Immature granulocytes/100 WBC (Bld) 0 % Normal 0-5 [facility] Comment on above: Performed By: #### C DP, CP #### [facility] [address] [place] [phone] [employer]er: Viral Mcgraw MD Lymphocytes (Bld) [#/Vol] 1.74 10*3/uL Normal 1.00-4.80 [facility] Comment on above: Performed By: #### C DP, CP #### [facility] [address] [place] [phone] [employer]er: Viral Mcgraw MD Lymphocytes/100 WBC (Bld) 19 % Normal 15-40 [facility] Comment on above: Performed By: #### C DP, CP #### [facility] [address] [place] [phone] [employer]er: Viral Mcgraw MD MCH (RBC) [Entitic mass] 30.4 pg Normal 26.0-34.0 [facility] Comment on above: Performed By: #### C DP, CP #### [facility] [address] [place] [address] [employer]er: Viral Mcgraw MD MCHC (RBC) [Mass/Vol] 34.6 g/dL Normal 31.0-37.0 [facility] Comment on above: Performed By: #### C DP, CP #### [facility] [address] [place] [phone] [employer]er: Viral Mcgraw MD MCV (RBC) [Entitic vol] 88.0 fL Normal 80.0-100.0 [facility] Comment on above: Performed By: #### C DP, CP #### [facility] [address] [place] [address] [employer]er: Viral Mcgraw MD Monocytes (Bld) [#/Vol] 0.48 10*3/uL Normal 0.00-1.00 [facility] Comment on above: Performed By: #### C DP, CP #### [facility] [address] [place], [place] [phone] ([phone]) [employer]er: Viral Mcgraw MD Monocytes/100 WBC (Bld) 5 % Normal 4-8 [facility] Comment on above: Performed By: #### C DP, CP #### [facility] [address] [place] [address] (028) [employer]er: Viral Mcgraw MD Neutrophil (Seg) 74 % Normal 47-75 [facility] Comment on above: Performed By: #### C DP, CP #### [facility] [address] [place] [address] (305) [employer]er: Viral Mcgraw MD Platelet mean volume (Bld) [Entitic vol] 10.7 fL Normal 6.0-12.0 [facility] Comment on above: Performed By: #### C DP, CP #### [facility] [address] [place] [address] (949) [employer]er: Viral Mcgraw MD Platelets (Bld) [#/Vol] 220 10*3/uL Normal 140-450 [facility] Comment on above: Performed By: #### C DP, CP #### [facility] [address] [place], [place] [phone] ([phone] [employer]er: Viral Mcgraw MD RBC (Bld) [#/Vol] 3.68 10*6/uL Low 4.00-5.20 [facility] Comment on above: Performed By: #### C DP, CP #### [facility] [address] [place], [place] [phone] ([phone] [employer]er: Viral Mcgraw MD WBC (Bld) [#/Vol] 9.0 10*3/uL Normal 3.5-11.0 [facility] Comment on above: Performed By: #### C DP, CP #### [facility] [address] [place], [place] [phone] [employer]er: Viral Mcgraw MD Comp Metabolic Profon 2023 Albumin [Mass/Vol] 3.2 g/dL Low 3.5-5.2 [facility] Comment on above: Performed By: #### C DP, CP #### [facility] [address] [place], [place] [phone] [employer]er: Viral Mcgraw MD Alkaline Phos 74 U/L Normal 35-104 [facility] Comment on above: Performed By: #### C DP, CP #### [facility] [address] [place], [place] [phone] [employer]er: Viral Mcgraw MD ALT [Catalytic activity/Vol] 26 U/L Normal 5-33 [facility] Comment on above: Performed By: #### C DP, CP #### [facility] [address] [place], [place] [phone] [employer]er: Viral Mcgraw MD Anion gap [Moles/Vol] 10 mmol/L Normal 9-17 [facility] Comment on above: Performed By: #### C DP, CP #### [facility] [address] [place], [place] [phone] [employer]er: Viral Mcgraw MD AST [Catalytic activity/Vol] 16 U/L Normal <32 [facility] Comment on above: Performed By: #### C DP, CP #### [facility] [address] [place], [place] [phone] [employer]er: Viral Mcgraw MD Bilirubin [Mass/Vol] 0.2 mg/dL Low 0.3-1.2 [facility] Comment on above: Performed By: #### C DP, CP #### [facility] [address] [place] [address] [employer]er: Viral Mcgraw MD BUN/CRE Ratio 7 Low 9-20 [facility] Comment on above: Performed By: #### C DP, CP #### [facility] [address] [place], [place] [phone] [employer]er: Viral Mcgraw MD Calcium [Mass/Vol] 9.1 mg/dL Normal 8.6-10.4 [facility] Comment on above: Performed By: #### C DP, CP #### [facility] [address] [place] [address] [employer]er: Viral Mcgraw MD Chloride [Moles/Vol] 101 mmol/L Normal 98-107 [facility] Comment on above: Performed By: #### C DP, CP #### [facility] [address] [place] [address] [employer]er: Viral Mcgraw MD CO2 [Moles/Vol] 24 mmol/L Normal 20-31 [facility] Comment on above: Performed By: #### C DP, CP #### [facility] [address] [place] [address] [employer] Checker: Viral Mcgraw MD Creatinine [Mass/Vol] 0.7 mg/dL Normal 0.5-0.9 [facility] Comment on above: Performed By: #### C DP, CP #### [facility] [address] [place] [address] [employer]er: Viral Mcgraw MD GFR/1.73 sq M.predicted among non-blacks MDRD (S/P/Bld) [Vol rate/Area] mL/min/{1.73_m2} Normal >60 [facility] Comment on above: Result Comment: These results [...] Performed By: #### C DP, CP #### [facility] [address] [place] [address] [employer]er: Viral Mcgraw MD Glucose [Mass/Vol] 107 mg/dL High 70-99 [facility] Comment on above: Performed By: #### C DP, CP #### [facility] [address] [place] [address] [employer] Checker: Viral Mcgraw MD Potassium [Moles/Vol] 3.3 mmol/L Low 3.7-5.3 [facility] Comment on above: Performed By: #### C DP, CP #### [facility] [address] [place] [address] [employer]er: Viral Mcgraw MD Protein [Mass/Vol] 6.3 g/dL Low 6.4-8.3 [facility] Comment on above: Performed By: #### C DP, CP #### [facility] [address] [place] [address] [employer] Checker: Viral Mcgraw MD Sodium [Moles/Vol] 135 mmol/L Normal 135-144 [facility] Comment on above: Performed By: #### C DP, CP #### [facility] [address] [place] [address] [employer] Checker: Viral Mcgraw MD Urea nitrogen [Mass/Vol] 5 mg/dL Low 6-20 [facility] Comment on above: Performed By: #### C DP, CP #### [facility] [address] [place] [address] [employer] Checker: Viral Mcgraw MD AFP Tetra LCon 02-01-2024 AFP CHIN MoM 1.12 Invalid Interpretation Code [facility] Comment on above: Performed By: #### 3 [id number] #### [facility] (DEFAULT) [address] [place] [address] [id number] AFP DSR (By Age) 1 [place] 1039 Invalid Interpretation [facility] Comment on above: Performed By: #### 3 [id number] #### [facility] (DEFAULT) [address] [place] [address] 50785 AFP DSR (Second Trimester) 1 IN 957 Invalid Interpretation [facility] Comment on above: Performed By: #### 3 [id number] #### [facility] (DEFAULT) [address] [place] [address] 08517 AFP Gest. Age on Collection Date 19.3 week(s) Invalid Interpretation [facility] Comment on above: Result Comment: Not provided. Performed By: #### 3 [id number] #### [facility] (DEFAULT) [address] [place] [address] 47513 AFP Gestat. Age Based On SUE Invalid Interpretation [facility] Comment on above: Result Comment: 05/27 Performed By: #### 3 [id number] #### [facility] (DEFAULT) [address] [place] [address] 50522 AFP hCG MoM 1.18 [facility] Interpretation [facility] Comment on above: Performed By: #### 3 [id number] #### [facility] (DEFAULT) [address] [place] [address] 99443 AFP insulin Dep Diabetes No Invalid Interpretation [facility] Comment on above: Result Comment: Not provided. Performed By: #### 3 [id number] #### [facility] (DEFAULT) [address] [place] [address] [id number] AFP Interpretation Comment Invalid Interpretation [facility] Comment on above: Result Comment: Inte rpretation: [...] identifies 60% of Trisomy 18 pregnancies. The [employer] recommends amniocentesis [...] within 10 days. Performed By: #### 3 [id number] #### [facility] (DEFAULT) [address] [place] [address] 41088 AFP Maternal Age At SUE 24.8 Invalid Interpretation Code [facility] Comment on above: Performed By: #### 3 [id number] #### [facility] (DEFAULT) [address] [place] [address] 42621 AFP MoM 0.69 Invalid Interpretation Code [facility] Comment on above: Performed By: #### 3 [id number] #### [facility] (DEFAULT) [address] [place] [address] 94597 AFP Multiple Gestation No Invalid Interpretation Code [facility] Comment on above: Result Comment: Not provided. Performed By: #### 3 [id number] #### [facility] (DEFAULT) [address] [place] [address] 44211 AFP OSBR Risk 1 [place] [address] Invalid Interpretation [facility] Comment on above: Performed By: #### 3 [id number] #### [facility] (DEFAULT) [address] [place] [address] 22634 AFP Race Invalid Interpretation Code [facility] Comment on above: Result Comment: Not provided. Performed By: #### 3 [id number] #### [facility] (DEFAULT) [address] [place] [address] 95990 AFP Results Comment Invalid Interpretation [facility] Comment on above: Result Comment: The MOM and risk factors of this report have been modified based on new information supplied to us by the client or their designated maintenance representative. The Gestational Age Based On was [...] provided. to 348. Performed By: #### 3 [id number] #### [facility] (DEFAULT) [address] [place] [address] 23602 AFP T18 (By Age) 1:4050 Invalid Interpretation [facility] Comment on above: Performed By: #### 3 [id number] #### [facility] (DEFAULT) [address] [place] [address] 21729 AFP T18 Risk Not increased Invalid Interpretation [facility] Comment on above: Performed By: #### 3 [id number] #### [facility] (DEFAULT) [address] [place] [address] 30302 AFP Test Results: Negative Invalid Interpretation [facility] Comment on above: Performed By: #### 3 [id number] #### [facility] (DEFAULT) [address] [place] [address] 59431 AFP uE3 MoM 0.66 Invalid Interpretation [facility] Comment on above: Performed By: #### 3 [id number] #### [facility] (DEFAULT) [address] [place] [address] 90075 AFP Tetra LCon 01-18-2024 AFP Comments: Comment Invalid Interpretation [facility] Comment on above: Result Comment: Bethany Perez, Ph.D., [facility] Director References: Available Upon Request. Multiples Of Median Cutoffs Abbreviation Definitions For AFP Elevations IDD- Insulin Dep Diabetes Cadet 2.5 Black 2.8 OSBR- Open Spina Bifida IDD 2.0 Twins 4.5 Risk DSR Cutoff 1:270 DSR- Down Syndrome Risk T18 Cutoff 1:100 T18- Trisomy 18 For further inquiries contact [employer] [facility] at [phone]. This test was developed and its performance characteristics determined by [employer]. It has not been cleared or approved by the Food and Drug Administration. Performed At: [facility] RT[address] [facility], [place] [id number] Romero Mckenna [facility] Ph:[phone] Performed By: #### 3 [id number] #### [facility] (DEFAULT) [address] [place] [address] 42284 AFP CHIN Value 120.65 pg/mL Invalid Interpretation [facility] Comment on above: Performed By: #### 3 [id number] #### [facility] (DEFAULT) [address] [place] [address] 14019 AFP uE3 Value 1.08 ng/mL Invalid Interpretation Code [facility] Comment on above: Performed By: #### 3 [id number] #### [facility] (DEFAULT) [address] [place] [address] 30975 AFP Value 23.0 ng/mL Invalid Interpretation Code [facility] Comment on above: Performed By: #### 3 [id number] #### [facility] (DEFAULT) [address] [place] [address] [place] [address] m[IU]/mL Invalid Interpretation Code [facility] Comment on above: Performed By: #### 3 [id number] #### [facility] (DEFAULT) [address] [place] [address] 34202 Coding Summaryon 01-18-2024 Coding Summary HTMLBase 64 TjenlfllKQt7cNa+PGhl YWQ+SJ5GXEHpB00nhEOr lL2gC5HQIPjNEukvNDOX UHzOFhAzefTbWT8kbZLg ZXJu IC8+TF5dTJOnXqlrtDIc g4K6eSD6V76pzc5lXDag zYX3TFYoKkHvfxmqv3ko jQm6NFlwGnqtWcJp YOAohZ27MUN9aT27Gb70 sETcmNLzs5skjBe4FdUf AOYfSZR8vHktDBdtt5Xp HWJmM00ukKPqr2L2 IGNvbGxhcHNlOyBlbXB0 wG7tKPiqlhngg5pmxdeb Axv7gp78tEKbb9S1aWB0 Z7LlezZ9JZFnlQFp QstjcFCOzS9tjtzwq8ae qwtiQoJbHFOzJZp9HRc8 FZKgzHktPqFdCP34VDG9 YTAfouSpX8LaQWCm wCdgAzP5r4T5Pe6CS6AP MdtoF7QOVUEZPDvxyGU+ LT02zu31X2NlExpcBfn9 PZIuOYV8hRQ1tM6t XGBhQLfun3F8iFR6L6Tl uyXcgy7bj5xcTJHnYTru P93jtHWpv5E8JOEjkOA4 SUAdwWpnBcPevL53 Oyc+CXHjkYuzi3CiXxsu f5ehk2vocMs9UsbkMSYr bgQrcUwbVXL4l8FzEk9r PQIqoVJ6pBL5xY9h EaFnWlC0VVurM056ZgOq zZVxMneeF20lE6YqgZX+ ZZQgFtc0JUNpbPasSM9x L7DwDJPtwoqcvGTn pKgoGG0wETBaolahHHNk vM7eJWKqA4c8WdOaVpP0 CDqbL3OtOOEoktkaVa29 iM7yBoRdTgP3XGkb O2JggkB4WYOoiEHqDRbg XNY0I20xn1Y4ZWLmYCJu DBZ1sEI9cL9dpDdwnugn bGVmdDsgdmVydGlj HNogOWzyN994CLYmuHut PkNvZGluZyBEYXRlOiAg MDQvMjQvMjAyNDwvdGQ+ SAExNJK6mEvtZEJc vKWtFWleHt1puSlprXuh VH7kVIIlhhroFXMcaR8o PDJawFEkrPnrFF0gUUAj lsrhi435XyZaNYE2 KZYknEXtI3GpjH1xRgBc YLGiHPKfJ3VsuYFtCRum Y521STekIiP9WDNignEm C2NeQEGcoKxtSbQ2 h1L2Eq8Gr9VaubhrD8Bx bNKiYjJaUigdJFo1B5Ji PjwvdHI+NN85VKTyLB14 FWx0NKB2qDfhKHjb VQSuW7BvlR6lHnWmEFVi ZGRkOyc+PHRhYmxlIHdp ZHRoPScxMDAlJyBzdHls HP3oYj8vLTMjRYSv tDfewEBhUwQjr3cdJMZo MKrdFH7hxDesX7UgxQJ9 YOUvu6r9Ev68S14rM2Mc dXA+JGTzkET6ySJ3 bY7rMbFmOuI9QWbzQ968 BvLkfPFnBwafd3yvm2fe yOn9QyA1NGPqdsIguHzr PLK7s6BpUm83E72q IHdpZHRoPSIxNSUiIHZh cOhabp4skB0gTf0+PGNv dLF1bZH8oA2xLxKcVdY7 JYdwU876OoQzrWTj Psanr2yyj3gfeOd3AdIk NKVeluTfiNkiKXP6u5Gh Rw58Q1MymGflf1UbBex3 ry59tQHjo9X8fIE7 Z1ZqVGBthrszdYLiqQzz RT6nWESnuyeuVUMbgN0c JKPgV3z0EmKaXvK3KLba L9KycfF7HOJmzHSt WVCwkGWFxG3pxzwqh0dj zchoXwCjSCDsYDt3QBc4 YMBadRxeFiUgYFU7GjE0 UUC4jXSteT4gxZij hgnkzQ3qQwn+GIZ4zAUi vJEZJT3sNeglhGJ+PHRk CYW6uFeqHAcfZRNzbP5g AIGtH6k8GmIuTvW4 EXtnE8ZfevM4DZIenYFc APXdeZTBzL9xfwfmf8qb ugyzBhQeZRQwDLt5KEp5 LWFsaWduOiBsZWZ0 MoC5HGL3oJMfpX4jkXhf abdlnR7tEwf+QmlydGgg ZQZ6BAp2Q7ZxXvf6IMLc iIckTW8ujLSmLOio Rx1quGzkcNvqND0aQBHi ejqqw934CoSef1fyNCHu iALpVTqpUBG3S14fd3B5 UYTlRGKfKNF5hEG8 sE4dvJrdjnjrkXHrnHgo ugFctGehPOfsXPdbO268 HGTehAwfCwPeIFu1W4Hj Ufp7VWAjxBhmMP6n aVAiIGwkUg7fxHzshTtw KV4qDGZaqohno394MrRh y3qmBDRdlIFjNKenHOP2 R75dn0G3HFCdCCZp ACS6xFE5mJ6jkIsmifvr bGVmdDsgdmVydGljYWwt FXrqQ373FJEkbXvqCeWw cUm1A0EhXxz1AOOe cNncRK7tvEUlZAuzRl8p wEhzcMuaMC0qSNVofnoq k515LvSgb5tyVVUpwQUn UVafEKD9W96pz1C5 ZECgPMRcIPU9wEH9kM0q bGlnbjogbGVmdDsgdmVy eRlhXMoiZKvdT793SRZm cDsnPlBhdGllbnQg MHlqAJr0L3PiPfpkhCR+ IZ65QISqWP38zEYorACa n8iwuXc4WfEaNXVbMOG0 wBzgJUbsc4OxPZLq Z21eaJUnf5D0VKMzwHjo aOLyWbVwuYZ6kM8mNUxk xqhds2auqrxkTzbso0zu of00dR23Y88lYRcb ZHRoPSIzMCUiIHZhbGln ry0hyN0fQi0+PGNvbCB3 rTY7iG4vXSDlCpG4AXhb F908FuBikDChGbcn i9fxc7ouuMk8ClH2LMKi iaWhcEbiOJU7a5BaGv85 G52nQEgfBUAhPCKiXSEj GBEnsOrubz6kfL5m Ii8+QWOjgWR1kVC3mV7u SiXpQsX2BKghP860DhAp kLObOatlX20cC1TlxTV+ RDHsYeb1ZUJcpQed NV0lwABxUZxgVm4sKHN6 EhLbEiOkBGulX2SlZTWn jikqjxxhrCJ2VCDiIGHu aX85Vt5tcOteKVIz fORMxO5hjcmng9ijerpc WkVbAVUiHWm6DWa4TLEy jGusFeOgCEL1PqZ0UAF6 uCJfwH8iaNnzfjtf tV5cP1AxXJJtcfuzXz18 qW1pWjVrOnQ4LLsiZtv+ FP8RWRHYEOrzWWzVQXdY IFNJRVJSQTwvdGQ+ VWYyALW6eWlyUKvuGGEs kT9lLIQiK3q6CpZrGfO7 MQwzN5PaBXLciawoWe05 yK2tSxEgXrP8HMqq B9NngeN1FLFxlVFsBSxh GVJ3S84oq6I5KYIzTAAv VUE8cDY8mA6enNplblhd bGVmdDsgdmVydGlj ZWfyJPsmJ048MPYlhEzp PxUaCoRcOvN5MXs3J0Gt Fqx8AEJliFhqLE2pyMWt JLuqAv1qiEazqYgw ZF8cRSTvceobTOXkwN8f VULnzMXtbWpbIN0lKQAj edpcy799DzPdHIM6KFPz pPGiB5UadL0wHcMo XYLvGRCzI1FidVVlKLvk V430YNpsScF5VGZobfZn K9AsODMxmUhzCwA5e1Y6 Kg2tXZQOJGNwxtiq dGQ+MIDeOMF0qZjnFJzg MELqxZ9gDDDpZ9d6CjQh KsV3PRffA8SjVLKtsatb Kw67gW1mZmEdIaY9 YOawH8FfalL8YUNvdKWd ONodGQK8T70lg5K0RXIq UMRjTRV6xBM6sS7vbKex bjogbGVmdDsgdmVy eJsaCLpdUVhrA872KPXh cDsnPkZFTUFMRTwvdGQ+ DTNdAAE0uVnnIVmrFJMu rU2gIDFwN7f3DtDi CgH0CTfwK6JrTSGyrdwt Xj08uJ2oRnUeAaZ8VIpm K5KbccQ8EUAuvKEpFDzt JTC5O04lg3N9PUMr UWDrCAE0pBB6cO2yzKzl bjogbGVmdDsgdmVydGlj UElcPFjwS836GABpbZrz Re5IIY65CW34A0Yh PjwvdGFibGU+PHRhYmxl IHdpZHRoPScxMDAlJyBz hJieDB8uIm8xJDBbNQGa xEmddHSfVsDnz5zq HTDrAAfhCA0tbZgfJ4Xl zPB0FVMgr3g9Yj89H63h I2OmiNN+LQNlbJB2iFH9 sY9vLbBqRlS1MYxl I337EhZfeGGgAoxhv6ay q9mrmLf4WmNcTEMqmnLv kNfoDWP1a5AvMd41Z66d IHdpZHRoPSIyMCUi SGZrlUlyvf3ioW4aUo5+ FNSfcCJ3aXF4xW3yOdTo OmU9BQkcT194CyBjtYQh UlllN75dB3DyfKE+ TAAmJwp0UXIckAmjIT2f fVOwGBvqCd4kTXE5JdFm SvBuPXtfK9ApVPWinsgi hvdccXP5MXGbQLCk oV50Xd7voGyfQd7fTUXp QZL3CVPkcSHhU2TwgF3g UoHuPHPvTONuR5IwmOUz KCmuU684EBzgVkH3 DZSaqvXwL4MzPMUeqJbw GdL4q2T5Rh6KbEzdgQPz FT1pVcSiHDv8O9WqJru3 KUFxhQphVX8aqHSj FFtyFw4xsUlfqPxdGM8n ZASmfkpwg375ZkInj7ta LFPtsAOwHKvqWIL9U91a z8E3LWMtHZQqLCB8 zVV1zJ3epWsskgxjcDDr dDsgdmVydGljYWwtYWxp B742XPQunRbdCvXMVyz2 B5WbGal5GJNqdHhu XX7neLUoRMybZx2dkQwp oNegWC5fFCSononjc051 DgEyz2fgLJVgzKCkHOfw EKB7L39ux9M1VQPk NMXrVNH2sKS0iF8mdMxn bjogbGVmdDsgdmVydGlj JUwqFMfiS507VPMxyXlu Ry2OOlf8P0UyIuq2 BSAixAguXS7xmRVvBAeo Nq5skObxvTsbGU3tRLPl npggl923JjHag0ejQDOo uORxREvfBYA5L85x d7R1WJCrOFIrMQS1vQI0 eZ4ziRyanslctHYeaEwc qcSlzImyKBgiWKgsH219 IHRvcDsnPlBheWVy OjwvdGQ+ZW65rr10N4Mp QdxsSwh1SUHjYOX9eYJ9 fE3sZVOdGPswt9Y6fYA5 N1KjtoEcis8od4yr YXB (more content not included)... [facility] Provider Orderson 01-12-2024 Provider Orders [id number] [facility] COVID-19, Rapidon 10-14-2022 SARS-CoV-2 (COVID-19) RNA AMANDO+probe Ql (Unsp spec) Not detected Not Detected [facility] Comment on above: Rapid NAAT: The [...] management decisions. Fact sheet for Healthcare Providers: https://www.fda.gov/media/369618/download Fact sheet for Patients: https://www.fda.gov/media/069651/download Methodology: Isothermal Nucleic Acid Amplification Specimen Description .NASOPHARYNGEAL SWAB [facility] Rapid influenza A/B antigens on 10-14-2022 Flu A Antigen Negative NEGATIVE [facility] Comment on above: for Influenza A Anti gen Flu B Antigen Negative NEGATIVE [facility] Comment on above: for Influenza B Anti gen. [facility] Vital Signs Date Time Vital Sign Value Performing Clinician Facility 02-01-2024 09:09-0400 Body weight 157.8528 kg Viral Galindo [facility] Comment on above: Result Comment: Not provided. Performed By: #### [id number] #### [facility] (DEFAULT) [address] [place] [address] 06-23-2023 10:35-0400 Body height 167.64 cm Jossie Krueger Other [facility] Other 06-23-2023 10:35-0400 Body mass index (BMI) [Ratio] 50.03 kg/m2 Jossie Krueger Other [facility] Other 06-23-2023 10:35-0400 Body temperature 98.3 [degF] Jossie Krueger Other [facility] Other 06-23-2023 10:35-0400 Body weight 140.62 kg Jossie Krueger Other [facility] Other 06-23-2023 10:35-0400 Diastolic blood pressure 90 mm[Hg] Jossie Krueger Other [facility] Other 06-23-2023 10:35-0400 Respiratory rate 18 /min Jossie Krueger Other [facility] Other 06-23-2023 10:35-0400 SaO2% (BldA) [Mass fraction] 97 % Jossie Krueger Other [facility] Other 06-23-2023 10:35-0400 Systolic blood pressure 147 mm[Hg] Jossie Krueger Other [facility] Other 10-14-2022 18:16-0500 Body height 165.1 cm John Hastings DO Work Phone: [facility] 10-14-2022 18:16-0500 Body mass index (BMI) [Ratio] 52.92 kg/m2 John Hastings DO Work Phone: [facility] 10-14-2022 18:16-0500 Body temperature 98.29 [degF] John Hastings DO Work Phone: [facility] 10-14-2022 18:16-0500 Body weight 144.24 kg John Hastings DO Work Phone: [facility] 10-14-2022 18:16-0500 Diastolic blood pressure 96 mm[Hg] John Hastings DO Work Phone: [facility] [facility] Surgient 10-14-2022 18:16-0500 Heart rate 94 /min John Hastings DO Work Phone: [facility] Surgient 10-14-2022 18:16-0500 Respiratory rate 18 /min John Hastings DO Work Phone: [facility] 10-14-2022 18:16-0500 SaO2% (BldA) [Mass fraction] 95 % John Hastings DO Work Phone: [facility] 10-14-2022 18:16-0500 Systolic blood pressure 138 mm[Hg] John Hastings DO Work Phone: [facility] 10-05-2022 23:14-0500 Body height 165.1 cm Chapin Lee MD Work Phone: [facility] 10-05-2022 23:14-0500 Body mass index (BMI) [Ratio] 53.47 kg/m2 Chapin Lee MD Work Phone: [facility] 10-05-2022 23:14-0500 Body temperature 98.4 [degF] Chapin Lee MD Work Phone: [facility] 10-05-2022 23:14-0500 Body weight 145.74 kg Chapin Lee MD Work Phone: [employer] 10-05-2022 23:14-0500 Diastolic blood pressure 87 mm[Hg] Chapin Lee MD Work Phone: [employer] 10-05-2022 23:14-0500 Heart rate 86 /min Chapin Lee MD Work Phone: [facility] 10-05-2022 23:14-0500 Respiratory rate 18 /min Chapin Lee MD Work Phone: [employer] 10-05-2022 23:14-0500 SaO2% (BldA) [Mass fraction] 99 % Chapin Lee MD Work Phone: [facility] 10-05-2022 23:14-0500 Systolic blood pressure 146 mm[Hg] Chapin Lee MD Work Phone: [facility]ient Encounters Encounter Date Encounter Type Care Provider Facility Start: 04-11-2024 End: 04-11-2024 ambulatory JUSTINE CALLAHAN Not Available Start: 04-10-2024 End: 04-12-[facility]24 [facility] Start: 04-09-2024 End: 04-09-2024 Emergency department patient visit [facility] Start: 04-04-2024 End: 04-04-2024 ambulatory JOE TRICIA Not Available Start: 03-21-2024 End: 03-21-2024 ambulatory JOE TRICIA Not Available Start: 03-07-2024 End: 03-07-2024 ambulatory JOE TRICIA Not Available Start: 02-08-2024 End: 02-08-2024 ambulatory JOE TRICIA Not Available Start: 01-16-2024 End: 01-16-2024 ambulatory JUSTINE CALLAHAN Not Available Start: 01-12-2024 End: 01-12-2024 ambulatory Viral Galindo Facility:[facility] Start: 01-10-2024 End: 01-10-2024 ambulatory JUSTINE CALLAHAN Not Available Start: 12-13-2023 End: 12-13-2023 ambulatory JOE TRICIA Not Available Start: 11-11-2023 End: 11-11-2023 ambulatory JOE TRICIA Not Available Start: 10-27-2023 End: 10-27-2023 Office outpatient visit 5 minutes [facility] Tricia Nurse [facility] Comment on above: Canceled (Provider) Start: 06-23-2023 End: 06-23-2023 ambulatory Jossie Krueger Other [facility] [employer] Other Start: 06-23-2023 Office outpatient ne w 30 minutes Jossie Krueger [facility] Start: 10-14-2022 End: 10-14-2022 Emergency department patient visit John Hastings DO Work Phone: [facility] Comment on above: Viral URI with cough (Primary Dx) Start: 10-05-2022 End: 10-06-2022 Emergency department patient visit Chapin Lee MD Work Phone: [facility] Comment on above: Plantar fasciitis (P rimary Dx) Procedures Date Procedure Procedure Detail Performing Clinician Start: 10-14-2022 COVID-19, RAPID John Jade DO Work Phone: Start: 10-14-2022 [place]oo influenza Vadim Hastings DO Work Phone: Plan of Treatment Date Care Activity Detail Author Start: 11-11-2023 End: 11-11-2023 ambulatory 11/11/2023 11:00 AM EST Initial [facility] [address] [place] [id number] [facility] Start: 11-11-2023 End: 11-11-2023 Professional / ancillary services management 11/11/2023 10:30 AM EST Ancillary Procedure [facility] [address] [place] [id number] [facility] Start: 10-27-2023 End: 10-27-2024 US Pelvis transvaginal US OB transvaginal Imaging Routine Missed menses Expected: 10/27/2023 (Approximate), Expires: 10/27/2024 [facility] Work Phone: Comment on above: Expected: 10/27/2023 (Approximate), Expires: 10/27/2024 Start: 04-26-2022 Influenza vaccination Flu vaccine (# 1) [facility] Start: 11-17-2021 DTaP/Tdap/Td vaccine (7 - Td or Tdap) DTaP/Tdap/Td vaccine (7 - Td or Tdap) [facility] Start: 01-15-2000 COVID-19 Vaccine (#1) COVID-19 Vacci ne (#1) [facility] Payers Date Payer Category Payer Medicaid [id number] 2022 Unknown [id number] 2019 Medicare [id number]. [id number] 1999 Unknown [id number] 2.16.8 [id number] 1999 Unknown [id number] 2.16.8 [id number] 1999 Unknown [id number] 2.16.84 [id number] 1999 Unknown [id number] 2.16.84 [id number] 1999 Unknown [id number] 2.16.84 [id number] 1999 Unknown [id number] 2.16.84 [id number] 1999 Unknown [id number] 2.16.84 [id number] 1999 Unknown [id number] 2.16.84 [id number] 1999 Unknown [id number] 2.16.84 [id number] 1999 Unknown [id number] 2.16.84 [id number] 1999 Unknown [id number] 2.16.84 [id number] 1999 Unknown [id number] 2.16.8 [id number] Social History Date Type Detail Facility Start: 10-05-2022 Tobacco smoking status NVIS Smokes tobacco daily [facility] Phone: History of tobacco use Cigarette Smoker B [facility] [employer] Phone: Start: 10-05-2022 End: 10-14-2022 Cigarettes smoked current (pack per day) - Reported 1 [facility] Phone: Start: 10-05-2022 Tobacco use and exposure Smokeless tobacco non-user [facility] Phone: Start: 10-05-2022 End: 10-14-2022 Alcohol intake Current drinker of alcohol (finding) [facility] Phone: Start: 10-05-2022 Alcohol Comment in a month [facility] Phone: Start: 2000 Sex Assigned At Not on file [facility] Phone: Start: 09-25-2022 End: 10-14-2022 Exposure to SARS-CoV-2 (event) Not sure [facility] Phone: Start: 10-14-2022 History SDOH Alcohol Frequency 1 [facility] Phone: Start: 10-14-2022 History SDOH Alcohol Std Drinks 0 Memoir Phone: Sex Assigned At Sex Assigned At Bir th [employer] Other Tobacco smoking stat NHIS Tobacco smoking consumption unknown [facility] Start: 2000 Sex Assigned At Female [facility] Start: 10-20-2023 Gender identity Identifies as female gender (finding) [facility] Start: 10-20-2023 Sexual orientation Heterosexual (finding) [facility] History of Present illness Narrative 10-27-2023 [...] understanding and is agreeable to treatment plan [employer] Other Evaluation note Note Date & Type Note Facility Evaluation note Diagnosis Plantar fasciitis- Primary Plantar fascial fibromatosis documented in this encounter [facility] Phone: Evaluation note Note Date & Type Note Facility Evaluation note Diagnosis Viral URI with cough- Primary Acute upper respiratory infections of unspecified site documented in this encounter [facility] Phone: Evaluation note Note Date & Type Note Facility Evaluation note Diagnosis Missed menses documented in this encounter [facility] History general Narrative - Reported Note Date & Type Note Facility History general Narrative - Reported Type Surgical History wisdom teeth [facility] Other Hospital Discharge instructions Attachments Note Date & Type Note Facility Hospital Discharge instructions The following attachments cannot be sent through Care Everywhere.Plantar Fasciitis (Martiniqu[place])documented in this encounter [facility]: Hospital Discharge instructions Attachments Note Date & Type Note Facility Hospital Discharge instructions The following attachments cannot be sent through Care Everywhere.URI (Upper Respiratory Infection) (Martiniqu[place])documented in this encounter [facility] Phone: Summary Purpose Family History No Family [...] Care Teams (unrecognized sec tion and content) Minister Of Religion Relationship Specialty Start Date End Date Viral Galindo MD [address] [place] [address] PCP - General Pediatrics 10/27/23 INFORMATION SOURCE (unrecogn ized section and content) DATE CREATED AUTHOR 04/13/2024 Michelle garcia DATE CREATED AUTHOR AUTHOR'S ORGANIZ ATION 04/15/2024 [facility] EPIC DATE CREATED AUTHOR AUTHOR'S ORGANIZ ATION 04/27/2024 [facility] FOR RECORDS PERTAINING TO PATIENTS WHO ARE [...] BE BASED ON THE PRIMARY CLINICAL RECORDS. [facility]. provides no warranty or guarantee of the accuracy or completeness of information in this document.
[2024-04-30 16:09] VITALS: BP 147/69; PULSE 101
[2024-04-30 16:39] VITALS: BP 141/73; PULSE 94
== END 2024-04-30 16:42 | disposition home or self-care (01) ==
LOC: FBCO 07:04 → FBC 15:59
PROVIDERS: PCP Family Medicine; Visit Provider Obstetrics & Gynecology
DX: O36.63X0 Maternal care for excessive fetal growth, third trimester, not applicable or unspecified (principal)
CPT/HCPCS: 59025

== ENCOUNTER 2024-05-03 07:04 | Outpatient (OUT) | payer OTHER, MEDICAID, SELFPAY ==
--- OUTSIDE RECORDS SUMMARY | 2024-05-03 07:06 | XMS_ITS | CCD ---
Author Organization [facility] Care Team Providers Care Transportation Inspector Name Role Phone Unavailable Primary Care Provider UnavailJossie Lui Unavailable Viral Galindo MD Primary Care Provider [phone] SARKIS JAY Referring Unavailable SARKIS JAY Attending [...] Propensity to adverse reactions to drug (disorder) [facility] Repository Medications Current Medications Medication Drug [...] Value Interpretation Reference Range Facility Outside [facility] 04-30-2024 Outside Records [id number] [facility] Outside Records [id number] [facility]2024 Outside Records [id number] [facility] with [facility]on 04-09-2024 Abs. Basophil 0.00 k/uL Normal 0.00-0.20 [facility] Comment on above: Performed By: #### C DP, CP #### [facility] [address] [place] [address] Refueling Rampman: Viral Mcgraw MD Abs.Imm.Granulocyte 0.03 k/uL Normal 0.00-0.30 [facility] Comment on above: Performed By: #### C BOYD, CP #### [facility] [address] [place] [address] Refueling [place]ampman: Viral Mcgraw MD Abs.Neutrophil (Seg) 6.53 k/uL Normal 2.5-7.0 [facility] Comment on above: Performed By: #### C DP, CP #### [facility] [address] [place], [place] [phone] [employer]uel[employer] [place]: Viral Mcgraw MD Basophils/100 WBC (Bld) 0 % Normal 0-2 [facility] Comment on above: Performed By: #### C DP, CP #### [facility] [address] [place] [phone] Refueling Rampman: Viral Mcgraw MD Eosinophils (Bld) [#/Vol] 0.21 10*3/uL Normal 0.00-0.40 [facility] Comment on above: Performed By: #### C DP, CP #### [facility] [address] [place] [address] Refueling [place]ampman: Viral Mcgraw MD Eosinophils/100 WBC (Bld) 2 % Normal 0-5 [facility] Comment on above: Performed By: #### C DP, CP #### [facility] [address] [place] [address] Refueling [place]ampman: Viral Mcrgaw MD Erythrocyte distribution width (RBC) [Ratio] 13.9 % Normal 12.1-15.2 [facility] Comment on above: Performed By: #### C DP, CP #### [facility] [address] [place] [address] Refueling [place]ampman: Viral Mcgraw MD Hematocrit (Bld) [Volume fraction] 32.4 % Low 36.0-46.0 [facility] Comment on above: Performed By: #### C DP, CP #### [facility] [address] [place] [address] Refueling [place]ampman: Viral Mcgraw MD Hemoglobin (Bld) [Mass/Vol] 11.2 g/dL Low 12.0-16.0 [facility] Comment on above: Performed By: #### C DP, CP #### [facility] [address] [place] [phone] Refueling [employer]ampman: Viral Mcgraw MD Immature granulocytes/100 WBC (Bld) 0 % Normal 0-5 [facility] Comment on above: Performed By: #### C DP, CP #### [facility] [address] [place] [address] Refueling [employer]ampman: Viral Mcgraw MD Lymphocytes (Bld) [#/Vol] 1.74 10*3/uL Normal 1.00-4.80 [facility] Comment on above: Performed By: #### C DP, CP #### [facility] [address] [place] [address] Refueling [place]ampman: Viral Mcgraw MD Lymphocytes/100 WBC (Bld) 19 % Normal 15-40 [facility] Comment on above: Performed By: #### C DP, CP #### [facility] [address] [place] [id number] Refueling Rampman: Viral Mcgraw MD MCH (RBC) [Entitic mass] 30.4 pg Normal 26.0-34.0 [facility] Comment on above: Performed By: #### C DP, CP #### [facility] [address] [place] [phone] Refueling Rampman: Viral Mcgraw MD MCHC (RBC) [Mass/Vol] 34.6 g/dL Normal 31.0-37.0 [facility] Comment on above: Performed By: #### C DP, CP #### [facility] [address] [place] [phone] Refueling [employer]ampman: Viral Mcgraw MD MCV (RBC) [Entitic vol] 88.0 fL Normal 80.0-100.0 [facility] Comment on above: Performed By: #### C DP, CP #### [facility] [address] [place], [place] [phone] ([phone]) Refueling Rampman: Viral Mcgraw MD Monocytes (Bld) [#/Vol] 0.48 10*3/uL Normal 0.00-1.00 [facility] Comment on above: Performed By: #### C DP, CP #### [facility] [address] [place] [address] (988) Refueling [employer]ampman: Viral Mcgraw MD Monocytes/100 WBC (Bld) 5 % Normal 4-8 [facility] Comment on above: Performed By: #### C DP, CP #### [facility] [address] [place], [place] [phone] (182) Refueling Rampman: Viral Mcgraw MD Neutrophil (Seg) 74 % Normal 47-75 [facility] Comment on above: Performed By: #### C DP, CP #### [facility] [address] [place], [place] [phone] Refueling [employer]ampman: Viral Mcgraw MD Platelet mean volume (Bld) [Entitic vol] 10.7 fL Normal 6.0-12.0 [facility] Comment on above: Performed By: #### C DP, CP #### [facility] [address] [place] [address] (679) Refueling [employer]ampman: Viral Mcgraw MD Platelets (Bld) [#/Vol] 220 10*3/uL Normal 140-450 [facility] Comment on above: Performed By: #### C DP, CP #### [facility] [address] [place], [place] [phone] (790) Refueling Rampman: Viral Mcgraw MD RBC (Bld) [#/Vol] 3.68 10*6/uL Low 4.00-5.20 [facility] Comment on above: Performed By: #### C DP, CP #### [facility] [address] [place], [place] [phone] Refueling [place]ampman: Viral Mcgraw MD WBC (Bld) [#/Vol] 9.0 10*3/uL Normal 3.5-11.0 [facility] Comment on above: Performed By: #### C DP, CP #### [facility] [address] [place], [place] [phone] Refueling Rampman: Viral Mcgraw MD Comp Metabolic Profon 2023 Albumin [Mass/Vol] 3.2 g/dL Low 3.5-5.2 [facility] Comment on above: Performed By: #### C DP, CP #### [facility] [address] [place], [place] [phone] Refueling [place]ampman: Viral Mcgraw MD Alkaline Phos 74 U/L Normal 35-104 [facility] Comment on above: Performed By: #### C DP, CP #### [facility] [address] [place] [address] Refueling Rampman: Viral Mcgraw MD ALT [Catalytic activity/Vol] 26 U/L Normal 5-33 [facility] Comment on above: Performed By: #### C DP, CP #### [facility] [address] [place], [place] [phone] Refueling [place]ampman: Viral Mcgraw MD Anion gap [Moles/Vol] 10 mmol/L Normal 9-17 [facility] Comment on above: Performed By: #### C DP, CP #### [facility] [address] [place] [address] Refueling Rampman: Viral Mcgraw MD AST [Catalytic activity/Vol] 16 U/L Normal <32 [facility] Comment on above: Performed By: #### C DP, CP #### [facility] [address] [place], [place] [phone] Refueling [place]ampman: Viral Mcgraw MD Bilirubin [Mass/Vol] 0.2 mg/dL Low 0.3-1.2 [facility] Comment on above: Performed By: #### C DP, CP #### [facility] [address] [place] [address] Refueling Rampman: Viral Mcgraw MD BUN/CRE Ratio 7 Low 9-20 [facility] Comment on above: Performed By: #### C DP, CP #### [facility] [address] [place] [address] Refueling Rampman: Viral Mcgraw MD Calcium [Mass/Vol] 9.1 mg/dL Normal 8.6-10.4 [facility] Comment on above: Performed By: #### C DP, CP #### [facility] [address] [place] [address] Refueling [place]ampman: Viral Mcgraw MD Chloride [Moles/Vol] 101 mmol/L Normal 98-107 [facility] Comment on above: Performed By: #### C DP, CP #### [facility] [address] [place] [address] Refueling [place]ampman: Viral Mcgraw MD CO2 [Moles/Vol] 24 mmol/L Normal 20-[address] [facility] Comment on above: Performed By: #### C DP, CP #### [facility] [address] [place] [address] Refueling Rampman: Viral Mcgraw MD Creatinine [Mass/Vol] 0.7 mg/dL Normal 0.5-0.9 [facility] Comment on above: Performed By: #### C DP, CP #### [facility] [address] [place] [address] Refueling Rampman: Viral Mcgraw MD GFR/1.73 sq M.predicted among non-blacks MDRD (S/P/Bld) [Vol rate/Area] mL/min/{1.73_m2} Normal >60 [facility] Comment on above: [...] By: #### C DP, CP #### [facility] [address] [place] [address] Refueling Rampman: Viral Mcgraw MD Glucose [Mass/Vol] 107 mg/dL High 70-99 [facility] Comment on above: Performed By: #### C DP, CP #### [facility] [address] [place] [address] Refueling Rampman: Viral Mcgraw MD Potassium [Moles/Vol] 3.3 mmol/L Low 3.7-5.3 [facility] Comment on above: Performed By: #### C DP, CP #### [facility] [address] [place] [address] Refueling Rampman: Viral Mcgraw MD Protein [Mass/Vol] 6.3 g/dL Low 6.4-8.3 [facility] Comment on above: Performed By: #### C DP, CP #### [facility] [address] [place] [address] Refueling Rampman: Viral Mcgraw MD Sodium [Moles/Vol] 135 mmol/L Normal 135-144 [facility] Comment on above: Performed By: #### C DP, CP #### [facility] [address] [place] [address] Refueling Rampman: Viral Mcgraw MD Urea nitrogen [Mass/Vol] 5 mg/dL Low 6-20 [facility] Comment on above: Performed By: #### C DP, CP #### [facility] [address] [place] [address] Refueling Rampman: Viral Mcgraw MD AFP Tetra LCon 02-01-2024 AFP CHIN MoM 1.12 Invalid Interpretation [facility] Comment on above: Performed By: #### 3 [id number] #### [facility] (DEFAULT) [address] [place] [address] AFP DSR (By Age) 1 IN 1039 Invalid Interpretation [facility] Comment on above: Performed By: #### 3 [id number] #### [facility] (DEFAULT) [address] [place] [address] AFP DSR (Second Trimester) 1 IN 957 Invalid Interpretation [facility] Comment on above: Performed By: #### 3 [id number] #### [facility] (DEFAULT) [address] [place] [address] AFP Gest. Age on Collection Date 19.3 week(s) Invalid Interpretation [facility] Comment on above: Result Comment: Not provided. Performed By: #### 3 [id number] #### [facility] (DEFAULT) [address] [place] [address] AFP Gestat. Age Based On SUE [facility] Interpretation [facility] Comment on above: Result Comment: 05/27 Performed By: #### 3 [id number] #### [facility] (DEFAULT) [address] [place] [address] AFP hCG MoM 1.18 Invalid Interpretation [facility] Comment on above: Performed By: #### 3 [id number] #### [facility] (DEFAULT) [address] [place] [address] AFP insulin Dep Diabetes No Invalid Interpretation [facility] Comment on above: Result Comment: Not provided. Performed By: #### 3 [id number] #### [facility] (DEFAULT) [address] [place] [address] AFP Interpretation Comment Invalid Interpretation [facility] Comment on above: Result Comment: Inte rpretation: [...] identifies 60% of Trisomy 18 pregnancies. The [employer] recommends amniocentesis [...] within 10 days. Performed By: #### 3 [id number] #### [facility] (DEFAULT) [address] [place] [address] AFP Maternal Age At SUE 24.8 Invalid Interpretation Code [facility] Comment on above: Performed By: #### 3 [id number] #### [facility] (DEFAULT) [address] [place] [address] AFP MoM 0.69 Invalid Interpretation Code [facility] Comment on above: Performed By: #### 3 [id number] #### [facility] (DEFAULT) [address] [place] [address] AFP Multiple Gestation No Invalid Interpretation Code [facility] Comment on above: Result Comment: Not provided. Performed By: #### 3 [id number] #### [facility] (DEFAULT) [address] [place] [address] AFP OSBR [place] 1 [place] [address] Invalid Interpretation [facility] Comment on above: Performed By: #### 3 [id number] #### [facility] (DEFAULT) [address] [place] [address] AFP Race Invalid Interpretation Code [facility] Comment on above: Result Comment: Not provided. Performed By: #### 3 [id number] #### [facility] (DEFAULT) [address] [place] [address] AFP Results Comment Invalid Interpretation [facility] Comment on above: Result Comment: The MOM and risk factors of this report have been modified based on new information supplied to us by the client or their designated product support representative. The Gestational Age Based On was [...] provided. to 348. Performed By: #### 3 [id number] #### [facility] (DEFAULT) [address] [place] [address] AFP T18 (By Age) 1:4050 Invalid Interpretation [facility] Comment on above: Performed By: #### 3 [id number] #### [facility] (DEFAULT) [address] [place] [address] AFP T18 Risk Not increased Invalid Interpretation [facility] Comment on above: Performed By: #### 3 [id number] #### [facility] (DEFAULT) [address] [place] [address] AFP Test Results: Negative Invalid Interpretation [facility] Comment on above: Performed By: #### 3 [id number] #### [facility] (DEFAULT) [address] [place] [address] AFP uE3 MoM 0.66 Invalid Interpretation Code [facility] Comment on above: Performed By: #### 3 [id number] #### [facility] (DEFAULT) [address] [place] [address] AFP Tetra LCon 01-18-2024 AFP Comments: Comment Invalid Interpretation Code [facility] Comment on above: Result Comment: Bethany Perez, Ph.D., [facility] Director References: Available Upon Request. Multiples Of Median Cutoffs Abbreviation Definitions For AFP Elevations IDD- Insulin Dep Diabetes Cadet 2.5 Black 2.8 OSBR- Open Spina Bifida IDD 2.0 Twins 4.5 Risk DSR Cutoff 1:270 DSR- Down Syndrome Risk T18 Cutoff 1:100 T18- Trisomy 18 For further inquiries contact [facility] at [phone]. This test was developed and its performance characteristics determined by [employer]. It has not been cleared or approved by the Food and Drug Administration. Performed At: [facility] [address] [facility] [place], [place] [id number] Romero Mckenna [facility] Ph:[phone] Performed By: #### 3 [id number] #### [facility] (DEFAULT) [address] [place] [address] AFP CHIN Value 120.65 pg/mL Invalid Interpretation Code [facility] Comment on above: Performed By: #### 3 [id number] #### [facility] (DEFAULT) [address] [place] [address] AFP uE3 Value 1.08 ng/mL Invalid Interpretation Code [facility] Comment on above: Performed By: #### 3 [id number] #### [facility] (DEFAULT) [address] [place] [address] AFP Value 23.0 ng/mL Invalid Interpretation Code [facility] Comment on above: Performed By: #### 3 [id number] #### [facility] (DEFAULT) [address] [place] [address] [place] [address] m[IU]/mL Invalid Interpretation Code [facility] Comment on above: Performed By: #### 3 [id number] #### [facility] ([facility]) [address] [place] [address] Coding Summaryon 01-18-2024 Coding Summary HTMLBase 64 KhyhkkhrGXo2nOk+PGhl YWQ+OF6PLWIqC27wnJWk pZ9dL4IPLUkSYaelQFCY XHuKEqLjtpWuDU0ibRPt ZXJu IC8+CR4zOLSpEdfioQTu k3P0iGQ1F33jqq2vKCzc qZT1UJYfZzJjxodgl4yr tBi2ABviMynqCaNj RNWiuA54UWX5mR88Ui89 gJIyoHPpj4xjzVy5CpWw KGPtBTH5nPqsQSzog2Tq MCTtD32paRKnl4Z3 IGNvbGxhcHNlOyBlbXB0 eH4hYPzroxuwq6crnyct Vzk5fp02hGCvt0S2pJT0 P4RiftC6OYPgwCOd ZpqlsIBGyZ2txtbeb5qn jsssRcEoUARwTVe8RLt3 FASsnSfeVeWvNA12INT8 LSAtnpVhS9DoGMBn lPbeHeL5e7G8Ai3NE9IZ UzheC3GOZPZJWEawjAP+ EI28lq98B2NoYdubVgz9 WCYhQRV2iCZ2uF6e YOMyHRnpw2B8rMA8E7Zo nrHwqi8xl4bwUBBrPFmz M11rtDRxx0C4YENivTC1 FEMhiWwuYoXocY82 Oyc+KWMjjEgkz8WnOkmy u0qsv1waxUt2FxxvBKOf wmIzwGoeESO6z4DdIc7t MDEhoNP4vPD3kH9e YaGxJsD2LRehE279XsYc tPSaNkrnZ16kZ0AmdMG+ GUIoSep6TCUufZpqXZ5g S1UoEDMhphnqpCMi oCfgRU8cLYPirybfJIAq xT2eQQLhK6c8TfJzXzJ9 USpeI5FqJSHpbpxcBt25 aY5fXvLsEqX2CIzd V4KiqgO6YIYlfJRxNMhd MSV4R76pm5U8KOKzCDYy LPH6pOH5mB1ueMhmfirg bGVmdDsgdmVydGlj DRquBNooL465WYZybEek PkNvZGluZyBEYXRlOiAg MDQvMjQvMjAyNDwvdGQ+ XLGzGGH4lDtiDJTu mROoKVtaXn5gxErzzNdy OE1tWPUjhykbGCHcdE2w ASHumVRpjRgjHZ8oPOEi cmwtq870VsAxOKM5 EWBmnHAwY8RdnZ9oZnMc SQYkXVJgN2LjaFNqCFez D273KLpdTnA6JPKvadGs R5KmUORtoCsvCbV2 p7X1Yu6Gp4DrmfmjC4Gc uVUkSwOcGytfLLd7U8Qu PjwvdHI+JZ14TFTqQK88 FIc7IWV3uKacQQoy BYZwE8DlxY1tXtYkMTPk ZGRkOyc+PHRhYmxlIHdp ZHRoPScxMDAlJyBzdHls WD9xGj1xAFHiYZPl gYbfjSHiJmUin0snQKEa QBnjVE3fqMffQ9SedSU7 ZDHww3z3Oa04H65hJ6Gc dXA+VYQczQY9nWL0 lU2uQvOpKbN2VBqoC059 DsOxcIDuUsotm1bqf0pb fPq1AtN6QHXzjhWwcSzb EVZ4w5OrJr52G30r IHdpZHRoPSIxNSUiIHZh fEguec6upT9sEt4+PGNv yEF2xXU0vI1iPlOsFvI1 FXqjU235SkRyvTQg Zrmpm0kkr8umhJy9ZwBc FFLzhdBupUnbKSK0q2Zo Is23U7ZwrJokw6RuKdg2 fw05aNQyy2W8nCK5 P2UgPIEpxngrcLHooSdt UW8tTFJlctbhNCAzgL6l SUCdE8o7FpCwCzD0DRul Z3SuymB0MYTpjAKh PHYvyDVGmW0kklflw3st joqvLpBxQFPpADk9GCd0 LTKddBrvIcHqUKF6EfA7 OCV6hXXfoF6rgJgv lrpckK3kOid+VDA7hAYt bEOVGS5iAtsloPT+PHRk AFJ5cKhcYXrtVGConZ8k OZEvW7y7FpVfQtU8 ORkgX7BwxxW2ECQmoHUc BYRrfAURiN0ofemhx6qv yrbuEnBiIWXfXCd3JVg2 LWFsaWduOiBsZWZ0 WcI5MIO4xCDonF0msTpz lscjtZ1aNdb+QmlydGgg RYY9TVr5L5MuMmr9LDXj fUzqIG4mmYVfDJdw Hg9ktPcuqHfvKN5lXNTg ejbvv953IwCrb6cqZJSr tYKtGNavVGV0W73zo0Z8 XKXpDKAtEMZ5hWC4 dT5ptWafpycekXIqqLnp dtJioTejLJswLOpqM738 DECrnRztAwYiVUf0N8Mf Gwe0ELEemUwyYG4u pRTrVOowCn9vqNubdXcx UK5qQJEquziji561PbUm d6nuLIGjyRYmKXgbINE2 A02zv6M6UYVrZOQm FHY9qHV7aN0ewMwnzius bGVmdDsgdmVydGljYWwt JMxuI437ZQTyuMntZmKb pEu7A9EnWgx9EPMs dMinBK5xdNAhSQygTq3z pMbzvXukWJ9tWMExshna v285LgEaz0ohFMStvEYb LJtrVKT4A00hw9L1 NGUvPIEbBZT6vVH8kI7f bGlnbjogbGVmdDsgdmVy vUxeAEqiUDptK815RPFw cDsnPlBhdGllbnQg SWqdHQa9Y8FkGchgoMV+ WQ75EJVwTA44cUIejWQl g3nhjTt5TpFtPOQwQAP8 zIndSZlty3WmQOXi S02nhKXoq8W1TPYphFnf iZXnJaKueOV1uT5iLYzk gaanz0bydrqaGvlez6cl ho63aB15W21pGAlt ZHRoPSIzMCUiIHZhbGln pu6zzX4uAv4+PGNvbCB3 bDJ0uK9wCHUfXuQ3TKgl V763OyQmwCSnTmlm q5sod8lidMz3PdT3DKXu beJujOwuQVH8k6RdGy80 E01hEQweIYGrRTHwVGNn GPWhdAffcl9gjL8q Ii8+TURchJW1yYB2gH3r QrJaJlF6CTdyZ917MiHi pYWhIrykE34nD4ZlmHP+ PHZyGin8SGYpsRaj VN8laMMrKMayYn8iGCB1 QqLyUdYxJQlnP9EaDGGq scqslqijoAH9BPLzBDKf yT94Oe7zaQuvZFAd qMADeZ4wrofqg5zaloeo HuZfDANyWQp2FFe3EBOn bKxiEnYbDMM4IuS5RPD8 hHJtoC3kjIjlamdk eY1sM8TwSPOvyglaSt71 lA6xIqLtVyS3CZhyLxi+ JC7YQBWBGUaiBVsVVNlI IFNJRVJSQTwvdGQ+ DUEaACU9xGlbMZyzJZHu aZ6iMANeK7e0PePjRsW4 OLciX8JsKKZhdshxWu22 hG1aJnMsDwY9JSmn J3WhisT9HWLglEJpSJhd CWB7H41io2E2QPTaRYFv RUJ8bBU6bH9vpBwfbrrt bGVmdDsgdmVydGlj FYngPXxdB308CLYuaWqd SoLhSiFrHhU3UOr7Q4Sr Ywg0QWHfqSgfRD7qwJPh CAoxWs6yuQeddVkz EX9yGROjsohkKUVmoV1q GKUvjQKrgPabLR8nBLBp msmbk998UjNnZFO0DQQn tJNdD1KpgJ1zHhYt ZOJuRMJdT9NenTBnDZnt E008SXrdSbO7FSCfmmTp Z0FvKTRoqQoaYzH4a3T0 Ww1wHKDDDVGbztnh dGQ+WUAtVXP8hXzsFVvc JZTwvI2bLAYeZ0d9YgSq QcU4JKisC6IfVEYaizrk Xz85wW8gTqHeMrQ2 OSscZ7YheuL3YPYtxKHl YQjmURI2T54pg5L1PDKh YBPgDWI7kDQ8kW6kqYoa bjogbGVmdDsgdmVy eNgoJZapRCbeH293CXJv cDsnPkZFTUFMRTwvdGQ+ WRObYYV1gTfsDZizZMGq gO6uLLWjS4o8BuNo QfW9GLfvG4WrWIQsnwvp Nw89eA0qTxBmQtK5PCmr O1LrlsZ6DRFozUZbYHdo SMW6C48bn4A0XXYk PZGtELR1zJP5lN4qzBap bjogbGVmdDsgdmVydGlj MJsoJHyqX929OXHgfNqm Jq6JJC58YK41K4Oh PjwvdGFibGU+PHRhYmxl IHdpZHRoPScxMDAlJyBz nFgyIU6pOs1uVHGdUDKs hUxjbEQfJzYuu0as QAHbEPusVN2gnSpaV2Us kMN5BYCqz8u9Cj15I00a A1EjsSJ+GRSdeST1iPC2 tZ4lExQzHjT4BWep W419IlIleFPtQjepl0pr z3zckVd9ZvMuRSBnkeQp jBlsNRR3j7CsQq25C75h IHdpZHRoPSIyMCUi NRKrvHxxie1rcP2aYl5+ XEWncQR9tEQ0hZ4lMpGd QoQ8HIzjN319PsWuqTZc BikoG19uK5QbfWB+ FLBrVva7KFWioBphGF0i ySMjVJvuCp0jVDJ1OvLb OiPnKPalN0NxVPOyfuqj yjarrCI8BLRyMIBy rT73Bp8ajSzvBy8vLIYj QUX6ERDkfZFxU7MokG9i LxIqRTHjVHDtI4UvgPZi QUsdI180YPuaSaU9 PJIzmmHoQ6KoTOBgdShg OhY5k2H2Gr2UnFzvhIUz BN5wUzDrSIs5L7LyGra1 EQDlmHrpJK5crYOl GTeoSo7tfErfnOqrHR9g FSSkyrzxz649MuLxd2kg FCKqwQFbPIckBXM6H28d f3I3JYFmZXVzAAY0 tJX2tD9zkQnzfhyzeRLu dDsgdmVydGljYWwtYWxp K816MFCcySlmMbBVEhb5 O3LlAyf7BJRlqUdz IC1yhJFgJNorLo2mfRlv oPgvOV4oWHZlkkqiy525 GfKgl5mvEYNqgOTqBAge LGP1P81ey0M9GMJh DPKzAQX7sEU9oT5olMbn bjogbGVmdDsgdmVydGlj WBhhPIjsT257ZPSumMvi Ui0KYqz9A7SaLdm9 TDQhxGbbFR2ywZJfWPwt Hc1yoKeqiShuNT1uDJIc hzuhi237XtKzx8lgHOFg cQJsULqhDIJ0G21h r2L2NCXpRCTvTTR4qBF4 qR9efSriioxdnYLgbIrl ayBtgLieRUlfGOosI269 IHRvcDsnPlBheWVy OjwvdGQ+HZ41oq88F7Ac NmxePaw0VPLeRZS9eCP4 nS3hMWOtJSlej9B5lTA4 W4BxjyMiip3wo2mf YXB (more content not included)... [facility] Provider Orderson 01-12-2024 Provider Orders [id number] 45#[id number] [facility] COVID-19, Rapidon 10-14-2022 SARS-CoV-2 (COVID-19) RNA AMANDO+probe Ql (Unsp spec) Not detected Not Detected [facility] Comment on above: Rapid NAAT: [...] management decisions. Fact sheet for Healthcare Providers: https://www.fda.gov/media/450119/download Fact sheet for Patients: https://www.fda.gov/media/902348/download Methodology: Isothermal Nucleic Acid Amplification Specimen Description .NASOPHARYNGEAL SWAB [facility] Rapid influenza A/B antigens on 10-14-2022 Flu A Antigen Negative NEGATIVE [facility] Comment on above: for Influenza A Anti gen Flu B Antigen Negative NEGATIVE [facility] Comment on above: for Influenza B Anti genOsmar [facility] Vital Signs Date Time Vital Sign Value Performing Clinician Facility 02-01-2024 09:09-0400 Body weight 157.8528 kg Viral [facility] Comment on above: Result Comment: Not provided. Performed By: #### [id number] #### [facility] (DEFAULT) [address] [place] [address] 06-23-2023 10:35-0400 Body height 167.64 cm Jossie Krueger Other [facility] Other 06-23-2023 10:35-0400 Body mass index (BMI) [Ratio] 50.03 kg/m2 Jossie Krueger Other [facility] Other 06-23-2023 10:35-0400 Body temperature 98.3 [degF] Jossie Krueger Other [facility] Other 06-23-2023 10:35-0400 Body weight 140.62 kg Jossie Krueger Other [facility] Other 06-23-2023 10:35-0400 Diastolic blood pressure 90 mm[Hg] Jossie Krueger Other [facility] Other 06-23-2023 10:35-0400 Respiratory rate 18 /min Jossie Krueger Other [facility] Other 06-23-2023 10:35-0400 SaO2% (BldA) [Mass fraction] 97 % Jossie Krueger Other [facility] Other 06-23-2023 10:35-0400 Systolic blood pressure 147 mm[Hg] Jossie Krueger Other [facility] Other 10-14-2022 18:16-0500 Body height 165.1 cm John Hastings DO Work Phone: [facility] 10-14-2022 18:16-0500 Body mass index (BMI) [Ratio] 52.92 kg/m2 John Hastings DO Work Phone: [facility] 10-14-2022 18:16-0500 Body temperature 98.29 [degF] John Hastings DO Work Phone: [facility] 10-14-2022 18:16-0500 Body weight 144.24 kg John Hastings DO Work Phone: [facility] 10-14-2022 18:16-0500 Diastolic blood pressure 96 mm[Hg] John Hastings DO Work Phone: [facility] 10-14-2022 18:16-0500 Heart rate 94 /min John Hastings DO Work Phone: [facility] 10-14-2022 18:16-0500 Respiratory rate 18 /min John Hastings DO Work Phone: [facility] 10-14-2022 18:16-0500 SaO2% (BldA) [Mass fraction] 95 % John Hastings DO Work Phone: [facility] 10-14-2022 18:16-0500 Systolic blood pressure 138 mm[Hg] John Hastings DO Work Phone: [facility] 10-05-2022 23:14-0500 Body height 165.1 cm Chapin Lee MD Work Phone: [facility] 10-05-2022 23:14-0500 Body mass index (BMI) [Ratio] 53.47 kg/m2 Chapin Lee MD Work Phone: [facility] 10-05-2022 23:14-0500 Body temperature 98.4 [degF] Chapin Lee MD Work Phone: [facility] 10-05-2022 23:14-0500 Body weight 145.74 kg Chapin Lee MD Work Phone: [facility] 10-05-2022 23:14-0500 Diastolic blood pressure 87 mm[Hg] Chapin Lee MD Work Phone: [facility] 10-05-2022 23:14-0500 Heart rate 86 /min Chapin Lee MD Work Phone: [facility] 10-05-2022 23:14-0500 Respiratory rate 18 /min Chapin Lee MD Work Phone: [facility] 10-05-2022 23:14-0500 SaO2% (BldA) [Mass fraction] 99 % Chapin Lee MD Work Phone: [facility] [employer] 10-05-2022 23:14-0500 Systolic blood pressure 146 mm[Hg] Chapin Lee MD Work Phone: [facility] Encounters Encounter Date Encounter Type Care Provider Facility Start: 04-11-2024 End: 04-11-2024 ambulatory JUSTINE CALLAHAN Not Available Start: 04-10-2024 End: 04[facility]12[facility] Start: 04-09-2024 End: 04-09-2024 Emergency department patient visit [facility] Start: 04-04-2024 End: 04-04-2024 ambulatory JOE TRICIA Not Available Start: 03-21-2024 End: 03-21-2024 ambulatory JOE TRICIA Not Available Start: 03-07-2024 End: 03-07-2024 ambulatory JOE TRICIA Not Available Start: 02-08-2024 End: 02-08-2024 ambulatory JOE TRICIA Not Available Start: 01-16-2024 End: 01-16-2024 ambulatory JUSTINE CALLAHAN Not Available Start: 01-12-2024 End: 01-12-2024 ambulatory Viral Galindo Facility:[facility] Start: 01-10-2024 End: 01-10-2024 ambulatory JUSTINE CALLAHAN Not Available Start: 12-13-2023 End: 12-13-2023 ambulatory JOE TALBOTO Not Available Start: 11-11-2023 End: 11-11-2023 ambulatory JOE TRICIA Not Available Start: 10-27-2023 End: 10-27-2023 Office outpatient visit 5 minutes [facility] Tricia Nurse [facility] Comment on above: Canceled (Provider) Start: 06-23-2023 End: 06-23-2023 ambulatory Jossie Krueger Other [facility] Other Start: 06-23-2023 Office outpatient ne w 30 minutes Jossie Krueger [facility] Start: 10-14-2022 End: 10-14-2022 Emergency department patient visit John Hastings DO Work Phone: [facility] ED Comment on above: Viral URI with cough (Primary Dx) Start: 10-05-2022 End: 10-06-2022 Emergency department patient visit Chapin Lee MD Work Phone: [facility] ED Comment on above: Plantar fasciitis (P rimary Dx) Procedures Date Procedure Procedure Detail Performing Clinician Start: 10-14-2022 COVID-19, RAPID John Jade DO Work Phone: Start: 10-14-2022 Iaadiadoo influenza Vadim Hastings DO Work Phone: Plan of Treatment Date Care Activity Detail Author Start: 11-11-2023 End: 11-11-2023 ambulatory 11/11/2023 11:00 AM EST Initial [facility] [address] [place] [id number] [facility] Start: 11-11-2023 End: 11-11-2023 Professional / ancillary services management 11/11/2023 10:30 AM EST Ancillary Procedure [facility] [address] [place] [address] [facility] Start: 10-27-2023 End: 10-27-2024 US Pelvis transvaginal US OB transvaginal Imaging Routine Missed menses Expected: 10/27/2023 (Approximate), Expires: 10/27/2024 [facility] Work Phone: Comment on above: Expected: 10/27/2023 (Approximate), Expires: 10/27/2024 Start: 04-26-2022 Influenza vaccination Flu vaccine (# 1) [facility] Start: 11-17-2021 DTaP/Tdap/Td vaccine (7 - Td or Tdap) DTaP/Tdap/Td vaccine (7 - Td or Tdap) [facility] Start: 01-15-2000 COVID-19 Vaccine (#1) COVID-19 Vacci ne (#1) [facility] Payers Date Payer Category Payer Medicaid [id number] 2022 Unknown [id number] 2019 Medicare [id number]. [id number] 1999 Unknown [id number] 2.16.8 [id number] 1999 Unknown [id number] 2.16.8 [id number] 1999 Unknown [id number] 2.16.84 [id number] 1999 Unknown [id number] 2.16.84 0.1.607221.3.579.2.1259 1999 Unknown [id number] 2.16.84 0.1.660623.3.579.2.1259 1999 Unknown [id number] 2.16.84 0.1.250801.3.579.2.1259 1999 Unknown [id number] 2.16.84 0.1.363694.3.579.2.1259 1999 Unknown [id number] 2.16.84 0.1.379510.3.579.2.1259 1999 Unknown [id number] 2.16.84 0.1.291558.3.579.2.1259 1999 Unknown [id number] 2.16.84 0.1.241281.3.579.2.1259 1999 Unknown [id number] 2.16.84 0.1.499176.3.579.2.1259 1999 Unknown [id number] 2.16.8 [id number] Social History Date Type Detail Facility Start: 10-05-2022 Tobacco smoking status TNIS Smokes tobacco daily [facility] Phone: History of tobacco use Cigarette Smoker B ON [facility] Phone: Start: 10-05-2022 End: 10-14-2022 Cigarettes smoked current (pack per day) - Reported 1 [facility] Phone: Start: 10-05-2022 Tobacco use and exposure Smokeless tobacco non-user [facility] Phone: Start: 10-05-2022 End: 10-14-2022 Alcohol intake Current drinker of alcohol (finding) [facility] Phone: Start: 10-05-2022 Alcohol Comment in a month [facility] Phone: Start: 2000 Sex Assigned At Not on file [facility] Phone: Start: 09-25-2022 End: 10-14-2022 Exposure to SARS-CoV-2 (event) Not sure [facility] Phone: Start: 10-14-2022 History SDOH Alcohol Frequency 1 [facility] Phone: Start: 10-14-2022 History SDOH Alcohol Std Drinks 0 GABRIELLE [facility] Phone: Sex Assigned At Sex Assigned At Bir th [facility] unknown [facility] Start: 2000 Sex Assigned At Female [facility] Start: 10-20-2023 Gender identity Identifies as female gender (finding) [facility] Start: 10-20-2023 Sexual orientation Heterosexual (finding) [facility] History of Present illness Narrative 10-27-2023 Zari Wagner LPN - 10/27/2023 2:30 PM EST Note Date & Type Note Facility 10-27-2023 History of Presen t illness Narrative Patient to return in 2 weeks to get a SUE as not able to obtain today. documented in this encounter [facility] Evaluation note 06-23-2023 Note [...] understanding and is agreeable to treatment plan [facility] Other Evaluation note Note Date & Type Note Facility Evaluation note Diagnosis Plantar fasciitis- Primary Plantar fascial fibromatosis documented in this encounter [facility]: Evaluation note Note Date & Type Note Facility Evaluation note Diagnosis Viral URI with cough- Primary Acute upper respiratory infections of unspecified site documented in this encounter [facility]: Evaluation note Note Date & Type Note Facility Evaluation note Diagnosis Missed menses documented in this encounter [facility] History general Narrative - Reported Note Date & Type Note Facility History general Narrative - Reported Type Surgical History wisdom teeth [facility] Other Hospital Discharge instructions Attachments Note Date & Type Note Facility Hospital Discharge instructions The following attachments cannot be sent through Care Everywhere.Plantar Fasciitis ([place])documented in this encounter [facility] Phone: Hospital Discharge instructions Attachments Note Date & Type Note Facility Hospital Discharge instructions The following attachments cannot be sent through Care Everywhere.URI (Upper Respiratory Infection) ([place])documented in this encounter [facility] Phone: Summary Purpose Family History No Family [...] Care Teams (unrecognized sec tion and content) 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 [facility]. provides no warranty or guarantee of the accuracy or completeness of information in this document.
--- NOTE | 2024-05-03 16:04 | US_ITS ---
[address] [address] Patient Name: ZEV YAP MRN: [id number] date: 2000 Sex: F Assigned Patient Location: [facility] Current Patient Location: Accession/Order Number: [id number] Exam Date: 05/03/2024 16:10 Report Date: 05/04/2024 06:35 At the request of: JOE WOOD Procedure: US OB growth EXAMINATION: US OB growth HISTORY: EXCESSIVE GROWTH AFFECTING O36.63X0 COMPARISON: Ultrasound OB growth 04/12/2024 FINDINGS: Heart Rate: 155.17 bpm Amniotic Fluid Volume: 16.5 cm; normal range Number: 1 Position: CEPHALIC BIOMETRY: BPD: 8.90 cm; 36 weeks 0 days; 74.40 % HC: 33.13 cm; 37 weeks 5 days; 77.70 % AC: 32.58 cm; 36 weeks 3 days; 86.80 % FL: 6.77 cm; 34 weeks 6 days; 30.60 % EFW: 2862.03 g; 72.80 % FL/AC: 20.79 FL/BPD: 76.05 HC/AC: 1.02 GESTATIONAL AGE: Age by EDC: 35 weeks 2 days SUE by EDC: 2024-06-05 Age by US: 36 weeks 2 days SUE by US: 2024-05-29 US/US OB growth IMPRESSION: 1. Single live intrauterine with growth detailed above. Electronically authenticated by: TEENA RASCON Date: 05/04/2024 06:35
--- NOTE | 2024-05-03 16:05 | US_ITS ---
[address] [address] Patient Name: ZEV YAP MRN: [id number] date: 2000 Sex: F Assigned Patient Location: [facility] Current Patient Location: Accession/Order Number: [id number] Exam Date: 05/03/2024 16:10 Report Date: 05/04/2024 06:33 At the request of: JOE WOOD Procedure: US OB BPP w non-stress EXAMINATION: US OB BPP w non-stress HISTORY:EXCESSIVE GROWTH AFFECTING O36.63X0 COMPARISON: Ultrasound OB biophysical 04/26/2024 TECHNIQUE: Ultrasound biophysical profile was performed in the radiology department. BREATHING MOVEMENTS: 2 GROSS BODY MOVEMENTS: 2 TONE: 2 QUALITATIVE AMNIOTIC FLUID VOLUME: 2 PRESENTATION: CEPHALIC HEART RATE: 155.17 bpm AMNIOTIC FLUID VOLUME: 16.52 cm GESTATIONAL AGE: 35 weeks 2 days US/US OB BPP w non-stress IMPRESSION: Total biophysical profile score: 8 Electronically authenticated by: TEENA RASCON Date: 05/04/2024 06:33
[2024-05-03 17:01] VITALS: BP 137/71; PULSE 103
== END 2024-05-03 17:24 | disposition home or self-care (01) ==
LOC: US 07:04 → FBC 15:59
PROVIDERS: PCP Family Medicine; Visit Provider Obstetrics & Gynecology
DX: O36.63X0 Maternal care for excessive fetal growth, third trimester, not applicable or unspecified (principal)
CPT/HCPCS: 76816; 76818

== ENCOUNTER 2024-05-07 16:07 | Observation (INO) | payer OTHER, MEDICAID, SELFPAY ==
[2024-05-07] MEDS: 0.9 % SODIUM CHLORIDE 500 ML 1000 ML IV (16:30)
[2024-05-07 16:34] VITALS: TEMP 36.6
--- NOTE | 2024-05-07 16:34 | US_ITS ---
[address] [address] Patient Name: ZEV YAP MRN: [id number] date: 2000 Sex: F Assigned Patient Location: [facility] Current Patient Location: LAB Accession/Order Number: [id number] Exam Date: 05/07/2024 17:45 Report Date: 05/07/2024 19:40 At the request of: JOE WOOD Procedure: US OB BPP w non-stress EXAM: US OB BPP w non-stress HISTORY: R/O PIH COMPARISON: None. TECHNIQUE: Limited sonographic exam is performed for evaluation of biophysical profile multiple grayscale images are submitted for review. FINDINGS: Single live intrauterine is seen with cephalic presentation. Amniotic fluid volume is normal with GURINDER measuring 13.3 cm. heart rate is 134 bpm. Biophysical profile: breathing movements: 2 Gross body movements: 2 tone: 2 Qualitative amniotic fluid volume: 2 Total biophysical profile score is 8 out of 8. US/US OB BPP w non-stress IMPRESSION: Single live intrauterine with cephalic presentation. heart rate is 134 bpm. Biophysical profile score is 8 out of 8. Electronically authenticated by: SCOTTY LUCAS Date: 05/07/2024 19:40
[2024-05-07 16:56] VITALS: BP 135/70; PULSE 81
[2024-05-07 17:14] LABS: Basophils Percent Auto 0.2 % (0.2-2.0); Eosinophils Absolute Auto 0.2 10^3/uL (0.0-0.7); Eosinophils Percent Auto 1.5 % (0.9-7.0); Hematocrit 35.7 % (36.0-48.0); Hemoglobin 11.8 g/dL (12.0-16.0); Immature Granulocytes Abs Auto 0.05 10^3/uL (0.00-0.03); Immature Granulocytes Pct Auto 0.4 % (0.0-0.5); Lymphocytes Absolute Auto 2.2 10^3/uL (1.2-3.8); Lymphocytes Percent Auto 18.5 % (20.5-60.0); Mean Corpuscular HGB Conc 33.1 g/dL (29.9-35.2); Mean Corpuscular Hemoglobin 30.1 pg (26.7-34.0); Mean Corpuscular Volume 91.1 fL (81.0-99.0); Mean Platelet Volume 11.3 fL (9.5-13.5); Monocytes Absolute Auto 0.6 10^3/uL (0.3-0.8); Monocytes Percent Auto 5.2 % (1.7-12.0); Neutrophils Absolute Auto 8.8 10^3/uL (1.4-6.5); Neutrophils Percent Auto 74.2 % (43.0-75.0); Platelet Count 240 10^3/uL (150-450); Red Blood Count 3.92 10^6/uL (4.20-5.40); Red Cell Distribution Width 14.5 % (11.0-15.0); White Blood Count 11.9 10^3/uL (4.0-11.0)
[2024-05-07 17:27] LABS: Alanine Aminotransferase 22 U/L (14-59); Aspartate Amino Transferase 14 U/L (15-37); Estimated GFR (African America >60 (>=60); Estimated GFR (Non-African Ame >60 (>=60); Lactate Dehydrogenase 174 U/L (81-234); Uric Acid 3.2 mg/dL (2.6-6.0)
[2024-05-07 17:29] LABS: INR 0.95; Partial Thromboplastin Time 28.2 sec (22.3-36.2); Prothrombin Time 10.1 sec (9.0-11.6)
[2024-05-07 17:44] LABS: Fibrinogen 489 mg/dL (200-400)
[2024-05-07 17:46] VITALS: BP 127/65; PULSE 79
[2024-05-07 18:19] VITALS: BP 147/66; PULSE 86
[2024-05-07] MEDS: 0.9 % SODIUM CHLORIDE 1,000 ML 125 ML IV (19:17)
[2024-05-07 19:31] LABS: Bilirubin Urine NEGATIVE (NEGATIVE); Blood Urine NEGATIVE (NEGATIVE); Clarity Urine CLEAR (CLEAR); Color Urine LT. YELLOW (YELLOW); Glucose Urine UA NEGATIVE (NEGATIVE); Ketones Urine 15 mg/dL (NEGATIVE); Leukocyte Esterase Urine TRACE (NEGATIVE); Nitrite Urine NEGATIVE (NEGATIVE); Protein Urine NEGATIVE (NEG/TRACE); Urobilinogen Urine 0.2 EU/dL (0.2-1.0)
[2024-05-07 19:32] LABS: Urine Microscopic Indicated YES
[2024-05-07 19:33] LABS: Creatinine Urine Random 40.98 mg/dL (20.00-300.00); Protein Creatinine Ratio Urine 0.24; Total Protein Urine Random 9.8 mg/dL (<=11.9)
[2024-05-07 19:46] LABS: Bacteria Urine MODERATE #/HPF (NONE SEEN); Crystals Seen? None Seen #/HPF (None Seen); Mucus Urine NONE SEEN (NONE SEEN); RBC Urine NONE SEEN #/HPF (0-2); Squamous Epithelial Cell Urine MANY #/LPF (NONE/RARE)
[2024-05-07 19:47] LABS: Cast Seen? NONE SEEN #/LPF (NONE SEEN); Urine Culture Indicated YES
[2024-05-07 20:17] VITALS: TEMP 36.2
[2024-05-07 20:18] VITALS: BP 151/72; PULSE 91
== END 2024-05-07 20:30 | disposition home or self-care (01) ==
LOC: FBC 16:23
PROVIDERS: Admitting Provider Obstetrics & Gynecology; PCP Family Medicine; Visit Provider Obstetrics & Gynecology
DX: O26.893 Other specified pregnancy related conditions, third trimester (principal); R51.9 Headache, unspecified; H53.8 Other visual disturbances; Z3A.35 35 weeks gestation of pregnancy
CPT/HCPCS: 36415; 76818; 81001; 82565; 82570; 83615; 84156; 84450; 84460; 84520; 84550; 85025; 85384; 85610; 85730; 87086; G0378; G0379

== ENCOUNTER 2024-05-07 19:30 | Outpatient (REF) | payer OTHER, MEDICAID, SELFPAY ==
--- OUTSIDE RECORDS SUMMARY | 2024-05-07 19:34 | XMS_ITS | CCD ---
Author Organization [facility] Care Team Providers Care Capacity Management Specialist Name Role Phone Unavailable Primary Care Provider UnavailJossie Lui Unavailable Viral Galindo MD Primary Care Provider [phone] SARKIS JAY Referring Unavailable SARKIS JAY Attending [...] Range Facility Outside Recordson 04-30-2024 Outside Records [id number] [facility]24 Outside Records [id number] [facility] 04-13-2024 Outside Records [id number] #[facility] with Diffon 04-09-2024 Abs. Basophil 0.00 k/uL Normal 0.00-0.20 [facility] Comment on above: Performed By: #### C DP, CP #### [facility] [address] [place] [address] Orchid Grower: Viral Mcgraw MD Abs.Imm.Granulocyte 0.03 k/uL Normal 0.00-0.30 [facility] Comment on above: Performed By: #### C BOYD, CP #### [facility] [address] [place] [address] Orchid Grower: Viral Mcgraw MD Abs.Neutrophil (Seg) 6.53 k/uL Normal 2.5-7.0 [facility] Comment on above: Performed By: #### C DP, CP #### [facility] [address] [place], [place] [phone] Orchid Grower: Viral Mcgraw MD Basophils/100 WBC (Bld) 0 % Normal 0-2 [facility] Comment on above: Performed By: #### C DP, CP #### [facility] [address] [place] [phone] Orchid Grower: Viral Mcgraw MD Eosinophils (Bld) [#/Vol] 0.21 10*3/uL Normal 0.00-0.40 [facility] Comment on above: Performed By: #### C DP, CP #### [facility] [address] [place] [address] Orchid Grower: Viral Mcgraw MD Eosinophils/100 WBC (Bld) 2 % Normal 0-5 [facility] Comment on above: Performed By: #### C DP, CP #### [facility] [address] [place] [address] Orchid Grower: Viral Mcgraw MD Erythrocyte distribution width (RBC) [Ratio] 13.9 % Normal 12.1-15.2 [facility] Comment on above: Performed By: #### C DP, CP #### [facility] [address] [place] [address] Orchid Grower: Viral Mcgraw MD Hematocrit (Bld) [Volume fraction] 32.4 % Low 36.0-46.0 [facility] Comment on above: Performed By: #### C DP, CP #### [facility] [address] [place] [address] Orchid Grower: Viral Mcgraw MD Hemoglobin (Bld) [Mass/Vol] 11.2 g/dL Low 12.0-16.0 [facility] Comment on above: Performed By: #### C DP, CP #### [facility] [address] [place] [phone] Orchid Grower: Viral Mcgraw MD Immature granulocytes/100 WBC (Bld) 0 % Normal 0-5 [facility] Comment on above: Performed By: #### C DP, CP #### [facility] [address] [place] [address] Orchid Grower: Viral Mcgraw MD Lymphocytes (Bld) [#/Vol] 1.74 10*3/uL Normal 1.00-4.80 [facility] Comment on above: Performed By: #### C DP, CP #### [facility] [address] [place] [address] Orchid Grower: Viral Mcgraw MD Lymphocytes/100 WBC (Bld) 19 % Normal 15-40 [facility] Comment on above: Performed By: #### C DP, CP #### [facility] [address] [place] [phone] Orchid Grower: Viral Mcgraw MD MCH (RBC) [Entitic mass] 30.4 pg Normal 26.0-34.0 [facility] Comment on above: Performed By: #### C DP, CP #### [facility] [address] [place] [phone] Orchid Grower: Viral Mcgraw MD MCHC (RBC) [Mass/Vol] 34.6 g/dL Normal 31.0-37.0 [facility] Comment on above: Performed By: #### C DP, CP #### [facility] [address] [place] [phone] Orchid Grower: Viral Mcgraw MD MCV (RBC) [Entitic vol] 88.0 fL Normal 80.0-100.0 [facility] Comment on above: Performed By: #### C DP, CP #### [facility] [address] [place], [place] [phone] (149) Orchid Grower: Viral Mcgraw MD Monocytes (Bld) [#/Vol] 0.48 10*3/uL Normal 0.00-1.00 [facility] Comment on above: Performed By: #### C DP, CP #### [facility] [address] [place] [address] (029) Orchid Grower: Viral Mcgraw MD Monocytes/100 WBC (Bld) 5 % Normal 4-8 [facility] Comment on above: Performed By: #### C DP, CP #### [facility] [address] [place], [place] [phone] (563) Orchid Grower: Viral Mcgraw MD Neutrophil (Seg) 74 % Normal 47-75 [facility] Comment on above: Performed By: #### C DP, CP #### [facility] [address] [place], [place] [phone] Orchid Grower: Viral Mcgraw MD Platelet mean volume (Bld) [Entitic vol] 10.7 fL Normal 6.0-12.0 [facility] Comment on above: Performed By: #### C DP, CP #### [facility] [address] [place] [address] (668) Orchid Grower: Viral Mcgraw MD Platelets (Bld) [#/Vol] 220 10*3/uL Normal 140-450 [facility] Comment on above: Performed By: #### C DP, CP #### [facility] [address] [place], [place] [phone] (381) Orchid Grower: Viral Mcgraw MD RBC (Bld) [#/Vol] 3.68 10*6/uL Low 4.00-5.20 [facility] Comment on above: Performed By: #### C DP, CP #### [facility] [address] [place], [place] [phone] Orchid Grower: Viral Mcgraw MD WBC (Bld) [#/Vol] 9.0 10*3/uL Normal 3.5-11.0 [facility] Comment on above: Performed By: #### C DP, CP #### [facility] [address] [place], [place] [phone] Orchid Grower: Viral Mcgraw MD Comp Metabolic Profon 2023 Albumin [Mass/Vol] 3.2 g/dL Low 3.5-5.2 [facility] Comment on above: Performed By: #### C DP, CP #### [facility] [address] [place], [place] [phone] Orchid Grower: Viral Mcgraw MD Alkaline Phos 74 U/L Normal 35-104 [facility] Comment on above: Performed By: #### C DP, CP #### [facility] [address] [place] [address] Orchid Grower: Viral Mcgraw MD ALT [Catalytic activity/Vol] 26 U/L Normal 5-33 [facility] Comment on above: Performed By: #### C DP, CP #### [facility] [address] [place], [place] [phone] Orchid Grower: Viral Mcgraw MD Anion gap [Moles/Vol] 10 mmol/L Normal 9-17 [facility] Comment on above: Performed By: #### C DP, CP #### [facility] [address] [place] [address] Orchid Grower: Viral Mcgraw MD AST [Catalytic activity/Vol] 16 U/L Normal <32 [facility] Comment on above: Performed By: #### C DP, CP #### [facility] [address] [place], [place] [phone] Orchid Grower: Viral Mcgraw MD Bilirubin [Mass/Vol] 0.2 mg/dL Low 0.3-1.2 [facility] Comment on above: Performed By: #### C DP, CP #### [facility] [address] [place] [address] Orchid Grower: Viral Mcgraw MD BUN/CRE Ratio 7 Low 9-20 [facility] Comment on above: Performed By: #### C DP, CP #### [facility] [address] [place] [address] Orchid Grower: Viral Mcgraw MD Calcium [Mass/Vol] 9.1 mg/dL Normal 8.6-10.4 [facility] Comment on above: Performed By: #### C DP, CP #### [facility] [address] [place] [address] Orchid Grower: Viral Mcgraw MD Chloride [Moles/Vol] 101 mmol/L Normal 98-107 [facility] Comment on above: Performed By: #### C DP, CP #### [facility] [address] [place] [address] Orchid Grower: Viral Mcgraw MD CO2 [Moles/Vol] 24 mmol/L Normal 20-31 [facility] Comment on above: Performed By: #### C DP, CP #### [facility] [address] [place] [address] Orchid Grower: Viral Mcgraw MD Creatinine [Mass/Vol] 0.7 mg/dL Normal 0.5-0.9 [facility] Comment on above: Performed By: #### C DP, CP #### [facility] [address] [place] [address] Orchid Grower: Viral Mcgraw MD GFR/1.73 sq M.predicted among non-blacks MDRD (S/P/Bld) [Vol rate/Area] mL/min/{1.73_m2} Normal >60 [facility] Comment on above: [...] Performed By: #### C DP, CP #### [facility] [address] [place] [address] Orchid Grower: Viral Mcgraw MD Glucose [Mass/Vol] 107 mg/dL High 70-99 [facility] Comment on above: Performed By: #### C DP, CP #### [facility] [address] [place] [address] Orchid Grower: Viral Mcgraw MD Potassium [Moles/Vol] 3.3 mmol/L Low 3.7-5.3 [facility] Comment on above: Performed By: #### C DP, CP #### [facility] [address] [place] [address] Orchid Grower: Viral Mcgraw MD Protein [Mass/Vol] 6.3 g/dL Low 6.4-8.3 [facility] Comment on above: Performed By: #### C DP, CP #### [facility] [address] [place] [address] Orchid Grower: Viral Mcgraw MD Sodium [Moles/Vol] 135 mmol/L Normal 135-144 [facility] Comment on above: Performed By: #### C DP, CP #### [facility] [address] [place] [address] Orchid Grower: Viral Mcgraw MD Urea nitrogen [Mass/Vol] 5 mg/dL Low 6-20 [facility] Comment on above: Performed By: #### C DP, CP #### [facility] [address] [place] [address] Orchid Grower: Viral Mcgraw MD AFP Tetra LCon 02-01-2024 AFP CHIN MoM 1.12 Invalid Interpretation [facility] Comment on above: Performed By: #### 3 [id number] #### [facility] (DEFAULT) [address] [place] [address] AFP DSR (By Age) 1 IN 1039 Invalid Interpretation [facility] Comment on above: Performed By: #### 3 [id number] #### [facility] (DEFAULT) [address] [place] [address] AFP DSR (Second Trimester) 1 IN 957 Invalid Interpretation [facility] Comment on above: Performed By: #### 3 [id number] #### [facility] (DEFAULT) [address] [place] [address] AFP Gest. Age on Collection Date 19.3 week(s) Invalid Interpretation [facility] Comment on above: Result Comment: Not provided. Performed By: #### 3 [id number] #### [facility] (DEFAULT) [address] [place] [address] AFP Gestat. Age Based On SUE [facility] Interpretation [facility] Comment on above: Result Comment: 05/27 Performed By: #### 3 [id number] #### [facility] (DEFAULT) [address] [place] [address] AFP hCG MoM 1.18 Invalid Interpretation [facility] Comment on above: Performed By: #### 3 [id number] #### [facility] (DEFAULT) [address] [place] [address] AFP insulin Dep Diabetes No Invalid Interpretation [facility] Comment on above: Result Comment: Not provided. Performed By: #### 3 [id number] #### [facility] (DEFAULT) [address] [place] [address] AFP Interpretation Comment Invalid Interpretation [facility] Comment on above: Result Comment: Inte [...] identifies 60% of Trisomy 18 pregnancies. The [employer] recommends amniocentesis [...] within 10 days. Performed By: #### 3 [id number] #### [facility] (DEFAULT) [address] [place] [address] AFP Maternal Age At SUE 24.8 Invalid Interpretation Code [facility] Comment on above: Performed By: #### 3 [id number] #### [facility] (DEFAULT) [address] [place] [address] AFP MoM 0.69 Invalid Interpretation Code [facility] Comment on above: Performed By: #### 3 [id number] #### [facility] (DEFAULT) [address] [place] [address] AFP Multiple Gestation No Invalid Interpretation Code [facility] Comment on above: Result Comment: Not provided. Performed By: #### 3 [id number] #### [facility] (DEFAULT) [address] [place] [address] 13779 AFP OSBR Risk 1 [place] [address] Invalid Interpretation [facility] Comment on above: Performed By: #### 3 [id number] #### [facility] (DEFAULT) [address] [place] [address] 407[address] AFP Race Invalid Interpretation Code [facility] Comment on above: Result Comment: Not provided. Performed By: #### 3 [id number] #### [facility] (DEFAULT) [address] [place] [address] AFP Results Comment Invalid Interpretation [facility] Comment on above: Result Comment: The MOM and risk factors of this report have been modified based on new information supplied to us by the client or their designated mechanical service representative. The Gestational Age Based On was [...] provided. to 348. Performed By: #### 3 [id number] #### [facility] (DEFAULT) [address] [place] [address] AFP T18 (By Age) 1:4050 Invalid Interpretation [facility] Comment on above: Performed By: #### 3 [id number] #### [facility] (DEFAULT) [address] [place] [address] AFP T18 Risk Not increased Invalid Interpretation [facility] Comment on above: Performed By: #### 3 [id number] #### [facility] (DEFAULT) [address] [place] [address] AFP Test Results: Negative Invalid Interpretation [facility] Comment on above: Performed By: #### 3 [id number] #### [facility] (DEFAULT) [address] [place] [address] AFP uE3 MoM 0.66 Invalid Interpretation Code [facility] Comment on above: Performed By: #### 3 [id number] #### [facility] (DEFAULT) [address] [place] [address] 37933 AFP Tetra LCon 01-18-2024 AFP Comments: Comment Invalid Interpretation Code [facility] Comment on above: Result Comment: Bethany Perez, Ph.D., [facility] Director References: Available Upon Request. Multiples Of Median Cutoffs Abbreviation Definitions For AFP Elevations IDD- Insulin Dep Diabetes Cadet 2.5 Black 2.8 OSBR- Open Spina Bifida IDD 2.0 Twins 4.5 Risk DSR Cutoff 1:270 DSR- Down Syndrome Risk T18 Cutoff 1:100 T18- Trisomy 18 For further inquiries contact [facility] at [phone]. This test was developed and its performance characteristics determined by [employer]. It has not been cleared or approved by the Food and Drug Administration. Performed At: [email or web address] [address] [facility], [place] [id number] Romero Mckenna [facility] Ph:[phone] Performed By: #### 3 [id number] #### [facility] (DEFAULT) [address] [place] [address] 16046 AFP CHIN Value 120.65 pg/mL Invalid Interpretation Code [facility] Comment on above: Performed By: #### 3 [id number] #### [facility] (DEFAULT) [address] [place] [address] AFP uE3 Value 1.08 ng/mL Invalid Interpretation Code [facility] Comment on above: Performed By: #### 3 [id number] #### [facility] (DEFAULT) [address] [place] [address] 48460 AFP Value 23.0 ng/mL Invalid Interpretation Code [facility] Comment on above: Performed By: #### 3 [id number] #### [facility] (DEFAULT) [address] [place] [address] [place] [address] m[IU]/mL Invalid Interpretation Code [facility] Comment on above: Performed By: #### 3 [id number] #### [facility] ([facility]) [address] [place] [address] Coding Summaryon 01-18-2024 Coding Summary HTMLBase 64 YabmgyucYGh2iSy+PGhl YWQ+PE4HXSDkQ08zjSJl rX9fH4JNJTrZDytiSNST NVmKQeGsluJxTC2yiRZv ZXJu IC8+PZ7cIJQhCewkcXGh z1T4cOQ0Q03mfb5kKRok cRZ0OPJePaBsdangh5fd jKz6QTvyZbgyBlNr RXUjgI47SMS4oS13Mj26 vDAqzROwr0prtBe8MaJb JQXzRNP3yVvkGEpsi3Ur KPCyM66svXJqz9K3 IGNvbGxhcHNlOyBlbXB0 mZ4lZUznjvycd7sqltmq Iot3ia68oZOby0S0fGO6 C1MuzaX7CWHiwWMd PrfgkDJZfI6djvqdr4ar wylkAqQdWPOaAVb5EFj3 IPCbbFgzTxYlEH96HSU3 EGYjonYcN3EsAWMa zWooGhI7w0Z7Mq7SA8TW HgjvC0KBBPTMJGuuhCM+ WX15ly76K1JfRmxrGgp4 ELZmLFA9yIT4nK1b NMHeDFcap7T0sBB9V7Hr ehBtug9dn1ieSJPdMByc I96naWKpf2N0NHEoeJN8 FIJloBqqJcOnwN13 Oyc+FHPvbEhwc4SbMqye v6mqa5fpqHm9YmkmUMMb lbMxpTnhEMZ3z9FcQe8l KWCwtEG3cBP6cM7a EbEgKfV6GQphW826FlPg aNBhQizmF35gI1OchVQ+ ATXtAla2ODTxeEnsHG3n A9YaKPTyikurqBZd lBotJA4iFQSfrofhMVTe kP6oNZVvM0t6JuThSrK1 DInhC5UlTUSsszexZl03 pG5wOfBfYfJ6PRut N7NcdnH3GMHgqUCoCWfm VTO8Z31no1B8UOLgMNVa QKE9hYL2uK9vjSoqhtkj bGVmdDsgdmVydGlj QNuzQZayM603FQTorYax PkNvZGluZyBEYXRlOiAg MDQvMjQvMjAyNDwvdGQ+ VEQzCMM6eFitFRSo gDGmZVfzLz3cnMqavOdv FP3vIRItujgrCWLdgF0w CNXfiWPtpJntFV9tITOk fybqb411FvZsFWC0 VVEguJDcM6DhrR0wOcWr NGKlZLRqV2XwxIZkQTrm V632AJpsLyD2MXHcjzEd W4LaDOGylRcxApD8 h9T5Jy0Fg7ZnyvveD5Uw rJVvArPjXmxgPGk1R2Gz PjwvdHI+BI04KETbYS36 TIb2UWW8fMstNFwq UASyB7TrmX4qYcUoEIVm ZGRkOyc+PHRhYmxlIHdp ZHRoPScxMDAlJyBzdHls SO4eYf4kGKHdZESw dBluxGKaGxWhc6ruBMNl BZcdJI8pfBmbE1ZihWY8 CZWpg8f7Zm64C31fW3Ll dXA+LJNyjMI7bBJ7 hS6kSePqObF9OUwcC319 RzDmlHNtAtpfy1xhv0dt aYf9BlN3WPXvgeLtrDjg FBJ7y1LcSg34Q97n IHdpZHRoPSIxNSUiIHZh xUmwar6lvB0yHl1+PGNv lWE9bTR7oR7eAaPjXqD7 AMrwP075PgNuzKEp Iwpsj6dav6hsxEq8ErKq FMRpnaNenMmzVLE7y0Bm Lz67D0YibZgmj6BjLnp6 wt95uPWcs9A7iHF1 Q9AsNSJcabmsfQSkjRsy ZX2tPMIoeklqVBOblX1x IPWcG3d7PePjDnY0DYfa S8PrsyE7TYZbhJTi LCNaeIUXzX2uztuqk0yx tuksEcStDJKbYFh6FLx8 DXFikRlbCgAtVCI1QwS1 CMR9cYKspL0iuWcz crijnO7bFkl+TVT7iSQr zNZREQ8zDdaamPH+PHRk ZVI7jXusIYvsUNGnoJ7y CNJgN4h7QgSjFuX1 CGkeL3MpmeX5GFBjlGIt LNMzjVVSxR5gtosmv5hf nlfoBdVeLDNxHNh2EVe6 LWFsaWduOiBsZWZ0 KtG5UDL7lZDqcP5ucVga icwrpF9nKke+QmlydGgg QQZ2GFm3N1LiApj5GESz pTdlFP0fvGCrHTdd Ni3wjKehxEsiBZ5pOWKn lnnzk918RhZmd9ekESUw jBMrYNztVCJ9W95az5U1 NIQbPNWnEFD3fHB4 pH3ncUmethiviAYboJlg uhTycTztZGlaGZmcS073 ZUIkhEplWrNiNLv3H3Ce Tru7UWUsgErsZS7w oXEnMAdzLx4obNamzKdq VG6aAWAuyfbkk663LuXb n3jaORQhtQWaHIkjFXV7 X61nj9R1ABQkGFBm VSI4oQK4oX6koXmlawdf bGVmdDsgdmVydGljYWwt GRjdZ208SAQidGufTzFt rUa3E8HnGwe2FSGs nVzkMB3dwJDvCSreJg7c gXsrwKerHI8tXZBbtsxr d212XcZrf5raXDUqzCRu FGkuLEC4P01wo8U0 JFHfUBYjXRE4tHX7qE3l bGlnbjogbGVmdDsgdmVy dVpfBPmkTHmsL892RJKt cDsnPlBhdGllbnQg WKngYZc7G6PmJpzdfZO+ FM13QMLjNR80xHZemZTf h9eodEq8WhRcASWfOIH5 tJnuUUdjk4IsLWMk E10szMLgn6E0AAAhcIdl mQPgOyWmqXN8cV6lMPrv gdcmf2fhkjttKgeka8fx rl08gP59N42bENtt ZHRoPSIzMCUiIHZhbGln qa9srC9lAt8+PGNvbCB3 gPN1jY9tXUWlMtJ3GDyp S502YnPzrXEfIbfx h7irn2etaPo5SiJ4PILd ivWjpQsaVDU4n7WdQh37 Y57mOXrkHTGtFOWcOYOs HAVonTqawc7laU8b Ii8+DEEnhWD2dDP0rA2t UwWiWuL4HZliW313YkAs sWAnMbzmH30lU5MvdPG+ OWBgVxe6MZAiaBdg LP6mjEUxABdzMv8kONC1 XbUiRuAiTNybX6PtJKHx qjolzwardDT3JCXyEYVy zM45Tb9auUjkUZHt yPABbJ5luyjha2llsqoj FlYgQHIeLSs6OZj4XZGy eWgbQcCgLFU0GrD9YCB5 hJBwlY9fiWgppjpf cX9iF7RmRJWkecztOj89 vH2xWkBgWnC2JSviYtv+ AU2UAJDKFPigFZdHMIcW IFNJRVJSQTwvdGQ+ DGQwFLP4xYekKUjdGSUy oA9zXJNcD4m6ZaTuXaW1 WVqtZ5YzBHJwsqylUy18 tH6jZbFpAyE9OAdy A5XnfxW1VJUhcSHhPCch SSQ4F52dp8B6MUSiGITf UMP6fEC1zJ7ajTskitqb bGVmdDsgdmVydGlj VTdpVJpaA987LDWtgRbl RtIsXrWwSaY3VKk1J2Mp Ehu5LFGaaNqoZC3syPVv TOdtJa8etOdstMdo CY5jMZIpkrajZMCgcD9e JEUqiINyaIzjTS6zRQKz sjyps681NiCrEKE2JLSq yFQnQ0StfJ7sXpVc XECfYTLwM2WraBDaLOet V834KVmpJlS2PYFxcrOv Z5JzQICdeJvxHuS6o9W1 Tf0nSJZJOMZmpxxn dGQ+OOJmATW8sJilNFvx QSVzaL7iOCQnU6e1UaOx ReZ2TGgzI2IjBGYwbvxe Ca30lU9bYnFeEzQ5 NHqmV2BuflT6ZYHiyLRf ZYasBYY2J54xu6N6OKIi UEPjJTD0eTF5bT3rfBga bjogbGVmdDsgdmVy dMjvRFcqYWnsW329FASu cDsnPkZFTUFMRTwvdGQ+ ZVPwFDC2lTijFCmePVTd oA1cJSBwR4f6BcYq ZnF0BOqwG4NvNQGkwotb Ph34rQ1tFkKcKhT1EBjs U8YvmvJ7LOFwoEJpEZzs AMM3I90ni7R0PZLb ZKKvJYE4lFY7qY5tfOtq bjogbGVmdDsgdmVydGlj KTyrJOynP213DEXnvVlg Rg0ESP79QD09R0Hm PjwvdGFibGU+PHRhYmxl IHdpZHRoPScxMDAlJyBz vSqaXC1hXy4rAGEyBLZq yOhmrIOjPhTxl4ei TPZpIAulCI7obTocC9Ve oIF7QBLho2h1Mm81W64n D3LggRG+VDRhoHD2wNB3 dA3iTpBtQuD6BIew Y126EnHhzVCpRxzli6dc g6tlfNb7ItSuTDMrsmUy fWkyAKY2u1PeYs49I89s IHdpZHRoPSIyMCUi OQMpxOztgx8nfT8jTn3+ KWVdgZE5yQE2bK7lVhWf OdI6ZUicJ000ZgKewVGw JdnqG49vO5EdnQV+ COBaKry0RPEclIatLW6w hYYiULbsUe4iVQZ3RlDy OpNzIGxqE5NbOUKzjrps maulyEA2SZVmICJy eZ56Hu8sdPnuRn7cGWBw BIH2YDKzeSNrB9EddX9n FkOnSNSoRFGhB4RheSGy CUuvM201QAycGsF3 QRFgkwFfL1OiLOYywLfc VqB7y7K2Ri5ZrUkjhOFe KI6lIlVuBVj7S0RbWmo9 ECVvnRtrBL8abTFm AJzfAg1smMtwpZekGH8k SBMgeodsq324YfTil4xk AIScyAXbPCxuVYZ0D08p z2S4ROJuVXBtXYM1 uBZ1pE8caXaaburinDGa dDsgdmVydGljYWwtYWxp J733JZGolBdfEzMIOin3 K9NoCze3CVQuoTfj KU1bbXIhEIqxIu5fvAeq zWorJR9vKDYohpcaf057 UvXvm2hjZIEulZYpXJcb RFB4P84dc3T6JQVq AXTbVDE1tWB5dS7woMjz bjogbGVmdDsgdmVydGlj OQljGLaxM027XMUlkNun Tc2KEgv4F2AxSyx6 TOAtoWdbVW7jpWAjYQug Ei3hrUgiqWxbAH5sPTGj uhusd768UvXud0axJNVw hUBjELmcDGP5H25x m4D6HIDuBXJhPUV5vNH7 iH4rcGidcnojxUYicByz nhDhoJavMJnfUUluY078 IHRvcDsnPlBheWVy OjwvdGQ+UY36vt02C9Qo ZgonDot4WMIhQXH2wAQ1 bL7pSFCpPMedm6D7oBG0 B5JvgnZrth9pe2yo YXB (more content not included)... [facility] Provider Orderson 01-12-2024 Provider Orders [id number] 45#[email or web address] [facility] COVID-19, Rapidon 10-14-2022 SARS-CoV-2 (COVID-19) RNA AMANDO+probe Ql (Unsp spec) Not detected Not Detected [facility] Comment on above: Rapid NAAT: [...] management decisions. Fact sheet for Healthcare Providers: https://www.fda.gov/media/321911/download Fact sheet for Patients: https://www.fda.gov/media/691040/download Methodology: Isothermal Nucleic Acid Amplification Specimen Description .NASOPHARYNGEAL SWAB [facility] Rapid influenza A/B antigens on 10-14-2022 Flu A Antigen Negative NEGATIVE [facility] Comment on above: for Influenza A Anti gen Flu B Antigen Negative NEGATIVE [facility] Comment on above: for Influenza B Anti genOsmar [facility] Vital Signs Date Time Vital Sign Value Performing Clinician Facility 02-01-2024 09:09-0400 Body weight 157.8528 kg Viral Galindo [facility] Comment on above: Result Comment: Not provided. Performed By: #### [id number] #### [facility] (DEFAULT) [address] [place] [address] 06-23-2023 10:35-0400 Body height 167.64 cm Jossie Krueger Other [employer] Other 06-23-2023 10:35-0400 Body mass index (BMI) [Ratio] 50.03 kg/m2 Jossie Krueger Other [employer] Other 06-23-2023 10:35-0400 Body temperature 98.3 [degF] Jossie Krueger Other [employer] Other 06-23-2023 10:35-0400 Body weight 140.62 kg Jossie Krueger Other [employer] Other 06-23-2023 10:35-0400 Diastolic blood pressure 90 mm[Hg] Jossie Krueger Other [employer] Other 06-23-2023 10:35-0400 Respiratory rate 18 /min Jossie Krueger Other [employer] Other 06-23-2023 10:35-0400 SaO2% (BldA) [Mass fraction] 97 % Jossie Krueger Other [employer] Other 06-23-2023 10:35-0400 Systolic blood pressure 147 mm[Hg] Jossie Krueger Other [employer] Other 10-14-2022 18:16-0500 Body height 165.1 cm John Hastings DO Work Phone: [facility] [employer] [facility] [employer] [facility] 10-14-2022 18:16-0500 Body mass index (BMI) [Ratio] 52.92 kg/m2 John Hastings DO Work Phone: [facility] 10-14-2022 18:16-0500 Body temperature 98.29 [degF] John Hastings DO Work Phone: [facility] 10-14-2022 18:16-0500 Body weight 144.24 kg John Hastings DO Work Phone: [facility] 10-14-2022 18:16-0500 Diastolic blood pressure 96 mm[Hg] John Hastings DO Work Phone: [facility] 10-14-2022 18:16-0500 Heart rate 94 /min John Hastings DO Work Phone: [facility] 10-14-2022 18:16-0500 Respiratory rate 18 /min John Hastings DO Work Phone: [facility] 10-14-2022 18:16-0500 SaO2% (BldA) [Mass fraction] 95 % John Hastings DO Work Phone: [facility] 10-14-2022 18:16-0500 Systolic blood pressure 138 mm[Hg] John Hastings DO Work Phone: [facility] 10-05-2022 23:14-0500 Body height 165.1 cm Chapin Lee MD Work Phone: [facility] 10-05-2022 23:14-0500 Body mass index (BMI) [Ratio] 53.47 kg/m2 Chapin Lee MD Work Phone: [facility] 10-05-2022 23:14-0500 Body temperature 98.4 [degF] Chapin Lee MD Work Phone: [facility] 10-05-2022 23:14-0500 Body weight 145.74 kg Chapin Lee MD Work Phone: [facility] 10-05-2022 23:14-0500 Diastolic blood pressure 87 mm[Hg] Chapin Lee MD Work Phone: [facility] 10-05-2022 23:14-0500 Heart rate 86 /min Chapin Lee MD Work Phone: [facility] 10-05-2022 23:14-0500 Respiratory rate 18 /min Chapin Lee MD Work Phone: [facility] 10-05-2022 23:14-0500 SaO2% (BldA) [Mass fraction] 99 % Chapin Lee MD Work Phone: [facility] 10-05-2022 23:14-0500 Systolic blood pressure 146 mm[Hg] Chapin Lee MD Work Phone: [facility] Encounters Encounter Date Encounter Type Care Provider Facility Start: 04-11-2024 End: 04-11-2024 ambulatory JUSTINE CALLAHAN Not Available Start: 04-10-2024 End: 04-12-2024 [facility] Start: 04-09-2024 End: 04-09-2024 Emergency department patient visit [facility] Start: 04-04-2024 End: 04-04-2024 ambulatory JOE TRICIA Not Available Start: 03-21-2024 End: 03-21-2024 ambulatory JOE TRICIA Not Available Start: 03-07-2024 End: 03-07-2024 ambulatory JOE TRICIA Not Available Start: 02-08-2024 End: 02-08-2024 ambulatory JOE TRICIA Not Available Start: 01-16-2024 End: 01-16-2024 ambulatory JUSTINE CALLAHAN Not Available Start: 01-12-2024 End: 01-12-2024 ambulatory Viral Galindo Facility:[facility] Start: 01-10-2024 End: 01-10-2024 ambulatory JUSTINE CALLAHAN Not Available Start: 12-13-2023 End: 12-13-2023 ambulatory JOE TALBOTO Not Available Start: 11-11-2023 End: 11-11-2023 ambulatory JOE TRICIA Not Available Start: 10-27-2023 End: 10-27-2023 Office outpatient visit 5 minutes [facility] Tricia Nurse [facility] Comment on above: Canceled (Provider) Start: 06-23-2023 End: 06-23-2023 ambulatory Jossie Krueger Other [employer] Other Start: 06-23-2023 Office outpatient ne w 30 minutes Jossie Krueger [facility] Start: 10-14-2022 End: 10-14-2022 Emergency department patient visit John Hastings DO Work Phone: [facility] Comment on above: Viral URI with cough (Primary Dx) Start: 10-05-2022 End: 10-06-2022 Emergency department patient visit Chapin Lee MD Work Phone: [facility] Comment on above: Plantar fasciitis (P rimary Dx) Procedures Date Procedure Procedure Detail Performing Clinician Start: 10-14-2022 COVID-19, RAPID John Jade DO Work Phone: Start: 10-14-2022 Iaadi[place]oo influenza Vadim Hastings DO Work Phone: Plan of Treatment Date Care Activity Detail Author Start: 11-11-2023 End: 11-11-2023 ambulatory 11/11/2023 11:00 AM EST Initial [facility] [address] [place] [address] [facility] Start: 11-11-2023 End: 11-11-2023 Professional / ancillary services management 11/11/2023 10:30 AM EST Ancillary Procedure [facility] [address] [place] [address] [facility] Start: 10-27-2023 End: 10-27-2024 US Pelvis transvaginal US OB transvaginal Imaging Routine Missed menses Expected: 10/27/2023 (Approximate), Expires: 10/27/2024 [facility] Work Phone: Comment on above: Expected: 10/27/2023 (Approximate), Expires: 10/27/2024 Start: 04-26-2022 Influenza vaccination Flu vaccine (# 1) [facility] Start: 11-17-2021 DTaP/Tdap/Td vaccine (7 - Td or Tdap) DTaP/Tdap/Td vaccine (7 - Td or Tdap) [facility] Start: 01-15-2000 COVID-19 Vaccine (#1) COVID-19 Vacci ne (#1) [facility] Payers Date Payer Category Payer Medicaid [id number] 2022 Unknown [id number] 2019 Medicare [id number]. [id number] 1999 Unknown [id number] 2.16.8 [id number] 1999 Unknown [id number] 2.16.8 [id number] 1999 Unknown [id number] 2.16.84 [id number] 1999 Unknown [id number] 2.16.84 [id number] 1999 Unknown [id number] 2.16.84 [id number] 1999 Unknown [id number] 2.16.84 [id number] 1999 Unknown [id number] 2.16.84 [id number] 1999 Unknown [id number] 2.16.84 [id number] 1999 Unknown [id number] 2.16.84 [id number] 1999 Unknown [id number] 2.16.84 [id number] 1999 Unknown [id number] 2.16.84 [id number] 1999 Unknown [id number] 2.16.8 [id number] Social History Date Type Detail Facility Start: 10-05-2022 Tobacco smoking status FLIS Smokes tobacco daily [facility] Phone: History of tobacco use Cigarette Smoker B ON [employer] Phone: Start: 10-05-2022 End: 10-14-2022 Cigarettes smoked current (pack per day) - Reported 1 [facility] Phone: Start: 10-05-2022 Tobacco use and exposure Smokeless tobacco non-user [facility] Phone: Start: 10-05-2022 End: 10-14-2022 Alcohol intake Current drinker of alcohol (finding) [facility] Phone: Start: 10-05-2022 Alcohol Comment in a month [facility] Phone: Start: 2000 Sex Assigned At Not on file [facility] Phone: Start: 09-25-2022 End: 10-14-2022 Exposure to SARS-CoV-2 (event) Not sure [facility] Phone: Start: 10-14-2022 History SDOH Alcohol Frequency 1 [facility] Phone: Start: 10-14-2022 History SDOH Alcohol Std Drinks 0 [facility] [employer] Phone: Sex Assigned At Sex Assigned At Bir th [employer] [facility] Start: 2000 Sex Assigned At Female [facility] Start: 10-20-2023 Gender identity Identifies as female gender (finding) [facility] Start: 10-20-2023 Sexual orientation Heterosexual (finding) [facility] History of Present illness Narrative 10-27-2023 Zari Wagner LPN - 10/27/2023 2:30 PM EST Note Date & Type Note Facility 10-27-2023 History of Presen t illness Narrative Patient to return in 2 weeks to get a SUE as not able to obtain today. documented in this encounter [facility] Evaluation note 06-23-2023 Note Date [...] understanding and is agreeable to treatment plan [employer] Other Evaluation note Note Date & Type Note Facility Evaluation note Diagnosis Plantar fasciitis- Primary Plantar fascial fibromatosis documented in this encounter [facility] [employer] [facility] Phone: Evaluation note Note Date & Type Note Facility Evaluation note Diagnosis Viral URI with cough- Primary Acute upper respiratory infections of unspecified site documented in this encounter [facility] Phone: Evaluation note Note Date & Type Note Facility Evaluation note Diagnosis Missed menses documented in this encounter [facility] History general Narrative - Reported Note Date & Type Note Facility History general Narrative - Reported Type Surgical History wisdom teeth [employer] Other Hospital Discharge instructions Attachments Note Date & Type Note Facility Hospital Discharge instructions The following attachments cannot be sent through Care Everywhere.Plantar Fasciitis (Scottish)documented in this encounter [facility] Phone: Hospital Discharge instructions Attachments Note Date & Type Note Facility Hospital Discharge instructions The following attachments cannot be sent through Care Everywhere.URI (Upper Respiratory Infection) (Scottish)documented in this encounter [facility] Phone: Summary Purpose Family History No Family [...] Care Teams (unrecognized sec tion and content) Capacity Management Specialist Relationship Specialty Start Date End Date Viral Galindo MD [address] [place] [address] PCP - General Pediatrics 10/27/23 INFORMATION SOURCE (unrecogn ized section and content) DATE CREATED AUTHOR 04/13/2024 [facility] DATE CREATED AUTHOR AUTHOR'S ORGANIZ ATION 04/15/2024 [facility] Specialists EPIC DATE CREATED AUTHOR AUTHOR'S CHAR ATION 05/02/2024 [facility] FOR RECORDS PERTAINING TO PATIENTS WHO [...] BE BASED ON THE PRIMARY CLINICAL RECORDS. [facility]. provides no warranty or guarantee of the accuracy or completeness of information in this document.
== END 2024-05-07 19:31 | disposition home or self-care (01) ==
LOC: LAB 19:30
PROVIDERS: PCP Family Medicine; Visit Provider Obstetrics & Gynecology
DX: Z34.93 Encounter for supervision of normal pregnancy, unspecified, third trimester (principal)
CPT/HCPCS: 36415; 87081; 87150

== ENCOUNTER 2024-05-10 07:09 | Outpatient (OUT) | payer OTHER, MEDICAID, SELFPAY ==
--- OUTSIDE RECORDS SUMMARY | 2024-05-10 07:11 | XMS_ITS | CCD ---
Author Organization [facility] [employer] [employer] [facility] Care Team Providers Care Retail Training Manager Name Role Phone Unavailable Primary Care Provider UnavailJossie Lui Unavailable Viral Galindo MD Primary Care Provider SARKIS JAY Referring Unavailable SARKIS JAY Attending Unavailable TRICIA, JOE Attending Unavailable SINDY, JUSTINE Attending Unavailable JUSTINE CALLAHAN Attending Unavailable TRICIA, JOE Attending Unavailable TRICIA, JOE Attending Unavailable TRICIA, JOE Attending Unavailable TRICIA, JOE Attending Unavailable SINDY, JUSTINE Attending Unavailable SINDY, JUSTINE Attending Unavailable TRICIA, JOE Attending Unavailable Justine Olmstead Attending Unavailable Viral Galindo Primary Care Unavailable Justine Olmstead Admitting Unavailable Viral Galindo Primary Care Unavailable Viral Galindo Attending Unavailable Allergies Allergy Classification Reported Allergen(s) Allergy Type Date of Onset Reaction(s) Facility (1 source) No Known Medication Allergies; Translations: [No Known Medication Allergies] Propensity to adverse reactions to drug (disorder) [facility] Repository Medications Current Medications Medication Drug [...] Test Name Value Interpretation Reference Range Facility Office/Clinic Noteon 14-2 024 Office/Clinic Note Patient: ZEV YAP Age: 23 years Sex: FEMALE : 2000 Associated Diagnoses: Adult general medical exam Author: Viral Galindo MD A History of Present Illness 23-year-old female who is currently 36 weeks presents today for annual exam. She has not been seen in the office for about 3 years. She is engaged. This will be her first child. She has not had any issues. They have been watching closely for preeclampsia. Her blood sugars have been stable. She plans on bringing the baby to the office after delivery. She is planning on breast-feeding. Denies any recent illnesses or injuries. Otherwise no other complaints. She has gained about 60 pounds with her . She reports her prepregnancy weight was about 310 pounds. Review of Systems Constitutional: Negative. Ear/Nose/Mouth/Throa t: Negative. Respiratory: Negative. Cardiovascular: Negative. Gastrointestinal: Negative. Genitourinary: Negative. Musculoskeletal: Negative. Integumentary: Negative. Neurologic: Negative. Psychiatric: Negative. All other systems are negative Health Status Allergies: Allergic Reactions (Selected) No Known Medication Allergies, Allergies (1) Active Severity Reaction No Known Medication Allergies None Documented Current medications: (Selected) Documented Medications Documented Multi + DHA: 1 cap(s), Oral, Daily, 0 Refill(s) aspirin 81 mg oral delayed release tablet: 81 mg = 1 tab(s), Oral, Daily, 0 Refill(s), Home Medications (2) Active aspirin 81 mg oral delayed release tablet 81 mg = 1 tab(s), Oral, Daily Multi + DHA 1 cap(s), Oral, Daily Problem list: Active Problems (4) Depression Female pelvic pain None Smoker Physical Examination Vital Signs 05/09/2024 10:55 EDT Peripheral Pulse Rate 102 bpm HI Systolic Blood Pressure 100 mmHg Diastolic Blood Pressure 70 mmHg BP Site Left arm SpO2 97 % Measurements from flowsheet : Measurements 05/09/2024 10:55 EDT Height 165.10 cm Height/Length Measured (inches) 65 in Weight 170.46 kg Weight Measured (lbs) 375.8 lb Weight Dosing 170.460 kg Body Mass Index 62.54 kg/m2 Lamar Body Weight Calculated 57 kg BSA Measured 2.8 m2 General: Alert and oriented, No acute distress. HENT: Tympanic membranes are clear, Normal hearing, Oral mucosa is moist. Neck: No carotid bruit, No jugular venous distention, No lymphadenopathy, No thyromegaly. Respiratory: Lungs are clear to auscultation, Respirations are non-labored, Breath sounds are equal. Cardiovascular: Normal rate, Regular rhythm, No murmur, Good pulses equal in all extremities, +1 edema of the legs bilaterally.. Gastrointestinal: Soft, Non-tender, Non-distended, Normal bowel sounds, No organomegaly. Musculoskeletal Normal range of motion. Normal strength. No tenderness. Normal gait. Neurologic: Alert, Oriented, Normal sensory, Normal motor function, No focal deficits, Cranial Nerves II-XII are grossly intact. Cognition and Speech: Oriented, Speech clear and coherent. Impression and Plan Diagnosis Adult general medical exam (COW74-AN Z00.00). Plan: At this point no further workup or preventative issues needed. I did discuss with patient about nursing after her delivery. Also about watching her weight and losing her weight after delivery. She does have a plan to go on a diet afterwards.. Orders Orders Evaluation and Management: 02976 Periodic preventive care, estab pt; 18-39 years (Order): 05/09/2024 10:53 EDT, Qty: 1, Adult general medical exam. [Electronically Signed on: 05/09/2024 11:16 EDT] Viral Galindo MD [Verified on: 05/09/2024 11:16 EDT] Viral Galindo MD [facility] 05-08-2024 Outside Records [id number] 86#1.00OTGTIFF [facility] 05-07-2024 Outside Records [id number] [facility] Outside Records [id number] [facility] Outside Records [id number] #1.00OTGTIFF [facility] 04-13-2024 Outside Records [id number] #1.00OTGTIFF [facility] CBC with Diffon 04-09-2024 Abs. Basophil 0.00 k/uL Normal 0.00-0.20 [facility] Comment on above: Performed By: #### C DP, CP #### [facility] [address] [place] [address] Battalion Fire Chief: Viral Mcgraw MD Abs.Imm.Granulocyte 0.03 k/uL Normal 0.00-0.30 [facility] Comment on above: Performed By: #### C DP, CP #### [facility] [address] [place] [address] Battalion Fire Chief: Viral Mcgraw MD Abs.Neutrophil (Seg) 6.53 k/uL Normal 2.5-7.0 [facility] Comment on above: Performed By: #### C DP, CP #### [facility] [address] [place] [address] Battalion Fire Chief: Viral Mcgraw MD Basophils/100 WBC (Bld) 0 % Normal 0-2 [facility] Comment on above: Performed By: #### C DP, CP #### [facility] [address] [place] [address] Battalion Fire Chief: Viral Mcgraw MD Eosinophils (Bld) [#/Vol] 0.21 10*3/uL Normal 0.00-0.40 [facility] Comment on above: Performed By: #### C DP, CP #### [facility] [address] [place] [id number] Battalion Fire Chief: Viral Mcgraw MD Eosinophils/100 WBC (Bld) 2 % Normal 0-5 [facility] Comment on above: Performed By: #### C DP, CP #### [facility] [address] [place] [address] Battalion Fire Chief: Viral Mcgraw MD Erythrocyte distribution width (RBC) [Ratio] 13.9 % Normal 12.1-15.2 [facility] Comment on above: Performed By: #### C DP, CP #### [facility] [address] [place] [id number] Battalion Fire Chief: Viral Mcgraw MD Hematocrit (Bld) [Volume fraction] 32.4 % Low 36.0-46.0 [facility] Comment on above: Performed By: #### C DP, CP #### [facility] [address] [place], [place] [id number] Battalion Fire Chief: Viral Mcgraw MD Hemoglobin (Bld) [Mass/Vol] 11.2 g/dL Low 12.0-16.0 [facility] Comment on above: Performed By: #### C DP, CP #### [facility] [address] [place], [place] [id number] Battalion Fire Chief: Viral Mcgraw MD Immature granulocytes/100 WBC (Bld) 0 % Normal 0-5 [facility] Comment on above: Performed By: #### C DP, CP #### [facility] [address] [place] [address] Battalion Fire Chief: Viral Mcgraw MD Lymphocytes (Bld) [#/Vol] 1.74 10*3/uL Normal 1.00-4.80 [facility] Comment on above: Performed By: #### C DP, CP #### [facility] [address] [place] [address] Battalion Fire Chief: Viral Mcgraw MD Lymphocytes/100 WBC (Bld) 19 % Normal 15-40 [facility] Comment on above: Performed By: #### C DP, CP #### [facility] [address] [place] [address] Battalion Fire Chief: Viral Mcgraw MD MCH (RBC) [Entitic mass] 30.4 pg Normal 26.0-34.0 [facility] Comment on above: Performed By: #### C DP, CP #### [facility] [address] [place] [address] Battalion Fire Chief: Viral Mcgraw MD MCHC (RBC) [Mass/Vol] 34.6 g/dL Normal 31.0-37.0 [facility] Comment on above: Performed By: #### C DP, CP #### [facility] [address] [place] [address] Battalion Fire Chief: Viral Mcgraw MD MCV (RBC) [Entitic vol] 88.0 fL Normal 80.0-100.0 [facility] Comment on above: Performed By: #### C DP, CP #### [facility] [address] [place], [place] [id number] Battalion Fire Chief: Viral Mcgraw MD Monocytes (Bld) [#/Vol] 0.48 10*3/uL Normal 0.00-1.00 [facility] Comment on above: Performed By: #### C DP, CP #### [facility] [address] [place] [address] Battalion Fire Chief: Viral Mcgraw MD Monocytes/100 WBC (Bld) 5 % Normal 4-8 [facility] Comment on above: Performed By: #### C DP, CP #### [facility] [address] [place], [place] [id number] Battalion Fire Chief: Viral Mcgraw MD Neutrophil (Seg) 74 % Normal 47-75 [facility] Comment on above: Performed By: #### C DP, CP #### [facility] [address] [place] [address] Battalion Fire Chief: Viral Mcgraw MD Platelet mean volume (Bld) [Entitic vol] 10.7 fL Normal 6.0-12.0 [facility] Comment on above: Performed By: #### C DP, CP #### [facility] [address] [place], [place] [address]80[address] (300) Battalion Fire Chief: Viral Mcgraw MD Platelets (Bld) [#/Vol] 220 10*3/uL Normal 140-450 [facility] Comment on above: Performed By: #### C DP, CP #### [facility] [address] [place], [place] [id number] (667) Battalion Fire Chief: Viral Mcgrwa MD RBC (Bld) [#/Vol] 3.68 10*6/uL Low 4.00-5.20 [facility] Comment on above: Performed By: #### C DP, CP #### [facility] [address] [place], [place] [id number] Battalion Fire Chief: Viral Mcgraw MD WBC (Bld) [#/Vol] 9.0 10*3/uL Normal 3.5-11.0 [facility] Comment on above: Performed By: #### C DP, CP #### [facility] [address] [place], [place] [id number] Battalion Fire Chief: Viral Mcgraw MD Comp Metabolic Profon 2023 Albumin [Mass/Vol] 3.2 g/dL Low 3.5-5.2 [facility] Comment on above: Performed By: #### C DP, CP #### [facility] [address] [place], [place] [address] Battalion Fire Chief: Viral Mcgraw MD Alkaline Phos 74 U/L Normal 35-104 [facility] Comment on above: Performed By: #### C DP, CP #### [facility] [address] [place], [place] [id number] Battalion Fire Chief: Viral Mcgraw MD ALT [Catalytic activity/Vol] 26 U/L Normal 5-33 [facility] Comment on above: Performed By: #### C DP, CP #### [facility] [address] [place], [place] [id number] Battalion Fire Chief: Viral Mcgraw MD Anion gap [Moles/Vol] 10 mmol/L Normal 9-17 [facility] Comment on above: Performed By: #### C DP, CP #### [facility] [address] [place], [place] 3398[address] Battalion Fire Chief: Viral Mcgraw MD AST [Catalytic activity/Vol] 16 U/L Normal <32 [facility] Comment on above: Performed By: #### C DP, CP #### [facility] [address] [place], [place] [address] Battalion Fire Chief: Viral Mcgraw MD Bilirubin [Mass/Vol] 0.2 mg/dL Low 0.3-1.2 [facility] Comment on above: Performed By: #### C DP, CP #### [facility] [address] [place], [place] [address]27[address] Battalion Fire Chief: Viral Mcgraw MD BUN/CRE Ratio 7 Low 9-20 [facility] Comment on above: Performed By: #### C DP, CP #### [facility] [address] [place], [place] [address]60[address] Battalion Fire Chief: Viral Mcgraw MD Calcium [Mass/Vol] 9.1 mg/dL Normal 8.6-10.4 [facility] Comment on above: Performed By: #### C DP, CP #### [facility] [address] [place], [place] 1079[address] Battalion Fire Chief: Viral Mcgraw MD Chloride [Moles/Vol] 101 mmol/L Normal 98-107 [facility] Comment on above: Performed By: #### C DP, CP #### [facility] [address] [place] [address] Battalion Fire Chief: Viral Mcgraw MD CO2 [Moles/Vol] 24 mmol/L Normal 20-31 [facility] Comment on above: Performed By: #### C DP, CP #### [facility] [address] [place], [place] 4158[address] Battalion Fire Chief: Viral Mcgraw MD Creatinine [Mass/Vol] 0.7 mg/dL Normal 0.5-0.9 [facility] Comment on above: Performed By: #### C DP, CP #### [facility] [address] [place], [place] 0708[address] Battalion Fire Chief: Viral Mcgraw MD GFR/1.73 sq M.predicted among non-blacks MDRD (S/P/Bld) [Vol rate/Area] mL/min/{1.73_m2} Normal >60 [facility] Comment on above: Result Comment: These results [...] Performed By: #### C DP, CP #### [facility] [address] [place] [address] Battalion Fire Chief: Viral Mcgraw MD Glucose [Mass/Vol] 107 mg/dL High 70-99 [facility] Comment on above: Performed By: #### C DP, CP #### [facility] [address] [place] [address] Battalion Fire Chief: Viral Mcgraw MD Potassium [Moles/Vol] 3.3 mmol/L Low 3.7-5.3 [facility] Comment on above: Performed By: #### C DP, CP #### [facility] [address] [place] [address] Battalion Fire Chief: Viral Mcgraw MD Protein [Mass/Vol] 6.3 g/dL Low 6.4-8.3 [facility] Comment on above: Performed By: #### C DP, CP #### [facility] [address] [place] [address] Battalion Fire Chief: Viral Mcgraw MD Sodium [Moles/Vol] 135 mmol/L Normal 135-144 [facility] Comment on above: Performed By: #### C DP, CP #### [facility] [address] [place], [place] [address] Battalion Fire Chief: Viral Mcgraw MD Urea nitrogen [Mass/Vol] 5 mg/dL Low 6-20 [facility] Comment on above: Performed By: #### C DP, CP #### [facility] [address] [place] [address] Battalion Fire Chief: Viral Mcgraw MD AFP Tetra LCon 02-01-2024 AFP CHIN MoM 1.12 Invalid Interpretation [facility] Comment on above: Performed By: #### 3 [id number] #### [facility] (DEFAULT) [address] [place] [address] 56075 AFP DSR (By Age) 1 IN 1039 Invalid Interpretation [facility] Comment on above: Performed By: #### 3 [id number] #### [facility] (DEFAULT) [address] [place] [address] 81062 AFP DSR (Second Trimester) 1 IN 957 Invalid Interpretation [facility] Comment on above: Performed By: #### 3 [id number] #### [facility] (DEFAULT) [address] [place] [address] 28759 AFP Gest. Age on Collection Date 19.3 week(s) Invalid Interpretation [facility] Comment on above: Result Comment: Not provided. Performed By: #### 3 [id number] #### [facility] (DEFAULT) [address] [place] [address] 36172 AFP Gestat. Age Based On SUE Invalid Interpretation [facility] Comment on above: Result Comment: 05/27 Performed By: #### 3 [id number] #### [facility] (DEFAULT) [address] [place] [address] 18441 AFP hCG MoM 1.18 Invalid Interpretation [facility] Comment on above: Performed By: #### 3 [id number] #### [facility] (DEFAULT) [address] [place] [address] 01583 AFP insulin Dep Diabetes No Invalid Interpretation [facility] Comment on above: Result Comment: Not provided. Performed By: #### 3 [id number] #### [facility] (DEFAULT) [address] [place] [address] 76397 AFP Interpretation Comment Invalid Interpretation [facility] Comment on above: Result Comment: [...] identifies 60% of Trisomy 18 pregnancies. The [employer] recommends amniocentesis [...] within 10 days. Performed By: #### 3 [id number] #### [facility] (DEFAULT) [address] [place] [address] AFP Maternal Age At SUE 24.8 Invalid Interpretation Code [facility] Comment on above: Performed By: #### 3 [id number] #### [facility] (DEFAULT) [address] [place] [address] 59051 AFP MoM 0.69 Invalid Interpretation [facility] Comment on above: Performed By: #### 3 [id number] #### [facility] (DEFAULT) [address] [place] [address] 02464 AFP Multiple Gestation No Invalid Interpretation [facility] Comment on above: Result Comment: Not provided. Performed By: #### 3 [id number] #### [facility] (DEFAULT) [address] [place] [address] 32645 AFP OSBR [place] 1 [place] [address] Invalid Interpretation [facility] Comment on above: Performed By: #### 3 [id number] #### [facility] (DEFAULT) [address] [place] [address] 29859 AFP Race Invalid Interpretation [facility] Comment on above: Result Comment: Not provided. Performed By: #### 3 [id number] #### [facility] (DEFAULT) [address] [place] [address] 10600 AFP Results Comment Invalid Interpretation [facility] Comment on above: Result Comment: The MOM and risk factors of this report have been modified based on new information supplied to us by the client or their designated sales service representative. The Gestational Age Based On [...] provided. to 348. Performed By: #### 3 [id number] #### [facility] (DEFAULT) [address] [place] [address] 77067 AFP T18 (By Age) 1:4050 Invalid Interpretation [facility] Comment on above: Performed By: #### 3 [id number] #### [facility] (DEFAULT) [address] [place] [address] 26834 AFP T18 Risk Not increased Invalid Interpretation [facility] Comment on above: Performed By: #### 3 [id number] #### [facility] (DEFAULT) [address] [place] [address] 96417 AFP Test Results: Negative Invalid Interpretation [facility] Comment on above: Performed By: #### 3 [id number] #### [facility] (DEFAULT) [address] [place] [address] AFP uE3 MoM 0.66 Invalid Interpretation [facility] Comment on above: Performed By: #### 3 [id number] #### [facility] (DEFAULT) [address] [place] [address] 66356 AFP Tetra LCon 01-18-2024 AFP Comments: Comment Invalid Interpretation Code [facility] Comment on above: Result Comment: Bethany Perez, Ph.D., [facility] Director References: Available Upon Request. Multiples Of Median Cutoffs Abbreviation Definitions For AFP Elevations IDD- Insulin Dep Diabetes Cadet 2.5 Black 2.8 OSBR- Open Spina Bifida IDD 2.0 Twins 4.5 Risk DSR Cutoff 1:270 DSR- Down Syndrome Risk T18 Cutoff 1:100 T18- Trisomy 18 For further inquiries contact [facility] at [phone]. This test was developed and its performance characteristics determined by [facility]. It has not been cleared or approved by the Food and Drug Administration. Performed At: [facility] [place], [place] [id number] [facility] Ph:[phone] Performed By: #### 3 [id number] #### [facility] (DEFAULT) [address] [place] [address] 80071 AFP CHIN Value 120.65 pg/mL Invalid Interpretation Code [facility] Comment on above: Performed By: #### 3 [id number] #### [facility] (DEFAULT) [address] [place] [address] 71079 AFP uE3 Value 1.08 ng/mL Invalid Interpretation [facility] Comment on above: Performed By: #### 3 [id number] #### [facility] (DEFAULT) [address] [place] [address] 43312 AFP Value 23.0 ng/mL Invalid Interpretation [facility] Comment on above: Performed By: #### 3 [id number] #### [facility] (DEFAULT) [address] [place] [address] [place] [address] m[IU]/mL Invalid Interpretation Code [facility] Comment on above: Performed By: #### 3 [id number] #### [facility] (DEFAULT) [address] [place] [address] Coding Summaryon 01-18-2024 Coding Summary HTMLBase 64 UsdeawisECa5pQc+PGhl YWQ+OS3JQPFbJ31cfZEq cE1xK1YXAOyPOpfxNOEB HDnKHpTmiqDyRD2csUXf ZXJu IC8+XE8mFKMxCfmhmEWm w9T2kMP1D21pdd2iMDbp yNI3QKTlKxFcahiyi5cy pSh2IMkuHbobYkBg JSBheQ98AXB5cD62Vb56 fLGntERzm5zweRp9GzMv CNVjQSC0nCyfPRivl2So EQLpQ72efWHiu1P7 IGNvbGxhcHNlOyBlbXB0 iX3zFThktcbnt3xaislw Zer5qu99iHGll9C9hTU5 Q4KsrfN1OYEboPWj FbmfsZMWkN3csxwlu3tm ydpeTlWcQSZtXLa2UZo3 QBNjxYbfRuYbEJ67SBV8 TRNupwAcC4RwALBp eNpzQiH5o1T3Tj6YL1IF WxgtM0IHPCEFOJnygVW+ MF92bl41A4WjBqhuBtf6 WXXkDZX7sYL4cV2d UJExCVpti2M3eSE4F6Mo tcMmtr8if7goAQWkWXhu Z27uhYOyc3A6LNNlaVL1 FKZivLbpLbRdwN69 Oyc+NQXarVupi3EjYvcj q6xxe1qirSw3GdweGYSm xfJecBphZFR7p9WoIf0f FHAfnZC4xFS0rF5g LdFnOsC6KQcdT483IeFw bWBsRzfvD92iB0YknKY+ TMFoGdk1RAZflVtoNJ9s U5ZsCXDvfcigiSPs nMzuDU3iGGWbvhpsAJPp lZ7oOPXkO5g1TnSwUeP2 FBdbG0CgDVPuncgqKq14 pY6bVeAsXpP2CDld X9UxinJ3FFQaaJHhTAhi WKF7B29zp4X5EBCxQNIg GDA4lWS4xJ8ftDtusirm bGVmdDsgdmVydGlj DKnpINmtQ088SHKxgVdr PkNvZGluZyBEYXRlOiAg MDQvMjQvMjAyNDwvdGQ+ WIQpHDZ8eJzcBKXn wNTfVPygDn9lgJfasHvx JM9sKLGjjbvnNRLdfN1d YIAyoFUqlGnhBH1iVDXi hcilw849VwOdDSJ5 HMTcgZRhK2HobF2vQgAs QYJvSGPoM5XyuOVvQWga Y148ORkuDdH5HRVhxiUg G9TdRUJepYsiRoK4 y9C4Dl7Bq2YahuwwO6Li oFTdAwXeYghlBNp3D2Sq PjwvdHI+WT18MVYqUU35 FDj5BDI7pVepCAlb TEDbS6XgdU1iLrQbFHJg ZGRkOyc+PHRhYmxlIHdp ZHRoPScxMDAlJyBzdHls KP6lNf6nAFTlWFJo rRnjiJOsAjMez4doJLOl IUyaTQ9yfCnfF8LqpFX0 EFVai2x7Oo45Q81iZ3Io dXA+CPIfrAM8oZB4 lM1xFlVvHgB8NSvrD691 ObZlaYWfIlgzj4bif7xt wTq8BoJ8FRWzqpExkJma RJF6k7UrKb38I88y IHdpZHRoPSIxNSUiIHZh hVntdc9qoQ4hRn2+PGNv bVG6iGS5oQ5pDfRxEnL5 CGmaH320AaDazXKy Wcnoa3ehh1rutWn1NaRr IJKqapLeaMaxKSW7i2Pd Yz05H4YybCnej7AyLlm8 ht06qCFzs0L2lPR4 F0NiFZKyhkjsvWNalSyp OM8lGVZzzjowKFLyeT9a IZRpJ7o6QsYpBoK6YKqg P0HrtxL9MIWitZWj HIFafRUEiP2jxutym6hs tlaqLlJhXNNsWHe8ZJr8 KOXpeEytHuCoVXV4LhO4 NUN2fKWhtW2gaFtc aabzhC8eHax+YUZ5qYGm iVZNSK9fAyaeiCM+PHRk IZH6fJpfHLyfUXFkpN4w FYVmS4c4KnDlAhT4 JZxvK3JhbdQ2VATvgCSo YHOhkYMBnO2hctarr9sr jrwiIaBnBSDoADb7EVr4 LWFsaWduOiBsZWZ0 ExQ5XLM8sNLytS8coWmo spggzI5sUwb+QmlydGgg EMY5DXg6A1YuTlk6HEQa sWteMS0jvEEaSAoz Cr3pjFikyNviQV2fAOSn cklkj968GhYvi9jkZCSk hRYuQTdtTIF5V51xj6N7 ZDKzPBZsVFH8aHJ1 gE6tpOruolunuOSlrAyn psOabRtpBEkmZGxmA738 NDNytZxcZrUnUAd6B9Ft Aaz3NZPfzWnwMC1a aQXxPPwkYe7gsVruaUcv EX7gLJTzcqavq071BeCv l0bpLJVwcCTbNJmmYOT2 P06yw7V3MIBpZAMc VTT5bYG3cD0yqNjefvhm bGVmdDsgdmVydGljYWwt BEybC367TLKkeXnvVgLw lLm5N5OeDij2MTRn aTvfNI0mmUUaWUpiGj1p hSegjOeyDP3pBEIbrdst h680DaQvp1nyUTAorRXx MIifNBZ2J09zz3R2 VIWtWYXhVGL0hIU4hU9w bGlnbjogbGVmdDsgdmVy sOqbDSmlPRnoI570JFVk cDsnPlBhdGllbnQg RFamIRe7W2DiJzpkwBD+ TQ26MEZbOB58pCYmhSUm j0rexWq3SeLwAYBpAKV0 uOpeEIklx2BjCDHd D13xlXDkz0R5CWOgxLdn iBLfQnMcbNJ8fT4rJCku chqxv8ujuiroJktfk5og yn40yB16J22xPNqw ZHRoPSIzMCUiIHZhbGln bd3nnR9xKk6+PGNvbCB3 aEE6nC9kNLCiXmF1IFqc L067CsRzoNTkZfua m0bma6meeVt0IsN8BYAx heAylZxyKJG6c8DlFa65 L79uBHsdXSHcOMRdNBLa EKEzmSvjyb4wpD4g Ii8+HOWapVN8rMK5oT1r SrXbYnU0IEgcS087XjDa vXMdRqlfA53dT2GgoPG+ YJFoHvb3XGZlbFos ME1icGBiOOsxEk2sXVD2 WuEeRbWnARikF9WjOLMk jkfsarwcvMJ5SBEeVHIs kH62Tp9caXwmKPNy hSLIxT1unciai2ukgied WiAoOPIiWPj9GBp8OUIx dNsyNgUhJPZ5IzQ5LIL3 pPLihV2ddHsumnzr mP5nA6ItHPJriaszQo81 fC9fZpBbOwC8AFnkSok+ XZ4WLWXVBBuwOCnZIQrS IFNJRVJSQTwvdGQ+ VDToPYN3hPpfBOvsLOCl sD6nMDGoN7y9ZdNkJpM3 BNwrF8FxXGFfposzCt70 gG0aVfOmDqW9JFkl A8YyvrB6UZUnuUKaFSnv CFM8D58cu0I8MVOtNOXv PMO2vPG6wD3hcDpnkyne bGVmdDsgdmVydGlj GPdoOBsfL030BXYuiJps FkHnZtFdHsE5MMz6N6Vz Ljg9UGVdqPhoZN7kcJFk KBxgPn0zaTthcYiw US6tEJQlzwxbOBRrrC9e ZLIspMLujQoeUP0jBAZk yohwi163TjFhXHP0XPOy xOJxM8NcgL5fMhBn WFPjFBFiW5CpdGYaHZou S979FIuoMaX4TMYkfgPt Y6YvFPNyuRlxQzC6s3I5 Sp1zVQBEGKJrtlan dGQ+EAFgWIQ3pGwgCBol UNYutI5fPPIqY2e8ViYg FnU3CUbqY7KuOSMevnoq Ba49lQ9qSrIhQjL5 FSgqQ8ZikqT2EENcnXGc BFpoSSA6P76ae4L7BVSe ZNPzBQN7wLJ5fA9cfLny bjogbGVmdDsgdmVy cZooWPjuXFobP289ZTSd cDsnPkZFTUFMRTwvdGQ+ FLZcWCU5hHfhYLpqENTp rZ1vJNQeO8e9HhLi DuM7MGnxD3QkELPdibcg Jl48zW5kZqBgYgZ8FHze R7ZjvzA0ZDBstDXwPHxm LQE6R24yc8P4VFVa KKOqWBT3zFV4xO5yaExv bjogbGVmdDsgdmVydGlj WBehVPvsZ824MBCuySoh Cw1CRC03EG20Q0Km PjwvdGFibGU+PHRhYmxl IHdpZHRoPScxMDAlJyBz bAieNI2kWw2wNKUyKEUl lNxibXRzZqBtu4ex ZVKrDAfqUA4wqPvpZ4Dg gHR6LDZta4f8Ys77G00w S4JbnFV+MFZynGF0zWH0 rE5bVtSqWcN0FEnw J499WgSdhTNuCznbq0yo j0ozwCy1AnDyBHXrutVp wFyoQLU0a4OaHw36O52f IHdpZHRoPSIyMCUi XAClaZlalw9hqH3xLe0+ VSUmfND3aWI1gS2qHrHh BoY2KBgiE331KpArvSQn BwecO79mG0OufDA+ SEOuTii0VCWvsQtnDF7w pJCpFVlkTw4vRHM3KbNs QcVaIVeeZ1BeTSXbjyhi ekjovGS7BZXlMUCg xF21Pr7zbJwwKo9mZOAu NXZ4QZKpuXMeI3XjzA7j XxTyEJSuFTSbS4UxyCBr IHrqY522NIdbReI0 MDVvfaJpH5OpIJMwvTxc ZsG6x6X1Sb3TpAnhrBKj NO2lHzBtOSg4K6QqBre7 NYOvkGodFU8ssJEu LUweYf3lqExjqLkdED1b SNZzcdeoi144ZlZpt9xc FVFyaBOxWDhtBZF6J42t v3I9ODFhSTXePAZ2 uIS4xZ0daMtgnrxjbVRg dDsgdmVydGljYWwtYWxp Q903DBBbeBzfDbAUXex5 V3PvJki8FCArxUpp PJ4hqHRvNCnnWy0xzUds qOmzNK8iLKSeglszo953 YuItj3mmBDCmkKNfDEmt KEL6A76qd8C0WPWf TYOkQCI4yUQ4fR8lcArr bjogbGVmdDsgdmVydGlj TLfaTQulQ059OBTxwHla Zt0ROdm2S7XtNhb7 AVWpcOazVR2ttXPwBMnk Tk5ggVidjNxoLZ7vCTHs nixrt001WrWqt8hxGUBq nWOmHRbtIKD9X52n l7W8KDYbLFDfFPK9aQV9 yV5mwAyppxikoZHkvEgh sgYwlYvwCJomVZvnH146 IHRvcDsnPlBheWVy OjwvdGQ+OF04wy95I7An KhmnNzd1ZFBjIQG1eGR3 mX6gHPVaTQjkc2X5gXX2 G5EfbtOxtd7vw9gp YXB (more content not included)... [facility] Provider Orderson 01-12-2024 Provider Orders [id number] [facility] COVID-19, Rapidon 10-14-2022 SARS-CoV-2 (COVID-19) RNA AMANDO+probe Ql (Unsp spec) Not detected Not Detected [facility] Comment on above: Rapid NAAT: The specimen [...] management decisions. Fact sheet for Healthcare Providers: https://www.fda.gov/media/649828/download Fact sheet for Patients: https://www.fda.gov/media/195263/download Methodology: Isothermal Nucleic Acid Amplification Specimen Description .NAS[facility]HARYNGEAL [facility] Rapid influenza A/B antigens on 10-14-2022 Flu A Antigen Negative NEGATIVE [facility] Comment on above: for Influenza A Anti gen Flu B Antigen Negative NEGATIVE [facility] Comment on above: for Influenza B Anti gen. [facility] Vital Signs Date Time Vital Sign Value Performing Clinician Facility 02-01-2024 09:09-0400 Body weight 157.8528 kg Justine YANEZ [facility] Comment on above: Result Comment: Not provided. Performed By: #### [id number] #### [facility] (DEFAULT) [address] [place] [address] 06-23-2023 10:35-0400 Body height 167.64 cm Jossie Krueger Other [facility] Other 06-23-2023 10:35-0400 Body mass index (BMI) [Ratio] 50.03 kg/m2 Jossie Krueger Other [employer] Other 06-23-2023 10:35-0400 Body temperature 98.3 [degF] Jossie Krueger Other [employer] Other 06-23-2023 10:35-0400 Body weight 140.62 kg Jossie Krueger Other [employer] Other 06-23-2023 10:35-0400 Diastolic blood pressure 90 mm[Hg] Jossie Krueger Other [employer] Other 06-23-2023 10:35-0400 Respiratory rate 18 /min Jossie Krueger Other [employer] Other 06-23-2023 10:35-0400 SaO2% (BldA) [Mass fraction] 97 % Jossie Krueger Other [employer] Other 06-23-2023 10:35-0400 Systolic blood pressure 147 mm[Hg] Jossie Krueger Other [facility] [place] [facility] Other 10-14-2022 18:16-0500 Body height 165.1 cm John Hastings DO Work Phone: [employer] 10-14-2022 18:16-0500 Body mass index (BMI) [Ratio] 52.92 kg/m2 John Hastings DO Work Phone: [employer] 10-14-2022 18:16-0500 Body temperature 98.29 [degF] John Hastings DO Work Phone: [employer] 10-14-2022 18:16-0500 Body weight 144.24 kg John Hastings DO Work Phone: [employer] 10-14-2022 18:16-0500 Diastolic blood pressure 96 mm[Hg] John Hastings DO Work Phone: [employer] 10-14-2022 18:16-0500 Heart rate 94 /min John Hastings DO Work Phone: [employer] 10-14-2022 18:16-0500 Respiratory rate 18 /min John Hastings DO Work Phone: [employer] 10-14-2022 18:16-0500 SaO2% (BldA) [Mass fraction] 95 % John Hastings DO Work Phone: [employer] 10-14-2022 18:16-0500 Systolic blood pressure 138 mm[Hg] Venkata IBRAHIM Work Phone: [employer] 10-05-2022 23:14-0500 Body height 165.1 cm Chapin Lee MD Work Phone: [employer] 10-05-2022 23:14-0500 Body mass index (BMI) [Ratio] 53.47 kg/m2 Chapin Lee MD Work Phone: [employer] 10-05-2022 23:14-0500 Body temperature 98.4 [degF] Chapin Lee MD Work Phone: [facility] 10-05-2022 23:14-0500 Body weight 145.74 kg Chapin Lee MD Work Phone: [facility] 10-05-2022 23:14-0500 Diastolic blood pressure 87 mm[Hg] Chapin Lee MD Work Phone: [employer] 10-05-2022 23:14-0500 Heart rate 86 /min Chapin Lee MD Work Phone: [facility] 10-05-2022 23:14-0500 Respiratory rate 18 /min Chapin Lee MD Work Phone: [facility] 10-05-2022 23:14-0500 SaO2% (BldA) [Mass fraction] 99 % Chapin Lee MD Work Phone: [employer] 10-05-2022 23:14-0500 Systolic blood pressure 146 mm[Hg] Chapin Lee MD Work Phone: [employer] Encounters Encounter Date Encounter Type Care Provider Facility Start: 05-09-2024 End: 05-09-2024 ambulatory Viral Galindo Facility:[facility] Start: 05-07-2024 End: 05-07-2024 ambulatory JOE WOOD Not Available Start: 04-19-2024 End: 04-19-2024 ambulatory JUSTINE CALLAHAN Not Available Start: 04-11-2024 End: 04-11-2024 ambulatory JUSTINE CALLAHAN Not Available Start: 04-10-2024 End: 04-12-2024 [facility] Start: 04-09-2024 End: 04-09-2024 Emergency department patient visit SARKIS JAY [facility] Start: 04-04-2024 End: 04-04-2024 ambulatory JOE TRICIA Not Available Start: 03-21-2024 End: 03-21-2024 ambulatory JOE TRICIA Not Available Start: 03-07-2024 End: 03-07-2024 ambulatory JOE TRICIA Not Available Start: 02-08-2024 End: 02-08-2024 ambulatory JOE TRICIA Not Available Start: 01-16-2024 End: 01-16-2024 ambulatory JUSTINE CALLAHAN Not Available Start: 01-12-2024 End: 01-12-2024 ambulatory Justine Lopeno PA Facility:[facility] Start: 01-10-2024 End: 01-10-2024 ambulatory JUSTINE SINDY Not Available Start: 12-13-2023 End: 12-13-2023 ambulatory JOE TRICIA Not Available Start: 11-11-2023 End: 11-11-2023 ambulatory JOE TRICIA Not Available Start: 10-27-2023 End: 10-27-2023 Office outpatient visit 5 minutes [facility] Tricia Nurse [facility] Comment on above: Canceled (Provider) Start: 06-23-2023 End: 06-23-2023 ambulatory Jossie Krueger Other [employer] Other Start: 06-23-2023 Office outpatient ne w 30 minutes Jossie Krueger [facility] Start: 10-14-2022 End: 10-14-2022 Emergency department patient visit John Hastings DO Work Phone: [facility] Comment on above: Viral URI with cough (Primary Dx) Start: 10-05-2022 End: 10-06-2022 Emergency department patient visit Chapin Lee MD Work Phone: [facility] Comment on above: Plantar fasciitis (P rimary Dx) Procedures Date Procedure Procedure Detail Performing Clinician Start: 10-14-2022 COVID-19, RAPID John Jade DO Work Phone: Start: 10-14-2022 Iaadi[place]oo influenza Vadim Hastings DO Work Phone: Plan of Treatment Date Care Activity Detail Author Start: 11-11-2023 End: 11-11-2023 ambulatory 11/11/2023 11:00 AM EST Initial [facility] [address] [place] [id number] [facility] Start: 11-11-2023 End: 11-11-2023 Professional / ancillary services management 11/11/2023 10:30 AM EST Ancillary Procedure [facility] [address] [place] [address] [facility] Start: 10-27-2023 End: 10-27-2024 US Pelvis transvaginal US OB transvaginal Imaging Routine Missed menses Expected: 10/27/2023 (Approximate), Expires: 10/27/2024 [facility] Work Phone: Comment on above: Expected: 10/27/2023 (Approximate), Expires: 10/27/2024 Start: 04-26-2022 Influenza vaccination Flu vaccine (# 1) [facility] Start: 11-17-2021 DTaP/Tdap/Td vaccine (7 - Td or Tdap) DTaP/Tdap/Td vaccine (7 - Td or Tdap) [facility] Start: 01-15-2000 COVID-19 Vaccine (#1) COVID-19 Vacci ne (#1) [facility] Payers Date Payer Category Payer Medicaid [id number] 2022 Unknown [id number] 2019 Medicare [id number] 1. [id number] 1999 Unknown [id number] 2.16.8 [id number] 1999 Unknown [id number] 2.16.8 40.1.600826.3.579.2.174 1999 Unknown [id number] 2.16.84 0.1.474783.3.579.2.1259 1999 Unknown [id number] 2.16.84 0.1.287927.3.579.2.1259 1999 Unknown [id number] 2.16.84 0.1.529260.3.579.2.1259 1999 Unknown [id number] 2.16.84 0.1.847891.3.579.2.1259 1999 Unknown [id number] 2.16.84 0.1.441338.3.579.2.1259 1999 Unknown [id number] 2.16.84 0.1.965999.3.579.2.1259 1999 Unknown [id number] 2.16.84 0.1.631682.3.579.2.1259 1999 Unknown [id number] 2.16.84 0.1.838108.3.579.2.1259 1999 Unknown [id number] 2.16.84 0.1.612625.3.579.2.1259 1999 Unknown [id number] 2.16.84 0.1.571020.3.579.2.1259 1999 Unknown [id number] 2.16.84 0.1.131677.3.579.2.1259 1999 Unknown [id number] 2.16.8 40.1.201592.3.579.2.718 1999 Unknown [id number] 2.16.8 [id number] Social History Date Type Detail Facility Start: 10-05-2022 Tobacco smoking status UTIS Smokes tobacco daily [employer] Phone: History of tobacco use Cigarette Smoker B ON [facility] Phone: Start: 10-05-2022 End: 10-14-2022 Cigarettes smoked current (pack per day) - Reported 1 [facility]ON [facility] Phone: Start: 10-05-2022 Tobacco use and exposure Smokeless tobacco non-user [employer] Phone: Start: 10-05-2022 End: 10-14-2022 Alcohol intake Current drinker of alcohol (finding) [facility] Phone: Start: 10-05-2022 Alcohol Comment in a month [facility] Phone: Start: 2000 Sex Assigned At Not on file [facility] Phone: Start: 09-25-2022 End: 10-14-2022 Exposure to SARS-CoV-2 (event) Not sure [facility] Phone: Start: 10-14-2022 History SDOH Alcohol Frequency 1 [employer] Phone: Start: 10-14-2022 History SDOH Alcohol Std Drinks 0 [employer] Phone: Sex Assigned At Sex Assigned At [facility] Other Tobacco smoking stat [facility] Tobacco smoking consumption unknown [facility] Start: 2000 Sex Assigned At Female [facility] Start: 10-20-2023 Gender identity Identifies as female gender (finding) [facility] Start: 10-20-2023 Sexual orientation Heterosexual (finding) [facility] History of Present illness Narrative 10-27-2023 [...] understanding and is agreeable to treatment plan [employer] Other Evaluation note Note Date & Type Note Facility Evaluation note Diagnosis Plantar fasciitis- Primary Plantar fascial fibromatosis documented in this encounter [employer] Phone: Evaluation note Note Date & Type Note Facility Evaluation note Diagnosis Viral URI with cough- Primary Acute upper respiratory infections of unspecified site documented in this encounter [employer] Phone: Evaluation note Note Date & Type Note Facility Evaluation note Diagnosis Missed menses documented in this encounter [facility] History general Narrative - Reported Note Date & Type Note Facility History general Narrative - Reported Type Surgical History wisdom teeth [facility] Other Hospital Discharge instructions Attachments Note Date & Type Note Facility Hospital Discharge instructions The following attachments cannot be sent through Care Everywhere.Plantar Fasciitis (Scottish)documented in this encounter [employer] Phone: Hospital Discharge instructions Attachments Note Date & Type Note Facility Hospital Discharge instructions The following attachments cannot be sent through Care Everywhere.URI (Upper Respiratory Infection) (Scottish)documented in this encounter [employer] Phone: Summary Purpose Family History No Family [...] Care Teams (unrecognized sec tion and content) 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 [employer] provides no warranty or guarantee of the accuracy or completeness of information in this document.
--- NOTE | 2024-05-10 16:04 | US_ITS ---
[address] [address] Patient Name: ZEV YAP MRN: [id number] date: 2000 Sex: F Assigned Patient Location: [facility] Current Patient Location: Accession/Order Number: [id number] Exam Date: 05/10/2024 16:15 Report Date: 05/11/2024 04:16 At the request of: JOE WOOD Procedure: US OB BPP w non-stress EXAMINATION: US OB BPP w non-stress HISTORY:EXCESSIVE GROWTH AFFECTING O36.63X0 COMPARISON: Ultrasound OB biophysical 05/07/2024 TECHNIQUE: Ultrasound biophysical profile was performed in the radiology department. BREATHING MOVEMENTS: 2 GROSS BODY MOVEMENTS: 2 TONE: 2 QUALITATIVE AMNIOTIC FLUID VOLUME: 2 PRESENTATION: CEPHALIC HEART RATE: 135.68 bpm AMNIOTIC FLUID VOLUME: 16.91 cm GESTATIONAL AGE: 36 weeks 2 days US/US OB BPP w non-stress IMPRESSION: Total biophysical profile score: 8 Electronically authenticated by: TEENA RASCON Date: 05/11/2024 04:16
[2024-05-10 16:56] VITALS: BP 148/86; PULSE 94
== END 2024-05-10 17:22 | disposition home or self-care (01) ==
LOC: US 07:10 → FBC 16:01
PROVIDERS: PCP Family Medicine; Visit Provider Obstetrics & Gynecology
DX: O36.63X0 Maternal care for excessive fetal growth, third trimester, not applicable or unspecified (principal); Z3A.36 36 weeks gestation of pregnancy
CPT/HCPCS: 76818

== ENCOUNTER 2024-05-14 07:12 | Outpatient (OUT) | payer OTHER, MEDICAID, SELFPAY ==
--- OUTSIDE RECORDS SUMMARY | 2024-05-14 07:14 | XMS_ITS | CCD ---
Author Organization [facility] Care Team Providers Care Overhauler Name Role Phone Unavailable Primary Care Provider [...] Propensity to adverse reactions to drug (disorder) [facility] Repository Medications Current Medications Medication Drug [...] 170.460 kg Body Mass Index 62.54 kg/m2 [place] Body Weight Calculated 57 kg BSA Measured [...] and Plan Diagnosis Adult general medical exam (YPX33-OO Z00.00). Plan: At this point no further workup or preventative issues needed. I did discuss with patient about nursing after her delivery. Also about watching her weight and losing her weight after delivery. She does have a plan to go on a diet afterwards.. Orders Orders Evaluation and Management: 33958 Periodic preventive care, estab pt; 18-39 years (Order): 05/09/2024 10:53 EDT, Qty: 1, Adult general medical exam. [Electronically Signed on: 05/09/2024 11:16 EDT] Viral Galindo MD [Verified on: 05/09/2024 11:16 EDT] Viral Galindo MD [facility] Outside [facility]son 05-08-2024 Outside Records [id number] 86#[email or web address] [facility] 05-07-2024 Outside Records [id number] [facility] 04-30-2024 Outside Records [id number] #[facility] 04-25-2024 Outside Records [id number] #1.00OTGTIFF [facility] Outside [facility] 04-13-2024 Outside Records [id number] #1.00OTGTIFF [facility] CBC with Diffon 04-09-2024 Abs. Basophil 0.00 k/uL Normal 0.00-0.20 [facility] Comment on above: Performed By: #### C DP, CP #### [facility] [address] [place] [address] Agency Owner: Viral Mcgraw MD Abs.Imm.Granulocyte 0.03 k/uL Normal 0.00-0.30 [facility] Comment on above: Performed By: #### C DP, CP #### [facility] [address] [place] [address] Agency Owner: Viral Mcgraw MD Abs.Neutrophil (Seg) 6.53 k/uL Normal 2.5-7.0 [facility] Comment on above: Performed By: #### C DP, CP #### [facility] [address] [place] [address] Agency Owner: Viral Mcgraw MD Basophils/100 WBC (Bld) 0 % Normal 0-2 [facility] Comment on above: Performed By: #### C DP, CP #### [facility] [address] [place] [address] Agency Owner: Viral Mcgraw MD Eosinophils (Bld) [#/Vol] 0.21 10*3/uL Normal 0.00-0.40 [facility] Comment on above: Performed By: #### C DP, CP #### [facility] [address] [place] [phone] Agency Owner: Viral Mcgraw MD Eosinophils/100 WBC (Bld) 2 % Normal 0-5 [facility] Comment on above: Performed By: #### C DP, CP #### [facility] [address] [place] [address] Agency Owner: Viral Mcgraw MD Erythrocyte distribution width (RBC) [Ratio] 13.9 % Normal 12.1-15.2 [facility] Comment on above: Performed By: #### C DP, CP #### [facility] [address] [place] [phone] Agency Owner: Viral Mcgraw MD Hematocrit (Bld) [Volume fraction] 32.4 % Low 36.0-46.0 [facility] Comment on above: Performed By: #### C DP, CP #### [facility] [address] [place], [place] [phone] Agency Owner: Viral Mcgraw MD Hemoglobin (Bld) [Mass/Vol] 11.2 g/dL Low 12.0-16.0 [facility] Comment on above: Performed By: #### C DP, CP #### [facility] [address] [place], [place] [phone] Agency Owner: Viral Mcgraw MD Immature granulocytes/100 WBC (Bld) 0 % Normal 0-5 [facility] Comment on above: Performed By: #### C DP, CP #### [facility] [address] [place] [address] Agency Owner: Viral Mcgraw MD Lymphocytes (Bld) [#/Vol] 1.74 10*3/uL Normal 1.00-4.80 [facility] Comment on above: Performed By: #### C DP, CP #### [facility] [address] [place] [address] Agency Owner: Viral Mcgraw MD Lymphocytes/100 WBC (Bld) 19 % Normal 15-40 [facility] Comment on above: Performed By: #### C DP, CP #### [facility] [address] [place] [address] Agency Owner: Viral Mcgraw MD MCH (RBC) [Entitic mass] 30.4 pg Normal 26.0-34.0 [facility] Comment on above: Performed By: #### C DP, CP #### [facility] [address] [place] [address] Agency Owner: Viral Mcgraw MD MCHC (RBC) [Mass/Vol] 34.6 g/dL Normal 31.0-37.0 [facility] Comment on above: Performed By: #### C DP, CP #### [facility] [address] [place] [address] Agency Owner: Viral Mcgraw MD MCV (RBC) [Entitic vol] 88.0 fL Normal 80.0-100.0 [facility] Comment on above: Performed By: #### C DP, CP #### [facility] [address] [place], [place] [phone] Agency Owner: Viral Mcgraw MD Monocytes (Bld) [#/Vol] 0.48 10*3/uL Normal 0.00-1.00 [facility] Comment on above: Performed By: #### C DP, CP #### [facility] [address] [place] [address] Agency Owner: Viral Mcgraw MD Monocytes/100 WBC (Bld) 5 % Normal 4-8 [facility] Comment on above: Performed By: #### C DP, CP #### [facility] [address] [place], [place] [id number] Agency Owner: Viral Mcgraw MD Neutrophil (Seg) 74 % Normal 47-75 [facility] Comment on above: Performed By: #### C DP, CP #### [facility] [address] [place] [address] Agency Owner: Viral Mcgraw MD Platelet mean volume (Bld) [Entitic vol] 10.7 fL Normal 6.0-12.0 [facility] Comment on above: Performed By: #### C DP, CP #### [facility] [address] [place], [place] [phone] (080) Agency Owner: Viral Mcgraw MD Platelets (Bld) [#/Vol] 220 10*3/uL Normal 140-450 [facility] Comment on above: Performed By: #### C DP, CP #### [facility] [address] [place], [place] [phone] (823) Agency Owner: Viral Mcgraw MD RBC (Bld) [#/Vol] 3.68 10*6/uL Low 4.00-5.20 [facility] Comment on above: Performed By: #### C DP, CP #### [facility] [address] [place], [place] [phone] Agency Owner: Viral Mcgraw MD WBC (Bld) [#/Vol] 9.0 10*3/uL Normal 3.5-11.0 [facility] Comment on above: Performed By: #### C DP, CP #### [facility] [address] [place], [place] [phone] Agency Owner: Viral Mcgraw MD Comp Metabolic Profon 2023 Albumin [Mass/Vol] 3.2 g/dL Low 3.5-5.2 [facility] Comment on above: Performed By: #### C DP, CP #### [facility] [address] [place], [place] [phone] Agency Owner: Viral Mcgraw MD Alkaline Phos 74 U/L Normal 35-104 [facility] Comment on above: Performed By: #### C DP, CP #### [facility] [address] [place], [place] [phone] Agency Owner: Viral Mcgraw MD ALT [Catalytic activity/Vol] 26 U/L Normal 5-33 [facility] Comment on above: Performed By: #### C DP, CP #### [facility] [address] [place], [place] [phone] Agency Owner: Viral Mcgraw MD Anion gap [Moles/Vol] 10 mmol/L Normal 9-17 [facility] Comment on above: Performed By: #### C DP, CP #### [facility] [address] [place], [place] [phone] Agency Owner: Viral Mcgraw MD AST [Catalytic activity/Vol] 16 U/L Normal <32 [facility] Comment on above: Performed By: #### C DP, CP #### [facility] [address] [place], [place] [phone] Agency Owner: Viral Mcgraw MD Bilirubin [Mass/Vol] 0.2 mg/dL Low 0.3-1.2 [facility] Comment on above: Performed By: #### C DP, CP #### [facility] [address] [place], [place] [phone] Agency Owner: Viral Mcgraw MD BUN/CRE Ratio 7 Low 9-20 [facility] Comment on above: Performed By: #### C DP, CP #### [facility] [address] [place], [place] [id number] Agency Owner: Viral Mcgraw MD Calcium [Mass/Vol] 9.1 mg/dL Normal 8.6-10.4 [facility] Comment on above: Performed By: #### C DP, CP #### [facility] [address] [place], [place] [phone] Agency Owner: Viral Mcgraw MD Chloride [Moles/Vol] 101 mmol/L Normal 98-107 [facility] Comment on above: Performed By: #### C DP, CP #### [facility] [address] [place] [address] Agency Owner: Viral Mcgraw MD CO2 [Moles/Vol] 24 mmol/L Normal 20-31 [facility] Comment on above: Performed By: #### C DP, CP #### [facility] [address] [place], [place] [phone] Agency Owner: Viral Mcgraw MD Creatinine [Mass/Vol] 0.7 mg/dL Normal 0.5-0.9 [facility] Comment on above: Performed By: #### C DP, CP #### [facility] [address] [place], [place] [phone] Agency Owner: Viral Mcgraw MD GFR/1.73 sq M.predicted among non-blacks MDRD (S/P/Bld) [Vol rate/Area] mL/min/{1.73_m2} Normal >60 [facility] Comment on above: Result Comment: [...] Performed By: #### C DP, CP #### [facility] [address] [place] [address] Agency Owner: Viral Mcgraw MD Glucose [Mass/Vol] 107 mg/dL High 70-99 [facility] Comment on above: Performed By: #### C DP, CP #### [facility] [address] [place] [address] Agency Owner: Viral Mcgraw MD Potassium [Moles/Vol] 3.3 mmol/L Low 3.7-5.3 [facility] Comment on above: Performed By: #### C DP, CP #### [facility] [address] [place] [address] Agency Owner: Viral Mcgraw MD Protein [Mass/Vol] 6.3 g/dL Low 6.4-8.3 [facility] Comment on above: Performed By: #### C DP, CP #### [facility] [address] [place] [address] Agency Owner: Viral Mcgraw MD Sodium [Moles/Vol] 135 mmol/L Normal 135-144 [facility] Comment on above: Performed By: #### C DP, CP #### [facility] [address] [place], [place] [phone] Agency Owner: Viral Mcgraw MD Urea nitrogen [Mass/Vol] 5 mg/dL Low 6-20 [facility] Comment on above: Performed By: #### C DP, CP #### [facility] [address] [place] [address] Agency Owner: Viral Mcgraw MD AFP Tetra LCon 02-01-2024 AFP CHIN MoM 1.12 Invalid Interpretation [facility] Comment on above: Performed By: #### 3 [id number] #### [facility] (DEFAULT) [address] [place] [address] 23865 AFP DSR (By Age) 1 IN 1039 Invalid Interpretation [facility] Comment on above: Performed By: #### 3 [id number] #### [facility] (DEFAULT) [address] [place] [address] 61822 AFP DSR (Second Trimester) 1 IN 957 Invalid Interpretation [facility] Comment on above: Performed By: #### 3 [id number] #### [facility] (DEFAULT) [address] [place] [address] 00806 AFP Gest. Age on Collection Date 19.3 week(s) Invalid Interpretation [facility] Comment on above: Result Comment: Not provided. Performed By: #### 3 [id number] #### [facility] (DEFAULT) [address] [place] [address] 03061 AFP Gestat. Age Based On SUE Invalid Interpretation [facility] Comment on above: Result Comment: 05/27 Performed By: #### 3 [id number] #### [facility] (DEFAULT) [address] [place] [address] 90607 AFP hCG MoM 1.18 Invalid Interpretation [facility] Comment on above: Performed By: #### 3 [id number] #### [facility] (DEFAULT) [address] [place] [address] 58485 AFP insulin Dep Diabetes No Invalid Interpretation [facility] Comment on above: Result Comment: Not provided. Performed By: #### 3 [id number] #### [facility] (DEFAULT) [address] [place] [address] 42296 AFP Interpretation Comment Invalid Interpretation [facility] Comment on above: Result Comment: [...] identifies 60% of Trisomy 18 pregnancies. The [employer] recommends amniocentesis [...] within 10 days. Performed By: #### 3 [id number] #### [facility] (DEFAULT) [address] [place] [address] AFP Maternal Age At SUE 24.8 Invalid Interpretation Code [facility] Comment on above: Performed By: #### 3 [id number] #### [facility] (DEFAULT) [address] [place] [address] 05331 AFP MoM 0.69 Invalid Interpretation [facility] Comment on above: Performed By: #### 3 [id number] #### [facility] (DEFAULT) [address] [place] [address] 44614 AFP Multiple Gestation No Invalid Interpretation [facility] Comment on above: Result Comment: Not provided. Performed By: #### 3 [id number] #### [facility] (DEFAULT) [address] [place] [address] 94594 AFP OSBR [place] 1 [place] [address] Invalid Interpretation [facility] Comment on above: Performed By: #### 3 [id number] #### [facility] (DEFAULT) [address] [place] [address] 29093 AFP Race Invalid Interpretation [facility] Comment on above: Result Comment: Not provided. Performed By: #### 3 [id number] #### [facility] (DEFAULT) [address] [place] [address] 40778 AFP Results Comment Invalid Interpretation [facility] Comment on above: Result Comment: The MOM and risk factors of this report have been modified based on new information supplied to us by the client or their designated patient intake representative. The Gestational Age Based On was [...] provided. to 348. Performed By: #### 3 [id number] #### [facility] (DEFAULT) [address] [place] [address] 55588 AFP T18 (By Age) 1:4050 Invalid Interpretation [facility] Comment on above: Performed By: #### 3 [id number] #### [facility] (DEFAULT) [address] [place] [address] 27025 AFP T18 Risk Not increased Invalid Interpretation [facility] Comment on above: Performed By: #### 3 [id number] #### [facility] (DEFAULT) [address] [place] [address] AFP Test Results: Negative Invalid Interpretation [facility] Comment on above: Performed By: #### 3 [id number] #### [facility] (DEFAULT) [address] [place] [address] AFP uE3 MoM 0.66 Invalid Interpretation [facility] Comment on above: Performed By: #### 3 [id number] #### [facility] (DEFAULT) [address] [place] [address] 25738 AFP Tetra LCon 01-18-2024 AFP Comments: Comment Invalid Interpretation Code [facility] Comment on above: Result Comment: Bethany Perez, Ph.D., [facility] Director References: Available Upon Request. Multiples Of Median Cutoffs Abbreviation Definitions For AFP Elevations IDD- Insulin Dep Diabetes Cadet 2.5 Black 2.8 OSBR- Open Spina Bifida IDD 2.0 Twins 4.5 Risk DSR Cutoff 1:270 DSR- Down Syndrome Risk T18 Cutoff 1:100 T18- Trisomy 18 For further inquiries contact [facility] at [phone]. This test was developed and its performance characteristics determined by [facility]. It has not been cleared or approved by the Food and Drug Administration. Performed At: [facility] [place], [place] [id number] [facility] Ph:[phone] Performed By: #### 3 [id number] #### [facility] (DEFAULT) [address] [place] [address] 47294 AFP CHIN Value 120.65 pg/mL Invalid Interpretation Code [facility] Comment on above: Performed By: #### 3 [id number] #### [facility] (DEFAULT) [address] [place] [address] 46578 AFP uE3 Value 1.08 ng/mL Invalid Interpretation [facility] Comment on above: Performed By: #### 3 [id number] #### [facility] (DEFAULT) [address] [place] [address] 74043 AFP Value 23.0 ng/mL Invalid Interpretation [facility] Comment on above: Performed By: #### 3 [id number] #### [facility] (DEFAULT) [address] [place] [address] [place] [address] m[IU]/mL Invalid Interpretation Code [facility] Comment on above: Performed By: #### 3 [id number] #### [facility] (DEFAULT) [address] [place] [address] Coding Summaryon 01-18-2024 Coding Summary HTMLBase 64 NqacfuoaKBy1lCv+PGhl YWQ+NV5YRPAwC75utBLg fF8wT1UMBImWHyfgVZSQ OXxHYdIhipRhUU1ldWMb ZXJu IC8+QI4jNMMaPeqsnPAl z0L3fGD7W69ocu3pQOvc mJD3ATMtIlLahilik8yz aSt1IEkeInjvEoEo TTYdrL62MOI5vA14Ep55 sJYgfRZns1cfzGn9VrUv DSDxFID6aJmpUKkrh9Wv RLAbC90iwIIqk2K1 IGNvbGxhcHNlOyBlbXB0 xG3kSGquzketb1czfjmd Scp3rf12aVNht8K4gND9 A8WbcpD7MQKcrVXq SvobyBFOeN3vqdsga7ff ephhJwDvOXOaYIj0SYe7 CNJarLwcHbJsKP23KRQ3 TRQrutWuL6WzBGSh tAraUhY3b2P8Bg0OU0IB GnbpL7WTODNPSNagcCI+ AX96zp88A5FrNlbiXqn9 MUKqBEX5cVQ7gI8e OOZxLVvtt0G6cZL7M7Gj piCbae0va0bvAJLhDNdz X27duAIdw9J2FZGcpJQ5 NRYklPhzEuAwlV81 Oyc+QRVjvVfsa9VuJgur a4ngl4uuhEt1XkrkSHFl roDsqEsdKFY0w4LxFl7y PXMatLJ9wJE2mE9d UzZuTeL7MZuuI142CsHj kNXfGnfvL97tJ1CxvGW+ LPBsNrb7BKGukZdsMH4u Z6MvRDSbtoyslQIn tFwrGX3oDTVicbuoOWIf iK5aFNVvJ6i3YbGyRkS0 YYwuO4FiPPUceaezZm27 vD0dJjNkEdG9NTtv E8XwilV3GIYxrQDrCZyp JTG0A49wk2T7CDUnYCWk CKX4dQB5oH0njWlhyspu bGVmdDsgdmVydGlj CWglIIcvX720WTJymSbj PkNvZGluZyBEYXRlOiAg MDQvMjQvMjAyNDwvdGQ+ YURnQII9hJlqLLPj zAFcITvsFf6tiMohiGlz RO8iYXTqodjiLNKzcF1f MDIzoVUltMfkEY0sYKIf rtuxl314BnCiZUL3 EVYxnXDdL4WceB2vXfHo XYViZZVgK0AatWHcUPuj A888UDhvIxH3RKVefjLg Y3NbSGBmsIyzArJ1 s7Y9Uk9Jg0GddtqeN8Na oVWzKfFmOifdCQg9X7Nv PjwvdHI+QL00DMPyGX90 GZh4TRV5sJbnPEtp NSHmO1VdyN3sHyZgJYYj ZGRkOyc+PHRhYmxlIHdp ZHRoPScxMDAlJyBzdHls SI7cVt3qWZKlIOJu hKdhtSExXmLwh4cbVLZa AYxbFP6baWbyC4BbsGK6 JIVnq1q6Xp98D65rV8Uk dXA+VDAnsAK6yHH8 oT4pHuWdEsP6JXhhI111 AlOxoIPrFdlxs6psn1dm jJe0NbS0PPLcxfFwpVqx SBV3w6UyIx80T85j IHdpZHRoPSIxNSUiIHZh gBordy3fcY8xWp2+PGNv aAK6jMK7pI1oAtZdPiR7 LWtrN078TrTefYWu Aohwl7owd1kreKw6VsAj TNTsbwQjfXhgPBP2d1Ey Hi29K0EklXzxt8EgIjr7 hb15fCQzp4U2gLA3 P4WcRZPiklvgrJOteUxx CJ4eAYVxtapqHKTxiA1x XHWrY4b0CiXuYmE1VPfo S4IrbzI9DZCxyWSz MWMmnFANbG1qbuwrl9nh pvsxQxXuNKSrHAr6SWr1 SCGsoXlgQqOyKZN7WjB8 YJW8dZFjsL2nxKgl iqdtbV2mDzz+RMR4eQBr pOJEEO2hCrtlnGD+PHRk NFL4zMyiGFngEDPbhT4b NFHtU1k7NoPhJtV9 JRndQ5XnpaP5LHXsiSKo ZIQilDXVhQ6ucfmve5ld rcqxQhThIUPuXSx5DMt2 LWFsaWduOiBsZWZ0 JmW8CNC8lBBlrL1caUqg fbunwN1fUaj+QmlydGgg OIF5ZDh7Z6WlIra9MVCj gIopYJ6wiXUvNSsu Qr2hhGwhkDlzMK5tIZTu qqfgy461BuSce0xoETRy hHQqTIkpHZG3G81jc8T5 PZMmDYJzTYA2sMX4 xC3frYfliatdfPWtyUpx piGupMlqPCmgCBjkZ417 FVSgySsxQwDxVCr2E3Ej Pju0MUXoiQicNQ9l vTWwZCscRx2wtEvstGdk IF1sZBAceeuey705OnUt z5xrSNBxaZJlKRnqRLF4 Q50hq5B9LNYhGPBj RRH0iRP6kU8pmOxgiwok bGVmdDsgdmVydGljYWwt HSjuW556THMerPzzWfSe rLn3D9DjCds2PLXj qRxxZZ2onXDkVZheLz5a kMereCzwGX7fEFAguotp o674EsOfj4keANBiwIHj AQymQUS4A76bb8T4 KTVtPFYuALM6tSP7sE1h bGlnbjogbGVmdDsgdmVy vYavJCgzLNrkA118KQRm cDsnPlBhdGllbnQg CYanMXm4K6MrAacnfWG+ UV23REEjCT67xYAewGAi z8vqdTz0EeVpRBFnWWB1 fAajWUoxn5BwOMCt J31yyLRfr0W0SEGpgHpi uRVzBkDfjUI7lW8mWHsi vpczy9dvpogqLutqq8rs gy71lJ65C71mCDeq ZHRoPSIzMCUiIHZhbGln kz7vvC3vNw1+PGNvbCB3 cBU3sN5lQLJvDtI1AYyy I248QhZgxNWdVsrd q6yzy5jitCv5OpY3IPJn ypRyzDlkUDV8u6FzHh78 U82wMNyaBIQdJMPjGXMt BHHqcPhwua2gfK0u Ii8+PLJmnQC5sZZ8mS1x TjIgHbQ2YGxjS629RnKn yTRcNtdjV10tW6CflXJ+ QEJcDcx1EESrwLjm DA0zaZXsFSvxFz0nENC4 TxUrXwTvEBgvN1MuQDTv xdrxarxkbWR6JOVdKOWz dX12Zc4ywBpuNUMj rLAXgO9skzlsz5fuwivp RsTrJSOkCJq4YKl4DRHj rNshHcWuEWN0BdJ5NBX9 tLExrI7fnQxhcovj aW4yL2SiGQGfishuMt31 tG5hGaNzJjX8NKfdNbn+ AT3LQVDBDVmyBDhDQYnA IFNJRVJSQTwvdGQ+ TXQwHOS5sTnmORmgDCNg cA1tOWFpZ4a2LfOsBoE0 PTzuO3JtTISgcvucRa97 vR9dKcLoBuQ6SAkq R0UsslC9TMVfbDLpAZfk OKY7C07sj5K8ZUBdRKSy JLY6tGT9sF6cpAfukfim bGVmdDsgdmVydGlj HMdxVOvcN094FIBhmQgt TvTpLjVuYfV8AXu4H4Zd Frq6YZVuyHcxVD2dkKBf HYquQe5gtChbiHxn SO2vWERjjqohHLIdaM8f PXEocVLfqEcrNX8mMXEc qhsiv911DsLsAOM8AGOk dRVjB7HjfO8sJaQb EVLkZUCcZ4AsvAVlKZqb S832LZveAcM5KRVpfaJy I8CfQGQkuJcsZcP8c3P7 Fy7qQPBVQUVhxpwh dGQ+RBWwHMU2qAchQFhp ARMguG7hKKXqM4s2ZlSu MgE3GGqaZ0WwJIFigfot Lj69fG7yIpZoOvL5 NShmT8KatqB6QWLmrLRg XYvfGOO5U14ig6N0WHQh ERTxUJG8yKV5qJ3rjHhd bjogbGVmdDsgdmVy wHthAFvpZBgmI018MMFj cDsnPkZFTUFMRTwvdGQ+ NKXxWYX5eUjkEBmjNQKg yG6kLNBvA0d4SwDx BkY5FShzO0WeFMDqvkaw On93jL7dXcKyCuW7ZAvt C1IaqiR8APMpaLFeCGan YMV3V61ol1R4CLMd ZSLeSIN6eVE9mZ0zzKli bjogbGVmdDsgdmVydGlj YNmdFYyiL546KJZzpIun Ry6GQW51OP58H8Ru PjwvdGFibGU+PHRhYmxl IHdpZHRoPScxMDAlJyBz tPdnOU9wUn6yGQEwJBSs lFnyhJVkJwYcx6zk NYRdISnfQN5wuSmtI8Yd eJA6SNXds5s6Lc93I79a W9MjzAB+YAEtmNM8fYK9 wB5eJyLgRpR9XFfj N957SlFrdJBuXscvl7vt f4cruNd3YaLiAKSttoCy wMfiYWA7r1JnQl34C94e IHdpZHRoPSIyMCUi AXDweHdhzk2peK6bMo6+ KNWnwJS4lPP7dW5oAlHb RrV7TJmrJ318UsSijYUi RlnqU65mS0OosSE+ OLQmDub9IYYnlJrxWP5b hORmURwjBt7vSSU2NuKc PyZoWSthB3CpKIMstofz nfmheHW4YXGsMUAt dK76Uq8ppRmiWj4hOHDk ASI0SUVtnGBcP6AruP8l SoIiAPUcXSCjA2CycGUh HUbkG271PWssUkP8 RDEjhwAgM8ReGFWgvEce DfD8j1F7Fa9KdJasmDMv JL7jPdYeSEg1Q5VsWtt4 UFJiaIdwDB0lmYMp FFbuCs5oeZixlPxjWB9v KFKhfbyub470EuBzj3lc XHXdjSRiZQitYNF5D34z n7G3ZCCqMWNpNHI7 iFH6fE6cnXvsvtpdkGGx dDsgdmVydGljYWwtYWxp F551JYVpeXacPmQFBgb2 G2MtIkv6FHEriGqr KE8uqSHxTEnaHq7zxBft fUhpRR7rXEZfzymvp051 BdIpr6moAHZxbWVdLHbs OIK4K83zn1C7ITXs PUXeJOT6tBK6kQ2paVvv bjogbGVmdDsgdmVydGlj VWenJGdhI670DRAslLwq Fd0USmb4S5IlQjr0 RRPzqUreXQ3hjPRvURiv Tm4wxUjllTzwQS8wBMKl welzo597EgBcf9owALBg wCVmLDwdURB4J46q a3M6CXGfNQIxPGM3gPD5 eA9ozWnbadnmrWSqcJtz piEkfKogVAyxSTgfF195 IHRvcDsnPlBheWVy OjwvdGQ+ND95qy70E7Rb OqrmEly9CTLmTTF1rUO4 vR4vFTVjSKhek0B0gDA6 U4ExzjXvzf1uc6ik YXB (more content not included)... [facility] Provider Orderson 01-12-2024 Provider Orders [id number] 45#[email or web address] [facility] COVID-19, Rapidon 10-14-2022 SARS-CoV-2 (COVID-19) RNA AMANDO+probe Ql (Unsp spec) Not detected Not Detected [facility] Comment on above: Rapid NAAT: [...] management decisions. Fact sheet for Healthcare Providers: https://www.fda.gov/media/776586/download Fact sheet for Patients: https://www.fda.gov/media/610638/download Methodology: Isothermal Nucleic Acid Amplification Specimen Description .NASOPHARYNGEAL SWAB [facility] Rapid influenza A/B antigens on 10-14-2022 Flu A Antigen Negative NEGATIVE [facility] Comment on above: for Influenza A Anti gen Flu B Antigen Negative NEGATIVE [facility] Comment on above: for Influenza B Anti gen. [facility] Vital Signs Date Time Vital Sign Value Performing Clinician Facility 02-01-2024 09:09-0400 Body weight 157.8528 kg Justine YANEZ [facility] Comment on above: Result Comment: Not provided. Performed By: #### [id number] #### [facility] (DEFAULT) [address] [place] [address] 06-23-2023 10:35-0400 Body height 167.64 cm Jossie Krueger Other [facility] Other 06-23-2023 10:35-0400 Body mass index (BMI) [Ratio] 50.03 kg/m2 Jossie Krueger Other [facility] Other 06-23-2023 10:35-0400 Body temperature 98.3 [degF] Jossie Krueger Other [facility] Other 06-23-2023 10:35-0400 Body weight 140.62 kg Jossie Krueger Other [facility] Other 06-23-2023 10:35-0400 Diastolic blood pressure 90 mm[Hg] Jossie Krueger Other [facility] Other 06-23-2023 10:35-0400 Respiratory rate 18 /min Jossie Krueger Other [facility] Other 06-23-2023 10:35-0400 SaO2% (BldA) [Mass fraction] 97 % Jossie Krueger Other [facility] Other 06-23-2023 10:35-0400 Systolic blood pressure 147 mm[Hg] Jossie Krueger Other [employer] Other 10-14-2022 18:16-0500 Body height 165.1 cm John Hastings DO Work Phone: [employer] 10-14-2022 18:16-0500 Body mass index (BMI) [Ratio] 52.92 kg/m2 John Hastings DO Work Phone: [employer] 10-14-2022 18:16-0500 Body temperature 98.29 [degF] John Hastings DO Work Phone: [employer] 10-14-2022 18:16-0500 Body weight 144.24 kg John Hastings DO Work Phone: [employer] 10-14-2022 18:16-0500 Diastolic blood pressure 96 mm[Hg] John Hastings DO Work Phone: [employer] 10-14-2022 18:16-0500 Heart rate 94 /min John Hastings DO Work Phone: [employer] 10-14-2022 18:16-0500 Respiratory rate 18 /min John Hastings DO Work Phone: [employer] 10-14-2022 18:16-0500 SaO2% (BldA) [Mass fraction] 95 % John Hastings DO Work Phone: [employer] 10-14-2022 18:16-0500 Systolic blood pressure 138 mm[Hg] Venkata IBRAHIM Work Phone: [employer] 10-05-2022 23:14-0500 Body height 165.1 cm Chapin Lee MD Work Phone: [employer] 10-05-2022 23:14-0500 Body mass index (BMI) [Ratio] 53.47 kg/m2 Chapin Lee MD Work Phone: [employer] 10-05-2022 23:14-0500 Body temperature 98.4 [degF] Chapin Lee MD Work Phone: [facility] [employer] 10-05-2022 23:14-0500 Body weight 145.74 kg Chapin Lee MD Work Phone: [facility] [employer] 10-05-2022 23:14-0500 Diastolic blood pressure 87 mm[Hg] Chapin Lee MD Work Phone: [employer] 10-05-2022 23:14-0500 Heart rate 86 /min Chapin Lee MD Work Phone: [facility] [employer] 10-05-2022 23:14-0500 Respiratory rate 18 /min Chapin Lee MD Work Phone: [facility] [employer] 10-05-2022 23:14-0500 SaO2% (BldA) [Mass fraction] 99 % Chapin Lee MD Work Phone: [employer] 10-05-2022 23:14-0500 Systolic blood pressure 146 mm[Hg] Chapin Lee MD Work Phone: [employer] Encounters Encounter Date Encounter Type Care Provider Facility Start: 05-09-2024 End: 05-09-2024 ambulatory Viral Galindo Facility:[facility] Start: 05-07-2024 End: 05-07-2024 ambulatory JOE WOOD Not Available Start: 04-19-2024 End: 04-19-2024 ambulatory JUSTINE CALLAHAN Not Available Start: 04-11-2024 End: 04-11-2024 ambulatory JUSTINE CALLAHAN Not Available Start: 04-10-2024 End: 04-12-2024 [facility] Start: 04-09-2024 End: 04-09-2024 Emergency department patient visit SARKIS JAY [facility] Start: 04-04-2024 End: 04-04-2024 ambulatory JOE TRICIA Not Available Start: 03-21-2024 End: 03-21-2024 ambulatory JOE TRICIA Not Available Start: 03-07-2024 End: 03-07-2024 ambulatory JOE TRICIA Not Available Start: 02-08-2024 End: 02-08-2024 ambulatory JOE TRICIA Not Available Start: 01-16-2024 End: 01-16-2024 ambulatory JUSTINE CALLAHAN Not Available Start: 01-12-2024 End: 01-12-2024 ambulatory Justine [place] PA Facility:[facility] Start: 01-10-2024 End: 01-10-2024 ambulatory JUSTINE SINDY Not Available Start: 12-13-2023 End: 12-13-2023 ambulatory JOE TRICIA Not Available Start: 11-11-2023 End: 11-11-2023 ambulatory JOE TRICIA Not Available Start: 10-27-2023 End: 10-27-2023 Office outpatient visit 5 minutes [facility] Tricia Nurse [facility] Comment on above: Canceled (Provider) Start: 06-23-2023 End: 06-23-2023 ambulatory Jossie Krueger Other [facility] Other Start: 06-23-2023 Office outpatient ne w 30 minutes Jossie Krueger [facility] Start: 10-14-2022 End: 10-14-2022 Emergency department patient visit John Hastings DO Work Phone: [facility] Comment on above: Viral URI with cough (Primary Dx) Start: 10-05-2022 End: 10-06-2022 Emergency department patient visit Chapin Lee MD Work Phone: [facility] Comment on above: Plantar fasciitis (P rimary Dx) Procedures Date Procedure Procedure Detail Performing Clinician Start: 10-14-2022 COVID-19, RAPID John Jade DO Work Phone: Start: 10-14-2022 Iaadi[place]oo influenza Vadim Hastings DO Work Phone: Plan of Treatment Date Care Activity Detail Author Start: 11-11-2023 End: 11-11-2023 ambulatory 11/11/2023 11:00 AM EST Initial [facility] [address] [place] [id number] [facility] Start: 11-11-2023 End: 11-11-2023 Professional / ancillary services management 11/11/2023 10:30 AM EST Ancillary Procedure [facility] [address] [place] [id number] [facility] Start: 10-27-2023 End: 10-27-2024 US Pelvis transvaginal US OB transvaginal Imaging Routine Missed menses Expected: 10/27/2023 (Approximate), Expires: 10/27/2024 [facility] Work Phone: Comment on above: Expected: 10/27/2023 (Approximate), Expires: 10/27/2024 Start: 04-26-2022 Influenza vaccination Flu vaccine (# 1) [facility] Start: 11-17-2021 DTaP/Tdap/Td vaccine (7 - Td or Tdap) DTaP/Tdap/Td vaccine (7 - Td or Tdap) [facility] Start: 01-15-2000 COVID-19 Vaccine (#1) COVID-19 Vacci ne (#1) [facility] Payers Date Payer Category Payer Medicaid [id number] 2022 Unknown [id number] 2019 Medicare [id number]. [id number] 1999 Unknown [id number] 2.16.8 [id number] 1999 Unknown [id number] 2.16.8 40.1.229588.3.579.2.174 1999 Unknown [id number] 2.16.84 0.1.480518.3.579.2.1259 1999 Unknown [id number] 2.16.84 0.1.759893.3.579.2.1259 1999 Unknown [id number] 2.16.84 0.1.947740.3.579.2.1259 1999 Unknown [id number] 2.16.84 0.1.060514.3.579.2.1259 1999 Unknown [id number] 2.16.84 0.1.567760.3.579.2.1259 1999 Unknown [id number] 2.16.84 0.1.373203.3.579.2.1259 1999 Unknown [id number] 2.16.84 0.1.099675.3.579.2.1259 1999 Unknown [id number] 2.16.84 0.1.474750.3.579.2.1259 1999 Unknown [id number] 2.16.84 0.1.978399.3.579.2.1259 1999 Unknown [id number] 2.16.84 0.1.672144.3.579.2.1259 1999 Unknown [id number] 2.16.84 0.1.977437.3.579.2.1259 1999 Unknown [id number] 2.16.8 40.1.623626.3.579.2.718 1999 Unknown [id number] 2.16.8 [id number] Social History Date Type Detail Facility Start: 10-05-2022 Tobacco smoking status LAIS Smokes tobacco daily [facility] Phone: History of tobacco use Cigarette Smoker B ON [email or web address] Phone: Start: 10-05-2022 End: 10-14-2022 Cigarettes smoked current (pack per day) - Reported 1 [email or web address] Phone: Start: 10-05-2022 Tobacco use and exposure Smokeless tobacco non-user [facility] Phone: Start: 10-05-2022 End: 10-14-2022 Alcohol intake Current drinker of alcohol (finding) [facility] Phone: Start: 10-05-2022 Alcohol Comment in a month [facility] Phone: Start: 2000 Sex Assigned At Not on file [facility] Phone: Start: 09-25-2022 End: 10-14-2022 Exposure to SARS-CoV-2 (event) Not sure [facility] Phone: Start: 10-14-2022 History SDOH Alcohol Frequency 1 [facility] Phone: Start: 10-14-2022 History SDOH Alcohol Std Drinks 0 [facility] Phone: Sex Assigned At Sex Assigned At [facility] Other Tobacco smoking stat [facility] Tobacco smoking consumption unknown [facility] Start: 2000 Sex Assigned [...] understanding and is agreeable to treatment plan [facility] Other Evaluation note Note Date & Type Note Facility Evaluation note Diagnosis Plantar fasciitis- Primary Plantar fascial fibromatosis documented in this encounter [facility] Phone: Evaluation note Note Date & Type Note Facility Evaluation note Diagnosis Viral URI with cough- Primary Acute upper respiratory infections of unspecified site documented in this encounter [facility] Phone: Evaluation note Note Date & Type Note Facility Evaluation note Diagnosis Missed menses documented in this encounter [facility] History general Narrative - Reported Note Date & Type Note Facility History general Narrative - Reported Type Surgical History wisdom teeth [facility] Other Hospital Discharge instructions Attachments Note Date & Type Note Facility Hospital Discharge instructions The following attachments cannot be sent through Care Everywhere.Plantar Fasciitis (Syrian)documented in this encounter [facility] Phone: Hospital Discharge instructions Attachments Note Date & Type Note Facility Hospital Discharge instructions The following attachments cannot be sent through Care Everywhere.URI (Upper Respiratory Infection) (Syrian)documented in this encounter [facility] Phone: Summary Purpose Family History No Family [...] Care Teams (unrecognized sec tion and content) Overhauler Relationship Specialty Start Date End Date Viral Galindo MD [address] [place] [address] PCP - General Pediatrics 10/27/23 INFORMATION SOURCE (unrecogn ized section and content) DATE CREATED AUTHOR 04/13/2024 [facility] DATE CREATED AUTHOR AUTHOR'S ORGANIZ ATION 05/09/[address] [facility] DATE CREATED AUTHOR AUTHOR'S ORGANIZ ATION 05/10/2024 [facility] FOR RECORDS PERTAINING TO PATIENTS WHO ARE [...] BE BASED ON THE PRIMARY CLINICAL RECORDS. [employer] provides no warranty or guarantee of the accuracy or completeness of information in this document.
[2024-05-14 17:01] VITALS: BP 140/88; PULSE 96
[2024-05-14 17:02] VITALS: BP 154/71; PULSE 92
[2024-05-14 17:16] VITALS: BP 120/56; PULSE 87
--- OUTSIDE RECORDS SUMMARY | 2024-05-17 07:08 | XMS_ITS | CCD ---
Author Organization [facility] Care Team Providers Care Maltster Name Role Phone Unavailable Primary Care Provider UnavailJossie Lui Unavailable Viral Galindo MD Primary Care Provider [phone] SARKIS JAY Referring Unavailable SARKIS AJY Attending Unavailable Viral Galindo Primary Care Unavailable Sindy YANEZ, Justine Attending Unavailable Justine Olmstead Admitting Unavailable Viral Galindo Attending Unavailable Viral Galindo Primary Care Unavailable JOE WOOD Attending Unavailable SINDY, JUSTINE Attending Unavailable SINDY, JUSTINE Attending Unavailable TRICIA, JOE Attending Unavailable TRICIA, JOE Attending Unavailable TRICIA, JOE Attending Unavailable TRICIA, JOE Attending Unavailable SINDY, JUSTINE Attending Unavailable SINDY, JUSTINE Attending Unavailable TRICIA, JOE Attending Unavailable JOE WOOD Attending Unavailable Allergies Allergy Classification Reported Allergen(s) Allergy Type Date of Onset Reaction(s) Facility (1 source) No Known Medication Allergies; Translations: [No Known Medication Allergies] Propensity to adverse reactions to drug (disorder) [facility] Repository Medications Current Medications Medication Drug [...] Value Interpretation Reference Range Facility [facility] 05-14-2024 Outside Records [id number] #1.00OTGTIFF [facility] Office/Clinic Noteon 024 Office/Clinic Note Patient: ZEV YAP Age: [...] 170.460 kg Body Mass Index 62.54 kg/m2 Dexter Body Weight Calculated 57 kg BSA Measured [...] and Plan Diagnosis Adult general medical exam (KTI72-JS Z00.00). Plan: At this point no further workup or preventative issues needed. I did discuss with patient about nursing after her delivery. Also about watching her weight and losing her weight after delivery. She does have a plan to go on a diet afterwards.. Orders Orders Evaluation and Management: 92765 Periodic preventive care, estab pt; 18-39 years (Order): 05/09/2024 10:53 EDT, Qty: 1, Adult general medical exam. [Electronically Signed on: 05/09/2024 11:16 EDT] Viral Galindo MD [Verified on: 05/09/2024 11:16 EDT] Viral Galindo MD [facility] 05-08-2024 Outside Records [id number] [facility] Outside [facility] [id number] [facility] [id number] [facility] Outside Records [id number] [facility]-2024 Outside Records [id number] [facility] 04-09-2024 Abs. Basophil 0.00 k/uL Normal 0.00-0.20 [facility] Comment on above: Performed By: #### C DP, CP #### [facility] [address] [place] [address] Digital Developer: Viral Mcgraw MD Abs.Imm.Granulocyte 0.03 k/uL Normal 0.00-0.30 [facility] Comment on above: Performed By: #### C DP, CP #### [facility] [address] [place] [id number] Digital Developer: Viral Mcrgaw MD Abs.Neutrophil (Seg) 6.53 k/uL Normal 2.5-7.0 [facility] Comment on above: Performed By: #### C DP, CP #### [facility] [address] [place] [address] Digital Developer: Viral Mcgraw MD Basophils/100 WBC (Bld) 0 % Normal 0-2 [facility] Comment on above: Performed By: #### C DP, CP #### [facility] [address] [place] [id number] Digital Developer: Viral Mcgraw MD Eosinophils (Bld) [#/Vol] 0.21 10*3/uL Normal 0.00-0.40 [facility] Comment on above: Performed By: #### C DP, CP #### [facility] [address] [place] [id number] Digital Developer: Viral Mcgraw MD Eosinophils/100 WBC (Bld) 2 % Normal 0-5 [facility] Comment on above: Performed By: #### C DP, CP #### [facility] [address] [place] [id number] Digital Developer: Viral Mcgraw MD Erythrocyte distribution width (RBC) [Ratio] 13.9 % Normal 12.1-15.2 [facility] Comment on above: Performed By: #### C DP, CP #### [facility] [address] [place] [id number] Digital Developer: Viral Mcgraw MD Hematocrit (Bld) [Volume fraction] 32.4 % Low 36.0-46.0 [facility] Comment on above: Performed By: #### C DP, CP #### [facility] [address] [place], [place] [id number] Digital Developer: Viral Mcgraw MD Hemoglobin (Bld) [Mass/Vol] 11.2 g/dL Low 12.0-16.0 [facility] Comment on above: Performed By: #### C DP, CP #### [facility] [address] [place] [address] Digital Developer: Viral Mcgraw MD Immature granulocytes/100 WBC (Bld) 0 % Normal 0-5 [facility] Comment on above: Performed By: #### C DP, CP #### [facility] [address] [place] [id number] Digital Developer: Viral Mcgraw MD Lymphocytes (Bld) [#/Vol] 1.74 10*3/uL Normal 1.00-4.80 [facility] Comment on above: Performed By: #### C DP, CP #### [facility] [address] [place] [address] Digital Developer: Viral Mcgraw MD Lymphocytes/100 WBC (Bld) 19 % Normal 15-40 [facility] Comment on above: Performed By: #### C DP, CP #### [facility] [address] [place] [id number] Digital Developer: Viral Mcgraw MD MCH (RBC) [Entitic mass] 30.4 pg Normal 26.0-34.0 [facility] Comment on above: Performed By: #### C DP, CP #### [facility] [address] [place] [address] Digital Developer: Viral Mcgraw MD MCHC (RBC) [Mass/Vol] 34.6 g/dL Normal 31.0-37.0 [facility] Comment on above: Performed By: #### C DP, CP #### [facility] [address] [place] [address] Digital Developer: Viral Mcgraw MD MCV (RBC) [Entitic vol] 88.0 fL Normal 80.0-100.0 [facility] Comment on above: Performed By: #### C DP, CP #### [facility] [address] [place] [address] Digital Developer: Viral Mcgraw MD Monocytes (Bld) [#/Vol] 0.48 10*3/uL Normal 0.00-1.00 [facility] Comment on above: Performed By: #### C DP, CP #### [facility] [address] [place] [address] Digital Developer: Viral Mcgraw MD Monocytes/100 WBC (Bld) 5 % Normal 4-8 [facility] Comment on above: Performed By: #### C DP, CP #### [facility] [address] [place] [address] Digital Developer: Viral Mcgraw MD Neutrophil (Seg) 74 % Normal 47-75 [facility] Comment on above: Performed By: #### C DP, CP #### [facility] [address] [place] [address] Digital Developer: Viral Mcgraw MD Platelet mean volume (Bld) [Entitic vol] 10.7 fL Normal 6.0-12.0 [facility] Comment on above: Performed By: #### C DP, CP #### [facility] [address] [place] [address] Digital Developer: Viral Mcgraw MD Platelets (Bld) [#/Vol] 220 10*3/uL Normal 140-450 [facility] Comment on above: Performed By: #### C DP, CP #### [facility] [address] [place], [place] [id number] Digital Developer: Viral Mcgraw MD RBC (Bld) [#/Vol] 3.68 10*6/uL Low 4.00-5.20 [facility] Comment on above: Performed By: #### C DP, CP #### [facility] [address] [place], [place] [id number] Digital Developer: Viral Mcgraw MD WBC (Bld) [#/Vol] 9.0 10*3/uL Normal 3.5-11.0 [facility] Comment on above: Performed By: #### C DP, CP #### [facility] [address] [place], [place] [id number] Digital Developer: Viral Mcgraw MD Comp Metabolic Profon 2023 Albumin [Mass/Vol] 3.2 g/dL Low 3.5-5.2 [facility] Comment on above: Performed By: #### C DP, CP #### [facility] [address] [place], [place] [id number] Digital Developer: Viral Mcgraw MD Alkaline Phos 74 U/L Normal 35-104 [facility] Comment on above: Performed By: #### C DP, CP #### [facility] [address] [place], [place] [id number] Digital Developer: Viral Mcgraw MD ALT [Catalytic activity/Vol] 26 U/L Normal 5-33 [facility] Comment on above: Performed By: #### C DP, CP #### [facility] [address] [place], [place] [id number] Digital Developer: Viral Mcgraw MD Anion gap [Moles/Vol] 10 mmol/L Normal 9-17 [facility] Comment on above: Performed By: #### C DP, CP #### [facility] [address] [place], [place] [id number] Digital Developer: Viral Mcgraw MD AST [Catalytic activity/Vol] 16 U/L Normal <32 [facility] Comment on above: Performed By: #### C DP, CP #### [facility] [address] [place] [address] Digital Developer: Viral Mcgraw MD Bilirubin [Mass/Vol] 0.2 mg/dL Low 0.3-1.2 [facility] Comment on above: Performed By: #### C DP, CP #### [facility] [address] [place] [address] Digital Developer: Viral Mcgraw MD BUN/CRE Ratio 7 Low 9-20 [facility] Comment on above: Performed By: #### C DP, CP #### [facility] [address] [place] [address] Digital Developer: Viral Mcgraw MD Calcium [Mass/Vol] 9.1 mg/dL Normal 8.6-10.4 [facility] Comment on above: Performed By: #### C DP, CP #### [facility] [address] [place] [address] Digital Developer: Viral Mcgraw MD Chloride [Moles/Vol] 101 mmol/L Normal 98-107 [facility] Comment on above: Performed By: #### C DP, CP #### [facility] [address] [place] [address] Digital Developer: Viral Mcgraw MD CO2 [Moles/Vol] 24 mmol/L Normal 20-31 [facility] Comment on above: Performed By: #### C DP, CP #### [facility] [address] [place] [address] Digital Developer: Viral Mcgraw MD Creatinine [Mass/Vol] 0.7 mg/dL Normal 0.5-0.9 [facility] Comment on above: Performed By: #### C DP, CP #### [facility] [address] [place] [address] Digital Developer: Viral Mcgraw MD GFR/1.73 sq M.predicted among non-blacks MDRD (S/P/Bld) [Vol rate/Area] mL/min/{1.73_m2} Normal >60 [facility] Comment on above: Result Comment: These [...] Performed By: #### C DP, CP #### [facility] [address] [place] [address] Digital Developer: Viral Mcgraw MD Glucose [Mass/Vol] 107 mg/dL High 70-99 [facility] Comment on above: Performed By: #### C DP, CP #### [facility] [address] [place] [address] Digital Developer: Viral Mcgraw MD Potassium [Moles/Vol] 3.3 mmol/L Low 3.7-5.3 [facility] Comment on above: Performed By: #### C DP, CP #### [facility] [address] [place] [address] Digital Developer: Viral Mcgraw MD Protein [Mass/Vol] 6.3 g/dL Low 6.4-8.3 [facility] Comment on above: Performed By: #### C DP, CP #### [facility] [address] [place] [address] Digital Developer: Viral Mcgraw MD Sodium [Moles/Vol] 135 mmol/L Normal 135-144 [facility] Comment on above: Performed By: #### C DP, CP #### [facility] [address] [place] [address] Digital Developer: Viral Mcgraw MD Urea nitrogen [Mass/Vol] 5 mg/dL Low 6-20 [facility] Comment on above: Performed By: #### C DP, CP #### [facility] [address] [place] [address] Digital Developer: Viral Mcgraw MD AFP Tetra LCon 02-01-2024 AFP CHIN MoM 1.12 Invalid Interpretation [facility] Comment on above: Performed By: #### 3 [id number] #### [facility] (DEFAULT) [address] [place] [address] 95754 AFP DSR (By Age) 1 IN 1039 Invalid Interpretation [facility] Comment on above: Performed By: #### 3 [id number] #### [facility] (DEFAULT) [address] [place] [address] 87264 AFP DSR (Second Trimester) 1 IN 957 Invalid Interpretation [facility] Comment on above: Performed By: #### 3 [id number] #### [facility] (DEFAULT) [address] [place] [address] 42508 AFP Gest. Age on Collection Date 19.3 week(s) Invalid Interpretation [facility] Comment on above: Result Comment: Not provided. Performed By: #### 3 [id number] #### [facility] (DEFAULT) [address] [place] [address] 61516 AFP Gestat. Age Based On SUE Invalid Interpretation [facility] Comment on above: Result Comment: 05/27 Performed By: #### 3 [id number] #### [facility] (DEFAULT) [address] [place] [address] 62485 AFP hCG MoM 1.18 Invalid Interpretation [facility] Comment on above: Performed By: #### 3 [id number] #### [facility] (DEFAULT) [address] [place] [address] 37251 AFP insulin Dep Diabetes No Invalid Interpretation [facility] Comment on above: Result Comment: Not provided. Performed By: #### 3 [id number] #### [facility] (DEFAULT) [address] [place] [address] AFP Interpretation Comment Invalid Interpretation Code [facility] Comment on above: Result Comment: Inte [...] identifies 60% of Trisomy 18 pregnancies. The [employer] recommends amniocentesis [...] within 10 days. Performed By: #### 3 [id number] #### [facility] (DEFAULT) [address] [place] [address] AFP Maternal Age At SUE 24.8 Invalid Interpretation Code [facility] Comment on above: Performed By: #### 3 [id number] #### [facility] (DEFAULT) [address] [place] [address] 31231 AFP MoM 0.69 Invalid Interpretation Code [facility] Comment on above: Performed By: #### 3 [id number] #### [facility] (DEFAULT) [address] [place] [address] AFP Multiple Gestation No Invalid Interpretation Code [facility] Comment on above: Result Comment: Not provided. Performed By: #### 3 [id number] #### [facility] (DEFAULT) [address] [place] [address] AFP [place] 1 [place] [address] Invalid Interpretation [facility] Comment on above: Performed By: #### 3 [id number] #### [facility] (DEFAULT) [address] [place] [address] AFP Race Invalid Interpretation Code [facility] Comment on above: Result Comment: Not provided. Performed By: #### 3 [id number] #### [facility] (DEFAULT) [address] [place] [address] AFP Results Comment Invalid Interpretation [facility] Comment on above: Result Comment: The MOM and risk factors of this report have been modified based on new information supplied to us by the client or their designated account manager sales representative. The Gestational Age Based On [...] provided. to 348. Performed By: #### 3 [id number] #### [facility] (DEFAULT) [address] [place] [address] 02245 AFP T18 (By Age) 1:4050 Invalid Interpretation Code [facility] Comment on above: Performed By: #### 3 [id number] #### [facility] (DEFAULT) [address] [place] [address] AFP T18 Risk Not increased Invalid Interpretation Code [facility] Comment on above: Performed By: #### 3 [id number] #### [facility] (DEFAULT) [address] [place] [address] AFP Test Results: Negative Invalid Interpretation Code [facility] Comment on above: Performed By: #### 3 [id number] #### [facility] (DEFAULT) [address] [place] [address] 86419 AFP uE3 MoM 0.66 Invalid Interpretation Code [facility] Comment on above: Performed By: #### 3 [id number] #### [facility] (DEFAULT) [address] [place] [address] 10122 AFP Tetra LCon 01-18-2024 AFP Comments: Comment Invalid Interpretation Code [facility] Comment on above: Result Comment: Bethany Perez, Ph.D., [facility] Director References: Available Upon Request. Multiples Of Median Cutoffs Abbreviation Definitions For AFP Elevations IDD- Insulin Dep Diabetes Cadet 2.5 Black 2.8 OSBR- Open Spina Bifida IDD 2.0 Twins 4.5 Risk DSR Cutoff 1:270 DSR- Down Syndrome Risk T18 Cutoff 1:100 T18- Trisomy 18 For further inquiries contact [email or web address] at [phone]. This test was developed and its performance characteristics determined by [email or web address]. It has not been cleared or approved by the Food and Drug Administration. Performed At: [facility] [address] [place], [place] [id number] Romero Mckenna [facility] Ph:[phone] Performed By: #### 3 [id number] #### [facility] (DEFAULT) [address] [place] [address] AFP CHIN Value 120.65 pg/mL Invalid Interpretation Code [facility] Comment on above: Performed By: #### 3 [id number] #### [facility] (DEFAULT) [address] [place] [address] AFP uE3 Value 1.08 ng/mL Invalid Interpretation Code [facility] Comment on above: Performed By: #### 3 [id number] #### [facility] (DEFAULT) [address] [place] [address] AFP Value 23.0 ng/mL Invalid Interpretation Code [facility] Comment on above: Performed By: #### 3 [id number] #### [facility] (DEFAULT) [address] [place] [address] [place] [address] m[IU]/mL Invalid Interpretation Code [facility] Comment on above: Performed By: #### 3 [id number] #### [facility] (DEFAULT) [address] [place] [id number] Coding Summaryon 01-18-2024 Coding Summary HTMLBase 64 DjawwwatJUt2lNv+PGhl YWQ+MN6BWEReE34omERe dF4zJ3HWWZkLBejxGBEJ SFhELrGzpeOxHT8moPZw ZXJu IC8+RE1pAOOfOthytRKd o5K3mQD9O26vho6cAQoa bUQ1VAGsZmSgnslca7zb aYa9VBspNoyiFnTq BASynT19VSI1mS98Hu06 bJGcjDMdm0qbdIn3ZcTk SCPiBOW0dNfdZVqrz0Ae YUNrG47akNBuc6Q7 IGNvbGxhcHNlOyBlbXB0 xO9pIPvquqohp4hkurmc Dyd3ps66rETsj8X3gCY9 J4IyanR2CXHwcINp KkhsfPUOyM2jixiwf9oi cldjFnWrAYUiRYg4GYy6 CIAawAoyYeJvWN99EFL6 MPZdrlPoF8ReRVZe wBhnPgO1h3Q6Zz0VQ6PX YrjpH0YJMEMFJNykkUN+ TJ57mp61K7HqBrktUzj0 VRKaAAD1kIL4dJ3u UBEyONdkf3E2qFL6T8Ha ebAsbr0jm0uwZXXxIWqz I01qlPKbq7O5FNSoqOJ7 DFJhgMygMfHjbT68 Oyc+RUBawAoqb7SuLwxg k8hny7nonPc1AxdfFGTv bqPxoHjcDMW1i3PjKw1r WMRpcWJ4uTO0oD5b RlUkSvS4YTxtF404WxAr lISnEgteA46gU3HbpBS+ YOCjFdm7XOSzyWssMP9r O4BoSIEqudenqJTa qZhqKB8fHLXabkddUPLx dH9bPKIgA2h3EvVvBhU0 JEwdG6TnCLAiphraOt15 mL1oGeSbOvW7WHfk S7QmohS5BSUhqQDfVHfz QZZ9J67vc5D7JRBqCYLm GZF9kUW4rK5skFyuwmeb bGVmdDsgdmVydGlj LMgeTYmfJ744AGShwUez PkNvZGluZyBEYXRlOiAg MDQvMjQvMjAyNDwvdGQ+ UPBwRMT8xRwmOGNm iODeSGxjAv8ddBfgfDjv FX3hTCNmlztlNZLtsM5k PEGjsRRaiIhlPC8oIMVa etica071RxLkUYJ2 GNPqgKFrA6UphX8wTzFt XHOrVYCcB2UqtGSjFYxw C597SVanNjF1EIOlvbYj A5SpTETeqZrzVzF0 g6Y6Qv2Qs8FgyqclJ7Pi qDGzOuIgFvmeIGh2S4Xh PjwvdHI+QO69XBYiNZ13 CWt1EZV1aIjnBBas AOXjV7PuyD6mLwIgPPVg ZGRkOyc+PHRhYmxlIHdp ZHRoPScxMDAlJyBzdHls UX0kMi5dZMQjSTZn rFqbjIDdAhBnz6olJNJb KNatVS6uaCiwM6PgeIZ9 XQRnc9c4Jx19V38zH4Ul dXA+XFOwfRP8yHK7 wY9rDfIdGwJ5IViiX352 FgVjbXNoHupjn9xwb1vj hWe8QrE2TUZcpxLmnJfq LQT5u0FqCa78T37l IHdpZHRoPSIxNSUiIHZh eVnypz3qkI7gWf6+PGNv kNW4iTM3pJ4cIgYzJnI4 GUbgR934RxBzsBXx Fpjfe2csd8nyoMy5HiJq DIBksgHmaKisJPA6v8Yt Uf40C9DlsPpcw2TxPgr7 js41rQGap0S6eTX1 V5TyGDRhnjodbLXcfXxf GW0oSSBfseyyFGFwoF5u QFWhQ3g5LiKuRlA1PQja I8AlusS7JFGugAIb SQCypBANwL6dyrcmv8va rctvSqSoQPTuKXg6OUa3 VHGosBmxHjArXYC6VgX2 VGX8yPIcaL9vuMrg riccdL0iLmz+SKN5mRTa eJYQNN7oPmnleOM+PHRk FWB5eWziRUkhSJImaI7x PLVwP6l8DdRhPiY4 TIqeQ3GzhiE2RQWcvODf PKYmuFXLdF3klzbgv0af kztkOxBkMGAnOGi5OEf2 LWFsaWduOiBsZWZ0 AmB9QVE9kXPavU0pvSiv zhwfnD0hGpl+QmlydGgg AZY1RPi5S5VmOmz9SGId wNeeBA7xzGLcMOqy He5zhHpxoIndSU3wAJRm bqklx325NfEky1mjDZJk bJDzTNosMUK9X56jc7I7 CRDiYYElQBS6tFQ5 cE5nlEnekwpztKVvhRsv wpHiuJauJDkyTCpoL559 CNLnuNgbRoJeOIt9B3Oy Txe4SOIpgCnmVN0n yPPqANulLg9hvGhrbZda EJ5eTCUqfqzwt077HkJm z3euBZZrkLHrZUvdAQL6 K25dp5A9DNMuVBOy IQB4eSH8hO9auOdacoyx bGVmdDsgdmVydGljYWwt XNqzE676DBLmwMdhDxHe bOg3G4UcVwq3INRw iUbbGA7ymCIxEExcNp8u nMquyGcfGX8aYPGcljis m894ViVet3xeZMZmuEQi RXjgYZL5S22lo7F2 IOCfYYZrKSG5cNN8fL2x bGlnbjogbGVmdDsgdmVy bBrrXZsjQWicZ072UJUg cDsnPlBhdGllbnQg DNyrHXw2Q8XiUkozuIC+ UL69JARwDQ95uWFabAAq g5ofoYj0RjBpDFDzDDY1 nDagDNzfs7ViOXPh L21mvGHhg9T6MYGfyZyz cXAlWiBvzSI9iL3zJEvn emgce1uxyfjkWbzcy2fn oo22oA41E78tGYbo ZHRoPSIzMCUiIHZhbGln dr9khE2qJn1+PGNvbCB3 pQX0sG4dCLKhEuC0XLsn N052RbJbsVNyIvnp x3pbj9grzBv2JsF8HOMl vsZrfEjzXWY6c6AxAi87 F59bLTyuWIApPEZdQOYu VIGsrCjbuv6quG9w Ii8+MBAbwAR7tJL3eC7k KpHsMcE9EWfiJ216EzLu kQVlYhxuX33rI5WvyEN+ SNZpRcz1EDMjuRve CQ4fuZLlIRqrJc7rWBQ9 AoBgQwKfQRgyP6YpVFGn ioohwgeoaKQ8IHGgTDOn hH05Vv4vlOgqKGRo nVZNwD5pzzvnt6cuvnal FuOhDQOvRMk5VSo0CPUy kPtzShTkSXY5OlC7MQW6 zVBpuC4yzWuvmxtt qE9tL0QdCPAldyvfIw70 eM6iHlGkRpT4CWgoFlz+ LD4JUKKLOZnxFVgFNHpG IFNJRVJSQTwvdGQ+ XMRwFLH6vMofBZoqUYPi zR9gZNAlB0y5KuKsPiF9 OXrxZ3LzPLMrgoytRz00 qC3fOcRhWkU2QQnp V6FlhkC5XNCwwLJrDFqg JAC3G11ci5Z2AOIuQACp FJV5pNR1zL6xrHlpmklp bGVmdDsgdmVydGlj PEmjBGrqX594UQRpiFbs AyScUqPaGuY5GEp2P1Om Ahk1HEFfaZmfTZ4dtTEv ZBnoMi0hvJljvNzq HP6wHNPduofpCJPgfW4a SQQgbWEfeOuuNQ2rKTFp aqqln154GnBjUBC1ELQg tFTaC1LsbF8jGmJo GOLnYOItP0JecNGqVIiu K252OVgeAxU7NMLugyQr K2JwFFKzhDejBxX2x2U4 Ns1tHDPBRQPgbzsx dGQ+WGPeDSK2eDoiAOlv TYPvoS4xAZVnT6u8ShFc QiA8TKgcS1GrVCIuelpu Gp59wW4qPsBcCqF0 DIijN3HlgcC8KFFutLFk QEwpNRS0H34gf6J0KDUi TYOpHOP3wYU2dZ1xrVon bjogbGVmdDsgdmVy yIbaVEmzZTzzK496ZUJo cDsnPkZFTUFMRTwvdGQ+ VOLrZPZ2vDleJQyiWZOg wC5mUDJyZ4f4IvHy LtB2LJyqM8CpIKDgyarz Vr30uK0aAzYhQuB4ARvn M1NdxfW1TZDctRPtVHag CPC9F06mh9K3YACm VKGsBZI4pCS4kC1cyKqg bjogbGVmdDsgdmVydGlj JVitTLmkA443GCIkkYje Oj2BSS25VL18V1Vt PjwvdGFibGU+PHRhYmxl IHdpZHRoPScxMDAlJyBz gQvfZV5zRx9dFVQzUICb uMvxgHXiQaBus0ou KIGhQKwxNT3xcMazW1Fr qZE5QKUlz1z1Lx69U81m Y8UfqVT+MBQbxWB7eTR9 mZ5tWfOnBlJ2QAwi Y000ZaJjbWPtXqltq6gc e4cjpKh4WiGfCUYemxOv lTzbWJN3c8DbNb49M86k IHdpZHRoPSIyMCUi QDTksKkjvb2ofR1bIk4+ PBYlyWK2lYD8eF0sCcXt UcY8YFiiG478UpVhgBSy BhaxI84xO0FotKX+ CNNzJwv7JIKqrCilBX1l xQMnSQukTa2pNKV6SgWx WaDoKXmjS7QnWLZumrli ghaglNB6CFMyKBUt fK89Kk7lxXlcYb4hYEEt KKS8WWUvtTCtV6OjtF3h EeFcTZRwLWHoB1PxjTFn PMdxY736PGnaKiV2 WRJudhIdR7TqXDXetOku AwG4x4V1Ex4UkPcbaZOp FT6dLrLmFTj3F3BtNij4 NMLilKkkSK7ugGHm XQysAt1ciKqnbVilAM5h UBLfapfku942FeUsu9aq KXMpmSAgMOlbWXA8B44v e0N9LKZeRLUvESG4 fRA0gQ8pdTdqrhuzsEEo dDsgdmVydGljYWwtYWxp D779IMAwyQwpJiOLKbi3 O4XwHyj9HYRizExq EH2noAKcKDwjWv7vsTji iNpiNJ7uFOHdiwzym914 QyKam8ecAPXieCFaQDka ELT3Z68eq6B3QYUx IWZaJTL5mPU8iP0pkQzy bjogbGVmdDsgdmVydGlj QIeoVHmcG344LDFgnAnc Ei7VAsc6E0WbEli9 DZDkoAmvGH6wdNAzCBee Qg6vwSsazLdsZI5yZLYi nzklu042TxCte1bhPBFv rHVjNVpmWPV3Y30j s2K0SXLeOMAmMWB3xYF3 pX5rjWsfzyifiFHlwStv tbSxkSqiYGaoUElxX306 IHRvcDsnPlBheWVy OjwvdGQ+QZ27dg18X6Ib OiurHsa8GYHqWQW4gYP9 pS9vXLDfJEadi0Z9lDA5 P7LrpwYsbi8pd9vu YXB (more content not included)... [facility] Provider Orderson 01-12-2024 Provider Orders [id number] 45#[id number] [facility] COVID-19, Rapidon 10-14-2022 SARS-CoV-2 (COVID-19) RNA AMANDO+probe Ql (Unsp spec) Not detected Not Detected [facility] Comment on above: Rapid NAAT: The specimen [...] management decisions. Fact sheet for Healthcare Providers: https://www.fda.gov/media/208620/download Fact sheet for Patients: https://www.fda.gov/media/947130/download Methodology: Isothermal Nucleic Acid Amplification Specimen Description .[facility]NGEAL [facility] Rapid influenza A/B antigens on 10-14-2022 Flu A Antigen Negative NEGATIVE [facility] Comment on above: for Influenza A Anti gen Flu B Antigen Negative NEGATIVE [facility] Comment on above: for Influenza B Anti gen. [facility] Vital Signs Date Time Vital Sign Value Performing Clinician Facility 02-01-2024 09:090400 Body weight 157.8528 kg Viral Galindo [facility] Comment on above: Result Comment: Not provided. Performed By: #### [id number] #### [facility] (DEFAULT) [address] [place] [address] [id number] 06-23-2023 10:35-0400 Body height 167.64 cm Jossie Krueger Other [employer] Other 06-23-2023 10:35-0400 Body mass index (BMI) [Ratio] 50.03 kg/m2 Jossie Krueger Other [employer] Other 06-23-2023 10:35-0400 Body temperature 98.3 [degF] Jossie Krueger Other [employer] Other 06-23-2023 10:35-0400 Body weight 140.62 kg Jossie Krueger Other [employer] Other 06-23-2023 10:35-0400 Diastolic blood pressure 90 mm[Hg] Jossie Krueger Other [employer] Other 06-23-2023 10:35-0400 Respiratory rate 18 /min Jossie Krueger Other [employer] Other 06-23-2023 10:35-0400 SaO2% (BldA) [Mass fraction] 97 % Jossie Krueger Other [employer] Other 06-23-2023 10:35-0400 Systolic blood pressure 147 mm[Hg] Jossie Krueger Other [employer] Other 10-14-2022 18:16-0500 Body height 165.1 cm John Hastings DO Work Phone: [email or web address] 10-14-2022 18:16-0500 Body mass index (BMI) [Ratio] 52.92 kg/m2 John Hastings DO Work Phone: [email or web address] 10-14-2022 18:16-0500 Body temperature 98.29 [degF] John Hastings DO Work Phone: [email or web address] 10-14-2022 18:16-0500 Body weight 144.24 kg John Hastings DO Work Phone: [email or web address] 10-14-2022 18:16-0500 Diastolic blood pressure 96 mm[Hg] John Hastings DO Work Phone: [email or web address] 10-14-2022 18:16-0500 Heart rate 94 /min John Hastings DO Work Phone: [email or web address] 10-14-2022 18:16-0500 Respiratory rate 18 /min John Hastings DO Work Phone: [email or web address] 10-14-2022 18:16-0500 SaO2% (BldA) [Mass fraction] 95 % John Hastings DO Work Phone: [email or web address] 10-14-2022 18:16-0500 Systolic blood pressure 138 mm[Hg] John Hastings DO Work Phone: [email or web address] 10-05-2022 23:14-0500 Body height 165.1 cm Chapin Lee MD Work Phone: [email or web address] 10-05-2022 23:14-0500 Body mass index (BMI) [Ratio] 53.47 kg/m2 Chapin Lee MD Work Phone: [facility] [employer] 10-05-2022 23:14-0500 Body temperature 98.4 [degF] Chapin Lee MD Work Phone: [facility] [employer] 10-05-2022 23:14-0500 Body weight 145.74 kg Chapin Lee MD Work Phone: [email or web address] 10-05-2022 23:14-0500 Diastolic blood pressure 87 mm[Hg] Chapin Lee MD Work Phone: [email or web address] 10-05-2022 23:14-0500 Heart rate 86 /min Chapin Lee MD Work Phone: [facility] [employer] 10-05-2022 23:14-0500 Respiratory rate 18 /min Chapin Lee MD Work Phone: [email or web address] 10-05-2022 23:14-0500 SaO2% (BldA) [Mass fraction] 99 % Chapin Lee MD Work Phone: [email or web address] 10-05-2022 23:14-0500 Systolic blood pressure 146 mm[Hg] Chapin Lee MD Work Phone: [email or web address] Encounters Encounter Date Encounter Type Care Provider Facility Start: 05-15-2024 End: 05-15-2024 ambulatory JOE TRICIA Not Available Start: 05-09-2024 End: 05-09-2024 ambulatory Viral Galindo Facility:[facility] Start: 05-07-2024 End: 05-07-2024 ambulatory JOE TRICIA Not Available Start: 04-19-2024 End: 04-19-2024 ambulatory JUSTINE CALLAHAN Not Available Start: 04-11-2024 End: 04-11-2024 ambulatory JUSTINE CALLAHAN Not Available Start: 04-10-2024 End: 04-12-2024 [facility] Start: 04-09-2024 End: 04-09-2024 Emergency department patient visit SARKIS JAY [facility] Start: 04-04-2024 End: 04-04-2024 ambulatory JOE TRICIA Not Available Start: 03-21-2024 End: 03-21-2024 ambulatory JOE TRICIA Not Available Start: 03-07-2024 End: 03-07-2024 ambulatory JOE TRICIA Not Available Start: 02-08-2024 End: 02-08-2024 ambulatory JOE TRICIA Not Available Start: 01-16-2024 End: 01-16-2024 ambulatory JUSTINE PARRAEY Not Available Start: 01-12-2024 End: 01-12-2024 ambulatory Viral Bryantie Facility:[facility] Start: 01-10-2024 End: 01-10-2024 ambulatory JUSTINE CALLAHAN Not Available Start: 12-13-2023 End: 12-13-2023 ambulatory JOE TRICIA Not Available Start: 11-11-2023 End: 11-11-2023 ambulatory JOE TRICIA Not Available Start: 10-27-2023 End: 10-27-2023 Office outpatient visit 5 minutes [facility] Tricia Nurse [facility] Comment on above: Canceled (Provider) Start: 06-23-2023 End: 06-23-2023 ambulatory Jossie Krueger Other [employer] Other Start: 06-23-2023 Office outpatient ne w 30 minutes Jossie Krueger [facility] Start: 10-14-2022 End: 10-14-2022 Emergency department patient visit John Hastings DO Work Phone: [facility] ED Comment on above: Viral URI with cough (Primary Dx) Start: 10-05-2022 End: 10-06-2022 Emergency department patient visit Chapin Lee MD Work Phone: [facility] ED Comment on above: Plantar fasciitis (P rimary Dx) Procedures Date Procedure Procedure Detail Performing Clinician Start: 10-14-2022 COVID-19, RAPID John Jade DO Work Phone: Start: 10-14-2022 Iaadiadoo influenza Vadim Hastings DO Work Phone: Plan of Treatment Date Care Activity Detail Author Start: 11-11-2023 End: 11-11-2023 ambulatory 11/11/2023 11:00 AM EST Initial [facility] [address] [place] [address] [facility] Start: 11-11-2023 End: 11-11-2023 Professional / ancillary services management 11/11/2023 10:30 AM EST Ancillary Procedure [facility] [address] [place] [address] [facility] Start: 10-27-2023 End: 10-27-2024 US Pelvis transvaginal US OB transvaginal Imaging Routine Missed menses Expected: 10/27/2023 (Approximate), Expires: 10/27/2024 [facility] Work Phone: Comment on above: Expected: 10/27/2023 (Approximate), Expires: 10/27/2024 Start: 04-26-2022 Influenza [facility] (# [facility] Start: 11-17-2021 DTaP/Tdap/Td vaccine (7 - Td or Tdap) DTaP/Tdap/Td vaccine (7 - Td or Tdap) [facility] Start: 01-15-2000 COVID-19 Vaccine (#1) COVID-19 Vacci ne (#1) [facility] Payers Date Payer Category Payer Medicaid [id number] 2022 Unknown [id number] 2019 Medicare [id number]. [id number] 1999 Unknown [id number] 2.16.8 [id number] 1999 Unknown [id number] 2.16.8 40.1.006003.3.579.2.174 1999 Unknown [id number] 2.16.8 40.1.265894.3.579.2.718 1999 Unknown [id number] 2.16.8 40.1.303545.3.579.2.718 1999 Unknown [id number] 2.16.84 0.1.008992.3.579.2.1259 1999 Unknown [id number] 2.16.84 0.1.088169.3.579.2.1259 1999 Unknown [id number] 2.16.84 0.1.567697.3.579.2.1259 1999 Unknown [id number] 2.16.84 0.1.876277.3.579.2.1259 1999 Unknown [id number] 2.16.84 0.1.241670.3.579.2.1259 1999 Unknown [id number] 2.16.84 0.1.582082.3.579.2.1259 1999 Unknown [id number] 2.16.84 0.1.908055.3.579.2.1259 1999 Unknown [id number] 2.16.84 0.1.141176.3.579.2.1259 1999 Unknown [id number] 2.16.84 0.1.614174.3.579.2.1259 1999 Unknown [id number] 2.16.84 0.1.560765.3.579.2.1259 1999 Unknown [id number] 2.16.84 0.1.055578.3.579.2.1259 1999 Unknown [id number] 2.16.84 0.1.176282.3.579.2.1259 Social History Date Type Detail Facility Start: 10-05-2022 Tobacco smoking status HIIS Smokes tobacco daily [facility] Phone: History of tobacco use Cigarette Smoker B [facility] Accountable Phone: Start: 10-05-2022 End: 10-14-2022 Cigarettes smoked current (pack per day) - Reported 1 [facility] Phone: Start: 10-05-2022 Tobacco use and exposure Smokeless tobacco non-user [facility] Phone: Start: 10-05-2022 End: 10-14-2022 Alcohol intake Current drinker of alcohol (finding) [facility] Phone: Start: 10-05-2022 Alcohol Comment in a month [facility] Phone: Start: 2000 Sex Assigned At Not on file [facility] Phone: Start: 09-25-2022 End: 10-14-2022 Exposure to SARS-CoV-2 (event) Not sure [facility] Phone: Start: 10-14-2022 History SDOH Alcohol Frequency 1 [facility] Phone: Start: 10-14-2022 History SDOH Alcohol Std Drinks 0 [facility] Phone: Sex Assigned At Sex Assigned At [facility] [employer] Other Tobacco smoking stat us [facility] Tobacco smoking consumption unknown [facility] Start: [...] to obtain today. documented in this encounter [facility] Healthcare Evaluation note 06-23-2023 Note Date & [...] understanding and is agreeable to treatment plan [employer] Other Evaluation note Note Date & Type Note Facility Evaluation note Diagnosis Plantar fasciitis- Primary Plantar fascial fibromatosis documented in this encounter [facility] Phone: Evaluation note Note Date & Type Note Facility Evaluation note Diagnosis Viral URI with cough- Primary Acute upper respiratory infections of unspecified site documented in this encounter [facility] Phone: Evaluation note Note Date & Type Note Facility Evaluation note Diagnosis Missed menses documented in this encounter [facility] Healthcare History general Narrative - Reported Note Date & Type Note Facility History general Narrative - Reported Type Surgical History wisdom teeth [employer] Other Hospital Discharge instructions Attachments Note Date & Type Note Facility Hospital Discharge instructions The following attachments cannot be sent through Care Everywhere.Plantar Fasciitis (Armenian)documented in this encounter [facility] Accountable Phone: Hospital Discharge instructions Attachments Note Date & Type Note Facility Hospital Discharge instructions The following attachments cannot be sent through Care Everywhere.URI (Upper Respiratory Infection) (Armenian)documented in this encounter [facility] Work Phone: Summary Purpose Family History No [...] Care Teams (unrecognized sec tion and content) [place] Relationship Specialty Start Date End Date Viral Galindo MD [address] [place] [address] PCP - General Pediatrics 10/27/23 INFORMATION SOURCE (unrecogn ized section and content) DATE CREATED AUTHOR 04/13/2024 Michelle garcia DATE CREATED AUTHOR AUTHOR'S ORGANIZ ATION 05/15/2024 [facility] DATE CREATED AUTHOR AUTHOR'S ORGANIZ ATION 05/16/2024 [facility] PERTAINING TO PATIENTS WHO ARE [...] BE BASED ON THE PRIMARY CLINICAL RECORDS. [employer] provides no warranty or guarantee of the accuracy or completeness of information in this document.
== END 2024-05-14 17:20 | disposition home or self-care (01) ==
LOC: FBCO 07:12 → FBC 16:09
PROVIDERS: PCP Family Medicine; Visit Provider Obstetrics & Gynecology
DX: O36.63X0 Maternal care for excessive fetal growth, third trimester, not applicable or unspecified (principal)
CPT/HCPCS: 59025

== ENCOUNTER 2024-05-15 11:47 | Observation (INO) | payer OTHER, MEDICAID, SELFPAY ==
--- OUTSIDE RECORDS SUMMARY | 2024-05-15 12:05 | XMS_ITS | CCD ---
Author Organization [facility] Team Providers Care Legal Assistant Name Role Phone Unavailable Primary Care Provider UnavailJossie Lui Unavailable Viral Galindo MD Primary Care Provider SARKIS JAY Referring Unavailable SARKIS JAY Attending Unavailable TRICIA, JOE Attending Unavailable SINDY, JUSTINE Attending Unavailable JUSTINE CALLAHAN Attending Unavailable TRICIA, JOE Attending Unavailable TRIICA, JOE Attending Unavailable TRICIA, JOE Attending Unavailable [...] Propensity to adverse reactions to drug (disorder) [facility] Repository Medications Current Medications Medication [...] 170.460 kg Body Mass Index 62.54 kg/m2 [place] Body Weight Calculated 57 kg BSA Measured [...] and Plan Diagnosis Adult general medical exam (GNY86-CV Z00.00). Plan: At this point no further workup or preventative issues needed. I did discuss with patient about nursing after her delivery. Also about watching her weight and losing her weight after delivery. She does have a plan to go on a diet afterwards.. Orders Orders Evaluation and Management: 94343 Periodic preventive care, estab pt; 18-39 years (Order): 05/09/2024 10:53 EDT, Qty: 1, Adult general medical exam. [Electronically Signed on: 05/09/2024 11:16 EDT] Viral Galindo MD [Verified on: 05/09/2024 11:16 EDT] Viral Galindo MD [facility] Outside Recordson 05-08-2024 Outside Records [id number] 86#1.00OTGTIFF [facility] Outside Record[facility] 05-07-2024 Outside Records [id number] [facility] Outside Records [id number] [facility] 04-25-2024 Outside Records [id number] #1.00OTGTIFF [facility] Outside Recordson 04-13-2024 Outside Records [id number] #1.00OTGTIFF [facility] CBC with Diffon 04-09-2024 Abs. Basophil 0.00 k/uL Normal 0.00-0.20 [facility] Comment on above: Performed By: #### C DP, CP #### [facility] [address] [place] [address] Supervisor Rose Grading: Viral Mcgraw MD Abs.Imm.Granulocyte 0.03 k/uL Normal 0.00-0.30 [facility] Comment on above: Performed By: #### C DP, CP #### [facility] [address] [place] [address] Supervisor Rose Grading: Viral Mcgraw MD Abs.Neutrophil (Seg) 6.53 k/uL Normal 2.5-7.0 [facility] Comment on above: Performed By: #### C DP, CP #### [facility] [address] [place] [address] Supervisor Rose Grading: Viral Mcgraw MD Basophils/100 WBC (Bld) 0 % Normal 0-2 [facility] Comment on above: Performed By: #### C DP, CP #### [facility] [address] [place] [address] Supervisor Rose Grading: Viral Mcgraw MD Eosinophils (Bld) [#/Vol] 0.21 10*3/uL Normal 0.00-0.40 [facility] Comment on above: Performed By: #### C DP, CP #### [facility] [address] [place] [phone] Supervisor Rose Grading: Viral Mcgraw MD Eosinophils/100 WBC (Bld) 2 % Normal 0-5 [facility] Comment on above: Performed By: #### C DP, CP #### [facility] [address] [place] [address] Supervisor Rose Grading: Viral Mcgraw MD Erythrocyte distribution width (RBC) [Ratio] 13.9 % Normal 12.1-15.2 [facility] Comment on above: Performed By: #### C DP, CP #### [facility] [address] [place] [phone] Supervisor Rose Grading: Viral Mcgraw MD Hematocrit (Bld) [Volume fraction] 32.4 % Low 36.0-46.0 [facility] Comment on above: Performed By: #### C DP, CP #### [facility] [address] [place], [place] [phone] Supervisor Rose Grading: Viral Mcgraw MD Hemoglobin (Bld) [Mass/Vol] 11.2 g/dL Low 12.0-16.0 [facility] Comment on above: Performed By: #### C DP, CP #### [facility] [address] [place], [place] [phone] Supervisor Rose Grading: Viral Mcgraw MD Immature granulocytes/100 WBC (Bld) 0 % Normal 0-5 [facility] Comment on above: Performed By: #### C DP, CP #### [facility] [address] [place] [address] Supervisor Rose Grading: Viral Mcgraw MD Lymphocytes (Bld) [#/Vol] 1.74 10*3/uL Normal 1.00-4.80 [facility] Comment on above: Performed By: #### C DP, CP #### [facility] [address] [place] [address] Supervisor Rose Grading: Viral Mcgraw MD Lymphocytes/100 WBC (Bld) 19 % Normal 15-40 [facility] Comment on above: Performed By: #### C DP, CP #### [facility] [address] [place] [address] Supervisor Rose Grading: Viral Mcgraw MD MCH (RBC) [Entitic mass] 30.4 pg Normal 26.0-34.0 [facility] Comment on above: Performed By: #### C DP, CP #### [facility] [address] [place] [address] Supervisor Rose Grading: Viral Mcgraw MD MCHC (RBC) [Mass/Vol] 34.6 g/dL Normal 31.0-37.0 [facility] Comment on above: Performed By: #### C DP, CP #### [facility] [address] [place] [address] Supervisor Rose Grading: Viral Mcgraw MD MCV (RBC) [Entitic vol] 88.0 fL Normal 80.0-100.0 [facility] Comment on above: Performed By: #### C DP, CP #### [facility] [address] [place], [place] [phone] Supervisor Rose Grading: Viral Mcgraw MD Monocytes (Bld) [#/Vol] 0.48 10*3/uL Normal 0.00-1.00 [facility] Comment on above: Performed By: #### C DP, CP #### [facility] [address] [place] [address] Supervisor Rose Grading: Viral Mcgraw MD Monocytes/100 WBC (Bld) 5 % Normal 4-8 [facility] Comment on above: Performed By: #### C DP, CP #### [facility] [address] [place], [place] [phone] Supervisor Rose Grading: Viral Mcgraw MD Neutrophil (Seg) 74 % Normal 47-75 [facility] Comment on above: Performed By: #### C DP, CP #### [facility] [address] [place] [address] Supervisor Rose Grading: Viral Mcgraw MD Platelet mean volume (Bld) [Entitic vol] 10.7 fL Normal 6.0-12.0 [facility] Comment on above: Performed By: #### C DP, CP #### [facility] [address] [place], [place] [phone] Supervisor Rose Grading: Viral Mcgraw MD Platelets (Bld) [#/Vol] 220 10*3/uL Normal 140-450 [facility] Comment on above: Performed By: #### C DP, CP #### [facility] [address] [place], [place] [phone] Supervisor Rose Grading: Viral Mcgraw MD RBC (Bld) [#/Vol] 3.68 10*6/uL Low 4.00-5.20 [facility] Comment on above: Performed By: #### C DP, CP #### [facility] [address] [place], [place] [phone] Supervisor Rose Grading: Viral Mcgraw MD WBC (Bld) [#/Vol] 9.0 10*3/uL Normal 3.5-11.0 [facility] Comment on above: Performed By: #### C DP, CP #### [facility] [address] [place], [place] [phone] Supervisor Rose Grading: Viral Mcgraw MD Comp Metabolic Profon 2023 Albumin [Mass/Vol] 3.2 g/dL Low 3.5-5.2 [facility] Comment on above: Performed By: #### C DP, CP #### [facility] [address] [place], [place] [phone] Supervisor Rose Grading: Viral Mcgraw MD Alkaline Phos 74 U/L Normal 35-104 [facility] Comment on above: Performed By: #### C DP, CP #### [facility] [address] [place], [place] [phone] Supervisor Rose Grading: Viral Mcgraw MD ALT [Catalytic activity/Vol] 26 U/L Normal 5-33 [facility] Comment on above: Performed By: #### C DP, CP #### [facility] [address] [place], [place] [phone] Supervisor Rose Grading: Viral Mcgraw MD Anion gap [Moles/Vol] 10 mmol/L Normal 9-17 [facility] Comment on above: Performed By: #### C DP, CP #### [facility] [address] [place], [place] [phone] Supervisor Rose Grading: Viral Mcgraw MD AST [Catalytic activity/Vol] 16 U/L Normal <32 [facility] Comment on above: Performed By: #### C DP, CP #### [facility] [address] [place], [place] [phone] Supervisor Rose Grading: Viral Mcgraw MD Bilirubin [Mass/Vol] 0.2 mg/dL Low 0.3-1.2 [facility] Comment on above: Performed By: #### C DP, CP #### [facility] [address] [place], [place] [phone] Supervisor Rose Grading: Viral Mcgraw MD BUN/CRE Ratio 7 Low 9-20 [facility] Comment on above: Performed By: #### C DP, CP #### [facility] [address] [place], [place] [phone] Supervisor Rose Grading: Viral Mcgraw MD Calcium [Mass/Vol] 9.1 mg/dL Normal 8.6-10.4 [facility] Comment on above: Performed By: #### C DP, CP #### [facility] [address] [place], [place] [phone] Supervisor Rose Grading: Viral Mcgraw MD Chloride [Moles/Vol] 101 mmol/L Normal 98-107 [facility] Comment on above: Performed By: #### C DP, CP #### [facility] [address] [place] [address] Supervisor Rose Grading: Viral Mcgraw MD CO2 [Moles/Vol] 24 mmol/L Normal 20-31 [facility] Comment on above: Performed By: #### C DP, CP #### [facility] [address] [place], [place] [phone] Supervisor Rose Grading: Viral Mcgraw MD Creatinine [Mass/Vol] 0.7 mg/dL Normal 0.5-0.9 [facility] Comment on above: Performed By: #### C DP, CP #### [facility] [address] [place], [place] [phone] Supervisor Rose Grading: Viral Mcgraw MD GFR/1.73 sq M.predicted among non-blacks MDRD (S/P/Bld) [Vol rate/Area] mL/min/{1.73_m2} Normal >60 [facility] Comment on above: Result Comment: These [...] Performed By: #### C DP, CP #### [facility] [address] [place] [address] Supervisor Rose Grading: Viral Mcgraw MD Glucose [Mass/Vol] 107 mg/dL High 70-99 [facility] Comment on above: Performed By: #### C DP, CP #### [facility] [address] [place] [address] Supervisor Rose Grading: Viral Mcgraw MD Potassium [Moles/Vol] 3.3 mmol/L Low 3.7-5.3 [facility] Comment on above: Performed By: #### C DP, CP #### [facility] [address] [place] [address] Supervisor Rose Grading: Viral Mcgraw MD Protein [Mass/Vol] 6.3 g/dL Low 6.4-8.3 [facility] Comment on above: Performed By: #### C DP, CP #### [facility] [address] [place] [address] Supervisor Rose Grading: Viral Mcgraw MD Sodium [Moles/Vol] 135 mmol/L Normal 135-144 [facility] Comment on above: Performed By: #### C DP, CP #### [facility] [address] [place], [place] [phone] Supervisor Rose Grading: Viral Mcgraw MD Urea nitrogen [Mass/Vol] 5 mg/dL Low 6-20 [facility] Comment on above: Performed By: #### C DP, CP #### [facility] [address] [place] [address] Supervisor Rose Grading: Viral Mcgraw MD AFP Tetra LCon 02-01-2024 AFP CHIN MoM 1.12 Invalid Interpretation [facility] Comment on above: Performed By: #### 3 [id number] #### [facility] (DEFAULT) [address] [place] [address] AFP DSR (By Age) 1 IN 1039 Invalid Interpretation [facility] Comment on above: Performed By: #### 3 [id number] #### [facility] (DEFAULT) [address] [place] [address] 71146 AFP DSR (Second Trimester) 1 IN 957 Invalid Interpretation [facility] Comment on above: Performed By: #### 3 [id number] #### [facility] (DEFAULT) [address] [place] [address] 78551 AFP Gest. Age on Collection Date 19.3 week(s) Invalid Interpretation [facility] Comment on above: Result Comment: Not provided. Performed By: #### 3 [id number] #### [facility] (DEFAULT) [address] [place] [address] 04172 AFP Gestat. Age Based On SUE Invalid Interpretation [facility] Comment on above: Result Comment: 05/27 Performed By: #### 3 [id number] #### [facility] (DEFAULT) [address] [place] [address] 42353 AFP hCG MoM 1.18 Invalid Interpretation [facility] Comment on above: Performed By: #### 3 [id number] #### [facility] (DEFAULT) [address] [place] [address] 40299 AFP insulin Dep Diabetes No Invalid Interpretation [facility] Comment on above: Result Comment: Not provided. Performed By: #### 3 [id number] #### [facility] (DEFAULT) [address] [place] [address] 31716 AFP Interpretation Comment Invalid Interpretation [facility] Comment on above: Result Comment: [...] within 10 days. Performed By: #### 3 [id number] #### [facility] (DEFAULT) [address] [place] [address] AFP Maternal Age At SUE 24.8 Invalid Interpretation Code [facility] Comment on above: Performed By: #### 3 [id number] #### [facility] (DEFAULT) [address] [place] [address] 12561 AFP MoM 0.69 Invalid Interpretation [facility] Comment on above: Performed By: #### 3 [id number] #### [facility] (DEFAULT) [address] [place] [address] 81396 AFP Multiple Gestation No Invalid Interpretation [facility] Comment on above: Result Comment: Not provided. Performed By: #### 3 [id number] #### [facility] (DEFAULT) [address] [place] [address] 27103 AFP OSBR [place] 1 [place] [address] Invalid Interpretation [facility] Comment on above: Performed By: #### 3 [id number] #### [facility] (DEFAULT) [address] [place] [address] 69332 AFP Race Invalid Interpretation [facility] Comment on above: Result Comment: Not provided. Performed By: #### 3 [id number] #### [facility] (DEFAULT) [address] [place] [address] 92921 AFP Results Comment Invalid Interpretation [facility] Comment on above: Result Comment: The MOM and risk factors of this report have been modified based on new information supplied to us by the client or their designated authorization representative. The Gestational Age Based On was [...] provided. to 348. Performed By: #### 3 [id number] #### [facility] (DEFAULT) [address] [place] [address] 66808 AFP T18 (By Age) 1:4050 Invalid Interpretation [facility] Comment on above: Performed By: #### 3 [id number] #### [facility] (DEFAULT) [address] [place] [address] 72965 AFP T18 Risk Not increased Invalid Interpretation [facility] Comment on above: Performed By: #### 3 [id number] #### [facility] (DEFAULT) [address] [place] [address] AFP Test Results: Negative Invalid Interpretation [facility] Comment on above: Performed By: #### 3 [id number] #### [facility] (DEFAULT) [address] [place] [address] AFP uE3 MoM 0.66 Invalid Interpretation [facility] Comment on above: Performed By: #### 3 [id number] #### [facility] (DEFAULT) [address] [place] [address] 88096 AFP Tetra LCon 01-18-2024 AFP Comments: Comment Invalid Interpretation Code [facility] Comment on above: Result Comment: Bethany Perez, Ph.D., [facility] Director References: Available Upon Request. Multiples Of Median Cutoffs Abbreviation Definitions For AFP Elevations IDD- Insulin Dep Diabetes Cadet 2.5 Black 2.8 OSBR- Open Spina Bifida IDD 2.0 Twins 4.5 Risk DSR Cutoff 1:270 DSR- Down Syndrome Risk T18 Cutoff 1:100 T18- Trisomy 18 For further inquiries contact [facility] at [phone]. This test was developed and its performance characteristics determined by [facility]. It has not been cleared or approved by the Food and Drug Administration. Performed At: [facility] [place], [place] [id number] [employer] [facility] Ph:[phone] Performed By: #### 3 [id number] #### [facility] (DEFAULT) [address] [place] [address]70 AFP CHIN Value 120.65 pg/mL Invalid Interpretation Code [facility] Comment on above: Performed By: #### 3 [id number] #### [facility] (DEFAULT) [address] [place] [address] 99125 AFP uE3 Value 1.08 ng/mL Invalid Interpretation [facility] Comment on above: Performed By: #### 3 [id number] #### [facility] (DEFAULT) [address] [place] [address] 94700 AFP Value 23.0 ng/mL Invalid Interpretation [facility] Comment on above: Performed By: #### 3 [id number] #### [facility] (DEFAULT) [address] [place] [address] [place]n [address] m[IU]/mL Invalid Interpretation Code [facility] Comment on above: Performed By: #### 3 [id number] #### [facility] (DEFAULT) [address] [place] [address] Coding Summaryon 01-18-2024 Coding Summary HTMLBase 64 EbntkpnqTXu7fSw+PGhl YWQ+RS1SIYJwX07snMSt yL3wW6TMBYzFPursOZUY GOuJJgUopaEyTK7vfGIl ZXJu IC8+JX1zQQMjTlxrmZXn g6S2dLP6Q06fde9mKTga hPT3OPPbMfAiouqpw7wp uQb9FDsmJctmMkRc FMUmxS50WHU6rU13Yo21 tQMkzSAes6rpqJi1OmVe GKYgSTM7wYvvHOshm8Zl RYDfT48rvOWbe1Q5 IGNvbGxhcHNlOyBlbXB0 aO3nSGxujyrde1yinvbq Ggp1en37vHCgr1K0kVH1 Y3WrpeE9JRNfdECv NmwerWIRhJ4abeham0xd zoneGmVrERLgGWp0XKg4 KXVwaYnqEoMmJB91OZE6 EDNmyyZmK9HtTJMi jPphWuQ0d2E2Dj3ID7IL WsvhH2WOBASXRCxavMF+ LW57mo40R7XcWllnWme3 MMTqBHO3wVX2mG0h VVZoQAhee7I0dYZ9U1Bw usUidy5oj5dsJVWaIKeq C57acYBgm3K0ESKtfHX9 HQVbyMqnPlEnqY87 Oyc+UKUabGfcn9LlRxcf z4aiq2eivSo3YhlzODVp gtXpqWxoNVL9k7VjSi0d NRYygHY0bSG3fJ6h OpGrWeI1LWqxW665GcKi vLCdBlrgY45tM8YqmKU+ UVKzJfp9DVVlmEnqXQ4d Q9YhFEXeizqxyTCb pThpAZ0dOJVqorwwIPVp oT5mVQYyW8u8ZlRcDkE8 JVceL0KhLDIrosygSk88 cR1wYbPbZuH2ZLyi U0AdugM6KJXvxWHnSGut HDM1D97np2C2QBSvWUOc LRT1vUP0xV5jvRbiuyae bGVmdDsgdmVydGlj CDxxOBtlU278HCXvcUrz PkNvZGluZyBEYXRlOiAg MDQvMjQvMjAyNDwvdGQ+ CAAuEWF2gCdlZEDr oHCnDKxtYg5jjBdxjAxt MG3bDPPfcxhsECGcaI4v ELVwrKJffJvoJS1gGFIb upmsl187VhMwXKX6 ZPHfsPVeE7QqlI7nMzPz JXCaFWQvR7VsyFHyNTpa H679LHowPwE4DPAegaQn I8CwHKSjxGtdVyT7 u8E1Vu8Lq3RiowadH3Pv eHNvPgZqEeaaMHp6K5Cx PjwvdHI+VB25DSCxXZ24 CWy9KYN2tNqnXNny VNMrH7TsyX4pLxPlEOZb ZGRkOyc+PHRhYmxlIHdp ZHRoPScxMDAlJyBzdHls IF5jPh8nEMKfYBQh kBmwrJFmSqUic6smOYSc RZxtDQ7keTccF4LooGG7 ELReg8w1Ji39V41tK2Em dXA+KBFtxJD3pDA0 cL4aYtFqRhN9JTjwP340 UiBavMTdZgepi0vii2nc qLz0YqS5CXSbfxYfrRmx LEA3k8SbTn24Y60w IHdpZHRoPSIxNSUiIHZh mLablq2jaH8qFv3+PGNv wPL6rLT2pE2kOrEiPrU7 QAqiR472PkUxcMDh Tlylp0vil9wmhLz4CaJv PAEhteAanMffOUK7y3Nx Sb42V3PglDyxm8OrSvs7 xw03lQFye4I0lNN0 E6BxRGMtmdyooUNqrYml GN6tYHJqbghdXERhsD3s PZRuV1x9HtDsAcP1QDkv D0QpexR7IDIenDJy ENBwxSBIbE8mcbhyq3nh sejyGiBtUTFuKZn1JTk4 DXEsoIsyOcUcWLB4ZpW6 CMH9lPDojI0wjSql kwsrrV7rMbq+QNX4bCOg tHPTDX3yFyjqpOV+PHRk HCU3pEbtCNhfNCIopW6c PWIfN6j8JwTuVqU7 QOumW1KshtI5YIVijEEs OSIoaBRCaF1gvdsrk5xr jndrGrBzXCEoXVz0XAx7 LWFsaWduOiBsZWZ0 YvD2ZZD1jSYnxN9lnDih skcbfC0tGob+QmlydGgg WBF7LEm2E2MoUgl9LCAv lZkkKQ3ljLFgGHzw Fr8mmYwjzQkiDB5vXDLa yvkpz763DcQrq8fsKVKx zVDsWYxbVYV5Z22aw8A8 BXFcAFUzCNA8mXV8 bX8saRnkcgclsGZrhBgp gdBjuFinTRykAKycT958 UJOyyCpdMzMuGXq6H9Va Fzv8ENKmiOsfLK3m hSHuMDjhZf4sfRublViv QG7xQOTsclhrg900RbCd x8vaXJMrqXBtCWsuQXN7 U93bi0K3DXLaNLQt LGV2xFU7kP1cfLldeibi bGVmdDsgdmVydGljYWwt BHhuY839AEWllUgeZpTy bJt3C9MlTby3NRCj yIxqPO9weXCmQTfeQp0w oJjcaEliYT3bJEErkivb g810SwCmo5rfLPVvoXXk JYojJIY3K86jh1P0 ADPjPERnYLU1lJE9mW8q bGlnbjogbGVmdDsgdmVy wXmdZFnoVNmmU753HRKm cDsnPlBhdGllbnQg RDvnYIz6N1XrXueizOV+ AK20UQLzPP88rYQdmAWu p7dxgIo0MeBlYNEdVZR6 cXbkGXbml9DkMOWo X91lfOUbo1B2CEXkqUga cVXzSaVnxMF9cQ2uXPob rtyvk5fuktgvKelwl9ee fy69hN94A46eVFvb ZHRoPSIzMCUiIHZhbGln lc8gjK6qSs0+PGNvbCB3 kIY1aI8xHBMzDnJ4KJhc B028XcCrbYVlKlro l0uiz0hyjGy1MwE2TRCw lcVdwTfaPYN5e3KhDw31 N63hIUstVCRuNDClYXPg KSGrrAzvnq6czP4k Ii8+GLSrzMW2vKR5rH4c JsWwGiQ9RTtcL675ScTn mLBqEgfmC96uF4WcuDK+ QWUvVby2UJQzkGoy VA2tqPLiYNuoDg2vNCN0 NpHjWdFaHLloA6NgRMEy puoumkvbcNS4EERkRZVu bS83Id4qwWkhIQZl pXBTlO8xbfbuy4dfvivi YhEzGXFhAQj6SPc2PYQl uLhlRqEqJDL1DiQ5JIG0 pQTvgK3nxTuonrks nV0cX5TwXUKonxviZc13 uS9gEzJnRmF5WNcqZlj+ VZ3DHYZEMOsiHRtGAXkN IFNJRVJSQTwvdGQ+ AAIgTCZ4aVpkEDuqDJEs xL2bBTXwK3v1EzJwEaD8 LJxwZ6ZoHDMivwyjVu17 iM1gSxGyIsK5CBrf S6LegyV6ABIarDKlLUxu GZM9S10jj6L5JYEbGPQg MMU7vRA8zH6alAckwkyj bGVmdDsgdmVydGlj NHbgIBzlK681IOXypJzl AtEzNfTfGfZ3AOk8D0Sa Nxz4OEFbiVghIL7afGSf JRshBu0euVcukDax LB9wFIOgsjnpFYItmW8i JZKqsDQfyPrrBZ2hSYVl snacw631ThFoJKT0LDCu gNKdT1CxlL1pRcSl BXFjTLTuD0TqhYXgCPps H358PRizJbK1XJVxpjDa L5YaMLZdaUxdHaG9j0A3 Of3eHVIUQNTalsve dGQ+IDXsLMS1pFdkGStv EIPflM4eTQWhG4n4JeFs LwR4ROlcD3YrHRKkeaqx St91nK5pMlWkWgF9 DHvqH4WlpbQ5EGVjcJNw JEhkYMW2L54iu7P6RAFa GCWtDCC5wXF9pM6cxBjs bjogbGVmdDsgdmVy uYyqVLurQGcrJ996GFNy cDsnPkZFTUFMRTwvdGQ+ TTJwJFV8bFjkZJoiCFBo kD3jMOKwR1v0XzAh EfZ0OOmrT5FsDEZhxlqr Xr79eP1rIvMgOiJ9BGgc V5OglpB7VXFirHVmPPso RLS3R97tz2U8DWMy EXIpASV2vJS8pY3fmKeb bjogbGVmdDsgdmVydGlj PCimMJtgA296FKUpqQfk Ey5FON02LK08J3Vg PjwvdGFibGU+PHRhYmxl IHdpZHRoPScxMDAlJyBz iSznNK9dSl8iGSIpODYp fTcikAXrSxLmp0zc KGEoGKvtJS9vkPzfV0Oa rJH5AOTsh7r0Jn75S66t O0HjvAP+INYffPM9kBF9 eP1tBeZjRwY3NCum P940IlOvzHIaSnzaw3ug b5ermAs4ZoRpMATpdrLy mQwgGFK6o0XrUp43K12x IHdpZHRoPSIyMCUi QMAtmPjgwy1tkR9sTb2+ KGWopBP8pIT3hC2dPeCd LmM4RZtlW668QfRvwMVu XdfcE76oW8XpdWB+ UZNyPge5COVkkImxDK5b wJUgUJuzYf9wFWM6SrXr SaDnKXebM4UoRTFfjmpb qzyhwSU3ZWKwMMNn hP54Ei7bgGqoUt8dCTUz BJM0UVYoqPJvX6FysL3f MkAqXOYsADElQ1PstQGs WBjaG872QQnoVaA8 PJVlnyGhR7AcZMHzoEsf TeF2q6O2Jf0VhCmzsRUu ZO8xOnKfITj0Q8XdVxq3 IRVcjAtiBN6yxGSm LKhhWn0ubItelXatKN8p SRPndphgq246HrTso5yb OXJkkJMkRBdhXGQ3O54u j0H3JBZaJBBzSUX4 yYY0xB5ygSwyosngvMHo dDsgdmVydGljYWwtYWxp P847MEUhuSdmYcDAWwk4 D9WcZpr2GWHxqNob JU2grMPlLTbjWu3ctOqc aJnuBH7dKDPuifqnu495 NpLht3cbCZVcaTEnKMys XNW6K04nx0A9OAUi YHOpAUZ2uTX2qQ7ekWfk bjogbGVmdDsgdmVydGlj RRaqVDyuC439QRFinPud Kb2BLdq0U2NoKmv0 UFNorYnlVK5jkLXrAOxa Pr7tkKdpdVjqKR8iROWo urbit471LtDkj7ipWUAw pUQnAYodZNB3A99r p9I8CPOrVNRfBXQ8hJD2 gJ1uaQfyracvnWQkxXhn nuCscMuqVEfjNDlqK522 IHRvcDsnPlBheWVy OjwvdGQ+XG53qn06M3Rb JrycGrk2APKuKTH5hHV6 tI7wBAOnZFbeo3F7eXA5 M1LadsZbrx1sj0bp YXB (more content not included)... [facility] Provider Orderson 01-12-2024 Provider Orders [id number] [facility] COVID-19, Rapidon 10-14-2022 SARS-CoV-2 (COVID-19) RNA AMANDO+probe Ql (Unsp spec) Not detected Not Detected [facility] Comment on above: Rapid NAAT: [...] management decisions. Fact sheet for Healthcare Providers: https://www.fda.gov/media/501585/download Fact sheet for Patients: https://www.fda.gov/media/943915/download Methodology: Isothermal Nucleic Acid Amplification Specimen Description .NASOPHARYNGEAL SWAB [facility] Rapid influenza A/B antigens on 10-14-2022 Flu A Antigen Negative NEGATIVE [facility] Check-Cap Comment on above: for Influenza A Anti gen Flu B Antigen Negative NEGATIVE [facility] Check-Cap Comment on above: for Influenza B Anti gen. [facility] Check-Cap Vital Signs Date Time Vital Sign Value Performing Clinician Facility 02-01-2024 09:09-0400 Body weight 157.8528 kg Justine YANEZ [place] [facility] Comment on above: Result Comment: Not provided. Performed By: #### [id number] #### [facility] (DEFAULT) [address] [place] [address] 06-23-2023 10:35-0400 Body height 167.64 cm Jossie Krueger Other [facility] Other 06-23-2023 10:35-0400 Body mass index (BMI) [Ratio] 50.03 kg/m2 Jossie Krueger Other [facility] Other 06-23-2023 10:35-0400 Body temperature 98.3 [degF] Jossie Krueger Other [facility] Other 06-23-2023 10:35-0400 Body weight 140.62 kg Jossie Krueger Other [facility] Other 06-23-2023 10:35-0400 Diastolic blood pressure 90 mm[Hg] Jossie Krueger Other [facility] Other 06-23-2023 10:35-0400 Respiratory rate 18 /min Jossie Krueger Other [facility] Other 06-23-2023 10:35-0400 SaO2% (BldA) [Mass fraction] 97 % Jossie Krueger Other [facility] Other 06-23-2023 10:35-0400 Systolic blood pressure 147 mm[Hg] Jossie Krueger Other [employer] Other 10-14-2022 18:16-0500 Body height 165.1 cm John Hastings DO Work Phone: [employer] 10-14-2022 18:16-0500 Body mass index (BMI) [Ratio] 52.92 kg/m2 John Hastings DO Work Phone: [employer] 10-14-2022 18:16-0500 Body temperature 98.29 [degF] John Hastings DO Work Phone: [employer] 10-14-2022 18:16-0500 Body weight 144.24 kg John Hastings DO Work Phone: [employer] 10-14-2022 18:16-0500 Diastolic blood pressure 96 mm[Hg] John Hastings DO Work Phone: [employer] 10-14-2022 18:16-0500 Heart rate 94 /min John Hastings DO Work Phone: [employer] 10-14-2022 18:16-0500 Respiratory rate 18 /min John Hastings DO Work Phone: [employer] 10-14-2022 18:16-0500 SaO2% (BldA) [Mass fraction] 95 % John Hastings DO Work Phone: [employer] 10-14-2022 18:16-0500 Systolic blood pressure 138 mm[Hg] Venkata IBRAHIM Work Phone: [employer] 10-05-2022 23:14-0500 Body height 165.1 cm Chapin Lee MD Work Phone: [employer] 10-05-2022 23:14-0500 Body mass index (BMI) [Ratio] 53.47 kg/m2 Chapin Lee MD Work Phone: [employer] 10-05-2022 23:14-0500 Body temperature 98.4 [degF] Chapin Lee MD Work Phone: [facility] [employer] 10-05-2022 23:14-0500 Body weight 145.74 kg Chapin Lee MD Work Phone: [facility] [employer] 10-05-2022 23:14-0500 Diastolic blood pressure 87 mm[Hg] Chapin Lee MD Work Phone: [employer] 10-05-2022 23:14-0500 Heart rate 86 /min Chapin Lee MD Work Phone: [facility] [employer] 10-05-2022 23:14-0500 Respiratory rate 18 /min Chapin Lee MD Work Phone: [facility] [employer] 10-05-2022 23:14-0500 SaO2% (BldA) [Mass fraction] 99 % Chapin Lee MD Work Phone: [facility] 10-05-2022 23:14-0500 Systolic blood pressure 146 mm[Hg] Chapin Lee MD Work Phone: [employer] Encounters Encounter Date Encounter Type Care Provider Facility Start: 05-09-2024 End: 05-09-2024 ambulatory Viral Galindo Facility:[facility] Start: 05-07-2024 End: 05-07-2024 ambulatory JOE WOOD Not Available Start: 04-19-2024 End: 04-19-2024 ambulatory JUSTINE CALLAHAN Not Available Start: 04-11-2024 End: 04-11-2024 ambulatory JUSTINE CALLAHAN Not Available Start: 04-10-2024 End: 04-12-2024 [facility] Start: 04-09-2024 End: 04-09-2024 Emergency department patient visit SARKIS JAY [facility] Start: 04-04-2024 End: 04-04-2024 ambulatory JOE TRICIA Not Available Start: 03-21-2024 End: 03-21-2024 ambulatory JOE TRICIA Not Available Start: 03-07-2024 End: 03-07-2024 ambulatory JOE TRICIA Not Available Start: 02-08-2024 End: 02-08-2024 ambulatory JOE TRICIA Not Available Start: 01-16-2024 End: 01-16-2024 ambulatory JUSTINE CALLAHAN Not Available Start: 01-12-2024 End: 01-12-2024 ambulatory Justine [place] Facility:[facility] Start: 01-10-2024 End: 01-10-2024 ambulatory JUSTINE SINDY Not Available Start: 12-13-2023 End: 12-13-2023 ambulatory JOE TRICIA Not Available Start: 11-11-2023 End: 11-11-2023 ambulatory JOE TRICIA Not Available Start: 10-27-2023 End: 10-27-2023 Office outpatient visit 5 minutes [facility] Tricia Nurse [facility] Comment on above: Canceled (Provider) Start: 06-23-2023 End: 06-23-2023 ambulatory Jossie Krueger Other [facility] Other Start: 06-23-2023 Office outpatient ne w 30 minutes Jossie Krueger [facility] Start: 10-14-2022 End: 10-14-2022 Emergency department patient visit John Hastings DO Work Phone: [facility] Comment on above: Viral URI with cough (Primary Dx) Start: 10-05-2022 End: 10-06-2022 Emergency department patient visit Chapin Lee MD Work Phone: [facility] Comment on above: Plantar fasciitis (P rimary Dx) Procedures Date Procedure Procedure Detail Performing Clinician Start: 10-14-2022 COVID-19, RAPID John Jade DO Work Phone: Start: 10-14-2022 [place]oo influenza Vadim Hastings DO Work Phone: Plan of Treatment Date Care Activity Detail Author Start: 11-11-2023 End: 11-11-2023 ambulatory 11/11/2023 11:00 AM EST Initial [facility] [address] [place] [id number] [facility] Start: 11-11-2023 End: 11-11-2023 Professional / ancillary services management 11/11/2023 10:30 AM EST Ancillary Procedure [facility] [address] [place] [id number] [facility] Start: 10-27-2023 End: 10-27-2024 US Pelvis transvaginal US OB transvaginal Imaging Routine Missed menses Expected: 10/27/2023 (Approximate), Expires: 10/27/2024 [facility] Work Phone: Comment on above: Expected: 10/27/2023 (Approximate), Expires: 10/27/2024 Start: 04-26-2022 Influenza vaccination Flu vaccine (# 1) [facility] Start: 11-17-2021 DTaP/Tdap/Td vaccine (7 - Td or Tdap) DTaP/Tdap/Td vaccine (7 - Td or Tdap) [facility] Start: 01-15-2000 COVID-19 Vaccine (#1) COVID-19 Vacci ne (#1) [facility] Payers Date Payer Category Payer Medicaid [id number] 2022 Unknown [id number] 2019 Medicare [id number]. [id number] 1999 Unknown [id number] 2.16.8 [id number] 1999 Unknown [id number] 2.16.8 40.1.195917.3.579.2.174 1999 Unknown [id number] 2.16.84 0.1.584878.3.579.2.1259 1999 Unknown [id number] 2.16.84 0.1.904314.3.579.2.1259 1999 Unknown [id number] 2.16.84 0.1.713910.3.579.2.1259 1999 Unknown [id number] 2.16.84 0.1.299389.3.579.2.1259 1999 Unknown [id number] 2.16.84 0.1.684982.3.579.2.1259 1999 Unknown [id number] 2.16.84 0.1.451952.3.579.2.1259 1999 Unknown [id number] 2.16.84 0.1.678816.3.579.2.1259 1999 Unknown [id number] 2.16.84 0.1.204364.3.579.2.1259 1999 Unknown [id number] 2.16.84 0.1.588536.3.579.2.1259 1999 Unknown [id number] 2.16.84 0.1.080329.3.579.2.1259 1999 Unknown [id number] 2.16.84 0.1.805360.3.579.2.1259 1999 Unknown [id number] 2.16.8 40.1.392425.3.579.2.718 1999 Unknown [id number] 2.16.8 40.1.100850.3.579.2.718 Social History Date Type Detail Facility Start: 10-05-2022 Tobacco smoking status CAIS Smokes tobacco daily [facility] Phone: History of tobacco use Cigarette Smoker [facility] Phone: Start: 10-05-2022 End: 10-14-2022 Cigarettes smoked current (pack per day) - Reported 1 [facility] Phone: Start: 10-05-2022 Tobacco use and exposure Smokeless tobacco non-user [facility] Phone: Start: 10-05-2022 End: 10-14-2022 Alcohol intake Current drinker of alcohol (finding) [facility] Phone: Start: 10-05-2022 Alcohol Comment in a month [facility] Phone: Start: 2000 Sex Assigned At Not on file [facility] Phone: Start: 09-25-2022 End: 10-14-2022 Exposure to SARS-CoV-2 (event) Not sure [facility] Phone: Start: 10-14-2022 History SDOH Alcohol Frequency 1 [facility] Phone: Start: 10-14-2022 History SDOH Alcohol Std Drinks 0 [facility] Phone: Sex Assigned At Sex Assigned At [facility] Other Tobacco smoking stat [facility] Tobacco smoking consumption unknown [facility] [...] understanding and is agreeable to treatment plan [facility] Other Evaluation note Note Date & Type Note Facility Evaluation note Diagnosis Plantar fasciitis- Primary Plantar fascial fibromatosis documented in this encounter [facility] Phone: Evaluation note Note Date & Type Note Facility Evaluation note Diagnosis Viral URI with cough- Primary Acute upper respiratory infections of unspecified site documented in this encounter [facility] Phone: Evaluation note Note Date & Type Note Facility Evaluation note Diagnosis Missed menses documented in this encounter [facility] History general Narrative - Reported Note Date & Type Note Facility History general Narrative - Reported Type Surgical History wisdom teeth [facility] Other Hospital Discharge instructions Attachments Note Date & Type Note Facility Hospital Discharge instructions The following attachments cannot be sent through Care Everywhere.Plantar Fasciitis (Egyptian)documented in this encounter [facility] Phone: Hospital Discharge instructions Attachments Note Date & Type Note Facility Hospital Discharge instructions The following attachments cannot be sent through Care Everywhere.URI (Upper Respiratory Infection) (Egyptian)documented in this encounter [facility] Phone: Summary Purpose Family History No Family [...] Care Teams (unrecognized sec tion and content) Legal Assistant Relationship Specialty Start Date End Date Viral Galindo MD [address] [place] [address] PCP - General Pediatrics 10/27/23 INFORMATION SOURCE (unrecogn ized section and content) DATE CREATED AUTHOR 04/13/2024 [facility] DATE CREATED AUTHOR AUTHOR'S ORGANIZ ATION 05/09/2024 [facility] DATE CREATED AUTHOR AUTHOR'S ORGANIZ ATION 05/10/2024 [facility] FOR RECORDS PERTAINING TO PATIENTS WHO [...] BE BASED ON THE PRIMARY CLINICAL RECORDS. [employer] provides no warranty or guarantee of the accuracy or completeness of information in this document.
[2024-05-15 12:40] LABS: Basophils Percent Auto 0.2 % (0.2-2.0); Eosinophils Absolute Auto 0.1 10^3/uL (0.0-0.7); Hematocrit 36.4 % (36.0-48.0); Hemoglobin 12.1 g/dL (12.0-16.0); Immature Granulocytes Abs Auto 0.03 10^3/uL (0.00-0.03); Immature Granulocytes Pct Auto 0.3 % (0.0-0.5); Lymphocytes Absolute Auto 2.2 10^3/uL (1.2-3.8); Lymphocytes Percent Auto 20.8 % (20.5-60.0); Mean Corpuscular HGB Conc 33.2 g/dL (29.9-35.2); Mean Corpuscular Hemoglobin 29.6 pg (26.7-34.0); Mean Platelet Volume 11.3 fL (9.5-13.5); Monocytes Absolute Auto 0.6 10^3/uL (0.3-0.8); Monocytes Percent Auto 5.2 % (1.7-12.0); Neutrophils Absolute Auto 7.6 10^3/uL (1.4-6.5); Neutrophils Percent Auto 72.5 % (43.0-75.0); Platelet Count 271 10^3/uL (150-450); Red Blood Count 4.09 10^6/uL (4.20-5.40); Red Cell Distribution Width 14.1 % (11.0-15.0); White Blood Count 10.5 10^3/uL (4.0-11.0)
[2024-05-15 12:46] VITALS: BP 135/78; PULSE 87
[2024-05-15 12:57] LABS: Alanine Aminotransferase 28 U/L (14-59); Aspartate Amino Transferase 16 U/L (15-37); Estimated GFR (African America >60 (>=60); Estimated GFR (Non-African Ame >60 (>=60); Uric Acid 3.9 mg/dL (2.6-6.0)
[2024-05-15 13:20] LABS: Partial Thromboplastin Time 26.9 sec (22.3-36.2); Prothrombin Time 9.8 sec (9.0-11.6)
[2024-05-15 13:26] LABS: INR <0.93
[2024-05-15 13:27] LABS: Fibrinogen 537 mg/dL (200-400)
[2024-05-15 13:37] VITALS: BP 140/68; PULSE 77
--- NOTE | 2024-05-15 14:33 | PC.NURSE ---
states headache is getting worse, affected by light, rates 4, telephone call into office awaiting response-denies visual disturbances
[2024-05-15] MEDS: ACETAMINOPHEN 500 MG TABLET 1000 MG PO (14:55)
[2024-05-15 14:58] VITALS: BP 148/67; PULSE 96
[2024-05-15 15:12] LABS: Creatinine Urine Random 93.62 mg/dL (20.00-300.00); Total Protein Urine Random 37.4 mg/dL (<=11.9)
--- NOTE | 2024-05-15 15:14 | PC.NURSE ---
Medicated with tylenol and bp rechecked, plan of care reviewed with physician
[2024-05-15 15:55] VITALS: BP 142/84; PULSE 85
--- NOTE | 2024-05-15 16:13 | PC.NURSE ---
states headache is better, bp rechecked and reviewed labs
[2024-05-15 17:36] VITALS: BP 139/65; PULSE 80
--- NOTE | 2024-05-15 17:48 | PC.NURSE ---
1730 denies needs or complaints
== END 2024-05-15 18:27 | disposition home or self-care (01) ==
PROVIDERS: Admitting Provider Obstetrics & Gynecology; PCP Family Medicine; Visit Provider Obstetrics & Gynecology
DX: O16.3 Unspecified maternal hypertension, third trimester (principal); O26.893 Other specified pregnancy related conditions, third trimester; R51.9 Headache, unspecified; Z3A.37 37 weeks gestation of pregnancy
CPT/HCPCS: 36415; 59025; 82565; 82570; 84156; 84450; 84460; 84520; 84550; 85025; 85384; 85610; 85730; G0378; G0379